=== PATIENT | female | born 1945 | race African-American/Black ===

== ENCOUNTER 2017-06-10 15:22 | Inpatient (IN) | payer OTHER ==
--- NOTE | 2017-06-10 15:46 | PDOC ---
History of Present Illness - General Chief Complaint: Injury Stated Complaint: FALL Time Seen by Provider: 06/10/17 15:45 - History of Present Illness Initial Comments: 71 year old female with history of Alzheimer's presenting with right hip pain after fall. 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 Her daughter states that she fell outside while walking when she became acutely unstable (appears to be mechanical as the patient was complaining of some right back pain and became hunched over). The patient then slowly fell to her right side and could not stand after that. The patient admitted to soiling herself during the fall. No tonic-clonic movements, syncope, or head trauma. Denies any fevers, chills, nausea, vomiting, or sick symptoms. 06/10/17 16:06 Past History - Past Medical History Allergies/Adverse Reactions: Allergies Allergy/AdvReac Type Severity Reaction Status Date / Time No Known Allergies Allergy Verified 04/08/13 20:24 Home Medications: Ambulatory Orders Unobtainable [Unobtainable] 06/10/17 Anemia: No - Suicide/Smoking/Psychosocial Hx Smoking Status: No Smoking History: Never smoked Number of Cigarettes Smoked Daily: 0 Review of Systems - Review of Systems Constitutional: No: Chills, Diaphoresis, Fever HEENTM: No: Blurred Vision, Tearing, Recent change in vision Respiratory: No: Cough, Shortness of Breath Cardiac (ROS): No: Chest Pain ABD/GI: No: Constipated, Diarrhea, Nausea, Vomiting : No: Burning, Dysuria, Discharge Musculoskeletal: Yes: Back Pain Integumentary: No: Bruising, Change in Color Neurological: No: Headache, Paresthesia *Physical Exam - Physical Exam General Appearance: Yes: Nourished, Appropriately Dressed, Apparent Distress HEENT: positive: EOMI, KOBE, Normal ENT Inspection, Normal Voice Neck: positive: Trachea midline, Normal Thyroid, Supple. negative: Tender, Rigid Respiratory/Chest: positive: Lungs Clear, Normal Breath Sounds. negative: Chest Tender, Respiratory Distress, Accessory Muscle Use Cardiovascular: positive: Regular Rhythm, Regular Rate, S1, S2. negative: Edema , JVD, Murmur Gastrointestinal/Abdominal: positive: Normal Bowel Sounds, Flat, Soft. negative : Tender Musculoskeletal: positive: Other (Right hip externall rotated and shortened. Also tender at right knee. UNable to range actively or passively 2/2 to pain. Left leg almost full ROM.). negative: Normal Inspection Extremity: positive: Normal Inspection. negative: Normal Range of Motion Integumentary: positive: Normal Color, Dry, Warm Neurologic: positive: washery engineer II-XII NML intact, Alert, Normal Mood/Affect, Confused (Per baseline. AO x 0). negative: Fully Oriented, Normal Response ED Treatment Course - LABORATORY CBC & Chemistry Diagram: 06/10/17 16:43 06/10/17 16:43 Medical Decision Making - Medical Decision Making 71 year odl female who is alert but very disoriented at her baseline per her daughter with a shortened and externally rotated right hip after a fall concerning for right hip fracture. Unclear as to why she was unstable and fell but will look for underlying infection and will get a head CT for intracranial hemorrhage. 06/10/17 16:37 X ray showing hip fracture. WBC 18 with let shift but no urinary or pulmonary source. Will admit patient to tele under Shelly with Christopher bnoth spoken with and onboard for potential surgery tomorrow AM. 06/10/17 20:02 06/10/17 20:34 *DC/Admit/Observation/Transfer Diagnosis at time of Disposition: Closed right hip fracture - Discharge Dispostion Admit: Yes
[2017-06-10] MEDS ORDERED: morphine CARPU-JECT 2 MG/1 ML DISP.SYRIN IVPUSH ONE ×2 (16:44→23:11)
[2017-06-10 17:01] LABS: BASOPHIL 0.3 % (0-2.0); EOSINOPHIL 0.1 % (0-4.5); MCH 26.4 pg (25.7-33.7); MEAN CELL VOLUME 82.6 fl (80-96); MEAN PLT VOLUME 9.4 fl (7.5-11.1); NEUTROPHILS 86.1 % (42.8-82.8); PLATELET COUNT 297 K/MM3 (134-434); RDW 14.9 % (11.6-15.6); WHITE BLOOD COUNT 18.4 K/mm3 (4.0-10.0)
[2017-06-10] MEDS ORDERED: morphine CARPU-JECT 2 MG/1 ML DISP.SYRIN ONE ×2 (17:10→23:27)
[2017-06-10] MEDS ORDERED: SODIUM CHLORIDE 1,000 ML IV SCH (17:45)
[2017-06-10 17:46] VITALS: BMI 29.2
[2017-06-10 17:49] LABS: ALBUMIN 3.6 g/dl (3.4-5.0); ALK PHOS 61 U/L (45-117); ANION GAP 7 (8-16); BILIRUBIN,TOTAL 0.2 mg/dL (0.2-1.0); CALCIUM 9.3 mg/dL (8.5-10.1); CO2 26 mmol/L (21-32); GLUCOSE,RANDOM 120 mg/dL (74-106); MAGNESIUM 2.3 mg/dL (1.8-2.4); PHOSPHOROUS 1.8 mg/dL (2.5-4.9); SGOT/AST 15 U/L (15-37); SGPT/ALT 19 U/L (12-78); TOT PROT 7.2 g/dl (6.4-8.2)
[2017-06-10 17:49] LABS: URINE APPEARANCE SLCLOUDY; URINE BILIRUBIN NEGATIVE (NEGATIVE); URINE BLOOD NEGATIVE (NEGATIVE); URINE COLOR DKYELLOW; URINE GLUCOSE (UA) NEGATIVE (NEGATIVE); URINE KETONE TRACE (NEGATIVE); URINE LEUK ESTERASE NEGATIVE (NEGATIVE); URINE NITRITE NEGATIVE (NEGATIVE); URINE UROBILINOGEN NEGATIVE mg/dL (0.2-1.0)
[2017-06-10 17:51] LABS: URINE PROTEIN 2+ (NEGATIVE)
[2017-06-10 17:54] LABS: URINE HYALINE CAST 4 /lpf; URINE MUCUS MANY; URINE RBC 7 /hpf (0-3); URINE WBC 4 /hpf (3-5)
[2017-06-10 18:04] LABS: INR 1.01 (0.82-1.09); PROTHROMBIN TIME (PATIENT) 11.1 SEC (9.98-11.88)
--- NOTE | 2017-06-10 22:59 | PDOC ---
Attending Attestation - Resident Resident Name: FredaLevicarlosvijaya - ED Attending Attestation I have performed the following: I have examined & evaluated the patient, The case was reviewed & discussed with the resident, I agree w/resident's findings & plan, Exceptions are as noted - HPI HPI: 06/10/17 22:56 71-year-old female with history of Alzheimer's disease presents to the ER with atraumatic deformity to the right hip status post fall. - Physicial Exam PE: 06/10/17 22:57 Patient is awake and alert, in mild to moderate distress; nc, atr perrla, eomi cta rrr pelvis: stable Right lower extremity is shortened and externally rotated with pain on log roll and attempted internal rotation; neurovascularly intact distally, gait-deferred. - Medical Decision Making 06/10/17 22:58 Patient is a 71-year-old female with history of Alzheimer's disease who presents to the ER with traumatic deformity of the right lower extremity. CT of head shows no evidence of acute intracranial pathology. Hip and pelvic x-rays reveal angulated surgical neck fracture of the right femur. Orthostatic has been consulted. Will Pl., Fofana catheter. Will hydrate. Will admit.
[2017-06-10] MEDS ORDERED: DEXTROSE 5%-0.45% SALINE 1,000 ML IV SCH (23:15)
[2017-06-11] MEDS ORDERED: ACETAMINOPHEN 325 MG TABLET (FP) PO PRN (06:37)
[2017-06-11] MEDS ORDERED: ONDANSETRON 4 MG/2 ML VIAL IVPUSH PRN ×3 (06:37→18:30)
[2017-06-11] MEDS ORDERED: DEXTROSE 5%-NORMAL SALINE 1,000 ML IV SCH ×2 (06:45→18:30)
[2017-06-11 07:35] LABS: MCH 26.2 pg (25.7-33.7); MEAN PLT VOLUME 9.2 fl (7.5-11.1); PLATELET COUNT 244 K/MM3 (134-434); RDW 14.5 % (11.6-15.6); WHITE BLOOD COUNT 13.8 K/mm3 (4.0-10.0)
[2017-06-11 08:02] LABS: ALBUMIN 3.1 g/dl (3.4-5.0); ANION GAP 7 (8-16); CALCIUM 8.4 mg/dL (8.5-10.1); CO2 24 mmol/L (21-32); CREATININE 0.8 mg/dL (0.55-1.02); GLUCOSE,RANDOM 121 mg/dL (74-106); SGOT/AST 18 U/L (15-37); SGPT/ALT 18 U/L (12-78)
[2017-06-11 08:05] LABS: ALK PHOS 59 U/L (45-117); BILIRUBIN,TOTAL 0.6 mg/dL (0.2-1.0); TOT PROT 6.5 g/dl (6.4-8.2)
[2017-06-11] MEDS ORDERED: morphine CARPU-JECT 2 MG/1 ML DISP.SYRIN ONE ×2 (08:21→13:02)
[2017-06-11] MEDS: morphine CARPU-JECT 2 MG/1 ML DISP.SYRIN IVPUSH PRN ×2 (08:24→13:17)
--- NOTE | 2017-06-11 09:44 | PN ---
Progress Note (short form) - Note Progress Note: Pt seen and examined in ER. She is 1 day s/p fall, cannot ambulate bc of right hip pain. She denies any significant PMH, not on any anticoagulants. AVSS PE RLE is NVI Decreased ROM entire RLE bc of pain + pain with log rolling RLE in hip Xrays Show a displaced right femoral neck fracture Imp As above. Rec Pt needs surgery, right hip hemiarthroplasty All questions, concerns, risks, potential complications, alternatives, benefits d/w pt Need medical clearance NPO
[2017-06-11] MEDS ORDERED: HEPARIN NA (PORCINE) 5,000 UNITS/ML 1ML VIAL SQ SCH (10:00)
--- NOTE | 2017-06-11 10:17 | HP ---
Admitting History and Physical - Primary Care Physician PCP: Austin Bravo - Admission Chief Complaint: HIP FRACTURE History of Present Illness: 71 year old female with history of Alzheimer's presenting with right hip pain after fall. 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 Her daughter states that she fell outside while walking when she became acutely unstable (appears to be mechanical as the patient was complaining of some right back pain and became hunched over). The patient then slowly fell to her right side and could not stand after that. The patient admitted to soiling herself during the fall. No tonic-clonic movements, syncope, or head trauma. Denies any fevers, chills, nausea, vomiting, or sick symptoms. History Source: Medical Record Limitations to Obtaining History: Dementia, Poor Historian - Past Medical History FISHER LAMPARA NET: Yes: Alzheimer's, Dementia - Smoking History Smoking history: Never smoked Have you smoked in the past 12 months: No Aproximately how many cigarettes per day: 0 If you are a former smoker, when did you quit?: UNK - HX DEMENTIA - Alcohol/Substance Use Hx Alcohol Use: No Home Medications - Allergies Allergies/Adverse Reactions: Allergies Allergy/AdvReac Type Severity Reaction Status Date / Time No Known Allergies Allergy Verified 06/10/17 23:24 - Home Medications Home Medications: Ambulatory Orders Donepezil HCl [Aricept -] 10 mg PO DAILY 06/10/17 Escitalopram Oxalate [Lexapro -] 10 mg PO DAILY 06/10/17 Review of Systems - Review of Systems Constitutional: reports: Weakness Eyes: reports: No Symptoms HENT: reports: No Symptoms Neck: reports: No Symptoms Cardiovascular: reports: No Symptoms Respiratory: reports: No Symptoms Genitourinary: reports: No Symptoms Musculoskeletal: reports: Joint Pain, Muscle Weakness Integumentary: reports: No Symptoms Neurological: reports: Confusion, Pre-Existing Deficit Endocrine: reports: No Symptoms Hematology/Lymphatic: reports: No Symptoms Psychiatric: reports: Other Physical Examination Vital Signs: Vital Signs Temperature 99.2 F 06/10/17 17:51 Pulse Rate 66 06/11/17 02:20 Respiratory Rate 18 06/11/17 02:20 Blood Pressure 116/67 06/11/17 02:20 O2 Sat by Pulse Oximetry (%) 97 06/11/17 02:20 Findings/Remarks: FAMILY BEDSIDE AWAKE , CONFUSED Constitutional: Yes: Mild Distress Eyes: Yes: WNL HENT: Yes: WNL Neck: Yes: WNL Cardiovascular: Yes: WNL Respiratory: Yes: WNL Gastrointestinal: Yes: WNL Renal/: Yes: WNL Musculoskeletal: Yes: Back Pain, Joint Stiffness, Joint Swelling, Muscle Pain, Muscle Weakness Extremities: Yes: Other Edema: No Peripheral Pulses WNL: Yes Integumentary: Yes: WNL Wound/Incision: Yes: Clean/Dry Neurological: Yes: Confusion, Pre-Existing Deficit ...Motor Strength: LLE, RLE Psychiatric: Yes: Other Labs: CBC, BMP 06/11/17 07:20 06/11/17 07:20 Imaging - Results X-ray: Report Reviewed Problem List - Problems (1) Closed right hip fracture Code(s): S72.001A - FRACTURE OF UNSP PART OF NECK OF RIGHT FEMUR, INIT Qualifiers: Encounter type: initial encounter Qualified Code(s): S72.001A - Fracture of unspecified part of neck of right femur, initial encounter for closed fracture (2) Dementia Code(s): F03.90 - UNSPECIFIED DEMENTIA WITHOUT BEHAVIORAL DISTURBANCE Qualifiers: Dementia type: Alzheimer's disease Alzheimer's disease onset: unspecified onset Dementia behavioral disturbance: without behavioral disturbance Qualified Code(s): G30.9 - Alzheimer's disease, unspecified; F02.80 - Dementia in other diseases classified elsewhere without behavioral disturbance Assessment/Plan ECHO AND EKG FOR CARDIAC CLEARANCE PENDING ECHO PATIENT MEDICALLY CLEARED SCHEDULED FOR SURGICAL REPAIR TODAY AT 3PM WITH DR MCDERMOTT DVT PROPHYLAXIS CARDIOLOGY EVAL
--- NOTE | 2017-06-11 12:35 | CON.CARD ---
Consult Consult Specialty:: cardiology Referred by:: Shelly Reason for Consultation:: Preoperative evaluation - History of Present Illness Chief Complaint: Status post fall resulting in right femur fracture History of Present Illness: The patient is a 71-year-old female with Alzheimer's dementia, now presenting after a fall, sustaining a right femur fracture. The patient will likely require surgery. As per the patient's aide she was walking with the patient, when she suddenly lost her balance, tripped and fell. The patient is currently comfortable. Denies chest pains, shortness of breath, palpitations. She is alert and follow commands. - History Source History Provided By: Medical Record, Caregiver Limitations to Obtaining History: Dementia - Past Medical History FOLLOW UP REP: Yes: Alzheimer's, Dementia - Alcohol/Substance Use Hx Alcohol Use: No - Smoking History Smoking history: Never smoked Have you smoked in the past 12 months: No Aproximately how many cigarettes per day: 0 If you are a former smoker, when did you quit?: UNK - HX DEMENTIA Home Medications - Allergies Allergies/Adverse Reactions: Allergies Allergy/AdvReac Type Severity Reaction Status Date / Time No Known Allergies Allergy Verified 06/10/17 23:24 - Home Medications Home Medications: Ambulatory Orders Donepezil HCl [Aricept -] 10 mg PO DAILY 06/10/17 Escitalopram Oxalate [Lexapro -] 10 mg PO DAILY 06/10/17 Review of Systems - Review of Systems Constitutional: reports: No Symptoms Eyes: reports: No Symptoms HENT: reports: No Symptoms Neck: reports: No Symptoms Cardiovascular: reports: No Symptoms Respiratory: reports: No Symptoms Gastrointestinal: reports: No Symptoms Genitourinary: reports: No Symptoms Breasts: reports: No Symptoms Reported Musculoskeletal: reports: Extremity Pain Integumentary: reports: No Symptoms Neurological: reports: No Symptoms Endocrine: reports: No Symptoms Hematology/Lymphatic: reports: No Symptoms Psychiatric: reports: No Symptoms Vital Signs: Vital Signs Temperature 99.2 F 06/10/17 17:51 Pulse Rate 66 06/11/17 02:20 Respiratory Rate 18 06/11/17 02:20 Blood Pressure 116/67 06/11/17 02:20 O2 Sat by Pulse Oximetry (%) 97 06/11/17 02:20 Constitutional: Yes: Well Nourished, No Distress, Calm Eyes: Yes: WNL HENT: Yes: WNL Neck: Yes: WNL, Supple Respiratory: Yes: WNL, Regular, CTA Bilaterally Gastrointestinal: Yes: WNL, Normal Bowel Sounds, Soft Renal/: Yes: WNL Cardiovascular: Yes: WNL, Regular Rate and Rhythm JVD: No Carotid Bruit: No PMI: Non-Displaced Heart Sounds: Yes: S1, S2 Murmur: Yes: Systolic Murmur, Grade 2 Musculoskeletal: Yes: Other (Righgt Hip pain) Extremities: Yes: WNL Edema: No Peripheral Pulses WNL: Yes Integumentary: Yes: WNL Neurological: Yes: WNL ...Motor Strength: WNL Psychiatric: Yes: WNL - Other Data Labs, Other Data: CBC, BMP 06/11/17 07:20 06/11/17 07:20 INR, PTT INR 1.01 (0.82-1.09) 06/10/17 16:43 Assessment/Plan 71-year-old female with Alzheimer's dementia, presenting with what appears to be a mechanical fall, sustaining right femur fracture. Will likely need surgery. The patient is comfortable and symptom free. Denies chest pains and shortness of breath. The echocardiogram showed normal biventricular systolic function. No other clinically important findings noted on the echo. The patient is in sinus rhythm. There is no need for further cardiac workup at this point. The patient is medically optimized for orthopedic surgery, if deemed necessary. Please achieve good pain control perioperatively. Keep hemoglobin around 10.0, as possible. Please proceed with surgery as planned. Do not hesitate to call us PRN.
--- NOTE | 2017-06-11 14:37 | EKG ---
Test Reason : Blood Pressure : / mmHG Vent. Rate : 066 BPM Atrial Rate : 066 BPM P-R Int : 166 ms QRS Dur : 072 ms QT Int : 402 ms P-R-T Axes : 071 065 042 degrees QTc Int : 421 ms POOR DATA QUALITY, INTERPRETATION MAY BE ADVERSELY AFFECTED NORMAL SINUS RHYTHM NORMAL ECG WHEN COMPARED WITH ECG OF 08-APR-2013 23:26, NO SIGNIFICANT CHANGE WAS FOUND Confirmed by RADHA MELGOZA, JON ([id number]) on 06/11/2017 2:36:50 PM Referred By: Confirmed By:JON GARCIA MD
[2017-06-11] MEDS ORDERED: ceFAZolin SODIUM 1 GM VIAL ONE ×3 (14:38→22:52)
[2017-06-11] MEDS ORDERED: LACTATED RINGERS SOLUTION 1,000 ML IV SCH ×2 (15:00→18:30)
[2017-06-11] MEDS ORDERED: ROPIVACAINE HCL 0.5% 30ML VIAL ONE (15:15)
[2017-06-11] MEDS ORDERED: MIDAZOLAM HCL 2 MG/2 ML SINGLE DOSE VIAL ONE ×2 (15:18)
[2017-06-11] MEDS ORDERED: ceFAZolin SODIUM 1 GM VIAL IVPB ONE (16:20)
[2017-06-11] MEDS ORDERED: ePHEDrine SULFATE 50 MG/1 ML AMPULE ONE (16:51)
--- NOTE | 2017-06-11 17:34 | OP ---
Operative Note - Note: Operative Date: 06/11/17 Pre-Operative Diagnosis: right hip femoral neck fracture Operation: right hip hemiarthroplasty Implants: Mae Hip Hemiarthroplasty, Stem #4, Standard neck, 42mm head Surgeon: Pk Antony Clinical Team Lead: Luis Armando Steve Anesthesiologist/RIG SUPERVISOR: Andreas Dumont Anesthesia: Spinal, MAC Specimens Removed: femoral head Estimated Blood Loss (mls): 75 Drains, Volume Out (mls): 0 Blood Volume Replaced (mls): 0 Fluid Volume Replaced (mls): 700 Operative Report Dictated: Yes
[2017-06-11] MEDS ORDERED: oxyCODONE HCL 5 MG TABLET PO PRN (17:47)
[2017-06-11] MEDS ORDERED: DEXTROSE 5%-WATER - 50 ML IVPB ONE (22:52)
[2017-06-11] MEDS: CEFAZOLIN 1 GM in DEXTROSE 5%-WATER - 50 ML IVPB SCH (22:58)
[2017-06-11] MEDS ORDERED: CEFAZOLIN 1 GM/D5W 50 ML IVPB SCH (23:00)
[2017-06-12] MEDS ORDERED: DEXTROSE 5%-WATER - 50 ML IVPB ONE (06:44)
[2017-06-12] MEDS ORDERED: ceFAZolin SODIUM 1 GM VIAL ONE (06:44)
[2017-06-12] MEDS: CEFAZOLIN 1 GM in DEXTROSE 5%-WATER - 50 ML IVPB SCH (06:47)
[2017-06-12 07:28] LABS: MCH 26.6 pg (25.7-33.7); MCHC 32.7 g/dl (32.0-36.0); MEAN CELL VOLUME 81.4 fl (80-96); MEAN PLT VOLUME 9.2 fl (7.5-11.1); PLATELET COUNT 201 K/MM3 (134-434); RDW 14.3 % (11.6-15.6); WHITE BLOOD COUNT 10.1 K/mm3 (4.0-10.0)
--- NOTE | 2017-06-12 08:02 | SPEC ---
DATE OF OPERATION: 06/11/2017 PREOPERATIVE DIAGNOSIS: Right hip femoral neck fracture. POSTOPERATIVE DIAGNOSIS: Right hip femoral neck fracture. PROCEDURE: Right hip hemiarthroplasty. SURGEON: Pk Antony MD ACCREDITATION COORDINATOR: CHEL Vargas ANESTHESIOLOGIST: Andreas Dumont MD ANESTHESIA: Spinal anesthesia, block, sedation. DRAINS: None. COMPLICATIONS: None. FLUID REPLACEMENT: 700 mL. BLOOD LOSS: 75 mL. BLOOD GIVEN: None. SPECIMEN: Femoral head. IMPLANTS: [place] hip hemiarthroplasty number 4 stem, 42-mm head, standard neck. This patient is a 71-year-old female with a preoperative diagnosis of right hip displaced femoral neck fracture. After understanding the potential risks, complications, alternatives, and benefits of surgical versus nonsurgical treatment, the patient elected to undergo this procedure. Patient was brought to the operating room. Peripheral IV placed. IV sedation given. Ancef 1 g IV was given. Spinal anesthesia and a regional block were performed. The patient was placed into the fracture hip hemiarthroplasty table in the left lateral decubitus position with the right hip up towards the ceiling. Right lower extremity is prepped and draped in sterile fashion and standard posterolateral approach marked out with marking pen. The incision was made with a number 10 scalpel blade. Subcutaneous hemostasis was achieved with a Bovie cautery. Dissection then down through the adipose layers to the lateral fascia. This was incised longitudinally with the Bovie, and the Charnley retractor was placed into the wound. We then put the right leg into position of internal rotation which put tension on the short external rotators. The short external rotators and the posterior capsule were incised with a Bovie cautery. We were then able to dislocate the hip, bringing the broken femoral neck out through the wound. We put on the [place] Accolade femoral neck cutting guide using the Bovie to frandy our line and used the oscillating saw to cut the appropriate level. This level was at the level of the lesser trochanter where the fracture line extended to. This piece of bone was removed, and this exposed the femoral head. We were unable to get access to the head, it was so tight, and therefore a T-capsulotomy was made with the Bovie for later repair. This allowed us to gain access to the femoral head. The corkscrew was placed into the femoral head with the mallet and it was taken out. It would be a 42-mm head. The area was copiously irrigated and washed out, some small bone fragments removed. The left in place on purpose resection. Next, the femoral neck was exposed with the [id number] retractor and the Edilia retractor and first using a box stacker the hand reamers and the hand broaches, we put a size 6 femoral broach, it seemed to fit quite well, and there was no rotational instability. The calcar reamer was then placed over the broach, and a standard neck with a 42-mm head was placed. The hip was reduced; it had excellent suction, stability, leg length, and overall was quite happy with it in all planes. There was no instability, it was difficult to dislocate. We then were able to dislocate it, take out the trial prosthesis, irrigate the canal, and put in the real Mae accolade number 6 cementless Press-Fit femoral stem. I was able to Press-Fit it with a mallet down to the appropriate depth, this on the standard neck, and a 42 bipolar head was hit on with the mallet over the Hendrickson taper, it was held in place. I tried to pull off, I could not. I reduced it; it had excellent reduction, stability in all planes. Leg length again was checked and seemed to be excellent. The area was irrigated and washed out. The capsule was then closed with number 1 Tycron suture. The fascia was then closed with number 1 Tycron suture. Deep adipose layer also closed with number 1 Tycron, 2-0 Vicryl suture used to close the deep dermal layer, and final skin reapproximation was done with a running subcuticular 3-0 V-Loc suture. The area was then washed and dried and covered with Dermabond skin glue and Aquacel dressing. Total operative time was 50 minutes. Fluid replacement was 1000 mL Plasma-Lyte. Blood loss was 75 mL. The patient was completely stable throughout the case. The patient was brought down out of the lateral decubitus position into the supine position and transferred to a stretcher. X-rays were taken. The patient was brought to the recovery room in stable condition. The patient was completely stable throughout the case. There was minimal blood loss. There were no complications during the case. The patient tolerated the procedure well. Michaela [id number] MTDD
[2017-06-12 08:17] LABS: ALBUMIN 2.6 g/dl (3.4-5.0); ANION GAP 11 (8-16); CALCIUM 7.9 mg/dL (8.5-10.1); CO2 24 mmol/L (21-32); GLUCOSE,RANDOM 185 mg/dL (74-106)
[2017-06-12 08:20] LABS: ALK PHOS 55 U/L (45-117); BILIRUBIN,TOTAL 0.6 mg/dL (0.2-1.0); CREATININE 0.8 mg/dL (0.55-1.02); SGOT/AST 21 U/L (15-37); SGPT/ALT 16 U/L (12-78); TOT PROT 5.4 g/dl (6.4-8.2)
[2017-06-12] MEDS: morphine CARPU-JECT 2 MG/1 ML DISP.SYRIN IVPUSH PRN ×2 (08:23→14:24)
[2017-06-12] MEDS: ENOXAPARIN NA (PORCINE) 40 MG/0.4 ML DISP.SYRIN SQ SCH (09:16)
[2017-06-12] MEDS ORDERED: ENOXAPARIN NA (PORCINE) 40 MG/0.4 ML DISP.SYRIN SQ SCH (10:00)
--- NOTE | 2017-06-12 10:05 | PN ---
Progress Note (short form) - Note Progress Note: Ortho Pt seen and examined s/p right hip spenser pod #1 Selected Entries 06/12/17 08:29 Temperature 98.4 F Pulse Rate 74 Respiratory 18 Rate Blood Pressure 102/71 Laboratory Tests 06/12/17 05:35 WBC 10.1 H Hgb 9.8 L Hct 29.8 L Plt Count 201 dressing c/d/i, calf soft, nt nvi a/p PT hip precautions dvt ppx pain control d/c planning
--- NOTE | 2017-06-12 14:21 | PN ---
Progress Note, Physician Chief Complaint: ASLEEP COMFORTABLE REPORTS REVIEWED - Current Medication List Current Medications: Active Medications Acetaminophen (Tylenol -) 650 mg PO Q6H PRN PRN Reason: FEVER OR PAIN Enoxaparin Sodium (Lovenox -) 40 mg SQ DAILY ROB Last Admin: 06/12/17 09:16 Dose: 40 mg Fentanyl (Sublimaze Injection -) 25 mcg IVPUSH [id number] PRN PRN Reason: PAIN Stop: 06/14/17 17:51 Dextrose/Sodium Chloride (D5-Ns -) 1,000 mls @ 75 mls/hr IV ASDIR ROB Last Admin: 06/11/17 20:15 Dose: 0 mls Lactated Ringer's (Lactated Ringers Solution) 1,000 mls @ 75 mls/hr IV ASDIR ROB Morphine Sulfate (Morphine Injection -) 2 mg IVPUSH Q4H PRN PRN Reason: PAIN Last Admin: 06/12/17 08:23 Dose: 2 mg Ondansetron HCl (Zofran Injection) 4 mg IVPUSH Q6H PRN PRN Reason: NAUSEA AND/OR VOMITING Oxycodone HCl (Roxicodone -) 5 mg PO Q4H PRN PRN Reason: MILD PAIN Stop: 06/12/17 17:46 - Objective Vital Signs: Vital Signs Temperature 98.5 F 06/12/17 10:00 Pulse Rate 72 06/12/17 10:00 Respiratory Rate 20 06/12/17 10:00 Blood Pressure 110/75 06/12/17 10:00 O2 Sat by Pulse Oximetry (%) 99 06/12/17 10:00 Constitutional: Yes: No Distress Eyes: Yes: WNL HENT: Yes: WNL Neck: Yes: WNL Cardiovascular: Yes: WNL Respiratory: Yes: WNL Gastrointestinal: Yes: WNL Musculoskeletal: Yes: Muscle Pain Extremities: Yes: Other Edema: No Integumentary: Yes: WNL Wound/Incision: Yes: Dressing Dry and Intact Neurological: Yes: Confusion, Pre-Existing Deficit ...Motor Strength: RLE Psychiatric: Yes: Other Labs: CBC, BMP 06/12/17 05:35 06/12/17 05:35 INR, PTT INR 1.01 (0.82-1.09) 06/10/17 16:43 Problem List - Problems (1) Closed right hip fracture Code(s): S72.001A - FRACTURE OF UNSP PART OF NECK OF RIGHT FEMUR, INIT Qualifiers: Encounter type: initial encounter Qualified Code(s): S72.001A - Fracture of unspecified part of neck of right femur, initial encounter for closed fracture (2) Dementia Code(s): F03.90 - UNSPECIFIED DEMENTIA WITHOUT BEHAVIORAL DISTURBANCE Qualifiers: Dementia type: Alzheimer's disease Alzheimer's disease onset: unspecified onset Dementia behavioral disturbance: without behavioral disturbance Qualified Code(s): G30.9 - Alzheimer's disease, unspecified; F02.80 - Dementia in other diseases classified elsewhere without behavioral disturbance Assessment/Plan POST OP DAY #1 OOB TO CHAIR WITH PT DVT PROPHYLAXIS [facility] FOR SNF THURSDAY
--- NOTE | 2017-06-12 15:27 | PN ---
Progress Note (short form) - Note Progress Note: Anesthesia POD#1 S/P Hemiarthroplasty of Right hip under Spinal anesthesia VSS,no pain or N/V. food is advanced. Alis Flor MD
[2017-06-12] MEDS: ACETAMINOPHEN 325 MG TABLET (FP) PO PRN (16:42)
[2017-06-13] MEDS: ACETAMINOPHEN 325 MG TABLET (FP) PO PRN ×2 (01:28→17:02)
[2017-06-13 08:02] LABS: MCH 26.4 pg (25.7-33.7); MCHC 32.2 g/dl (32.0-36.0); MEAN CELL VOLUME 82.1 fl (80-96); MEAN PLT VOLUME 9.3 fl (7.5-11.1); PLATELET COUNT 196 K/MM3 (134-434); RDW 14.4 % (11.6-15.6); WHITE BLOOD COUNT 12.4 K/mm3 (4.0-10.0)
[2017-06-13 08:55] LABS: ANION GAP 8 (8-16); CO2 27 mmol/L (21-32); CREATININE 0.7 mg/dL (0.55-1.02); GLUCOSE,RANDOM 92 mg/dL (74-106)
[2017-06-13] MEDS: ENOXAPARIN NA (PORCINE) 40 MG/0.4 ML DISP.SYRIN SQ SCH (09:10)
--- NOTE | 2017-06-13 09:35 | PN ---
Progress Note (short form) - Note Progress Note: ID Consult dictated POD # 2 R hip hemiarthroplasty Low grade fever/ leukocytosis Will obtain cultures CXR Incentive spirometry Observe off antibiotics
--- NOTE | 2017-06-13 10:10 | CONS ---
INFECTIOUS DISEASE CONSULTATION DATE OF CONSULTATION: DATE OF DICTATION: 06/13/2017 HISTORY OF PRESENT ILLNESS: The patient is a 71-year-old female with a history of dementia, evaluated for postoperative fever. She was admitted to the hospital on June 10, 2017, with right hip pain after falling. She was found to have a right hip fracture. Patient underwent a right hip hemiarthroplasty on June 11, 2017. Her hospital course has been complicated by low-grade fever. Patient had an elevated white blood cell count of 18,000 on admission, which has since come down to 12.4. She is awake. However, she is confused. She offers no complaints. She cannot give a reliable history. No reports of high-grade fever, shaking chills, labored breathing, cough, sputum production, vomiting, diarrhea, grossly purulent urine, or infected decubitus ulcers. PAST MEDICAL HISTORY: Positive for dementia. ALLERGIES: No known allergies. MEDICATIONS: Aricept, Lexapro. SOCIAL HISTORY: She resides at home. She is a nonsmoker, nondrinker. SYSTEMS REVIEW: Neurologic: Positive for dementia. No loss of consciousness, seizure activity, or focal weakness. Cardiac: Negative for chest pain or palpitations. Respiratory: Negative for cough or sputum production. Gastrointestinal: Negative vomiting or diarrhea. Genitourinary: Negative for urinary tract infection. LABORATORY DATA: White count 12.4, hematocrit 30.5, platelet count 196. BUN 11, creatinine 0.7. Urinalysis: White cells 4. Liver enzymes normal. Urine culture negative. Chest x-ray on admission negative for acute infiltrate. PHYSICAL EXAMINATION: General: She is awake. She is pleasantly confused, in no acute distress. She is not acutely toxic appearing. Vital Signs: Temperature 96.7, T-max 100.5; blood pressure 123/68; pulse 81, regular; respirations 20 per minute. HEENT: Sclerae are anicteric. Heart: Sounds S1, S2. No murmur. Lungs: Clear. Poor inspiratory effort. Abdomen: Soft. No tenderness elicited. No mass, rebound, or rigidity. Extremities: Edema 1+. The surgical wound appears to be intact with no evidence of infection. IMPRESSION: 1. Postoperative day number 2 right hip hemiarthroplasty. 2. Low-grade fever/leukocytosis. No clear source for low-grade fever and leukocytosis. We will obtain cultures and chest x-ray. Observe off antibiotic therapy. Incentive spirometry. Out of bed to chair. We will follow. Thank you for the kind referral. EPI IBRAHIM M.D. [id number]
--- NOTE | 2017-06-13 11:35 | PN ---
Progress Note, Physician - Current Medication List Current Medications: Active Medications Acetaminophen (Tylenol -) 650 mg PO Q6H PRN PRN Reason: FEVER OR PAIN Last Admin: 06/13/17 01:28 Dose: 650 mg Enoxaparin Sodium (Lovenox -) 40 mg SQ DAILY ROB Last Admin: 06/13/17 09:10 Dose: 40 mg Fentanyl (Sublimaze Injection -) 25 mcg IVPUSH [id number] PRN PRN Reason: PAIN Stop: 06/14/17 17:51 Morphine Sulfate (Morphine Injection -) 2 mg IVPUSH Q4H PRN PRN Reason: PAIN Last Admin: 06/12/17 14:24 Dose: 2 mg Ondansetron HCl (Zofran Injection) 4 mg IVPUSH Q6H PRN PRN Reason: NAUSEA AND/OR VOMITING - Objective Vital Signs: Vital Signs Temperature 98.7 F 06/13/17 06:00 Pulse Rate 81 06/13/17 06:00 Respiratory Rate 16 06/13/17 06:00 Blood Pressure 123/68 06/13/17 06:00 O2 Sat by Pulse Oximetry (%) 99 06/12/17 21:00 Labs: CBC, BMP 06/13/17 07:00 06/13/17 07:00 INR, PTT INR 1.01 (0.82-1.09) 06/10/17 16:43 Problem List - Problems (1) Closed right hip fracture Assessment/Plan: Operative Date: 06/11/17 Pre-Operative Diagnosis: right hip femoral neck fracture Operation: right hip hemiarthroplasty Implants: Mae Hip Hemiarthroplasty, Stem #4, Standard neck, 42mm head Surgeon: Pk Antony further plan per ortho DVT PROPHYLAXIS Code(s): S72.001A - FRACTURE OF UNSP PART OF NECK OF RIGHT FEMUR, INIT Qualifiers: Encounter type: initial encounter Qualified Code(s): S72.001A - Fracture of unspecified part of neck of right femur, initial encounter for closed fracture (2) Fever Assessment/Plan: ID CONSULT CULTURES Code(s): R50.9 - FEVER, UNSPECIFIED
[2017-06-13] MEDS: morphine CARPU-JECT 2 MG/1 ML DISP.SYRIN IVPUSH PRN (14:31)
[2017-06-14] MEDS: ENOXAPARIN NA (PORCINE) 40 MG/0.4 ML DISP.SYRIN SQ SCH (09:50)
--- NOTE | 2017-06-14 11:55 | PN ---
Progress Note, Physician - Current Medication List Current Medications: Active Medications Acetaminophen (Tylenol -) 650 mg PO Q6H PRN PRN Reason: FEVER OR PAIN Last Admin: 06/13/17 17:02 Dose: 650 mg Enoxaparin Sodium (Lovenox -) 40 mg SQ DAILY ROB Last Admin: 06/14/17 09:50 Dose: 40 mg Fentanyl (Sublimaze Injection -) 25 mcg IVPUSH [id number] PRN PRN Reason: PAIN Stop: 06/14/17 17:51 Morphine Sulfate (Morphine Injection -) 2 mg IVPUSH Q4H PRN PRN Reason: PAIN Last Admin: 06/13/17 14:31 Dose: 2 mg Ondansetron HCl (Zofran Injection) 4 mg IVPUSH Q6H PRN PRN Reason: NAUSEA AND/OR VOMITING - Objective Vital Signs: Vital Signs Temperature 98.7 F 06/14/17 09:00 Pulse Rate 84 06/14/17 09:00 Respiratory Rate 20 06/14/17 09:00 Blood Pressure 123/61 06/14/17 09:00 O2 Sat by Pulse Oximetry (%) 98 06/13/17 21:00 Cardiovascular: Yes: Regular Rate and Rhythm Respiratory: Yes: Regular, CTA Bilaterally Gastrointestinal: Yes: Normal Bowel Sounds, Soft Wound/Incision: Yes: Dressing Dry and Intact Labs: CBC, BMP 06/13/17 07:00 06/13/17 07:00 INR, PTT INR 1.01 (0.82-1.09) 06/10/17 16:43 Problem List - Problems (1) Closed right hip fracture Assessment/Plan: Operative Date: 06/11/17 Pre-Operative Diagnosis: right hip femoral neck fracture Operation: right hip hemiarthroplasty Implants: [place] Hip Hemiarthroplasty, Stem #4, Standard neck, 42mm head Surgeon: Pk Antony further plan per ortho DVT PROPHYLAXIS PHYSICAL THERAPY Code(s): S72.001A - FRACTURE OF UNSP PART OF NECK OF RIGHT FEMUR, INIT Qualifiers: Encounter type: initial encounter Qualified Code(s): S72.001A - Fracture of unspecified part of neck of right femur, initial encounter for closed fracture (2) Fever Assessment/Plan: ID CONSULT CULTURES Code(s): R50.9 - FEVER, UNSPECIFIED
--- NOTE | 2017-06-14 13:15 | PN ---
Progress Note, Physician History of Present Illness: Awake, alert Pleasantly confused Offers no complaints Temp 102 overnight WBC slightly elevated - Current Medication List Current Medications: Active Medications Acetaminophen (Tylenol -) 650 mg PO Q6H PRN PRN Reason: FEVER OR PAIN Last Admin: 06/13/17 17:02 Dose: 650 mg Enoxaparin Sodium (Lovenox -) 40 mg SQ DAILY ROB Last Admin: 06/14/17 09:50 Dose: 40 mg Fentanyl (Sublimaze Injection -) 25 mcg IVPUSH [id number] PRN PRN Reason: PAIN Stop: 06/14/17 17:51 Morphine Sulfate (Morphine Injection -) 2 mg IVPUSH Q4H PRN PRN Reason: PAIN Last Admin: 06/13/17 14:31 Dose: 2 mg Ondansetron HCl (Zofran Injection) 4 mg IVPUSH Q6H PRN PRN Reason: NAUSEA AND/OR VOMITING - Objective Vital Signs: Vital Signs Temperature 98.7 F 06/14/17 09:00 Pulse Rate 84 06/14/17 09:00 Respiratory Rate 20 06/14/17 09:00 Blood Pressure 123/61 06/14/17 09:00 O2 Sat by Pulse Oximetry (%) 98 06/13/17 21:00 Constitutional: Yes: No Distress Eyes: Yes: Conjunctiva Clear Cardiovascular: Yes: Regular Rate and Rhythm, S1, S2 Respiratory: Yes: CTA Bilaterally Gastrointestinal: Yes: Normal Bowel Sounds, Soft. No: Tenderness Extremities: Yes: Other (R hip wound no erythema) Labs: CBC, BMP 06/13/17 07:00 06/13/17 07:00 INR, PTT INR 1.01 (0.82-1.09) 06/10/17 16:43 Assessment/Plan POD #3 R hip hemiarthroplasty Fever Check blood c/s, CXR OOB, incentive spirometry Observe off antibiotics
--- NOTE | 2017-06-14 17:50 | PN ---
Progress Note (short form) - Note Progress Note: Pt seen and examined. She is s/p right Hip fx and Shimon. Overall doing well. A & O x3. Vanessa regular diet. Ambulating with P.T. AVSS WBC high, fluctuating, now 12.4 H/H a little low but stable 9.8/30.5 PE RLE looks good, mild drainage NVI Good ROM at the right hip, knee, ankle, foot, toes Min pain with weight bearing Imp Doing well Rec Con't P.T., WBAT, ambulation assistance Can DC/transfer from an ortho pov
--- NOTE | 2017-06-15 07:14 | DS ---
Physical Examination Vital Signs: Vital Signs Temperature 99.6 F 06/15/17 06:00 Pulse Rate 78 06/15/17 06:00 Respiratory Rate 16 06/15/17 06:00 Blood Pressure 130/71 06/15/17 06:00 O2 Sat by Pulse Oximetry (%) 97 06/14/17 21:00 Constitutional: Yes: Mild Distress Eyes: Yes: WNL HENT: Yes: WNL Neck: Yes: WNL Cardiovascular: Yes: WNL Respiratory: Yes: WNL Gastrointestinal: Yes: WNL Renal/: Yes: WNL Musculoskeletal: Yes: Muscle Pain, Muscle Weakness Extremities: Yes: WNL Edema: No Peripheral Pulses WNL: Yes Integumentary: Yes: WNL Wound/Incision: Yes: Dressing Dry and Intact Neurological: Yes: Confusion, Pre-Existing Deficit ...Motor Strength: RLE Psychiatric: Yes: Other (dementia) Labs: CBC, BMP 06/13/17 07:00 06/13/17 07:00 Discharge Summary Reason For Visit: CLOSED FRACTURE OF RIGHT HIP Current Active Problems Closed right hip fracture (Acute) Dementia (Acute) Fever (Acute) Procedures: Principal: right hip arthoplasty Other Procedures: labs Hospital Course: 71 y/o female with history of dementia, right hip fracture repair with hemiarthoplasty, post-op fevers, cultures engative, will need weekly labs, incentive spirometery, aggressive physical therapy Condition: Fair - Instructions Diet, Activity, Other Instructions: incentive spirometery aggressive physical therapy regular diet ensure tid prosource bid Disposition: LONG-TERM FACILITY - Home Medications Comprehensive Discharge Medication List: Ambulatory Orders Donepezil HCl [Aricept -] 10 mg PO DAILY 06/10/17 Escitalopram Oxalate [Lexapro -] 10 mg PO DAILY 06/10/17 Acetaminophen [Tylenol .Regular Strength -] 650 mg PO Q6H PRN #0 tablet Enoxaparin [Lovenox -] 40 mg SQ DAILY syr 06/15/17 prosource bid ensure tid
--- NOTE | 2017-06-15 09:13 | PN ---
Progress Note (short form) - Note Progress Note: Ortho Pt seen and examined s/p right hip spenser Selected Entries 06/15/17 06:00 Temperature 99.6 F Pulse Rate 78 Respiratory 16 Rate Blood Pressure 130/71 Laboratory Tests 06/13/17 07:00 WBC 12.4 H Hgb 9.8 L Hct 30.5 L Plt Count 196 incision c/d/i, calf soft, nt nvi a/p PT hip precautions dvt ppx pain control d/c planning
[2017-06-15] MEDS: ENOXAPARIN NA (PORCINE) 40 MG/0.4 ML DISP.SYRIN SQ SCH (11:35)
[2017-06-15] MEDS: ACETAMINOPHEN 325 MG TABLET (FP) PO PRN (11:58)
--- NOTE | 2017-06-15 14:15 | PATH ---
Surgical Pathology Report Patient Name: COLETTE RODRIGUEZ [facility]. Rec. #: [id number] /Age/Gender: 1945 (Age: 71) / F Account: [id number] Location: [address] [place] [address]/[facility] Taken: 06/11/2017 Received: 06/12/2017 Reported: 06/15/2017 Physicians: Pk Antony M.D. Specimen(s) Received RIGHT FEMORAL HEAD Clinical History Fracture of right hip Final Diagnosis BONE, RIGHT FEMORAL HEAD, REPLACEMENT: BONE WITH INTERSTITIAL HEMORRHAGE CONSISTENT WITH FRACTURE. Electronically Signed Cedric Rodriguez M.D. Gross Description Received in formalin, labeled "femoral head," is a 3.8 x 3.8 x 3.6 cm. femoral head with no femoral neck attached. The margin of resection is red-brown, jagged and hemorrhagic. No areas of eburnation are identified. The articular surface is kim-yellow and focally granular. The underlying trabecular bone is yellow, hard and focally hemorrhagic. Also received within the same container is a 3.5 x 3.0 x 1.7 cm aggregate of hemorrhagic bone fragments. Bathhouse Attendant sections are submitted in one cassette, following decalcification. 06/12/201706/12/2017
[2017-06-15 14:31] VITALS: BP 109/75; PULSE 78; TEMP 98.7
== END 2017-06-15 18:57 | DRG 470 ==
LOC: JER 15:22 → JERBED 20:10 → J4W 06-11 20:33 → J6S 06-12 17:02
PROVIDERS: ADMIT Family Medicine; ATTEND Family Medicine
PROC: 0SRR0JA Replacement of Right Hip Joint, Femoral Surface with Synthetic Substitute, Uncemented, Open Approach (ICD-10-PCS; principal; 2017-06-10)
DX: S72.091A Other fracture of head and neck of right femur, initial encounter for closed fracture (principal); R50.82 Postprocedural fever; G30.9 Alzheimer's disease, unspecified; F02.80 Dementia in other diseases classified elsewhere, unspecified severity, without behavioral disturbance, psychotic disturbance, mood disturbance, and anxiety; W19.XXXA Unspecified fall, initial encounter; Y93.89 Activity, other specified; Y92.9 Unspecified place or not applicable; Y99.8 Other external cause status
CPT/HCPCS: 36415; 70450-TC; 71010-TC; 72100-TC; 73502-TC-RT; 73523-TC; 80048; 80053; 81003; 81015; 83735; 84100; 85025; 85027; 85610; 86850; 86900; 86901; 87040; 87086; 88305-TC; 88311-TC; 93005; 93010; 93306-TC; 94760; 97116-GP; 97161-GP; 99285-25

== ENCOUNTER 2017-10-30 14:04 | Emergency (ER) | payer OTHER ==
[2017-10-30 14:17] VITALS: BMI 23.4
--- NOTE | 2017-10-30 14:26 | PDOC ---
History of Present Illness - History of Present Illness Initial Comments: 10/30/17 15:19 Patient is a 71F, with a PMHx of dementia, who was BIBA for increased lethargy. Patient lives at home with her son and has an aide M-F during the day. Her son takes care of her on nights and weekends. Her aide states that she has noticed for the past week that the patient has been increasingly lethargic and has a decreased appetite. Her son states that he has noticed the same. Aide states that the patient was like this after her surgery while she was off her medication. Patient is altered at baseline and is unable to ambulate/is bed bound. She is not independent with activities of daily living. And is normally incontinent according to her aide. She is however able to follow simple commands. Patients aide has noticed ulcerations on her left buttox and near her intergluteal cleft on which she has put ointment. Patient does not have any current complaints. PCP: Jason Trujillo Allergies: NKDA Medications: Donepezil HCL 10 mg PO daily Acetaminopehn 650mg PRN <Trudy Lowery - Last Filed: 10/30/17 17:08> - History of Present Illness Initial Comments: 10/30/17 17:17 Physical exam: Awake but confused, however responds appropriately to questioning , denies any pain or other complaint Afebrile, vital signs stable Head atraumatic. PERRLA, fundi benign, ENT clear except for dry mucous membranes Neck supple without bruit mass or nodes. No tenderness or deformity of the C- spine Chest clear to P&A, full breath sounds bilaterally, no wheezes rales or rhonchi No chest wall or rib cage tenderness or deformity CV S1 and S2 distant, regular, 2/6 systolic ejection murmur left sternal border without radiation, no rubs or gallops, pulses full and symmetric, no JVD or edema, no bruits Abdomen nondistended, normal bowel sounds. Soft without masses tenderness organomegaly Extremities no visible or palpable trauma. No CCE Skin without rash, slightly decreased turgor. Impression: Elderly female with chronic dementia, noted to be less alert by her son and her nurses aide for about 1 week. Appetite has been decreased, but she is taking by mouth fluids. No vomiting or diarrhea. No specific findings on physical exam. Rule out occult infection, pneumonia or UTI, occult coronary event, occult neurological event, metabolic abnormality, dehydration Plan: Urinalysis and urine culture, chest x-ray, EKG and enzymes, CBC and chemistries, further evaluation depending on results. <Jameel Cookald Leilani - Last Filed: 10/31/17 07:37> - General Chief Complaint: Altered Mental Status Stated Complaint: increased AMS.,lethargy Time Seen by Provider: 10/30/17 14:07 Past History <Trudy Lowery - Last Filed: 10/30/17 17:08> - Past Medical History Anemia: No COPD: No Dementia: Yes Psychiatric Problems: Yes - Immunization History Immunization Up to Date: Yes - Suicide/Smoking/Psychosocial Hx Smoking Status: No Smoking History: Never smoked Have you smoked in the past 12 months: No Number of Cigarettes Smoked Daily: 0 If you are a former smoker, when did you quit?: UNK - HX DEMENTIA Hx Alcohol Use: No Drug/Substance Use Hx: No Substance Use Type: None Hx Substance Use Treatment: No <Vlad Cook - Last Filed: 10/31/17 07:37> - Past Medical History Allergies/Adverse Reactions: Allergies Allergy/AdvReac Type Severity Reaction Status Date / Time No Known Allergies Allergy Verified 10/30/17 14:07 Home Medications: Ambulatory Orders Donepezil HCl [Aricept -] 10 mg PO DAILY 06/10/17 Acetaminophen [Tylenol .Regular Strength -] 650 mg PO Q6H PRN #0 tablet Amoxicillin - [Amoxicillin 250mg Capsule -] 250 mg PO TID #21 capsule 10/30/17 Review of Systems - Review of Systems Able to Perform ROS?: No (poor historian/ dementia) <Trudy Lowery - Last Filed: 10/30/17 17:08> *Physical Exam - Vital Signs Last Vital Signs Temp Pulse Resp BP Pulse Ox 99 F 110 H 16 115/87 98 10/30/17 14:06 10/30/17 14:06 10/30/17 14:06 10/30/17 14:06 10/30/17 14:06 <Trudy Lowery - Last Filed: 10/30/17 17:08> - Vital Signs Last Vital Signs Temp Pulse Resp BP Pulse Ox 99 F 110 H 16 115/87 98 10/30/17 14:06 10/30/17 14:06 10/30/17 14:06 10/30/17 14:06 10/30/17 14:06 <Vlad Cook - Last Filed: 10/31/17 07:37> Heart Score/ECG Review - ECG Impressions Comment:: 10/30/17 17:[address] and T wave abnormality Vent. rate 105 bpm <Trudy Lowery - Last Filed: 10/30/17 17:08> ED Treatment Course - LABORATORY CBC & Chemistry Diagram: 10/30/17 15:07 10/30/17 15:00 - RADIOLOGY Radiograph Interpretation: Chest X-ray (portable) Impression: no acute disease Reported by: Ajay Hunt MD 10/30/17 1507 <Trudy Lowery - Last Filed: 10/30/17 17:08> - LABORATORY CBC & Chemistry Diagram: 10/30/17 15:07 10/30/17 15:00 <Vlad Cook - Last Filed: 10/31/17 07:37> Medical Decision Making - Medical Decision Making 10/31/17 07:35 Chest x-ray was clear. EKG and cardiac enzymes revealed no sign of acute coronary event Physical exam showed no focal deficits or other signs of acute neurological event Laboratory evaluation was significant for mildly elevated white blood count and evidence of a UTI on urinalysis The patient's mild mental status changes are most likely due to UTI. Antibiotics were prescribed. She was hydrated and encouraged increased fluid intake and good nutrition. This was discussed with her aide. She is discharged in no distress, awake and cooperative, to be followed up by primary physician as directed. <Vlad Cook - Last Filed: 10/31/17 07:37> *DC/Admit/Observation/Transfer <Trudy Lowery - Last Filed: 10/30/17 17:08> - Discharge Dispostion Admit: No <Vlad Cook - Last Filed: 10/31/17 07:37> Diagnosis at time of Disposition: Urinary tract infection Qualifiers: Urinary tract infection type: acute cystitis Hematuria presence: without hematuria Qualified Code(s): N30.00 - Acute cystitis without hematuria - Discharge Dispostion Disposition: HOME Condition at time of disposition: Stable - Prescriptions Prescriptions: Amoxicillin - [Amoxicillin 250mg Capsule -] 250 mg PO TID #21 capsule - Referrals Referrals: Jason Trujillo MD [Staff Physician] - 3 days - Patient Instructions Printed Discharge Instructions: DI for Urinary Tract Infection (UTI)
[2017-10-30 15:28] LABS: EOS % 0.3 % (0-4.5); HEMATOCRIT 39.6 % (32.4-45.2); HEMOGLOBIN 13.1 GM/dl (10.7-15.3); MCH 25.7 pg (25.7-33.7); MEAN CELL VOLUME 77.5 fl (80-96); MEAN PLT VOLUME 9.3 fl (7.5-11.1); RBC 5.11 M/mm3 (3.60-5.2)
[2017-10-30 15:31] LABS: BASO % 2.4 % (0-2.0); MCHC 33.2 g/dl (32.0-36.0); MONO % 4.4 % (3.8-10.2); NEUT % 79.9 % (42.8-82.8); PLATELET COUNT 519 K/MM3 (134-434); RDW 15.9 % (11.6-15.6); WHITE BLOOD COUNT 14.8 K/mm3 (4.0-10.8)
[2017-10-30 15:34] LABS: ALBUMIN 3.3 g/dl (3.5-5.0); ALK PHOS 63 U/L (32-92); ANION GAP 9 (8-16); BILIRUBIN,TOTAL 0.5 mg/dl (0.2-1.0); BLOOD UREA NITROGEN 37 mg/dl (7-18); CALCIUM 9.6 mg/dl (8.4-10.2); CHLORIDE 113 mmol/L (98-107); CO2 24 mmol/L (22-28); GLUCOSE,RANDOM 134 mg/dl (74-106); POTASSIUM 3.7 mmol/L (3.5-5.1); SGOT/AST 65 U/L (10-42); SGPT/ALT 43 U/L (10-40); SODIUM 146 mmol/L (136-145); TOT PROT 7.1 g/dl (6.4-8.3)
[2017-10-30] MEDS ORDERED: SODIUM CHLORIDE 500 ML IV STA (15:51)
[2017-10-30 17:19] LABS: URINE APPEARANCE Clear; URINE BILIRUBIN Negative (NEGATIVE); URINE BLOOD Negative (NEGATIVE); URINE GLUCOSE (UA) Negative (NEGATIVE); URINE KETONE Negative (NEGATIVE); URINE NITRITE Positive (NEGATIVE); URINE UROBILINOGEN 0.2 (0.2-1.0)
[2017-10-30 17:23] LABS: URINE COLOR YELLOW; URINE LEUK ESTERASE TRACE (NEGATIVE); URINE PROTEIN 1+ (NEGATIVE)
[2017-10-30 18:09] VITALS: BP 134/66; PULSE 96; TEMP 98.5
[2017-10-30 20:00] LABS: EPI CELLS FEW /HPF; URINE BACTERIA FEW /hpf (NEGATIVE); URINE RBC 0-2 /hpf (0-3)
--- NOTE | 2017-11-04 13:12 | EKG ---
Test Reason : Blood Pressure : / mmHG Vent. Rate : 105 BPM Atrial Rate : 105 BPM P-R Int : 116 ms QRS Dur : 068 ms QT Int : 348 ms P-R-T Axes : -10 084 015 degrees QTc Int : 459 ms SINUS TACHYCARDIA Mild ST depression in inferior leads and V4-6, consider ischemia ABNORMAL ECG WHEN COMPARED WITH ECG OF 10-JUN-2017 17:30, VENT. RATE HAS INCREASED BY [address] NOW DEPRESSED IN INFERIOR LEADS ST NOW DEPRESSED IN ANTEROLATERAL LEADS Confirmed by BRE GARCIA MD ([id number]) on 11/04/2017 1:11:41 PM Referred By: MD BORREGO Confirmed By:BRE GARCIA MD
== END 2017-10-30 18:19 | disposition home or self-care (01) ==
LOC: FER 14:04
PROC: 3E0337Z Introduction of Electrolytic and Water Balance Substance into Peripheral Vein, Percutaneous Approach (ICD-10-PCS; principal; 2017-10-30)
DX: N30.00 Acute cystitis without hematuria (principal); F03.90 Unspecified dementia, unspecified severity, without behavioral disturbance, psychotic disturbance, mood disturbance, and anxiety
CPT/HCPCS: 36415; 71045-TC; 80053; 81003; 81015; 82550; 84484; 85025; 87086; 87186; 93005; 96360; 99283-25

== ENCOUNTER 2017-12-15 13:44 | Inpatient (IN) | payer OTHER ==
--- NOTE | 2017-12-15 14:52 | PDOC ---
History of Present Illness - General History Source: Patient, Care Provider, Primary Care Provider Exam Limitations: Dementia - History of Present Illness Initial Comments: 12/15/17 17:02 The patient is a 72 year old female with past medical history of dementia who was sent to the ED by Dr. Bravo for increased AMS, UE rigidity, dehydration, and FTT. The patients aid reports the patient has become mostly bed bound. She also reports noticing a few ulcers along the patients legs and her bottom. In the ED, the patient states "I am dehydrated." She remains alert and oriented to person only. Denies any fevers or chills or recent sick contacts. Denies CP/ SOB. <Heather Farr - Last Filed: 12/15/17 17:04> <Jailene Rivera - Last Filed: 12/15/17 21:57> - General Chief Complaint: Altered Mental Status Stated Complaint: PCP SENT FOR ADMIN Time Seen by Provider: 12/15/17 14:09 Past History <Heather Farr - Last Filed: 12/15/17 17:04> - Past Medical History Anemia: No COPD: No Dementia: Yes Hypercholesterolemia: Yes Psychiatric Problems: Yes - Immunization History Immunization Up to Date: Yes - Suicide/Smoking/Psychosocial Hx Smoking Status: No Smoking History: Unknown if ever smoked Have you smoked in the past 12 months: No Number of Cigarettes Smoked Daily: 0 If you are a former smoker, when did you quit?: UNK - HX DEMENTIA Hx Alcohol Use: No Drug/Substance Use Hx: No Substance Use Type: None Hx Substance Use Treatment: No <Jailene Rivera - Last Filed: 12/15/17 21:57> - Past Medical History Allergies/Adverse Reactions: Allergies Allergy/AdvReac Type Severity Reaction Status Date / Time No Known Allergies Allergy Verified 12/15/17 13:51 Home Medications: Ambulatory Orders Donepezil HCl [Aricept -] 10 mg PO DAILY 06/10/17 Escitalopram Oxalate [Lexapro -] 10 mg PO DAILY 12/15/17 Review of Systems - Review of Systems Able to Perform ROS?: Yes Comments:: 12/15/17 17:02 GENERAL/CONSTITUTIONAL: Present: dehydration No fever or chills. No weakness. HEAD, EYES, EARS, NOSE AND THROAT: No change in vision. No ear pain or discharge. No sore throat. GASTROINTESTINAL: No nausea, vomiting, diarrhea or constipation. GENITOURINARY: No dysuria, frequency, or change in urination. CARDIOVASCULAR: No chest pain or shortness of breath. RESPIRATORY: No cough, wheezing, or hemoptysis. MUSCULOSKELETAL: No joint or muscle swelling or pain. No neck or back pain. SKIN: No rash NEUROLOGIC: Present: increased forgetfulness No headache, vertigo, loss of consciousness, or change in strength/sensation. ENDOCRINE: No increased thirst. No abnormal weight change. HEMATOLOGIC/LYMPHATIC: No anemia, easy bleeding, or history of blood clots. ALLERGIC/IMMUNOLOGIC: No hives or skin allergy. All Other Systems: Reviewed and Negative <Heather Farr - Last Filed: 12/15/17 17:04> *Physical Exam - Vital Signs Last Vital Signs Temp Pulse Resp BP Pulse Ox 97.7 F 91 H 18 99/74 100 12/15/17 13:51 12/15/17 13:51 12/15/17 13:51 12/15/17 13:51 12/15/17 13:51 - Physical Exam Comments: 12/15/17 17:03 GENERAL: Awake, alert, and oriented x1, in no acute distress HEAD: No signs of trauma EYES: PERRLA, EOMI, sclera anicteric, conjunctiva clear ENT: Auricles normal inspection, hearing grossly normal, nares patent, oropharynx clear without exudates. Moist mucosa NECK: Normal ROM, supple, no lymphadenopathy, JVD, or masses LUNGS: Breath sounds equal, clear to auscultation bilaterally. No wheezes, and no crackles HEART: Regular rate and rhythm, normal S1 and S2, no murmurs, rubs or gallops ABDOMEN: Soft, nontender, normoactive bowel sounds. No guarding, no rebound. No masses EXTREMITIES: Normal range of motion, no edema. No clubbing or cyanosis. No cords, erythema, or tenderness BACK: No midline spinal tenderness in cervical/thoracic/lumbar region NEUROLOGICAL: Normal speech, cranial nerves intact, cogwheel rigidity in bilateral upper extremities, normal sensation to light touch in all 4 extremities, gait deferred SKIN: Two 1x1 cm unroofed superficial ulcers on medial aspect of left knee. Multiple stage 1-2 sacral decubitus ulcers. Warm, Dry, normal turgor, no rashes or lesions noted. <Heather Farr - Last Filed: 12/15/17 17:04> - Vital Signs Last Vital Signs Temp Pulse Resp BP Pulse Ox 97.7 F 91 H 18 99/74 100 12/15/17 13:51 12/15/17 13:51 12/15/17 13:51 12/15/17 13:51 12/15/17 13:51 <Leonid Riveraricard[place]av[place] - Last Filed: 12/15/17 21:57> ED Treatment Course - LABORATORY CBC & Chemistry Diagram: 12/15/17 15:30 12/15/17 15:30 - ADDITIONAL ORDERS Additional order review: 12/15/17 15:30 RBC 4.44 MCV 81.7 MCHC 31.9 L RDW 17.2 H D MPV 9.2 Neutrophils % 72.6 Lymphocytes % 22.4 D Monocytes % 4.2 Eosinophils % 0.1 Basophils % 0.7 - RADIOLOGY Radiograph Interpretation: 12/15/17 17:04 Chest Xray as reviewed by Dr. Hunt reports no acute pathology. Head CT as reviewed by Dr. Eason reports no acute pathology. <YordanHeather - Last Filed: 12/15/17 17:04> - LABORATORY CBC & Chemistry Diagram: 12/15/17 15:30 12/15/17 15:30 - RADIOLOGY Radiology Studies Ordered: Category Date Time Status CERVICAL SPINE CT W/O CONTR [CT] Stat CT Scan 12/15/17 14:[address] WITHOUT CONTRAST [CT] Stat CT Scan 12/15/17 14:44 Ordered CHEST X-RAY PORTABLE* [RAD] Stat Radiology 12/15/17 14:44 Ordered <Jailene Rivera - Last Filed: 12/15/17 21:57> Medical Decision Making - Medical Decision Making 12/15/17 16:33 phone call placed to Dr. Bravo and call was returned promptly. Case was discussed. 12/15/17 16:38 Phone call placed to neurology director of elementary education, awaiting call back 12/15/17 16:[address] Hansen and case was discussed. <Heather Farr - Last Filed: 12/15/17 17:04> - Medical Decision Making 12/15/17 14:50 72-year-old female presents the emergency department for admission due to altered mental status and failure to thrive. Patient found to have rigidity mostly in the upper extremities on exam. Differential includes but is not limited to Parkinson's versus electrolyte abnormality. Plan: -labs -ua -cth/c-spine -admit 12/15/17 17:[address] Bravo, pt accepted for admission <Jailene Rivera - Last Filed: 12/15/17 21:57> *DC/Admit/Observation/Transfer - Attestations Scribe Attestion: 12/15/17 17:03 Documentation prepared by Heather Farr, acting as medical director/head team physician for Jailene Rivera MD. <Heather Farr - Last Filed: 12/15/17 17:04> - Discharge Dispostion Admit: Yes - Attestations Physician Attestion: 12/15/17 17:53 I, Dr. Jailene Rivera MD, attest that this document has been prepared under my direction and personally reviewed by me in its entirety. I further attest, that it accurately reflects all work, treatment, procedures and medical decision -making performed by me. <Jailene Rivera - Last Filed: 12/15/17 21:57> Diagnosis at time of Disposition: Hypernatremia
[2017-12-15 15:41] LABS: BASO % 0.7 % (0-2.0); EOS % 0.1 % (0-4.5); HEMATOCRIT 36.3 % (32.4-45.2); HEMOGLOBIN 11.6 GM/dL (10.7-15.3); LYMPH % 22.4 % (8-40); MCHC 31.9 g/dl (32.0-36.0); MEAN CELL VOLUME 81.7 fl (80-96); MEAN PLT VOLUME 9.2 fl (7.5-11.1); MONO % 4.2 % (3.8-10.2); NEUT % 72.6 % (42.8-82.8); PLATELET COUNT 524 K/MM3 (134-434); RBC 4.44 M/mm3 (3.60-5.2); RDW 17.2 % (11.6-15.6); WHITE BLOOD COUNT 10.3 K/mm3 (4.0-10.0)
[2017-12-15 16:56] LABS: ALBUMIN 3.1 g/dl (3.4-5.0); ALK PHOS 72 U/L (45-117); ANION GAP 6 (8-16); BILIRUBIN,TOTAL 0.3 mg/dL (0.2-1.0); BLOOD UREA NITROGEN 19 mg/dL (7-18); CALCIUM 9.5 mg/dL (8.5-10.1); CHLORIDE 115 mmol/L (98-107); CO2 31 mmol/L (21-32); CREATININE 0.8 mg/dL (0.55-1.02); GLUCOSE,RANDOM 107 mg/dL (74-106); POTASSIUM 3.8 mmol/L (3.5-5.1); SGOT/AST 18 U/L (15-37); SGPT/ALT 11 U/L (12-78); SODIUM 152 mmol/L (136-145)
--- NOTE | 2017-12-15 20:15 | CON.NEURO ---
Consult - History of Present Illness History of Present Illness: 72 year old female with past medical history of dementia who was sent to the ED by Dr. Bravo for increased AMS, UE rigidity, dehydration, and FTT. The patients aid reports the patient has become mostly bed bound. She also reports noticing a few ulcers along the patients legs and her bottom. In the ED, the patient states "I am dehydrated." She remains alert and oriented to person only. Denies any fevers or chills or recent sick contacts. Denies CP/SOB--pt very poor HX-unab le to give HX and supsect severe underlying dementia. CT HD : IMPRESSION: No CT evidence of acute intracranial pathology. 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: Yes: Dementia, Alzheimer's - Alcohol/Substance Use Hx Alcohol Use: No - Smoking History Smoking history: Unknown if ever smoked Have you smoked in the past 12 months: No Aproximately how many cigarettes per day: 0 If you are a former smoker, when did you quit?: UNK - HX DEMENTIA Home Medications - Allergies Allergies/Adverse Reactions: Allergies Allergy/AdvReac Type Severity Reaction Status Date / Time No Known Allergies Allergy Verified 12/15/17 13:51 - Home Medications Home Medications: Ambulatory Orders Donepezil HCl [Aricept -] 10 mg PO DAILY 06/10/17 Escitalopram Oxalate [Lexapro -] 10 mg PO DAILY 12/15/17 Physical Exam-Neuro Vital Signs: Vital Signs Temperature 97.7 F 12/15/17 13:51 Pulse Rate 87 12/15/17 18:46 Respiratory Rate 18 12/15/17 18:46 Blood Pressure 100/50 12/15/17 18:46 O2 Sat by Pulse Oximetry (%) 99 12/15/17 18:46 Labs: CBC, BMP 12/15/17 15:30 12/15/17 15:30 - Neuro Exam Level Of Consciousness: Yes: Alert (awake, not oriented, ansewrs name, not place , not following requests, EOMI, no facial, no tremor, mild resistance to cogwheeling testing, reflxes trace, gait not tested ) Problem List - Problems (1) Acute metabolic encephalopathy Code(s): G93.41 - METABOLIC ENCEPHALOPATHY (2) Dementia Code(s): F03.90 - UNSPECIFIED DEMENTIA WITHOUT BEHAVIORAL DISTURBANCE Qualifiers: Assessment/Plan 72 year old female with past medical history of dementia who was sent to the ED by Dr. Bravo for increased AMS, UE rigidity, dehydration, and FTT. pt appaers to have a severe dementia, +/- deliruim elevated NA/dehydration -r/o UTI no clear signs of parkinsonism ( ALZ related gegehalten) no signs of stroke, seizure metabolic /ID DAVALOS , TSH etc Dr Pearson
[2017-12-15 20:49] LABS: URINE APPEARANCE CLOUDY; URINE BILIRUBIN NEGATIVE (<2.0 mg/dL); URINE BLOOD NEGATIVE (NEGATIVE); URINE COLOR AMBER; URINE GLUCOSE (UA) NEGATIVE (NEGATIVE); URINE KETONE TRACE (NEGATIVE); URINE LEUK ESTERASE TRACE (NEGATIVE); URINE NITRITE NEGATIVE (NEGATIVE)
[2017-12-15 20:52] LABS: URINE PROTEIN 1+ (NEGATIVE)
[2017-12-15 20:53] LABS: EPI CELLS MODERATE /HPF (FEW); URINE MUCUS MANY
[2017-12-15 23:08] VITALS: BMI 18.2
[2017-12-15] MEDS: HEPARIN NA (PORCINE) 5,000 UNITS/ML 1ML VIAL SQ SCH (23:40)
[2017-12-16 07:50] LABS: HEMATOCRIT 31.5 % (32.4-45.2); MCH 25.6 pg (25.7-33.7); MCHC 31.7 g/dl (32.0-36.0); MEAN CELL VOLUME 80.8 fl (80-96); MEAN PLT VOLUME 8.8 fl (7.5-11.1); PLATELET COUNT 458 K/MM3 (134-434); RDW 16.8 % (11.6-15.6); WHITE BLOOD COUNT 7.5 K/mm3 (4.0-10.0)
--- NOTE | 2017-12-16 08:21 | HP ---
Admitting History and Physical - Admission History of Present Illness: 72 year old female with past medical history of dementia who was sent to the ED by Dr. Bravo for increased AMS, UE rigidity, dehydration, and FTT. The patients aid reports the patient has become mostly bed bound. She also reports noticing a few ulcers along the patients legs and her bottom. In the ED, the patient states "I am dehydrated." She remains alert and oriented to person only. Denies any fevers or chills or recent sick contacts. Denies CP/SOB. 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 - Smoking History Smoking history: Unknown if ever smoked Have you smoked in the past 12 months: No Aproximately how many cigarettes per day: 0 If you are a former smoker, when did you quit?: UNK - HX DEMENTIA - Alcohol/Substance Use Hx Alcohol Use: No Home Medications - Allergies Allergies/Adverse Reactions: Allergies Allergy/AdvReac Type Severity Reaction Status Date / Time No Known Allergies Allergy Verified 12/15/17 13:51 - Home Medications Home Medications: Ambulatory Orders Donepezil HCl [Aricept -] 10 mg PO DAILY 06/10/17 Escitalopram Oxalate [Lexapro -] 10 mg PO DAILY 12/15/17 Physical Examination Vital Signs: Vital Signs Temperature 97.9 F 12/16/17 05:35 Pulse Rate 76 12/16/17 05:35 Respiratory Rate 20 12/16/17 05:35 Blood Pressure 134/83 12/16/17 05:35 O2 Sat by Pulse Oximetry (%) 99 12/15/17 18:46 Labs: CBC, BMP 12/16/17 06:40 Problem List - Problems (1) Hypernatremia Assessment/Plan: -DUE TO VOLUME DEPLETION -IVF -MAY NEED PEG Code(s): E87.0 - HYPEROSMOLALITY AND HYPERNATREMIA (2) Acute metabolic encephalopathy Assessment/Plan: DUE TO DEMENTIA AND HYPONATREMIA MONITOR Code(s): G93.41 - METABOLIC ENCEPHALOPATHY (3) Dementia Assessment/Plan: ABOVE Code(s): F03.90 - UNSPECIFIED DEMENTIA WITHOUT BEHAVIORAL DISTURBANCE Qualifiers: (4) Functional quadriplegia Assessment/Plan: - Complete immobility due to frailty, end-stage dementia - Requires total care - Turn Q2h - Jayjay Lift as needed - Heel protectors - Fall precautions Code(s): R53.2 - FUNCTIONAL QUADRIPLEGIA (5) Anemia Assessment/Plan: W/U ORDERED GI CONSULT Code(s): D64.9 - ANEMIA, UNSPECIFIED
[2017-12-16 08:26] LABS: ALBUMIN 2.8 g/dl (3.4-5.0); ANION GAP 14 (8-16); BLOOD UREA NITROGEN 17 mg/dL (7-18); CALCIUM 8.8 mg/dL (8.5-10.1); CHLORIDE 111 mmol/L (98-107); CO2 27 mmol/L (21-32); GLUCOSE,RANDOM 92 mg/dL (74-106); POTASSIUM 3.1 mmol/L (3.5-5.1); SODIUM 152 mmol/L (136-145)
[2017-12-16 08:29] LABS: ALK PHOS 63 U/L (45-117); BILIRUBIN,TOTAL 0.4 mg/dL (0.2-1.0); CREATININE 0.6 mg/dL (0.55-1.02); SGOT/AST 16 U/L (15-37); SGPT/ALT 13 U/L (12-78); TOT PROT 6.3 g/dl (6.4-8.2)
[2017-12-16] MEDS: HEPARIN NA (PORCINE) 5,000 UNITS/ML 1ML VIAL SQ SCH ×2 (10:33→21:35)
[2017-12-16] MEDS: SODIUM CHLORIDE 0.45% 1,000 ML IV SCH (10:36)
--- NOTE | 2017-12-16 11:05 | CON.GI ---
Consult Consult Specialty:: GI Reason for Consultation:: dehydration, failure to thrive - History of Present Illness History of Present Illness: Chart reviewed. Per ED intake: 72 year old female with past medical history of dementia who was sent to the ED by Dr. Bravo for increased AMS, UE rigidity, dehydration, and FTT. The patients aid reports the patient has become mostly bed bound. She also reports noticing a few ulcers along the patients legs and her bottom. In the ED , the patient states "I am dehydrated." She remains alert and oriented to person only. Denies any fevers or chills or recent sick contacts. Unable to provide coheret history. Neurology evaluation noted. CT head results noted. At the time of this encounter the patient is not in distress, or discomfort. Non-toxic looking. Home-aid at bedside and reports gradual mental deterioration over few months, worsening po intake and frequent hospitalizations for dehydration. No recent fever, vomiting, diarrhea, exposure to ill, or abx use. 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 - Alcohol/Substance Use Hx Alcohol Use: No - Smoking History Smoking history: Unknown if ever smoked Have you smoked in the past 12 months: No Aproximately how many cigarettes per day: 0 If you are a former smoker, when did you quit?: UNK - HX DEMENTIA Home Medications - Allergies Allergies/Adverse Reactions: Allergies Allergy/AdvReac Type Severity Reaction Status Date / Time No Known Allergies Allergy Verified 12/15/17 13:51 - Home Medications Home Medications: Ambulatory Orders Donepezil HCl [Aricept -] 10 mg PO DAILY 06/10/17 Escitalopram Oxalate [Lexapro -] 10 mg PO DAILY 12/15/17 Family Disease History - Family Disease History Family History: Unremarkable Review of Systems Findings/Remarks: As per HPI, H&P Physical Exam-GI Vital Signs: Vital Signs Temperature 97.9 F 12/16/17 05:35 Pulse Rate 76 12/16/17 05:35 Respiratory Rate 20 12/16/17 05:35 Blood Pressure 134/83 12/16/17 05:35 O2 Sat by Pulse Oximetry (%) 99 12/15/17 18:46 Labs: CBC, BMP 12/16/17 06:40 12/16/17 06:40 Imaging - Results Cat Scan: Report Reviewed (head) Problem List - Problems (1) Dehydration with hypernatremia Code(s): E87.0 - HYPEROSMOLALITY AND HYPERNATREMIA (2) Failure to thrive Code(s): [id number] - (3) Acute metabolic encephalopathy Code(s): G93.41 - METABOLIC ENCEPHALOPATHY (4) Dementia Code(s): F03.90 - UNSPECIFIED DEMENTIA WITHOUT BEHAVIORAL DISTURBANCE Qualifiers: (5) Lethargy Code(s): R53.83 - OTHER FATIGUE Assessment/Plan A 72F with dementia admitted with worsened mental status, dehydration and FTT. Exclude and address reversible etiologies of worsened mental status such as infection and metabolic derangements as per primary care. Re-evaluate ability to swallow and need for PEG after that. Will follow.
--- NOTE | 2017-12-16 11:59 | CONSULT ---
Admitting History and Physical - Primary Care Physician PCP: Austin Bravo - Admission History of Present Illness: 72 year old female with past medical history of dementia who was sent to the ED by Dr. Bravo for increased AMS, UE rigidity, dehydration, and FTT. Selected Entries 12/16/17 12/16/17 05:35 11:54 Breakfast 50% Temperature 97.9 F Laboratory Tests 12/15/17 12/16/17 15:30 06:40 WBC 10.3 H 7.5 MBS ordered by PMD. 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 - Smoking History Smoking history: Unknown if ever smoked Have you smoked in the past 12 months: No Aproximately how many cigarettes per day: 0 If you are a former smoker, when did you quit?: UNK - HX DEMENTIA - Alcohol/Substance Use Hx Alcohol Use: No History - Admission Reason For Visit: HYPERNATREMIA - Diagnostics X-ray: Report Reviewed CT Scan: Report Reviewed Modified Barium Swallow: Pending (ordered) - General Mental Status: Vague, Confused Attention: Distractible Ability to Follow Directions: Fair Head/Neck Control: Fair - Hearing Hearing: Normal Speech Evaluation - Communication Primary Language: ROMANSH Communication: Yes: Simple Responses Oral Expression Ability: Yes: Mild Impairment (confused, taNGENTIAL) - Speech Production Apraxia: No Intelligibility: Yes: WNL - Speech Characteristics Voice Loudness: Normal Voice Pitch: Yes: Normal Voice Phonatory-based Quality: Yes: Normal Speech Pattern: Normal Nasal Resonance: Normal Articulation: Yes: Precise - Language/Auditory Comprehension Follows: Yes: 1 Stage Simple Commands Observation: Comprehends Conversational Speech: Yes - Language/Verbal Expression Functional Communication Status: Yes: Mildly Impaired - Swallow Evaluation/Bedside Assessment Current Nutritional Intake: Dysphagia Pureed, Honey Textured Liquids Oral Secretions: Yes: WFL Dentition: Yes: Adequate Facial Symmetry at Rest: Symmetrical Facial Symmetry on Retraction: Symmetrical Facial Movement: Controlled Against Resistance Opening: Normal Against Resistance Closing: Normal Pucker Lips: Normal Smile: Normal Lingual Movement: Normal, Symmetric Lingual Speed of Movement: Normal Lingual Movement Strgth Against Opposition: Normal Lingual Movement Characteristics: Normal Laryngeal Movement: Able to Palpate Rate of Intake: WFL Bolus Size: WFL Oral Prep Time: WFL A-P Transit: WFL Pocketing: None Timing of Swallow: Delayed Coughing/Throat Clear: No Change in Voice: No Recommendations - Speech Evaluation, Impression/Plan Impression: Verbal, confused. Swallow delayed in onset. Modified diet and MBS ordered to r/o dysphagia. - Dysphagia Impressions/Plan Dysphagia Impressions: Ongoing Evaluation *Silent aspiration: cannot be R/O at bedside Recommendations: Modified Barium Swallow (as ordered)
[2017-12-16 12:46] LABS: PREALBUMIN 14.7 mg/dl (20.-40)
[2017-12-17 07:21] LABS: BASO % 0.3 % (0-2.0); EOS % 1.5 % (0-4.5); HEMATOCRIT 28.7 % (32.4-45.2); HEMOGLOBIN 9.3 GM/dL (10.7-15.3); LYMPH % 34.1 % (8-40); MCHC 32.2 g/dl (32.0-36.0); MEAN CELL VOLUME 80.5 fl (80-96); MONO % 5.6 % (3.8-10.2); NEUT % 58.5 % (42.8-82.8); PLATELET COUNT 420 K/MM3 (134-434); RBC 3.57 M/mm3 (3.60-5.2); RDW 16.9 % (11.6-15.6); WHITE BLOOD COUNT 6.8 K/mm3 (4.0-10.0)
[2017-12-17 07:41] LABS: ANION GAP 5 (8-16); BLOOD UREA NITROGEN 13 mg/dL (7-18); CALCIUM 8.1 mg/dL (8.5-10.1); CHLORIDE 112 mmol/L (98-107); CO2 31 mmol/L (21-32); CREATININE 0.6 mg/dL (0.55-1.02); GLUCOSE,RANDOM 94 mg/dL (74-106); SODIUM 148 mmol/L (136-145)
[2017-12-17 07:57] LABS: POTASSIUM 2.8 mmol/L (3.5-5.1)
--- NOTE | 2017-12-17 09:20 | PN ---
Progress Note, Physician - Current Medication List Current Medications: Active Medications Acetaminophen (Tylenol -) 650 mg PO Q6H PRN PRN Reason: FEVER Heparin Sodium (Porcine) (Heparin -) 5,000 unit SQ BID [facility] Last Admin: 12/16/17 21:35 Dose: 5,000 unit Sodium Chloride (1/2 Normal Saline) 1,000 mls @ 75 mls/hr IV ASDIR [facility] Last Admin: 12/16/17 10:36 Dose: 75 mls/hr - Objective Vital Signs: Vital Signs Temperature 98.1 F 12/17/17 06:38 Pulse Rate 79 12/17/17 06:38 Respiratory Rate 20 12/17/17 06:38 Blood Pressure 122/80 12/17/17 06:38 O2 Sat by Pulse Oximetry (%) 99 12/16/17 21:00 Cardiovascular: Yes: S1, S2 Respiratory: Yes: Regular, CTA Bilaterally Gastrointestinal: Yes: Normal Bowel Sounds, Soft Labs: CBC, BMP 12/17/17 06:30 12/17/17 06:30 Problem List - Problems (1) Hypernatremia Assessment/Plan: -DUE TO VOLUME DEPLETION -IVF -MAY NEED PEG Code(s): E87.0 - HYPEROSMOLALITY AND HYPERNATREMIA (2) Acute metabolic encephalopathy Assessment/Plan: DUE TO DEMENTIA AND HYPONATREMIA MONITOR Code(s): G93.41 - METABOLIC ENCEPHALOPATHY (3) Dementia Assessment/Plan: ABOVE Code(s): F03.90 - UNSPECIFIED DEMENTIA WITHOUT BEHAVIORAL DISTURBANCE Qualifiers: (4) Functional quadriplegia Assessment/Plan: - Complete immobility due to frailty, end-stage dementia - Requires total care - Turn Q2h - Jayjay Lift as needed - Heel protectors - Fall precautions Code(s): R53.2 - FUNCTIONAL QUADRIPLEGIA (5) Anemia Assessment/Plan: W/U ORDERED GI CONSULT Code(s): D64.9 - ANEMIA, UNSPECIFIED (6) Hypokalemia Assessment/Plan: replace and finney ivf Code(s): E87.6 - HYPOKALEMIA
[2017-12-17 10:16] LABS: SERUM IRON SATURATION 20 % (15-55); TOTAL IRON BINDING CAPACITY 183 ug/dL (250-450); UIBC 146 ug/dL (118-369)
[2017-12-17] MEDS: HEPARIN NA (PORCINE) 5,000 UNITS/ML 1ML VIAL SQ SCH ×2 (10:37→22:22)
[2017-12-17] MEDS: SODIUM CHLORIDE 0.45% 1,000 ML IV SCH (10:37)
--- NOTE | 2017-12-17 10:50 | PN ---
Progress Note, Physician History of Present Illness: Chart reviewed. No events. Comfortable. More awake and alert today. Not eating, per pt's aid. Speech and Swallow evaluation appreciated. - Current Medication List Current Medications: Active Medications Acetaminophen (Tylenol -) 650 mg PO Q6H PRN PRN Reason: FEVER Heparin Sodium (Porcine) (Heparin -) 5,000 unit SQ BID [facility] Last Admin: 12/17/17 10:37 Dose: 5,000 unit Dextrose/Sodium Chloride (D5-1/2ns+40 Meq Kcl -) 40 meq in 1,000 mls @ 75 mls/ hr IV ASDIR [facility] Potassium Chloride (Potassium Chloride 10 Meq Premix Ivpb -) 10 meq in 100 mls @ 100 mls/hr IVPB Q60M [facility] Stop: 12/17/17 12:44 - Objective Vital Signs: Vital Signs Temperature 98.1 F 12/17/17 06:38 Pulse Rate 79 12/17/17 06:38 Respiratory Rate 20 12/17/17 06:38 Blood Pressure 122/80 12/17/17 06:38 O2 Sat by Pulse Oximetry (%) 99 12/16/17 21:00 Constitutional: Yes: No Distress, Calm Eyes: Yes: Conjunctiva Clear HENT: Yes: Atraumatic Neck: Yes: Supple Cardiovascular: No: Bradycardia, Tachycardia Respiratory: Yes: Regular Gastrointestinal: Yes: Soft. No: Distention, Melena, Rectal Bleeding, Tenderness, Vomiting Neurological: Yes: Alert, Confusion Labs: CBC, BMP 12/17/17 06:30 12/17/17 06:30 CBCD WBC 6.8 K/mm3 (4.0-10.0) 12/17/17 06:30 RBC 3.57 M/mm3 (3.60-5.2) L 12/17/17 06:30 Hgb 9.3 GM/dL (10.7-15.3) L 12/17/17 06:30 Hct 28.7 % (32.4-45.2) L 12/17/17 06:30 MCV 80.5 fl (80-96) 12/17/17 06:30 MCHC 32.2 g/dl (32.0-36.0) 12/17/17 06:30 RDW 16.9 % (11.6-15.6) H 12/17/17 06:30 Plt Count 420 K/MM3 (134-434) 12/17/17 06:30 MPV 9.0 fl (7.5-11.1) 12/17/17 06:30 CMP Sodium 148 mmol/L (136-145) H 12/17/17 06:30 Potassium 2.8 mmol/L (3.5-5.1) L* 12/17/17 06:30 Chloride 112 mmol/L (98-107) H 12/17/17 06:30 Carbon Dioxide 31 mmol/L (21-32) 12/17/17 06:30 Anion Gap 5 (8-16) L 12/17/17 06:30 BUN 13 mg/dL (7-18) 12/17/17 06:30 Creatinine 0.6 mg/dL (0.55-1.02) 12/17/17 06:30 Creat Clearance w eGFR > 60 (>60) 12/16/17 06:40 Calcium 8.1 mg/dL (8.5-10.1) L 12/17/17 06:30 Total Bilirubin 0.4 mg/dL (0.2-1.0) D 12/16/17 06:40 AST 16 U/L (15-37) 12/16/17 06:40 ALT 13 U/L (12-78) 12/16/17 06:40 Alkaline Phosphatase 63 U/L (45-117) 12/16/17 06:40 Total Protein 6.3 g/dl (6.4-8.2) L 12/16/17 06:40 Albumin 2.8 g/dl (3.4-5.0) L 12/16/17 06:40 - ....Imaging X-ray: Report Reviewed Other: Report Reviewed Problem List - Problems (1) Dehydration with hypernatremia Code(s): E87.0 - HYPEROSMOLALITY AND HYPERNATREMIA (2) Failure to thrive Code(s): [id number] - (3) Acute metabolic encephalopathy Code(s): G93.41 - METABOLIC ENCEPHALOPATHY (4) Dementia Code(s): F03.90 - UNSPECIFIED DEMENTIA WITHOUT BEHAVIORAL DISTURBANCE Qualifiers: (5) Lethargy Code(s): R53.83 - OTHER FATIGUE Assessment/Plan A 72F with dementia admitted with worsened mental status, dehydration and FTT. Clinically better, adequate po intake is likely compromised by dementia. Correct hypokalemia Caloric count
[2017-12-17] MEDS: D5-1/2NS+40 MEQ KCL - 40 MEQ/1,000 ML INFUS.BAG IV SCH (11:27)
[2017-12-17] MEDS: POTASSIUM CHLORIDE 10 MEQ in SODIUM CHLORIDE 100 ML IVPB SCH ×2 (12:32→14:31)
[2017-12-18] MEDS: D5-1/2NS+40 MEQ KCL - 40 MEQ/1,000 ML INFUS.BAG IV SCH ×2 (06:39→15:55)
[2017-12-18 08:50] LABS: BASO % 0.9 % (0-2.0); EOS % 0.8 % (0-4.5); HEMATOCRIT 33.7 % (32.4-45.2); HEMOGLOBIN 10.6 GM/dL (10.7-15.3); LYMPH % 24.8 % (8-40); MCH 25.3 pg (25.7-33.7); MCHC 31.3 g/dl (32.0-36.0); MEAN CELL VOLUME 80.8 fl (80-96); MEAN PLT VOLUME 9.3 fl (7.5-11.1); MONO % 4.5 % (3.8-10.2); PLATELET COUNT 404 K/MM3 (134-434); RBC 4.18 M/mm3 (3.60-5.2); RDW 17.2 % (11.6-15.6); WHITE BLOOD COUNT 6.5 K/mm3 (4.0-10.0)
[2017-12-18 09:16] LABS: CHLORIDE 111 mmol/L (98-107); SODIUM 145 mmol/L (136-145)
[2017-12-18 09:20] LABS: ANION GAP 8 (8-16); BLOOD UREA NITROGEN 7 mg/dL (7-18); CALCIUM 8.2 mg/dL (8.5-10.1); CO2 26 mmol/L (21-32); CREATININE 0.5 mg/dL (0.55-1.02); GLUCOSE,RANDOM 99 mg/dL (74-106)
--- NOTE | 2017-12-18 09:42 | PN ---
Progress Note, Physician - Current Medication List Current Medications: Active Medications Acetaminophen (Tylenol -) 650 mg PO Q6H PRN PRN Reason: FEVER Cephalexin HCl (Keflex -) 500 mg PO BID [facility] Heparin Sodium (Porcine) (Heparin -) 5,000 unit SQ BID [facility] Last Admin: 12/17/17 22:22 Dose: 5,000 unit Dextrose/Sodium Chloride (D5-1/2ns+40 Meq Kcl -) 40 meq in 1,000 mls @ 75 mls/ hr IV ASDIR [facility] Last Admin: 12/18/17 06:39 Dose: 75 mls/hr - Objective Vital Signs: Vital Signs Temperature 97.8 F 12/18/17 08:00 Pulse Rate 79 12/18/17 08:00 Respiratory Rate 18 12/18/17 08:00 Blood Pressure 128/74 12/18/17 08:00 O2 Sat by Pulse Oximetry (%) 98 12/17/17 21:00 Cardiovascular: Yes: Regular Rate and Rhythm Respiratory: Yes: Regular, CTA Bilaterally Gastrointestinal: Yes: Normal Bowel Sounds, Soft Labs: CBC, BMP 12/18/17 08:00 12/18/17 08:00 Problem List - Problems (1) Hypernatremia Assessment/Plan: -DUE TO VOLUME DEPLETION -IVF -MAY NEED PEG Code(s): E87.0 - HYPEROSMOLALITY AND HYPERNATREMIA (2) Acute metabolic encephalopathy Assessment/Plan: DUE TO DEMENTIA AND HYPONATREMIA MONITOR Code(s): G93.41 - METABOLIC ENCEPHALOPATHY (3) Dementia Assessment/Plan: ABOVE Code(s): F03.90 - UNSPECIFIED DEMENTIA WITHOUT BEHAVIORAL DISTURBANCE Qualifiers: (4) Functional quadriplegia Assessment/Plan: - Complete immobility due to frailty, end-stage dementia - Requires total care - Turn Q2h - Jayjay Lift as needed - Heel protectors - Fall precautions Code(s): R53.2 - FUNCTIONAL QUADRIPLEGIA (5) Anemia Assessment/Plan: W/U ORDERED GI CONSULT Code(s): D64.9 - ANEMIA, UNSPECIFIED (6) Hypokalemia Assessment/Plan: improved monitor Code(s): E87.6 - HYPOKALEMIA
[2017-12-18] MEDS: CEPHALEXIN MONOHYDRATE 500 MG CAPSULE (UD) PO SCH ×2 (10:26→21:19)
[2017-12-18] MEDS: HEPARIN NA (PORCINE) 5,000 UNITS/ML 1ML VIAL SQ SCH ×2 (10:26→21:19)
[2017-12-19] MEDS: D5-1/2NS+40 MEQ KCL - 40 MEQ/1,000 ML INFUS.BAG IV SCH ×2 (06:11→19:00)
--- NOTE | 2017-12-19 09:58 | PN ---
Progress Note, Physician - Current Medication List Current Medications: Active Medications Acetaminophen (Tylenol -) 650 mg PO Q6H PRN PRN Reason: FEVER Cephalexin HCl (Keflex -) 500 mg PO BID [facility] Last Admin: 12/18/17 21:19 Dose: 500 mg Heparin Sodium (Porcine) (Heparin -) 5,000 unit SQ BID [facility] Last Admin: 12/18/17 21:19 Dose: 5,000 unit Dextrose/Sodium Chloride (D5-1/2ns+40 Meq Kcl -) 40 meq in 1,000 mls @ 75 mls/ hr IV ASDIR [facility] Last Admin: 12/19/17 06:11 Dose: 75 mls/hr - Objective Vital Signs: Vital Signs Temperature 98.2 F 12/19/17 05:20 Pulse Rate 87 12/19/17 05:20 Respiratory Rate 20 12/19/17 05:20 Blood Pressure 140/78 12/19/17 05:20 O2 Sat by Pulse Oximetry (%) 98 12/18/17 21:00 Cardiovascular: Yes: S1, S2 Respiratory: Yes: Regular, CTA Bilaterally Gastrointestinal: Yes: Normal Bowel Sounds, Soft Labs: CBC, BMP 12/18/17 08:00 12/18/17 08:00 Problem List - Problems (1) Hypernatremia Assessment/Plan: -DUE TO VOLUME DEPLETION -IVF -MAY NEED PEG Code(s): E87.0 - HYPEROSMOLALITY AND HYPERNATREMIA (2) Acute metabolic encephalopathy Assessment/Plan: DUE TO DEMENTIA AND HYPONATREMIA MONITOR Code(s): G93.41 - METABOLIC ENCEPHALOPATHY (3) Dementia Assessment/Plan: ABOVE Code(s): F03.90 - UNSPECIFIED DEMENTIA WITHOUT BEHAVIORAL DISTURBANCE Qualifiers: (4) Functional quadriplegia Assessment/Plan: - Complete immobility due to frailty, end-stage dementia - Requires total care - Turn Q2h - Jayjay Lift as needed - Heel protectors - Fall precautions Code(s): R53.2 - FUNCTIONAL QUADRIPLEGIA (5) Anemia Assessment/Plan: W/U ORDERED GI CONSULT Code(s): D64.9 - ANEMIA, UNSPECIFIED (6) Hypokalemia Assessment/Plan: improved monitor Code(s): E87.6 - HYPOKALEMIA
[2017-12-19] MEDS: HEPARIN NA (PORCINE) 5,000 UNITS/ML 1ML VIAL SQ SCH ×2 (10:45→21:56)
[2017-12-19] MEDS: CEPHALEXIN MONOHYDRATE 500 MG CAPSULE (UD) PO SCH ×2 (10:45→21:55)
[2017-12-19] MEDS: ACETAMINOPHEN 325 MG TABLET (FP) PO PRN ×2 (10:46→21:55)
--- NOTE | 2017-12-20 09:33 | PN ---
Progress Note, Physician - Current Medication List Current Medications: Active Medications Acetaminophen (Tylenol -) 650 mg PO Q6H PRN PRN Reason: FEVER Last Admin: 12/19/17 21:55 Dose: 650 mg Cephalexin HCl (Keflex -) 500 mg PO BID [facility] Last Admin: 12/19/17 21:55 Dose: 500 mg Heparin Sodium (Porcine) (Heparin -) 5,000 unit SQ BID [facility] Last Admin: 12/19/17 21:56 Dose: 5,000 unit Dextrose/Sodium Chloride (D5-1/2ns+40 Meq Kcl -) 40 meq in 1,000 mls @ 75 mls/ hr IV ASDIR [facility] Last Admin: 12/19/17 19:00 Dose: 75 mls/hr - Objective Vital Signs: Vital Signs Temperature 97.4 F L 12/20/17 06:00 Pulse Rate 92 H 12/20/17 06:00 Respiratory Rate 18 12/20/17 06:00 Blood Pressure 145/82 12/20/17 06:00 O2 Sat by Pulse Oximetry (%) 98 12/19/17 21:00 Cardiovascular: Yes: S1, S2 Respiratory: Yes: Regular, CTA Bilaterally Gastrointestinal: Yes: Normal Bowel Sounds, Soft Labs: CBC, BMP 12/18/17 08:00 12/18/17 08:00 Problem List - Problems (1) Hypernatremia Assessment/Plan: -DUE TO VOLUME DEPLETION -IVF -MAY NEED PEG Code(s): E87.0 - HYPEROSMOLALITY AND HYPERNATREMIA (2) Acute metabolic encephalopathy Assessment/Plan: DUE TO DEMENTIA AND HYPONATREMIA MONITOR Code(s): G93.41 - METABOLIC ENCEPHALOPATHY (3) Dementia Assessment/Plan: ABOVE Code(s): F03.90 - UNSPECIFIED DEMENTIA WITHOUT BEHAVIORAL DISTURBANCE Qualifiers: (4) Functional quadriplegia Assessment/Plan: - Complete immobility due to frailty, end-stage dementia - Requires total care - Turn Q2h - Jayjay Lift as needed - Heel protectors - Fall precautions Code(s): R53.2 - FUNCTIONAL QUADRIPLEGIA (5) Anemia Assessment/Plan: W/U ORDERED GI CONSULT Code(s): D64.9 - ANEMIA, UNSPECIFIED (6) Hypokalemia Assessment/Plan: improved monitor Code(s): E87.6 - HYPOKALEMIA
[2017-12-20] MEDS: D5-1/2NS+40 MEQ KCL - 40 MEQ/1,000 ML INFUS.BAG IV SCH (10:20)
[2017-12-20] MEDS: CEPHALEXIN MONOHYDRATE 500 MG CAPSULE (UD) PO SCH ×2 (10:21→21:45)
[2017-12-20] MEDS: HEPARIN NA (PORCINE) 5,000 UNITS/ML 1ML VIAL SQ SCH ×2 (10:21→21:45)
[2017-12-20 12:01] LABS: ALBUMIN 2.4 g/dl (3.4-5.0); ANION GAP 7 (8-16); BLOOD UREA NITROGEN 3 mg/dL (7-18); CALCIUM 8.8 mg/dL (8.5-10.1); CHLORIDE 111 mmol/L (98-107); CO2 24 mmol/L (21-32); CREATININE 0.5 mg/dL (0.55-1.02); GLUCOSE,RANDOM 102 mg/dL (74-106); POTASSIUM 4.8 mmol/L (3.5-5.1); SGOT/AST 47 U/L (15-37); SGPT/ALT 30 U/L (12-78); SODIUM 142 mmol/L (136-145)
[2017-12-20 12:03] LABS: ALK PHOS 72 U/L (45-117); BILIRUBIN,TOTAL 0.2 mg/dL (0.2-1.0); TOT PROT 5.7 g/dl (6.4-8.2)
--- NOTE | 2017-12-20 18:58 | PN ---
Progress Note, Physician History of Present Illness: Chart reviewed. No events. Consumes < 25% of her daily meals, per nutrition notes - Current Medication List Current Medications: Active Medications Acetaminophen (Tylenol -) 650 mg PO Q6H PRN PRN Reason: FEVER Last Admin: 12/19/17 21:55 Dose: 650 mg Cephalexin HCl (Keflex -) 500 mg PO BID [facility] Last Admin: 12/20/17 10:21 Dose: 500 mg Heparin Sodium (Porcine) (Heparin -) 5,000 unit SQ BID [facility] Last Admin: 12/20/17 10:21 Dose: 5,000 unit Dextrose/Sodium Chloride (D5-1/2ns+40 Meq Kcl -) 40 meq in 1,000 mls @ 75 mls/ hr IV ASDIR [facility] Last Admin: 12/20/17 10:20 Dose: 75 mls/hr - Objective Vital Signs: Vital Signs Temperature 97.4 F L 12/20/17 06:00 Pulse Rate 92 H 12/20/17 06:00 Respiratory Rate 18 12/20/17 06:00 Blood Pressure 145/82 12/20/17 06:00 O2 Sat by Pulse Oximetry (%) 98 12/20/17 09:00 Constitutional: Yes: No Distress, Calm Gastrointestinal: Yes: Normal Bowel Sounds, Soft. No: Tenderness Neurological: Yes: Confusion Labs: CBC, BMP 12/18/17 08:00 12/20/17 11:15 CBCD WBC 6.5 K/mm3 (4.0-10.0) 12/18/17 08:00 RBC 4.18 M/mm3 (3.60-5.2) 12/18/17 08:00 Hgb 10.6 GM/dL (10.7-15.3) L D 12/18/17 08:00 Hct 33.7 % (32.4-45.2) D 12/18/17 08:00 MCV 80.8 fl (80-96) 12/18/17 08:00 MCHC 31.3 g/dl (32.0-36.0) L 12/18/17 08:00 RDW 17.2 % (11.6-15.6) H 12/18/17 08:00 Plt Count 404 K/MM3 (134-434) 12/18/17 08:00 MPV 9.3 fl (7.5-11.1) 12/18/17 08:00 CMP Sodium 142 mmol/L (136-145) 12/20/17 11:15 Potassium 4.8 mmol/L (3.5-5.1) 12/20/17 11:15 Chloride 111 mmol/L (98-107) H 12/20/17 11:15 Carbon Dioxide 24 mmol/L (21-32) 12/20/17 11:15 Anion Gap 7 (8-16) L 12/20/17 11:15 BUN 3 mg/dL (7-18) L 12/20/17 11:15 Creatinine 0.5 mg/dL (0.55-1.02) L 12/20/17 11:15 Creat Clearance w eGFR > 60 (>60) 12/20/17 11:15 Calcium 8.8 mg/dL (8.5-10.1) 12/20/17 11:15 Total Bilirubin 0.2 mg/dL (0.2-1.0) D 12/20/17 11:15 AST 47 U/L (15-37) H 12/20/17 11:15 ALT 30 U/L (12-78) 12/20/17 11:15 Alkaline Phosphatase 72 U/L (45-117) 12/20/17 11:15 Total Protein 5.7 g/dl (6.4-8.2) L 12/20/17 11:15 Albumin 2.4 g/dl (3.4-5.0) L 12/20/17 11:15 Problem List - Problems (1) Dehydration with hypernatremia Code(s): E87.0 - HYPEROSMOLALITY AND HYPERNATREMIA (2) Failure to thrive Code(s): [id number] - (3) Acute metabolic encephalopathy Code(s): G93.41 - METABOLIC ENCEPHALOPATHY (4) Dementia Code(s): F03.90 - UNSPECIFIED DEMENTIA WITHOUT BEHAVIORAL DISTURBANCE Qualifiers: (5) Lethargy Code(s): R53.83 - OTHER FATIGUE Assessment/Plan Failure to thrive due to advanced dementia Will discuss PEG with HCP - pt's son.
[2017-12-20] MEDS: ACETAMINOPHEN 325 MG TABLET (FP) PO PRN (21:46)
--- NOTE | 2017-12-20 23:15 | HOSP ---
Subjective - Review of Symptoms Events since last encounter: Hospitalist Encounter Notified by RN, that the patient has swelling to L- hand- mid forearm secondary to IV site infiltration Subjective: Arrived to bedside, patient is alert to name only- baseline secondary to Dementia hx Assessment 72 year old female with past medical history of dementia who was sent to the ED for increased AMS, UE rigidity, dehydration, and FTT. Plan Continue warm compress to L-hand and L- forearm Elevate extremity Neurovascular checks Continue to monitor RN to inform PCP in am Recommend decreasing IVF to 42cc/hr secondary to edema to B/L feet Other Systems: Extremity: +swelling to L- hand rad to L- mid forearm Physical Examination Vital Signs: Vital Signs Temperature 98.4 F 12/20/17 20:28 Pulse Rate 108 H 12/20/17 20:28 Respiratory Rate 19 12/20/17 20:28 Blood Pressure 141/74 12/20/17 20:28 O2 Sat by Pulse Oximetry (%) 98 12/20/17 09:00 Constitutional: Yes: No Distress, Calm, Cachectic Eyes: Yes: Conjunctiva Clear, PERRL HENT: Yes: WNL, Atraumatic, Normocephalic Neck: Yes: WNL, Supple, Trachea Midline Cardiovascular: Yes: Regular Rate and Rhythm, S1, S2 Respiratory: Yes: WNL, Regular, CTA Bilaterally Gastrointestinal: Yes: Normal Bowel Sounds, Soft Extremities: Yes: Other (edema to L-hand, L- mid forearm contractures to lower extremities) Edema: LUE: 1+, LLE: 1+ (foot), RLE: Trace (foot) Peripheral Pulses WNL: Yes Neurological: Yes: Alert (at baseline) Psychiatric: Yes: Alert Labs: CBC, BMP 12/18/17 08:00 12/20/17 11:15 Intake & Output 12/18/17 12/19/17 12/20/17 12/21/17 23:59 23:59 23:59 23:59 Intake Total 2818 1170 2516 Balance 2818 1170 2516 Current Medications Generic Name Dose Route Start Last Admin Trade Name Freq PRN Reason Stop Dose Admin Acetaminophen 650 mg 12/15/17 17:46 12/20/17 21:46 Tylenol - PO 650 mg Q6H PRN Administration FEVER Donepezil HCl 10 mg 12/21/17 12:45 Aricept - PO DAILY ROB Escitalopram Oxalate 10 mg 12/21/17 12:45 Lexapro - PO DAILY ROB Heparin Sodium (Porcine) 5,000 unit 12/15/17 22:00 12/21/17 10:54 Heparin - SQ 5,000 unit BID [facility] Administration Dextrose/Sodium Chloride 40 meq in 1,000 mls @ 75 mls/hr 12/17/17 10:45 12/21 04:00 D5-1/2ns+40 Meq Kcl - IV 75 mls/hr ASDIR ROB Administration Vancomycin HCl 1,000 mg/ 250 mls @ 250 mls/hr 12/21/17 14:00 Dextrose IVPB 12/21/17 14:59 ONCE ONE Protocol
[2017-12-21] MEDS: D5-1/2NS+40 MEQ KCL - 40 MEQ/1,000 ML INFUS.BAG IV SCH (04:00)
[2017-12-21 08:56] LABS: BASO % 0.9 % (0-2.0); EOS % 0.4 % (0-4.5); HEMATOCRIT 32.2 % (32.4-45.2); HEMOGLOBIN 10.3 GM/dL (10.7-15.3); MCH 25.9 pg (25.7-33.7); MEAN CELL VOLUME 80.9 fl (80-96); MEAN PLT VOLUME 9.4 fl (7.5-11.1); MONO % 5.7 % (3.8-10.2); PLATELET COUNT 414 K/MM3 (134-434); RBC 3.99 M/mm3 (3.60-5.2); RDW 17.3 % (11.6-15.6); WHITE BLOOD COUNT 9.3 K/mm3 (4.0-10.0)
[2017-12-21 10:30] LABS: CHLORIDE 109 mmol/L (98-107); SGOT/AST 53 U/L (15-37); SGPT/ALT 34 U/L (12-78); SODIUM 139 mmol/L (136-145)
[2017-12-21 10:32] LABS: ALBUMIN 2.3 g/dl (3.4-5.0); ALK PHOS 82 U/L (45-117); ANION GAP 7 (8-16); BILIRUBIN,TOTAL 0.1 mg/dL (0.2-1.0); BLOOD UREA NITROGEN 5 mg/dL (7-18); CALCIUM 8.6 mg/dL (8.5-10.1); CO2 23 mmol/L (21-32); CREATININE 0.6 mg/dL (0.55-1.02); GLUCOSE,RANDOM 106 mg/dL (74-106); TOT PROT 5.5 g/dl (6.4-8.2)
[2017-12-21] MEDS: CEPHALEXIN MONOHYDRATE 500 MG CAPSULE (UD) PO SCH (10:54)
[2017-12-21] MEDS: HEPARIN NA (PORCINE) 5,000 UNITS/ML 1ML VIAL SQ SCH ×2 (10:54→21:49)
--- NOTE | 2017-12-21 12:32 | PN ---
Progress Note, BEAM HOUSE INSPECTOR - Note Progress Note: Selected Entries 12/20/17 12/20/17 12/20/17 06:00 15:42 20:28 Supper 25% 25% Temperature 97.4 F L 98.4 F 12/21/17 05:34 Supper Temperature 99.6 F Laboratory Tests 12/21/17 08:40 WBC 9.3 D Poor PO acceptance sec to cognitive deficits. Brisk swallow. Al;ternate means of nutritional intake? Palliative care consult? Encourage supplements
--- NOTE | 2017-12-21 12:49 | PN ---
Progress Note, Physician Chief Complaint: AMS FTT Electrolyte imbalance UTI - Current Medication List Current Medications: Active Medications Acetaminophen (Tylenol -) 650 mg PO Q6H PRN PRN Reason: FEVER Last Admin: 12/20/17 21:46 Dose: 650 mg Heparin Sodium (Porcine) (Heparin -) 5,000 unit SQ BID [facility] Last Admin: 12/21/17 10:54 Dose: 5,000 unit Dextrose/Sodium Chloride (D5-1/2ns+40 Meq Kcl -) 40 meq in 1,000 mls @ 75 mls/ hr IV ASDIR [facility] Last Admin: 12/21/17 04:00 Dose: 75 mls/hr Vancomycin HCl 1,000 mg/ (Dextrose) 250 mls @ 250 mls/hr IVPB ONCE ONE PRN Reason: Protocol Stop: 12/21/17 14:59 - Objective Vital Signs: Vital Signs Temperature 99.6 F 12/21/17 05:34 Pulse Rate 109 H 12/21/17 09:00 Respiratory Rate 18 12/21/17 09:00 Blood Pressure 119/59 12/21/17 09:00 O2 Sat by Pulse Oximetry (%) 98 12/20/17 21:00 Constitutional: Yes: No Distress, Calm, Cachectic Cardiovascular: Yes: Regular Rate and Rhythm Respiratory: Yes: Regular Gastrointestinal: Yes: Hypoactive Bowel Sounds Musculoskeletal: Yes: Muscle Weakness Edema: No Peripheral Pulses WNL: Yes Neurological: Yes: Alert, Pre-Existing Deficit Psychiatric: Yes: Alert Labs: CBC, BMP 12/21/17 08:40 12/21/17 08:40 Problem List - Problems (1) Failure to thrive Assessment/Plan: -RD consult -GI consult for PEG consideration, would treat underlying metabolic encephalopathy to see if symptoms improve -Ensure Code(s): [id number] - (2) Hypernatremia Assessment/Plan: -2/2 to dehydration -resolved -IVF Code(s): E87.0 - HYPEROSMOLALITY AND HYPERNATREMIA (3) Hypokalemia Assessment/Plan: -2/2 to FTT -improved -supplement as needed -Decrease potassium through IV to 20 meq Code(s): E87.6 - HYPOKALEMIA (4) Acute metabolic encephalopathy Assessment/Plan: -treat UTI to see if symptoms improve -ID consult Code(s): G93.41 - METABOLIC ENCEPHALOPATHY (5) Functional quadriplegia Code(s): R53.2 - FUNCTIONAL QUADRIPLEGIA (6) Urinary tract infection Assessment/Plan: -ID consult -UC: Microbiology 12/15/17 20:30 Urine - Urine Clean Catch Urine Culture - Final Staphylococcus Epidermidis -Vanco 1 dose Code(s): N39.0 - URINARY TRACT INFECTION, SITE NOT SPECIFIED Qualifiers: Urinary tract infection type: acute cystitis Hematuria presence: with hematuria Qualified Code(s): N30.01 - Acute cystitis with hematuria Assessment/Plan see problem list
[2017-12-21] MEDS: DONEPEZIL HCL 10 MG TABLET (FP) PO SCH (13:31)
[2017-12-21] MEDS: ESCITALOPRAM OXALATE 10 MG TABLET (FP) PO SCH (13:31)
--- NOTE | 2017-12-21 13:55 | PN ---
Progress Note (short form) - Note Progress Note: ID Consult dictated + urine c/s SCN likely contaminant Will repeat U/A urine c/s Observe off antibiotics
[2017-12-21] MEDS ORDERED: VANCOMYCIN 1,000 MG in DEXTROSE 5%-WATER - 250 ML IVPB ONE (14:00)
--- NOTE | 2017-12-21 14:41 | PN ---
Progress Note (short form) - Note Progress Note: Left message with pt's son to call me back to discuss PEG. Problem List - Problems (1) Dehydration with hypernatremia Code(s): E87.0 - HYPEROSMOLALITY AND HYPERNATREMIA (2) Failure to thrive Code(s): [id number] - (3) Acute metabolic encephalopathy Code(s): G93.41 - METABOLIC ENCEPHALOPATHY (4) Dementia Code(s): F03.90 - UNSPECIFIED DEMENTIA WITHOUT BEHAVIORAL DISTURBANCE Qualifiers: (5) Lethargy Code(s): R53.83 - OTHER FATIGUE
[2017-12-21] MEDS: D5-NS + 20 MEQ KCL - 20 MEQ/1,000 ML INFUS.BAG IV SCH (14:46)
--- NOTE | 2017-12-21 15:16 | PN ---
Progress Note (short form) - Note Progress Note: Spoke with patient's son on the phone re caloric intake and nutritional status. While she is no longer dehydrated, or has UTI, she remains with very poor po intake. Nonetheless, the son wants to wait few more days before considering PEG. Continue current care, ?PEG on Thursday, if clinically the same and son agrees Problem List - Problems (1) Dehydration with hypernatremia Code(s): E87.0 - HYPEROSMOLALITY AND HYPERNATREMIA (2) Failure to thrive Code(s): [id number] - (3) Acute metabolic encephalopathy Code(s): G93.41 - METABOLIC ENCEPHALOPATHY (4) Dementia Code(s): F03.90 - UNSPECIFIED DEMENTIA WITHOUT BEHAVIORAL DISTURBANCE Qualifiers: (5) Lethargy Code(s): R53.83 - OTHER FATIGUE
[2017-12-21 16:03] LABS: URINE APPEARANCE CLEAR; URINE BILIRUBIN NEGATIVE (<2.0 mg/dL); URINE BLOOD NEGATIVE (NEGATIVE); URINE COLOR LTYELLOW; URINE GLUCOSE (UA) NEGATIVE (NEGATIVE); URINE KETONE NEGATIVE (NEGATIVE); URINE LEUK ESTERASE NEGATIVE (NEGATIVE); URINE NITRITE NEGATIVE (NEGATIVE); URINE PROTEIN NEGATIVE (NEGATIVE); URINE UROBILINOGEN NEGATIVE mg/dL (0.2-1.0)
--- NOTE | 2017-12-21 19:24 | CONS ---
INFECTIOUS DISEASE CONSULTATION DATE OF CONSULTATION: DATE OF DICTATION: 12/21/2017 The patient is a 72-year-old female with a history of dementia and recent right hip fracture, who is evaluated for positive urine culture. She was admitted to the hospital from home with reports of altered mental status, increased upper extremity rigidity, dehydration, and deconditioning. She was evaluated in the hospital. Her workup was significant for positive urine culture, Staphylococcus epidermidis. Her baseline mental status is one of dementia. She is unable to offer any additional history. No reports of high-grade fever, shaking chills, labored breathing, cough, sputum production, vomiting, diarrhea, or grossly purulent urine. PAST MEDICAL HISTORY: Positive for hyperlipidemia and dementia. She was hospitalized at [facility] from November 08 through November 11 with fever and urinary tract infection. Cultures at that time were positive for E. coli and pseudomonas. PAST SURGICAL HISTORY: Status post right hip fracture. She is status post right hemiarthroplasty on June 11, 2017. ALLERGIES: No known allergies. MEDICATIONS: Aricept and Lexapro. SOCIAL HISTORY: Lives at home, dependent in activities of daily living. Nonsmoker, nondrinker. SYSTEMS REVIEW: Neurologic: Positive for dementia. Cardiac: Negative chest pain or palpitations. Respiratory: Negative cough or sputum production. Gastrointestinal: Negative vomiting or diarrhea. Genitourinary: As per HPI. LABORATORY DATA: White count 9.3, hematocrit 32.2, platelet count 414. BUN 5, creatinine 0.6. Urinalysis: White cells 4. Chest x-ray negative. Urine culture Staphylococcus epidermidis. PHYSICAL EXAMINATION: General: She is awake and responsive. However, she is confused. She is supine in bed, in no acute distress. Vital Signs: Temperature 99.6; blood pressure 119/59; pulse 109, regular; respirations 18 per minute. HEENT: Sclerae are anicteric. Heart: Sounds S1, S2. Lungs: Clear. Abdomen: Soft, nontender. No suprapubic or flank tenderness. Extremities: Edema 1+. IMPRESSION: 1. Positive urine cultures, staphylococcus coagulase negative, likely contaminant. 2. Toxic metabolic encephalopathy superimposed on baseline dementia. 3. Dehydration. Will repeat urinalysis and urine culture, observed off antibiotic therapy. Will follow. Thank you for the kind referral. EPI IBRAHIM M.D. [id number]
[2017-12-22] MEDS: D5-NS + 20 MEQ KCL - 20 MEQ/1,000 ML INFUS.BAG IV SCH ×2 (05:20→21:54)
[2017-12-22] MEDS: ESCITALOPRAM OXALATE 10 MG TABLET (FP) PO SCH (09:14)
[2017-12-22] MEDS: HEPARIN NA (PORCINE) 5,000 UNITS/ML 1ML VIAL SQ SCH ×2 (09:15→21:54)
[2017-12-22] MEDS: DONEPEZIL HCL 10 MG TABLET (FP) PO SCH (09:15)
--- NOTE | 2017-12-22 10:03 | PN ---
Progress Note, Physician Chief Complaint: AMS FTT Electrolyte imbalance UTI History of Present Illness: NAD, Poor oral intake No decision for peg yet, has underlying dementia seen by ID for UTI-Observe off abx - Current Medication List Current Medications: Active Medications Acetaminophen (Tylenol -) 650 mg PO Q6H PRN PRN Reason: FEVER Last Admin: 12/20/17 21:46 Dose: 650 mg Donepezil HCl (Aricept -) 10 mg PO DAILY [facility] Last Admin: 12/22/17 09:15 Dose: 10 mg Escitalopram Oxalate (Lexapro -) 10 mg PO DAILY [facility] Last Admin: 12/22/17 09:14 Dose: 10 mg Heparin Sodium (Porcine) (Heparin -) 5,000 unit SQ BID [facility] Last Admin: 12/22/17 09:15 Dose: 5,000 unit Dextrose/Sodium Chloride (Dextrose 5%-Normal Saline+20 Meq Kcl -) 20 meq in 1, 000 mls @ 75 mls/hr IV ASDIR [facility] Last Admin: 12/22/17 05:20 Dose: 75 mls/hr - Objective Vital Signs: Vital Signs Temperature 99.4 F 12/22/17 06:29 Pulse Rate 97 H 12/22/17 06:29 Respiratory Rate 20 12/22/17 06:29 Blood Pressure 135/67 12/22/17 06:29 O2 Sat by Pulse Oximetry (%) 96 12/21/17 21:00 Constitutional: Yes: No Distress, Calm, Cachectic Cardiovascular: Yes: Regular Rate and Rhythm Respiratory: Yes: Regular Gastrointestinal: Yes: Hypoactive Bowel Sounds Musculoskeletal: Yes: WNL Extremities: Yes: WNL Edema: Yes (BLLE) Edema: LLE: 1+, RLE: 1+ Peripheral Pulses WNL: Yes Neurological: Yes: Alert, Oriented (x1), Pre-Existing Deficit Psychiatric: Yes: Alert Labs: CBC, BMP 12/21/17 08:40 12/21/17 08:40 Problem List - Problems (1) Failure to thrive Assessment/Plan: -RD consult -GI consult for PEG consideration -Ensure Code(s): [id number] - (2) Hypernatremia Assessment/Plan: -2/2 to dehydration -resolved -IVF Code(s): E87.0 - HYPEROSMOLALITY AND HYPERNATREMIA (3) Hypokalemia Assessment/Plan: -2/2 to FTT -improved -supplement as needed -Decrease potassium through IV to 20 meq -monitor labs Code(s): E87.6 - HYPOKALEMIA (4) Acute metabolic encephalopathy Assessment/Plan: -ID consult -hold off abx as per ID -dehydration improved Code(s): G93.41 - METABOLIC ENCEPHALOPATHY (5) Functional quadriplegia Code(s): R53.2 - FUNCTIONAL QUADRIPLEGIA (6) Urinary tract infection Assessment/Plan: -ID consult -UC: Microbiology 12/15/17 20:30 Urine - Urine Clean Catch Urine Culture - Final Staphylococcus Epidermidis -Vanco 1 dose -monitor off abx as per ID Code(s): N39.0 - URINARY TRACT INFECTION, SITE NOT SPECIFIED Qualifiers: Urinary tract infection type: acute cystitis Hematuria presence: with hematuria Qualified Code(s): N30.01 - Acute cystitis with hematuria (7) Malnutrition Assessment/Plan: -Encourage PO intake -RD consult -PEG if she fails to improve Code(s): E46 - UNSPECIFIED PROTEIN-CALORIE MALNUTRITION Qualifiers: Protein-calorie malnutrition severity: severe Assessment/Plan see problem list
[2017-12-22] MEDS: MULTIVITAMINS THER W-MINERALS COMBO TABLET (FP) PO SCH (11:14)
--- NOTE | 2017-12-22 11:55 | PN ---
Progress Note, VOICE STUDIES DIRECTOR - Note Progress Note: Selected Entries 12/21/17 12/21/17 12/22/17 05:34 21:26 06:29 Breakfast Supper 25% Temperature 99.6 F 98.3 F 99.4 F 12/22/17 11:16 Breakfast 25% Supper Temperature Laboratory Tests 12/21/17 08:40 WBC 9.3 D Poor PO acceptance sec to cognitive deficits. Brisk swallow. Alternate means of nutritional intake/ Considering PEG Encourage supplements
--- NOTE | 2017-12-22 13:40 | PN ---
Progress Note, Physician History of Present Illness: Seated in bed More awake and responsive Offers no complaints Denies dysuria - Current Medication List Current Medications: Active Medications Acetaminophen (Tylenol -) 650 mg PO Q6H PRN PRN Reason: FEVER Last Admin: 12/20/17 21:46 Dose: 650 mg Amino Acids (Prosource No Carb Liquid Pkt) 30 ml PO BID@0800,1730 [facility] Donepezil HCl (Aricept -) 10 mg PO DAILY [facility] Last Admin: 12/22/17 09:15 Dose: 10 mg Escitalopram Oxalate (Lexapro -) 10 mg PO DAILY [facility] Last Admin: 12/22/17 09:14 Dose: 10 mg Heparin Sodium (Porcine) (Heparin -) 5,000 unit SQ BID [facility] Last Admin: 12/22/17 09:15 Dose: 5,000 unit Dextrose/Sodium Chloride (Dextrose 5%-Normal Saline+20 Meq Kcl -) 20 meq in 1, 000 mls @ 75 mls/hr IV ASDIR [facility] Last Admin: 12/22/17 05:20 Dose: 75 mls/hr Multivitamins/Minerals (Theragran-M) 1 each PO DAILY [facility] Last Admin: 12/22/17 11:14 Dose: 1 each - Objective Vital Signs: Vital Signs Temperature 99.4 F 12/22/17 06:29 Pulse Rate 97 H 12/22/17 06:29 Respiratory Rate 20 12/22/17 09:00 Blood Pressure 135/67 12/22/17 06:29 O2 Sat by Pulse Oximetry (%) 98 12/22/17 09:00 Constitutional: Yes: No Distress Eyes: Yes: Conjunctiva Clear Cardiovascular: Yes: Regular Rate and Rhythm, S1, S2 Respiratory: Yes: CTA Bilaterally Gastrointestinal: Yes: Normal Bowel Sounds, Soft. No: Tenderness Edema: No Labs: CBC, BMP 12/21/17 08:40 12/21/17 08:40 Assessment/Plan Asymptomatic bacteruria Toxic metabolic encephalopathy OBS Observe off antibiotics
[2017-12-22] MEDS: AMINO ACIDS/PROTEIN HYDROLYS 30 ML LIQUID.PKT PO SCH (16:49)
[2017-12-22] MEDS ORDERED: PT OWN MED DRAWER 7, Y5N ONE (17:39)
--- NOTE | 2017-12-22 19:01 | PN ---
Progress Note (short form) - Note Progress Note: Pt's son is not in favor of feeding tube at his time. Problem List - Problems (1) Dehydration with hypernatremia Code(s): E87.0 - HYPEROSMOLALITY AND HYPERNATREMIA (2) Failure to thrive Code(s): [id number] - (3) Acute metabolic encephalopathy Code(s): G93.41 - METABOLIC ENCEPHALOPATHY (4) Dementia Code(s): F03.90 - UNSPECIFIED DEMENTIA WITHOUT BEHAVIORAL DISTURBANCE Qualifiers: (5) Lethargy Code(s): R53.83 - OTHER FATIGUE
[2017-12-23] MEDS: MULTIVITAMINS THER W-MINERALS COMBO TABLET (FP) PO SCH (10:24)
[2017-12-23] MEDS: AMINO ACIDS/PROTEIN HYDROLYS 30 ML LIQUID.PKT PO SCH ×2 (10:24→17:12)
[2017-12-23] MEDS: HEPARIN NA (PORCINE) 5,000 UNITS/ML 1ML VIAL SQ SCH ×2 (10:24→21:20)
[2017-12-23] MEDS: ESCITALOPRAM OXALATE 10 MG TABLET (FP) PO SCH (10:24)
[2017-12-23] MEDS: DONEPEZIL HCL 10 MG TABLET (FP) PO SCH (10:24)
--- NOTE | 2017-12-23 11:24 | PN ---
Progress Note, Physician Chief Complaint: AMS FTT Electrolyte imbalance UTI History of Present Illness: NAD, Poor oral intake No decision for peg yet, has underlying dementia Spoke to son extensively last evening, he wants to think about it seen by ID for UTI-Observe off abx - Current Medication List Current Medications: Active Medications Acetaminophen (Tylenol -) 650 mg PO Q6H PRN PRN Reason: FEVER Last Admin: 12/20/17 21:46 Dose: 650 mg Amino Acids (Prosource No Carb Liquid Pkt) 30 ml PO BID@0800,1730 [facility] Last Admin: 12/23/17 10:24 Dose: 30 ml Donepezil HCl (Aricept -) 10 mg PO DAILY [facility] Last Admin: 12/23/17 10:24 Dose: 10 mg Escitalopram Oxalate (Lexapro -) 10 mg PO DAILY [facility] Last Admin: 12/23/17 10:24 Dose: 10 mg Heparin Sodium (Porcine) (Heparin -) 5,000 unit SQ BID [facility] Last Admin: 12/23/17 10:24 Dose: 5,000 unit Dextrose/Sodium Chloride (Dextrose 5%-Normal Saline+20 Meq Kcl -) 20 meq in 1, 000 mls @ 75 mls/hr IV ASDIR [facility] Last Admin: 12/22/17 21:54 Dose: 75 mls/hr Multivitamins/Minerals (Theragran-M) 1 each PO DAILY [facility] Last Admin: 12/23/17 10:24 Dose: 1 each - Objective Vital Signs: Vital Signs Temperature 98.7 F 12/23/17 06:33 Pulse Rate 105 H 12/23/17 06:33 Respiratory Rate 20 12/23/17 06:33 Blood Pressure 128/61 12/23/17 06:33 O2 Sat by Pulse Oximetry (%) 96 12/22/17 21:00 Constitutional: Yes: No Distress, Calm, Cachectic Cardiovascular: Yes: Regular Rate and Rhythm Respiratory: Yes: Regular Gastrointestinal: Yes: Soft, Hypoactive Bowel Sounds Genitourinary: Yes: Incontinence Musculoskeletal: Yes: Muscle Weakness Edema: Yes Edema: LLE: 1+, RLE: 1+ Peripheral Pulses WNL: Yes Neurological: Yes: Alert, Pre-Existing Deficit Psychiatric: Yes: Alert Labs: CBC, BMP 12/21/17 08:40 12/21/17 08:40 Problem List - Problems (1) Failure to thrive Assessment/Plan: -RD consult -GI consult for PEG consideration -Ensure Code(s): [id number] - (2) Hypernatremia Assessment/Plan: -2/2 to dehydration -resolved -IVF Code(s): E87.0 - HYPEROSMOLALITY AND HYPERNATREMIA (3) Hypokalemia Assessment/Plan: -2/2 to FTT -improved -supplement as needed -Decrease potassium through IV to 20 meq -monitor labs Code(s): E87.6 - HYPOKALEMIA (4) Acute metabolic encephalopathy Assessment/Plan: -ID consult -hold off abx as per ID -dehydration improved Code(s): G93.41 - METABOLIC ENCEPHALOPATHY (5) Functional quadriplegia Code(s): R53.2 - FUNCTIONAL QUADRIPLEGIA (6) Urinary tract infection Assessment/Plan: -ID consult -monitor off abx as per ID -repeat UC negative Code(s): N39.0 - URINARY TRACT INFECTION, SITE NOT SPECIFIED Qualifiers: Urinary tract infection type: acute cystitis Hematuria presence: with hematuria Qualified Code(s): N30.01 - Acute cystitis with hematuria (7) Malnutrition Code(s): E46 - UNSPECIFIED PROTEIN-CALORIE MALNUTRITION Qualifiers: Protein-calorie malnutrition severity: severe Assessment/Plan see problem list physical therapy
[2017-12-23 11:59] LABS: EOS % 2.6 % (0-4.5); HEMATOCRIT 26.7 % (32.4-45.2); HEMOGLOBIN 8.5 GM/dL (10.7-15.3); LYMPH % 23.3 % (8-40); MCHC 31.9 g/dl (32.0-36.0); MEAN CELL VOLUME 81.3 fl (80-96); MEAN PLT VOLUME 8.6 fl (7.5-11.1); MONO % 7.4 % (3.8-10.2); NEUT % 65.7 % (42.8-82.8); PLATELET COUNT 344 K/MM3 (134-434); RBC 3.28 M/mm3 (3.60-5.2); WHITE BLOOD COUNT 7.7 K/mm3 (4.0-10.0)
--- NOTE | 2017-12-23 12:14 | PN ---
Progress Note, LEGISLATIVE ADVOCATE - Note Progress Note: Selected Entries 12/22/17 12/22/17 12/22/17 06:29 10:00 11:16 Breakfast 25% Lunch Temperature 99.4 F 99.1 F 12/22/17 12/22/17 12/23/17 15:14 20:20 06:33 Breakfast Lunch 50% Temperature 98.7 F 98.7 F 12/23/17 10:56 Breakfast 50% Lunch Temperature Pt on soft diet, thin liquids. Intermittent PO acceptance sec to significant cognitive impairment. Pt downgraded to chopped due to extended mastication, even with puree. SHAREPOINT MANAGER present, reporting recurrent admission with intermittent poor po acceptance. Reassessed mixing puree with ensure enlive with improved po acceptance and rate of intake. REC: Dys puree diet, mix into Ensure to drink food. Educated SHAREPOINT MANAGER on pureeing food at home with added liquid.
[2017-12-23] MEDS: D5-NS + 20 MEQ KCL - 20 MEQ/1,000 ML INFUS.BAG IV SCH ×3 (12:16→15:44)
[2017-12-23 12:33] LABS: ANION GAP 6 (8-16); BILIRUBIN,TOTAL 0.1 mg/dL (0.2-1.0); BLOOD UREA NITROGEN 7 mg/dL (7-18); CHLORIDE 108 mmol/L (98-107); CO2 25 mmol/L (21-32); CREATININE 0.5 mg/dL (0.55-1.02); GLUCOSE,RANDOM 89 mg/dL (74-106); POTASSIUM 4.2 mmol/L (3.5-5.1); SGOT/AST 109 U/L (15-37); SGPT/ALT 74 U/L (12-78); SODIUM 139 mmol/L (136-145)
[2017-12-23 12:41] LABS: ALK PHOS 126 U/L (45-117)
[2017-12-24] MEDS: D5-NS + 20 MEQ KCL - 20 MEQ/1,000 ML INFUS.BAG IV SCH ×3 (06:31→21:36)
[2017-12-24] MEDS: MULTIVITAMINS THER W-MINERALS COMBO TABLET (FP) PO SCH (09:00)
[2017-12-24] MEDS: ESCITALOPRAM OXALATE 10 MG TABLET (FP) PO SCH (09:00)
[2017-12-24] MEDS: AMINO ACIDS/PROTEIN HYDROLYS 30 ML LIQUID.PKT PO SCH ×2 (09:00→16:46)
[2017-12-24] MEDS: HEPARIN NA (PORCINE) 5,000 UNITS/ML 1ML VIAL SQ SCH ×2 (09:00→21:37)
[2017-12-24] MEDS: DONEPEZIL HCL 10 MG TABLET (FP) PO SCH (09:01)
--- NOTE | 2017-12-24 11:59 | PN ---
Progress Note, Physician Chief Complaint: AMS FTT Electrolyte imbalance UTI History of Present Illness: NAD, Poor oral intake Spoke to son extensively last evening, he wants to think about it seen by ID for UTI-Observe off abx - Current Medication List Current Medications: Active Medications Acetaminophen (Tylenol -) 650 mg PO Q6H PRN PRN Reason: FEVER Last Admin: 12/20/17 21:46 Dose: 650 mg Amino Acids (Prosource No Carb Liquid Pkt) 30 ml PO BID@0800,1730 [facility] Last Admin: 12/24/17 09:00 Dose: 30 ml Donepezil HCl (Aricept -) 10 mg PO DAILY [facility] Last Admin: 12/24/17 09:01 Dose: 10 mg Escitalopram Oxalate (Lexapro -) 10 mg PO DAILY [facility] Last Admin: 12/24/17 09:00 Dose: 10 mg Heparin Sodium (Porcine) (Heparin -) 5,000 unit SQ BID [facility] Last Admin: 12/24/17 09:00 Dose: 5,000 unit Dextrose/Sodium Chloride (Dextrose 5%-Normal Saline+20 Meq Kcl -) 20 meq in 1, 000 mls @ 75 mls/hr IV ASDIR [facility] Last Admin: 12/24/17 06:31 Dose: 75 mls/hr Multivitamins/Minerals (Theragran-M) 1 each PO DAILY [facility] Last Admin: 12/24/17 09:00 Dose: 1 each - Objective Vital Signs: Vital Signs Temperature 98.8 F 12/24/17 06:11 Pulse Rate 106 H 12/24/17 06:11 Respiratory Rate 20 12/24/17 06:11 Blood Pressure 138/80 12/24/17 06:11 O2 Sat by Pulse Oximetry (%) 96 12/23/17 21:00 Constitutional: Yes: No Distress, Calm, Cachectic Cardiovascular: Yes: Regular Rate and Rhythm Respiratory: Yes: Regular Gastrointestinal: Yes: Soft, Hypoactive Bowel Sounds Musculoskeletal: Yes: Muscle Weakness Edema: Yes Edema: LLE: Trace, RLE: Trace Peripheral Pulses WNL: Yes Neurological: Yes: Alert, Oriented Psychiatric: Yes: Alert, Oriented Labs: CBC, BMP 12/23/17 11:45 12/23/17 11:45 Problem List - Problems (1) Failure to thrive Assessment/Plan: -RD consult -GI consult for PEG consideration -Ensure Code(s): [id number] - (2) Hypernatremia Assessment/Plan: -2/2 to dehydration -resolved Code(s): E87.0 - HYPEROSMOLALITY AND HYPERNATREMIA (3) Hypokalemia Assessment/Plan: -2/2 to FTT -improved -supplement as needed -monitor labs outpatient Code(s): E87.6 - HYPOKALEMIA (4) Acute metabolic encephalopathy Assessment/Plan: -ID consult -hold off abx as per ID -dehydration improved Code(s): G93.41 - METABOLIC ENCEPHALOPATHY (5) Functional quadriplegia Code(s): R53.2 - FUNCTIONAL QUADRIPLEGIA (6) Urinary tract infection Assessment/Plan: -ID consult -monitor off abx as per ID -repeat UC negative Code(s): N39.0 - URINARY TRACT INFECTION, SITE NOT SPECIFIED Qualifiers: Urinary tract infection type: acute cystitis Hematuria presence: with hematuria Qualified Code(s): N30.01 - Acute cystitis with hematuria (7) Malnutrition Assessment/Plan: -Encourage PO intake -RD consult -Son refuses PEG Code(s): E46 - UNSPECIFIED PROTEIN-CALORIE MALNUTRITION Qualifiers: Protein-calorie malnutrition severity: severe Assessment/Plan see problem list VNS for home physical therapy and monitoring of nutritional intake Hospital bed- due to safety to avoid aspiration, pressure ulcers or skin breakdown
--- NOTE | 2017-12-24 12:19 | PN ---
Progress Note, SKIRT TRIMMER - Note Progress Note: Selected Entries 12/22/17 12/22/17 12/22/17 06:29 10:00 11:16 Breakfast 25% Lunch Temperature 99.4 F 99.1 F 12/22/17 12/22/17 12/23/17 15:14 20:20 06:33 Breakfast Lunch 50% Temperature 98.7 F 98.7 F 12/23/17 10:56 Breakfast 50% Lunch Temperature Selected Entries 12/23/17 12/23/17 12/23/17 06:33 08:00 10:56 Breakfast 50% 50% Lunch Supper Temperature 98.7 F 97.9 F 12/23/17 12/23/17 12/24/17 14:08 19:02 06:11 Breakfast Lunch 75% Supper 75% Temperature 98.6 F 98.9 F 98.8 F 12/24/17 12/24/17 08:00 11:25 Breakfast 50% 50% Lunch Supper Temperature 98.4 F Laboratory Tests 12/23/17 11:45 WBC 7.7 Pt on soft diet, thin liquids. Intermittent PO acceptance sec to significant cognitive impairment. Pt downgraded to chopped due to extended mastication, even with puree. DOCKWORKER present, reporting recurrent admission with intermittent poor po acceptance. Reassessed mixing puree with ensure enlive with improved po acceptance and rate of intake. I educated DOCKWORKER yesterday on pureeing food at home with added liquid. Pt did well this am for breakfast. Breakfast foods were pureed in nature. REC: Dys puree diet. Thin liquid. If poor Po intake on spoon, mix into Ensure to "drink" meals.
--- NOTE | 2017-12-24 12:55 | DS ---
Physical Examination Vital Signs: Vital Signs Temperature 98.4 F 12/24/17 08:00 Pulse Rate 90 12/24/17 08:00 Respiratory Rate 20 12/24/17 08:00 Blood Pressure 152/74 12/24/17 08:00 O2 Sat by Pulse Oximetry (%) 96 12/24/17 08:00 Constitutional: Yes: No Distress, Calm, Cachectic Cardiovascular: Yes: Regular Rate and Rhythm Respiratory: Yes: Regular Gastrointestinal: Yes: Soft, Hypoactive Bowel Sounds Musculoskeletal: Yes: Muscle Weakness Edema: Yes Edema: LLE: Trace, RLE: Trace Peripheral Pulses WNL: Yes Neurological: Yes: Alert, Oriented Psychiatric: Yes: Alert, Oriented Labs: CBC, BMP 12/23/17 11:45 12/23/17 11:45 Discharge Summary Reason For Visit: HYPERNATREMIA Current Active Problems Anemia (Acute) Dehydration with hypernatremia (Acute) Failure to thrive (Acute) Hypernatremia (Acute) Hypokalemia (Acute) Malnutrition (Acute) Hospital Course: 72 year old female with past medical history of dementia who was sent to the ED by Dr. Bravo for increased AMS, UE rigidity, dehydration, and FTT. The patients aid reports the patient has become mostly bed bound. She also reports noticing a few ulcers along the patients legs and her bottom. In the ED, the patient states "I am dehydrated." She remains alert and oriented to person only. Denies any fevers or chills or recent sick contacts. Denies CP/SOB. Condition: Stable - Instructions Diet, Activity, Other Instructions: Dys puree diet. Thin liquid. If poor Po intake on spoon, mix into Ensure to "drink" meals. VNS for physical therapy and monitor nutritional intake Hospital bed for safety to avoid aspiration and decrease the risk of skin breakdown and pressure ulcers. Referrals: Austin Bravo MD [Primary Care Provider] - Disposition: VNS/HOME HEALTH CARE - Home Medications Comprehensive Discharge Medication List: Ambulatory Orders Donepezil HCl [Aricept -] 10 mg PO DAILY 06/10/17 Escitalopram Oxalate [Lexapro -] 10 mg PO DAILY 12/15/17
[2017-12-25] MEDS: AMINO ACIDS/PROTEIN HYDROLYS 30 ML LIQUID.PKT PO SCH (08:00)
[2017-12-25] MEDS: MULTIVITAMINS THER W-MINERALS COMBO TABLET (FP) PO SCH (09:29)
[2017-12-25] MEDS: HEPARIN NA (PORCINE) 5,000 UNITS/ML 1ML VIAL SQ SCH ×2 (09:30→22:15)
[2017-12-25] MEDS: DONEPEZIL HCL 10 MG TABLET (FP) PO SCH (09:30)
[2017-12-25] MEDS: ESCITALOPRAM OXALATE 10 MG TABLET (FP) PO SCH (09:30)
--- NOTE | 2017-12-25 11:28 | PN ---
Progress Note, Physician Chief Complaint: patient is awake and alert - Current Medication List Current Medications: Active Medications Acetaminophen (Tylenol -) 650 mg PO Q6H PRN PRN Reason: FEVER Last Admin: 12/20/17 21:46 Dose: 650 mg Amino Acids (Prosource No Carb Liquid Pkt) 30 ml PO BID@0800,1730 [facility] Last Admin: 12/25/17 08:00 Dose: 30 ml Donepezil HCl (Aricept -) 10 mg PO DAILY [facility] Last Admin: 12/25/17 09:30 Dose: 10 mg Escitalopram Oxalate (Lexapro -) 10 mg PO DAILY [facility] Last Admin: 12/25/17 09:30 Dose: 10 mg Heparin Sodium (Porcine) (Heparin -) 5,000 unit SQ BID [facility] Last Admin: 12/25/17 09:30 Dose: 5,000 unit Dextrose/Sodium Chloride (Dextrose 5%-Normal Saline+20 Meq Kcl -) 20 meq in 1, 000 mls @ 75 mls/hr IV ASDIR [facility] Last Admin: 12/24/17 21:36 Dose: 75 mls/hr Multivitamins/Minerals (Theragran-M) 1 each PO DAILY [facility] Last Admin: 12/25/17 09:29 Dose: 1 each - Objective Vital Signs: Vital Signs Temperature 97.9 F 12/25/17 06:21 Pulse Rate 91 H 12/25/17 06:21 Respiratory Rate 19 12/25/17 06:21 Blood Pressure 134/67 12/25/17 06:21 O2 Sat by Pulse Oximetry (%) 96 12/24/17 21:00 Constitutional: Yes: Calm Cardiovascular: Yes: Regular Rate and Rhythm, S1, S2 Respiratory: Yes: CTA Bilaterally Gastrointestinal: Yes: Normal Bowel Sounds, Soft Neurological: Yes: Alert Labs: CBC, BMP 12/23/17 11:45 12/23/17 11:45 Problem List - Problems (1) Failure to thrive Assessment/Plan: family refusing PEG per previous notes i am seeing patient for first time today ensure Code(s): [id number] - (2) Hypernatremia Assessment/Plan: now improved s/p ivf Code(s): E87.0 - HYPEROSMOLALITY AND HYPERNATREMIA (3) Malnutrition Assessment/Plan: ensure and prostat Code(s): E46 - UNSPECIFIED PROTEIN-CALORIE MALNUTRITION Qualifiers: Protein-calorie malnutrition severity: severe (4) Dementia Assessment/Plan: donezipil Code(s): F03.90 - UNSPECIFIED DEMENTIA WITHOUT BEHAVIORAL DISTURBANCE Qualifiers: (5) Hypokalemia Assessment/Plan: now is normal Code(s): E87.6 - HYPOKALEMIA Assessment/Plan dc home with hospital bed
--- NOTE | 2017-12-25 12:30 | PN ---
Progress Note, FOLDER OPERATOR - Note Progress Note: For d/c home today. Educated staff who will f/u educate family regarding compensatory swallowing techniques. REC: Dys puree diet. Thin liquid. If poor Po intake on spoon, mix into Ensure to "drink" meals.
[2017-12-26] MEDS: DONEPEZIL HCL 10 MG TABLET (FP) PO SCH (10:11)
[2017-12-26] MEDS: HEPARIN NA (PORCINE) 5,000 UNITS/ML 1ML VIAL SQ SCH ×2 (10:12→21:19)
[2017-12-26] MEDS: AMINO ACIDS/PROTEIN HYDROLYS 30 ML LIQUID.PKT PO SCH ×2 (10:12→17:47)
[2017-12-26] MEDS: MULTIVITAMINS THER W-MINERALS COMBO TABLET (FP) PO SCH (10:12)
[2017-12-26] MEDS: ESCITALOPRAM OXALATE 10 MG TABLET (FP) PO SCH (10:12)
--- NOTE | 2017-12-26 11:11 | PN ---
Progress Note, Physician Chief Complaint: AWAKE CONFUSED MILD DISTRESS NOTES REVIEWED STILL WITH POOR APPETITIE - Current Medication List Current Medications: Active Medications Acetaminophen (Tylenol -) 650 mg PO Q6H PRN PRN Reason: FEVER Last Admin: 12/20/17 21:46 Dose: 650 mg Amino Acids (Prosource No Carb Liquid Pkt) 30 ml PO BID@0800,1730 [facility] Last Admin: 12/26/17 10:12 Dose: 30 ml Donepezil HCl (Aricept -) 10 mg PO DAILY [facility] Last Admin: 12/26/17 10:11 Dose: 10 mg Escitalopram Oxalate (Lexapro -) 10 mg PO DAILY [facility] Last Admin: 12/26/17 10:12 Dose: 10 mg Heparin Sodium (Porcine) (Heparin -) 5,000 unit SQ BID [facility] Last Admin: 12/26/17 10:12 Dose: 5,000 unit Multivitamins/Minerals (Theragran-M) 1 each PO DAILY [facility] Last Admin: 12/26/17 10:12 Dose: 1 each - Objective Vital Signs: Vital Signs Temperature 99.5 F 12/26/17 06:48 Pulse Rate 90 12/26/17 06:48 Respiratory Rate 18 12/26/17 06:48 Blood Pressure 126/81 12/26/17 06:48 O2 Sat by Pulse Oximetry (%) 95 12/25/17 20:26 Constitutional: Yes: Mild Distress Eyes: Yes: WNL HENT: Yes: WNL Neck: Yes: WNL Cardiovascular: Yes: WNL Respiratory: Yes: WNL Gastrointestinal: Yes: WNL Genitourinary: Yes: Incontinence Musculoskeletal: Yes: Joint Stiffness, Muscle Weakness Extremities: Yes: Other Edema: No Peripheral Pulses WNL: Yes Integumentary: Yes: WNL Wound/Incision: Yes: Clean/Dry Neurological: Yes: Confusion, Pre-Existing Deficit, Unsteady Gait, Weakness ...Motor Strength: LUE, LLE, RUE, RLE Psychiatric: Yes: Other Labs: CBC, BMP 12/23/17 11:45 12/23/17 11:45 Problem List - Problems (1) Anemia Code(s): D64.9 - ANEMIA, UNSPECIFIED (2) Dehydration with hypernatremia Code(s): E87.0 - HYPEROSMOLALITY AND HYPERNATREMIA (3) Failure to thrive Code(s): [id number] - (4) Hypokalemia Code(s): E87.6 - HYPOKALEMIA (5) Malnutrition Code(s): E46 - UNSPECIFIED PROTEIN-CALORIE MALNUTRITION Qualifiers: Protein-calorie malnutrition severity: severe (6) Acute metabolic encephalopathy Code(s): G93.41 - METABOLIC ENCEPHALOPATHY (7) Dementia Code(s): F03.90 - UNSPECIFIED DEMENTIA WITHOUT BEHAVIORAL DISTURBANCE Qualifiers: (8) Urinary tract infection Code(s): N39.0 - URINARY TRACT INFECTION, SITE NOT SPECIFIED Qualifiers: Urinary tract infection type: acute cystitis Hematuria presence: with hematuria Qualified Code(s): N30.01 - Acute cystitis with hematuria Assessment/Plan SON REFUSING PEG ANEMIA NEED CLOSE MONITORING PT EVAL SNF VS HOME WITH VNS
[2017-12-26 11:39] LABS: HEMATOCRIT 27.2 % (32.4-45.2); HEMOGLOBIN 8.9 GM/dL (10.7-15.3); MCH 26.2 pg (25.7-33.7); MCHC 32.7 g/dl (32.0-36.0); MEAN CELL VOLUME 79.9 fl (80-96); MEAN PLT VOLUME 7.7 fl (7.5-11.1); PLATELET COUNT 381 K/MM3 (134-434); RBC 3.41 M/mm3 (3.60-5.2); RDW 17.9 % (11.6-15.6); WHITE BLOOD COUNT 6.7 K/mm3 (4.0-10.0)
[2017-12-26 12:02] LABS: ANION GAP 6 (8-16); BLOOD UREA NITROGEN 12 mg/dL (7-18); CALCIUM 8.4 mg/dL (8.5-10.1); CHLORIDE 105 mmol/L (98-107); CO2 28 mmol/L (21-32); CREATININE 0.5 mg/dL (0.55-1.02); GLUCOSE,RANDOM 92 mg/dL (74-106); POTASSIUM 4.4 mmol/L (3.5-5.1); SODIUM 139 mmol/L (136-145)
[2017-12-27 09:11] LABS: HEMATOCRIT 27.5 % (32.4-45.2); HEMOGLOBIN 9.1 GM/dL (10.7-15.3); MCH 26.7 pg (25.7-33.7); MCHC 33.1 g/dl (32.0-36.0); MEAN CELL VOLUME 80.7 fl (80-96); MEAN PLT VOLUME 7.9 fl (7.5-11.1); PLATELET COUNT 413 K/MM3 (134-434); RBC 3.41 M/mm3 (3.60-5.2); RDW 18.2 % (11.6-15.6)
[2017-12-27 09:20] LABS: ANION GAP 7 (8-16); BLOOD UREA NITROGEN 16 mg/dL (7-18); CALCIUM 8.4 mg/dL (8.5-10.1); CHLORIDE 102 mmol/L (98-107); CO2 28 mmol/L (21-32); CREATININE 0.5 mg/dL (0.55-1.02); GLUCOSE,RANDOM 88 mg/dL (74-106); MAGNESIUM 2.1 mg/dL (1.8-2.4); POTASSIUM 4.1 mmol/L (3.5-5.1); SODIUM 137 mmol/L (136-145)
[2017-12-27] MEDS: DONEPEZIL HCL 10 MG TABLET (FP) PO SCH (11:07)
[2017-12-27] MEDS: ESCITALOPRAM OXALATE 10 MG TABLET (FP) PO SCH (11:07)
[2017-12-27] MEDS: MULTIVITAMINS THER W-MINERALS COMBO TABLET (FP) PO SCH (11:07)
[2017-12-27] MEDS: HEPARIN NA (PORCINE) 5,000 UNITS/ML 1ML VIAL SQ SCH ×2 (11:08→21:44)
[2017-12-27] MEDS: AMINO ACIDS/PROTEIN HYDROLYS 30 ML LIQUID.PKT PO SCH ×2 (11:08→17:20)
--- NOTE | 2017-12-27 14:06 | PN ---
Progress Note (short form) - Note Progress Note: patient stated she is doing well, she had no issues. her mental status is altered, she does not know where she is, she does not know what year it is, nor who is the president [place] PE: Awake and alert and oriented to herself only s1 and s2 rrr abdomen soft non-tender lungs CTA no ext edema Problem List - Problems (1) Anemia Code(s): D64.9 - ANEMIA, UNSPECIFIED (2) Dehydration with hypernatremia Code(s): E87.0 - HYPEROSMOLALITY AND HYPERNATREMIA (3) Failure to thrive Code(s): [id number] - (4) Hypokalemia Code(s): E87.6 - HYPOKALEMIA (5) Malnutrition Code(s): E46 - UNSPECIFIED PROTEIN-CALORIE MALNUTRITION Qualifiers: Protein-calorie malnutrition severity: severe (6) Acute metabolic encephalopathy Code(s): G93.41 - METABOLIC ENCEPHALOPATHY (7) Dementia Code(s): F03.90 - UNSPECIFIED DEMENTIA WITHOUT BEHAVIORAL DISTURBANCE Qualifiers: (8) Urinary tract infection Code(s): N39.0 - URINARY TRACT INFECTION, SITE NOT SPECIFIED Qualifiers: Urinary tract infection type: acute cystitis Hematuria presence: with hematuria Qualified Code(s): N30.01 - Acute cystitis with hematuria Assessment/Plan Patient son does not want her to get a PEG placement ANEMIA daily CBC PT EVAL SNF VS HOME WITH V Visit type - Emergency Visit Emergency Visit: No - New Patient This patient is new to me today: Yes Date on this admission: 12/27/17 - Critical Care Critical Care patient: No - Discharge Referral Referred to [facility] Med P.C.: No
[2017-12-28 05:56] VITALS: BP 146/76; PULSE 92; TEMP 97.9
[2017-12-28] MEDS: AMINO ACIDS/PROTEIN HYDROLYS 30 ML LIQUID.PKT PO SCH ×3 (07:46→18:18)
[2017-12-28 07:48] LABS: ALBUMIN 2.5 g/dl (3.4-5.0); ANION GAP 7 (8-16); BLOOD UREA NITROGEN 16 mg/dL (7-18); CALCIUM 8.5 mg/dL (8.5-10.1); CHLORIDE 104 mmol/L (98-107); CO2 28 mmol/L (21-32); GLUCOSE,RANDOM 100 mg/dL (74-106); SODIUM 139 mmol/L (136-145)
[2017-12-28 07:51] LABS: ALK PHOS 95 U/L (45-117); BILIRUBIN,TOTAL 0.1 mg/dL (0.2-1.0); CREATININE 0.4 mg/dL (0.55-1.02); SGOT/AST 33 U/L (15-37); SGPT/ALT 36 U/L (12-78); TOT PROT 5.9 g/dl (6.4-8.2)
[2017-12-28 07:57] LABS: EOS % 1.2 % (0-4.5); HEMATOCRIT 26.3 % (32.4-45.2); HEMOGLOBIN 8.8 GM/dL (10.7-15.3); LYMPH % 23.8 % (8-40); MCH 26.7 pg (25.7-33.7); MCHC 33.4 g/dl (32.0-36.0); MEAN CELL VOLUME 80.1 fl (80-96); MEAN PLT VOLUME 8.1 fl (7.5-11.1); MONO % 5.4 % (3.8-10.2); NEUT % 68.6 % (42.8-82.8); PLATELET COUNT 459 K/MM3 (134-434); RBC 3.29 M/mm3 (3.60-5.2); RDW 18.1 % (11.6-15.6); WHITE BLOOD COUNT 9.5 K/mm3 (4.0-10.0)
--- NOTE | 2017-12-28 07:57 | DS ---
Physical Examination Vital Signs: Vital Signs Temperature 97.9 F 12/28/17 05:30 Pulse Rate 92 H 12/28/17 05:30 Respiratory Rate 20 12/27/17 09:00 Blood Pressure 146/76 12/28/17 05:30 O2 Sat by Pulse Oximetry (%) 98 12/27/17 21:00 Cardiovascular: Yes: S1, S2 Respiratory: Yes: Regular, CTA Bilaterally Gastrointestinal: Yes: Normal Bowel Sounds, Soft Discharge Summary Reason For Visit: HYPERNATREMIA Current Active Problems Anemia (Acute) Dehydration with hypernatremia (Acute) Failure to thrive (Acute) Hypernatremia (Acute) Hypokalemia (Acute) Malnutrition (Acute) Hospital Course: 72 year old female with past medical history of dementia who was sent to the ED by Dr. Bravo for increased AMS, UE rigidity, dehydration, and FTT. The patients aid reports the patient has become mostly bed bound. She also reports noticing a few ulcers along the patients legs and her bottom. In the ED, the patient states "I am dehydrated." She remains alert and oriented to person only. - Instructions Diet, Activity, Other Instructions: Dys puree diet. Thin liquid. If poor Po intake on spoon, mix into Ensure to "drink" meals. VNS for physical therapy and monitor nutritional intake Hospital bed for safety to avoid aspiration and decrease the risk of skin breakdown and pressure ulcers. - Problems (1) Failure to thrive Assessment/Plan: family refusing PEG per previous notes ensure Code(s): [id number] - (2) Hypernatremia Assessment/Plan: now improved s/p ivf Code(s): E87.0 - HYPEROSMOLALITY AND HYPERNATREMIA (3) Malnutrition Assessment/Plan: ensure and prostat Code(s): E46 - UNSPECIFIED PROTEIN-CALORIE MALNUTRITION Qualifiers: Protein-calorie malnutrition severity: severe (4) Dementia Assessment/Plan: donezipil Code(s): F03.90 - UNSPECIFIED DEMENTIA WITHOUT BEHAVIORAL DISTURBANCE Qualifiers: (5) Hypokalemia Assessment/Plan: now is normal Code(s): E87.6 - HYPOKALEMIA Assessment/Plan dc home with hospital bed Condition: Stable - Instructions Diet, Activity, Other Instructions: Dys puree diet. Thin liquid. If poor Po intake on spoon, mix into Ensure to "drink" meals. VNS for physical therapy and monitor nutritional intake Hospital bed for safety to avoid aspiration and decrease the risk of skin breakdown and pressure ulcers. Referrals: Austin Bravo MD [Primary Care Provider] - - Home Medications Comprehensive Discharge Medication List: Ambulatory Orders Donepezil HCl [Aricept -] 10 mg PO DAILY 06/10/17 Escitalopram Oxalate [Lexapro -] 10 mg PO DAILY 12/15/17
[2017-12-28] MEDS: ESCITALOPRAM OXALATE 10 MG TABLET (FP) PO SCH (10:44)
[2017-12-28] MEDS: DONEPEZIL HCL 10 MG TABLET (FP) PO SCH (10:44)
[2017-12-28] MEDS: MULTIVITAMINS THER W-MINERALS COMBO TABLET (FP) PO SCH (10:44)
[2017-12-28] MEDS: HEPARIN NA (PORCINE) 5,000 UNITS/ML 1ML VIAL SQ SCH (10:45)
--- NOTE | 2017-12-28 17:50 | PN ---
Progress Note (short form) - Note Progress Note: PATIENT DISCHARGED TODAY, SON REFUSED FEEDING TUBE AT THIS TIME. WILL MONITOR OUTPATIENT. S HOME NURSING CARE Problem List - Problems (1) Anemia Code(s): D64.9 - ANEMIA, UNSPECIFIED (2) Dehydration with hypernatremia Code(s): E87.0 - HYPEROSMOLALITY AND HYPERNATREMIA (3) Failure to thrive Code(s): [id number] - (4) Hypokalemia Code(s): E87.6 - HYPOKALEMIA (5) Malnutrition Code(s): E46 - UNSPECIFIED PROTEIN-CALORIE MALNUTRITION Qualifiers: Protein-calorie malnutrition severity: severe (6) Acute metabolic encephalopathy Code(s): G93.41 - METABOLIC ENCEPHALOPATHY (7) Dementia Code(s): F03.90 - UNSPECIFIED DEMENTIA WITHOUT BEHAVIORAL DISTURBANCE Qualifiers: (8) Urinary tract infection Code(s): N39.0 - URINARY TRACT INFECTION, SITE NOT SPECIFIED Qualifiers: Urinary tract infection type: acute cystitis Hematuria presence: with hematuria Qualified Code(s): N30.01 - Acute cystitis with hematuria
== END 2017-12-28 18:42 | disposition home or self-care (01) | DRG 640 ==
LOC: JER 13:44 → JERBED 17:53 → J6S 21:10 → UNDODISIN 12-25 17:16
PROVIDERS: ADMIT Family Medicine; ATTEND Family Medicine
DX: E87.0 Hyperosmolality and hypernatremia (principal); R53.2 Functional quadriplegia; E43 Unspecified severe protein-calorie malnutrition; G92 Toxic encephalopathy; N39.0 Urinary tract infection, site not specified; Z68.1 Body mass index [BMI] 19.9 or less, adult; D64.9 Anemia, unspecified; E87.6 Hypokalemia; F03.90 Unspecified dementia, unspecified severity, without behavioral disturbance, psychotic disturbance, mood disturbance, and anxiety; E86.0 Dehydration; R62.7 Adult failure to thrive; R41.82 Altered mental status, unspecified; F09 Unspecified mental disorder due to known physiological condition; R53.83 Other fatigue
CPT/HCPCS: 36415; 70450-TC; 71045-TC-FY; 72125-TC; 74230-TC-FY; 80048; 80053; 81003; 81015; 82550; 82607; 82728; 82746; 83540; 83550; 83735; 83874; 84134; 84439; 84443; 85025; 85027; 87086; 87186; 92611-GN; 97161-GP; 99284-25; J1644

== ENCOUNTER 2018-06-16 15:58 | Inpatient (IN) | payer OTHER ==
--- NOTE | 2018-06-16 17:10 | PDOC ---
Attending Attestation - Resident Resident Name: Ronny Webster - ED Attending Attestation I have performed the following: I have examined & evaluated the patient, The case was reviewed & discussed with the resident, I agree w/resident's findings & plan, Exceptions are as noted - Medical Decision Making 06/16/18 17:10 I, Dr. Samantha Jackson, DO, attest that this document has been prepared under my direction and personally reviewed by me in its entirety. I further attest, that it accurately reflects all work, treatment, procedures and medical decision -making performed by me. 06/16/18 17:50 a/p: 72yo female from home with hear aid for eval of FTT/decreased po intake and worsening wounds -pt with wounds to L clavicle/chin, L lower leg, L buttock -purulent drainage from L clavicle wound -pt also with decreased po intake and wt loss -generally more weak than normal -hx per aide of UTI in past -will send labs, cultures, straight cath for urine/culture -will obtain wound culture of clavicle -will need admission for wound care and further eval of decreased po intake and generalized malaise 06/16/18 17:54 elevated WBC will start abx will place consult to Yon Christensen for wound eval 06/16/18 19:27 case discussed with Hanh from [facility] who accepts pt to service <Samantha Jackson - Last Filed: 06/16/18 19:27> - HPI HPI: 06/16/18 19:38 The patient is a 72-year-old female with past medical history significant for HLD, Parkinsons disease, and Alzheimers dementia presents to the emergency department via EMS for wound evaluation. The patient presents with her aide, who called EMS secondary to worsening wounds. The aide reports she noticed that purulent discharge from the wound site. The aide states she had noticed a drastic change in the patients weight since October-November and noted the patient's been having eating and drinking less. Allergies: NKA Social history: Unknown history of smoking. No alcohol or recreational drug use reported. Surgical history: None reported PCP: Dr. Bravo. - Physicial Exam PE: 06/16/18 19:47 GENERAL: Awake, alert, and fully oriented, in no acute distress HEAD: No signs of trauma EYES: PERRLA, EOMI, sclera anicteric, conjunctiva clear ENT: Auricles normal inspection, hearing grossly normal, nares patent, oropharynx clear without exudates. Moist mucosa NECK: Normal ROM, supple, no lymphadenopathy, JVD, or masses LUNGS: Breath sounds equal, clear to auscultation bilaterally. No wheezes, and no crackles HEART: Regular rate and rhythm, normal S1 and S2, no murmurs, rubs or gallops ABDOMEN: Soft, nontender, normoactive bowel sounds. No guarding, no rebound. No masses EXTREMITIES: Normal range of motion, no edema. No clubbing or cyanosis. No cords, erythema, or tenderness NEUROLOGICAL: Cranial nerves II through XII grossly intact. Normal speech. SKIN: (+) 2x5 cm Wound to the L. chin/clavicle with purulent drainage, red and hot. (+) 5x8 cm wound to the sacrum with granulation, no erythema. (+) 3x3 stage 1 wound to the L. lateral fibula mid way down the leg. Warm, Dry, normal turgor, no rashes or lesions noted. - Medical Decision Making 06/16/18 19:38 Documentation prepared by Rayne Todd, acting as center medical specialist for Samantha Jackson DO. <Rayne Todd - Last Filed: 06/16/18 19:48> Heart Score/ECG Review - ECG Intrepretation Comment:: 06/16/18 17:57 sinus at 81, nl axis, nl interval, no acute st/t wave findings <Samantha Jackson - Last Filed: 06/16/18 19:27>
[2018-06-16] MEDS ORDERED: SODIUM CHLORIDE 0.9% 1000 ML INFUS.BAG IV ONE (17:53)
--- NOTE | 2018-06-16 17:53 | PDOC ---
History of Present Illness - General History Source: Patient - History of Present Illness Initial Comments: 06/16/18 17:55 72f with pmh of HLD, Parkinson's, Alzheimer's dementia brought in by EMS after cyndee called 911 when she realized the pressure ulcers over the patient's body were getting worse. Dr. Christensen has been made aware. Cyndee also states that the patient has been losing weight rapidly but doesn't know how much exactly. 06/16/18 18:08 <Ronny Webster - Last Filed: 06/16/18 17:55> <Samantha Jackson - Last Filed: 06/17/18 00:26> - General Chief Complaint: Wound Stated Complaint: Ingestion Time Seen by Provider: 06/16/18 17:01 Past History - Past Medical History Anemia: No COPD: No DVT: No Dementia: Yes Hypercholesterolemia: Yes Psychiatric Problems: Yes - Immunization History Immunization Up to Date: Yes - Suicide/Smoking/Psychosocial Hx Smoking Status: No Smoking History: Unknown if ever smoked Have you smoked in the past 12 months: No Number of Cigarettes Smoked Daily: 0 If you are a former smoker, when did you quit?: UNK - HX DEMENTIA Information on smoking cessation initiated: No Hx Alcohol Use: No Drug/Substance Use Hx: No Substance Use Type: None Hx Substance Use Treatment: No <Ronny Webster - Last Filed: 06/16/18 17:55> <Samantha Jackson - Last Filed: 06/17/18 00:26> - Past Medical History Allergies/Adverse Reactions: Allergies Allergy/AdvReac Type Severity Reaction Status Date / Time No Known Allergies Allergy Verified 06/16/18 17:03 Home Medications: Ambulatory Orders Donepezil HCl [Aricept -] 10 mg PO DAILY 06/10/17 Escitalopram Oxalate [Lexapro -] 10 mg PO DAILY 12/15/17 Review of Systems - Review of Systems Able to Perform ROS?: No (patient not communicative) <Ronny Webster - Last Filed: 06/16/18 17:55> *Physical Exam - Vital Signs Last Vital Signs Temp Pulse Resp BP Pulse Ox 99 F 80 14 107/52 L 100 06/16/18 15:59 06/16/18 15:59 06/16/18 15:59 06/16/18 15:59 06/16/18 15:59 - Physical Exam General Appearance: Yes: Cachetic HEENT: positive: EOMI, KOBE Neck: positive: Other (see skin exam) Respiratory/Chest: positive: Lungs Clear, Normal Breath Sounds. negative: Chest Tender Cardiovascular: positive: Regular Rhythm, Regular Rate, S1, S2 Gastrointestinal/Abdominal: positive: Normal Bowel Sounds, Flat, Soft. negative : Tender Musculoskeletal: positive: Normal Inspection Integumentary: positive: Other (adhesion of pressure ulcers between left mandible-clavicle, 3x3 pressure ulcer of the left leg and 5x8cm sacral ulcer level 3) Neurologic: positive: Confused, Disoriented <Ronny Webster - Last Filed: 06/16/18 17:55> - Vital Signs Last Vital Signs Temp Pulse Resp BP Pulse Ox 97.3 F L 70 16 122/72 100 06/17/18 00:21 06/17/18 00:21 06/17/18 00:21 06/17/18 00:21 06/17/18 00:21 <Samantha Jackson - Last Filed: 06/17/18 00:26> ED Treatment Course - LABORATORY CBC & Chemistry Diagram: 06/16/18 17:39 06/16/18 17:39 - ADDITIONAL ORDERS Additional order review: Laboratory Results 06/16/18 06/16/18 06/16/18 17:39 17:39 17:39 PT with INR INR PTT (Actin FS) Sodium 142 Potassium 4.1 Chloride 103 Carbon Dioxide 22 Anion Gap 16 BUN 13 Creatinine 0.5 L Creat Clearance w eGFR > 60 Random Glucose 68 L Calcium 9.5 Total Bilirubin 0.3 AST 23 ALT 14 Alkaline Phosphatase 67 Total Protein 7.2 Albumin 2.9 L Urine Color Yellow Urine Appearance Clear Urine pH 5.0 Ur Specific [place] 1.029 Urine Protein 1+ H Urine Glucose (UA) Negative Urine Ketones 2+ H Urine Blood Negative Urine Nitrite Negative Urine Bilirubin Negative Urine Urobilinogen Negative Ur Leukocyte Esterase Negative Urine WBC (Auto) 1 Urine RBC (Auto) 2 Ur Epithelial Cells Rare Urine Bacteria Rare Urine Mucus Moderate Blood Type O POSITIVE Antibody Screen Negative 06/16/18 17:39 PT with INR 10.90 INR 0.96 PTT (Actin FS) 28.4 Sodium Potassium Chloride Carbon Dioxide Anion Gap BUN Creatinine Creat Clearance w eGFR Random Glucose Calcium Total Bilirubin AST ALT Alkaline Phosphatase Total Protein Albumin Urine Color Urine Appearance Urine pH Ur Specific [place] Urine Protein Urine Glucose (UA) Urine Ketones Urine Blood Urine Nitrite Urine Bilirubin Urine Urobilinogen Ur Leukocyte Esterase Urine WBC (Auto) Urine RBC (Auto) Ur Epithelial Cells Urine Bacteria Urine Mucus Blood Type Antibody Screen 06/16/18 17:39 RBC 4.41 MCV 79.4 L MCHC 30.7 L RDW 18.2 H MPV 8.4 Neutrophils % 79.4 Lymphocytes % 15.1 D Monocytes % 3.3 L Eosinophils % 1.6 Basophils % 0.6 - RADIOLOGY Radiology Studies Ordered: Category Date Time Status CHEST X-RAY PORTABLE* [RAD] Stat Radiology 06/16/18 18:06 Completed - Medications Given in the ED: ED Medications Discontinued Medications Generic Name Dose Route Start Last Admin Trade Name Ale PRN Reason Stop Dose Admin Vancomycin HCl 1,000 mg/ 250 mls @ 166.667 mls/hr 06/16/18 18:23 06/16/18 19: 09 Dextrose IVPB 06/16/18 19:52 166.667 mls/hr ONCE ONE Administration Protocol Sodium Chloride 1,000 ml 06/16/18 17:53 06/16/18 18:12 Normal Saline - IV 06/16/18 17:54 1,000 ml ONCE ONE Administration <Samantha Jackson - Last Filed: 06/17/18 00:26> Medical Decision Making - Medical Decision Making 06/16/18 18:36 Multiple pressure ulcers. Will draw basic labs, blood cx, blood cx, then vanco Probable admit <Ronny Webster - Last Filed: 06/16/18 17:55> *DC/Admit/Observation/Transfer <Ronny Webster - Last Filed: 06/16/18 17:55> - Discharge Dispostion Decision to Admit order: Yes Decision to Admit order Date/Time: Decision to Admit Order Category Date Time Status Decision to Admit to Hospital Routine Admission 06/16/18 18:21 Active <Samantha Jackson - Last Filed: 06/17/18 00:26> Diagnosis at time of Disposition: Infected wound, Pressure ulcer - Discharge Dispostion Condition at time of disposition: Fair - Referrals Referrals: Austin Bravo MD [Primary Care Provider] - - Patient Instructions - Post Discharge Activity
[2018-06-16 18:08] LABS: BASO % 0.6 % (0-2.0); EOS % 1.6 % (0-4.5); HEMOGLOBIN 10.7 GM/dL (10.7-15.3); LYMPH % 15.1 % (8-40); MCH 24.4 pg (25.7-33.7); MCHC 30.7 g/dl (32.0-36.0); MEAN CELL VOLUME 79.4 fl (80-96); MEAN PLT VOLUME 8.4 fl (7.5-11.1); MONO % 3.3 % (3.8-10.2); NEUT % 79.4 % (42.8-82.8); PLATELET COUNT 533 K/MM3 (134-434); RBC 4.41 M/mm3 (3.60-5.2); RDW 18.2 % (11.6-15.6)
[2018-06-16 18:19] LABS: URINE APPEARANCE CLEAR; URINE BILIRUBIN NEGATIVE (<2.0 mg/dL); URINE COLOR YELLOW; URINE GLUCOSE (UA) NEGATIVE (NEGATIVE); URINE KETONE 2+ (NEGATIVE); URINE LEUK ESTERASE NEGATIVE (NEGATIVE); URINE NITRITE NEGATIVE (NEGATIVE); URINE UROBILINOGEN NEGATIVE mg/dL (0.2-1.0)
[2018-06-16 18:20] LABS: URINE PROTEIN 1+ (NEGATIVE)
[2018-06-16] MEDS ORDERED: VANCOMYCIN 1,000 MG in DEXTROSE 5%-WATER - 250 ML IVPB ONE (18:23)
[2018-06-16 18:32] LABS: EPI CELLS RARE /HPF (FEW); URINE BACTERIA RARE /hpf (NONE SEEN); URINE MUCUS MODERATE
[2018-06-16 18:37] LABS: INR 0.96 (0.83-1.09); PROTHROMBIN TIME (PATIENT) 10.9 SEC (9.7-13.0)
[2018-06-16 18:40] LABS: ACTIVATED PTT 28.4 SECONDS (25.2-36.5)
[2018-06-16 18:59] LABS: ALBUMIN 2.9 g/dl (3.4-5.0); ALK PHOS 67 U/L (45-117); ANION GAP 16 MMOL/L (8-16); BILIRUBIN,TOTAL 0.3 mg/dL (0.2-1); BLOOD UREA NITROGEN 13 mg/dL (7-18); CALCIUM 9.5 mg/dL (8.5-10.1); CHLORIDE 103 mmol/L (98-107); CO2 22 mmol/L (21-32); CREATININE 0.5 mg/dL (0.55-1.3); GLUCOSE,RANDOM 68 mg/dL (74-106); POTASSIUM 4.1 mmol/L (3.5-5.1); SGOT/AST 23 U/L (15-37); SGPT/ALT 14 U/L (13-61); SODIUM 142 mmol/L (136-145); TOT PROT 7.2 g/dl (6.4-8.2)
[2018-06-16] MEDS ORDERED: VANCOMYCIN 1 GRAM (PRE-DOCKED) 1,000 MG/250 ML BAG IVPB ONE (19:03)
--- NOTE | 2018-06-16 22:25 | HP ---
CHIEF COMPLAINT: PCP: HISTORY OF PRESENT ILLNESS: ER course was notable for: (1) (2) (3) Recent Travel: PAST MEDICAL HISTORY: PAST SURGICAL HISTORY: Social History: Smoking: Alcohol: Drugs: Family History: Allergies No Known Allergies Allergy (Verified 06/16/18 17:03) HOME MEDICATIONS: Home Medications Medication Instructions Recorded Donepezil HCl [Aricept -] 10 mg PO DAILY 06/10/17 Escitalopram Oxalate [Lexapro -] 10 mg PO DAILY 12/15/17 REVIEW OF SYSTEMS CONSTITUTIONAL: Absent: fever, chills, diaphoresis, generalized weakness, malaise, loss of appetite, weight change HEENT: Absent: rhinorrhea, nasal congestion, throat pain, throat swelling, difficulty swallowing, mouth swelling, ear pain, eye pain, visual changes CARDIOVASCULAR: Absent: chest pain, syncope, palpitations, irregular heart rate, lightheadedness , peripheral edema RESPIRATORY: Absent: cough, shortness of breath, dyspnea with exertion, orthopnea, wheezing, stridor, hemoptysis GASTROINTESTINAL: Absent: abdominal pain, abdominal distension, nausea, vomiting, diarrhea, constipation, melena, hematochezia GENITOURINARY: Absent: dysuria, frequency, urgency, hesitancy, hematuria, flank pain, genital pain MUSCULOSKELETAL: Absent: myalgia, arthralgia, joint swelling, back pain, neck pain SKIN: Absent: rash, itching, pallor HEMATOLOGIC/IMMUNOLOGIC: Absent: easy bleeding, easy bruising, lymphadenopathy, frequent infections ENDOCRINE: Absent: unexplained weight gain, unexplained weight loss, heat intolerance, cold intolerance NEUROLOGIC: Absent: headache, focal weakness or paresthesias, dizziness, unsteady gait, seizure, mental status changes, bladder or bowel incontinence PSYCHIATRIC: Absent: anxiety, depression, suicidal or homicidal ideation, hallucinations. PHYSICAL EXAMINATION Vital Signs - 24 hr 06/16/18 06/16/18 06/16/18 15:59 19:10 19:32 Temperature 99 F 97.1 F L Pulse Rate 80 Pulse Rate [ 75 Left Radial] Respiratory 14 16 14 Rate Blood Pressure 107/52 L Blood Pressure 120/56 L [Left Arm] O2 Sat by Pulse 100 100 100 Oximetry (%) GENERAL: Awake, alert, and fully oriented, in no acute distress. HEAD: Normal with no signs of trauma. EYES: Pupils equal, round and reactive to light, extraocular movements intact, sclera anicteric, conjunctiva clear. No lid lag. EARS, NOSE, THROAT: Ears normal, nares patent, oropharynx clear without exudates. Moist mucous membranes. NECK: Normal range of motion, supple without lymphadenopathy, JVD, or masses. LUNGS: Breath sounds equal, clear to auscultation bilaterally. No wheezes, and no crackles. No accessory muscle use. HEART: Regular rate and rhythm, normal S1 and S2 without murmur, rub or gallop. ABDOMEN: Soft, nontender, not distended, normoactive bowel sounds, no guarding, no rebound, no masses. No hepatomegaly or splenomegaly. MUSCULOSKELETAL: Normal range of motion at all joints. No bony deformities or tenderness. No CVA tenderness. UPPER EXTREMITIES: 2+ pulses, warm, well-perfused. No cyanosis. No clubbing. No peripheral edema. LOWER EXTREMITIES: 2+ pulses, warm, well-perfused. No calf tenderness. No peripheral edema. NEUROLOGICAL: Cranial nerves II-XII intact. Normal speech. Normal gait. PSYCHIATRIC: Cooperative. Good eye contact. Appropriate mood and affect. SKIN: Warm, dry, normal turgor, no rashes or lesions noted, normal capillary refill. Laboratory Results - last 24 hr 06/16/18 06/16/18 06/16/18 17:39 17:39 17:39 WBC 15.0 H RBC 4.41 Hgb 10.7 Hct 35.0 D MCV 79.4 L MCH 24.4 L MCHC 30.7 L RDW 18.2 H Plt Count 533 H D MPV 8.4 Absolute Neuts (auto) 11.9 H Neutrophils % 79.4 Lymphocytes % 15.1 D Monocytes % 3.3 L Eosinophils % 1.6 Basophils % 0.6 Nucleated RBC % 0 PT with INR 10.90 INR 0.96 PTT (Actin FS) 28.4 Sodium 142 Potassium 4.1 Chloride 103 Carbon Dioxide 22 Anion Gap 16 BUN 13 Creatinine 0.5 L Creat Clearance w eGFR > 60 Random Glucose 68 L Calcium 9.5 Total Bilirubin 0.3 AST 23 ALT 14 Alkaline Phosphatase 67 Total Protein 7.2 Albumin 2.9 L Urine Color Urine Appearance Urine pH Ur Specific [place] Urine Protein Urine Glucose (UA) Urine Ketones Urine Blood Urine Nitrite Urine Bilirubin Urine Urobilinogen Ur Leukocyte Esterase Urine WBC (Auto) Urine RBC (Auto) Ur Epithelial Cells Urine Bacteria Urine Mucus Blood Type Antibody Screen 06/16/18 06/16/18 17:39 17:39 WBC RBC Hgb Hct MCV MCH MCHC RDW Plt Count MPV Absolute Neuts (auto) Neutrophils % Lymphocytes % Monocytes % Eosinophils % Basophils % Nucleated RBC % PT with INR INR PTT (Actin FS) Sodium Potassium Chloride Carbon Dioxide Anion Gap BUN Creatinine Creat Clearance w eGFR Random Glucose Calcium Total Bilirubin AST ALT Alkaline Phosphatase Total Protein Albumin Urine Color Yellow Urine Appearance Clear Urine pH 5.0 Ur Specific [place] 1.029 Urine Protein 1+ H Urine Glucose (UA) Negative Urine Ketones 2+ H Urine Blood Negative Urine Nitrite Negative Urine Bilirubin Negative Urine Urobilinogen Negative Ur Leukocyte Esterase Negative Urine WBC (Auto) 1 Urine RBC (Auto) 2 Ur Epithelial Cells Rare Urine Bacteria Rare Urine Mucus Moderate Blood Type O POSITIVE Antibody Screen Negative ASSESSMENT/PLAN: Hospitalist Screening - Colonoscopy Questionnaire Colonoscopy Questionnaire: Colonoscopy Questionnaire
--- NOTE | 2018-06-16 23:11 | HP ---
CHIEF COMPLAINT: pressure wounds PCP: Shelly HISTORY OF PRESENT ILLNESS: This is a 72 year old female with a past medical history of Parkinson's disease and dementia who presented to the ED for worsening pressure ulcers. Her aid noted that the ulcers were getting worse. Pt denies any complaints. ER course was notable for: (1) WBC 15.0 Recent Travel: unknown PAST MEDICAL HISTORY: HLD, Parkinson's, Alzheimer's PAST SURGICAL HISTORY: unk Social History: Smoking: unk Alcohol: unk Drugs: unk Family History: unk Allergies No Known Allergies Allergy (Verified 06/16/18 17:03) HOME MEDICATIONS: 3 Medication Instructions Recorded Donepezil HCl [Aricept -] 10 mg PO DAILY 06/10/17 Escitalopram Oxalate [Lexapro -] 10 mg PO DAILY 12/15/17 REVIEW OF SYSTEMS CONSTITUTIONAL: Absent: fever, chills, diaphoresis, generalized weakness, malaise, loss of appetite, weight change HEENT: Absent: rhinorrhea, nasal congestion, throat pain, throat swelling, difficulty swallowing, mouth swelling, ear pain, eye pain, visual changes CARDIOVASCULAR: Absent: chest pain, syncope, palpitations, irregular heart rate, lightheadedness , peripheral edema RESPIRATORY: Absent: cough, shortness of breath, dyspnea with exertion, orthopnea, wheezing, stridor, hemoptysis GASTROINTESTINAL: Absent: abdominal pain, abdominal distension, nausea, vomiting, diarrhea, constipation, melena, hematochezia GENITOURINARY: Absent: dysuria, frequency, urgency, hesitancy, hematuria, flank pain, genital pain MUSCULOSKELETAL: Absent: myalgia, arthralgia, joint swelling, back pain, neck pain SKIN: Present: pressure ulcers Absent: rash, itching, pallor HEMATOLOGIC/IMMUNOLOGIC: Absent: easy bleeding, easy bruising, lymphadenopathy, frequent infections ENDOCRINE: Absent: unexplained weight gain, unexplained weight loss, heat intolerance, cold intolerance NEUROLOGIC: Absent: headache, focal weakness or paresthesias, dizziness, unsteady gait, seizure, mental status changes, bladder or bowel incontinence PSYCHIATRIC: Absent: anxiety, depression, suicidal or homicidal ideation, hallucinations. PHYSICAL EXAMINATION Vital Signs - 24 hr 3 06/16/18 06/16/18 06/16/18 15:59 19:10 19:32 Temperature 99 F 97.1 F L Pulse Rate 80 Pulse Rate [ 75 Left Radial] Respiratory 14 16 14 Rate Blood Pressure 107/52 L Blood Pressure 120/56 L [Left Arm] O2 Sat by Pulse 100 100 100 Oximetry (%) GENERAL: Awake, alert, and oriented to person, in no acute distress. follows direct commands at times HEAD: Normal with no signs of trauma. EYES: Pupils equal, round and reactive to light, extraocular movements intact, sclera anicteric, conjunctiva clear. No lid lag. EARS, NOSE, THROAT: Ears normal, nares patent, oropharynx clear without exudates. Moist mucous membranes. NECK: Normal range of motion, supple without lymphadenopathy, JVD, or masses. LUNGS: Breath sounds equal, clear to auscultation bilaterally. No wheezes, and no crackles. No accessory muscle use. HEART: Regular rate and rhythm, normal S1 and S2 without murmur, rub or gallop. ABDOMEN: Soft, nontender, not distended, normoactive bowel sounds, no guarding, no rebound, no masses. No hepatomegaly or splenomegaly. MUSCULOSKELETAL: Normal range of motion at all joints. No bony deformities or tenderness. No CVA tenderness. UPPER EXTREMITIES: 2+ pulses, warm, well-perfused. No cyanosis. No clubbing. No peripheral edema. LOWER EXTREMITIES: 2+ pulses, warm, well-perfused. No calf tenderness. No peripheral edema. NEUROLOGICAL: Cranial nerves II-XII intact. hypophonic speech. + masked facies PSYCHIATRIC: Cooperative. Good eye contact. Appropriate mood and affect. SKIN: Warm, dry, normal turgor, no rashes noted, normal capillary refill. mult PUs: left clavicle: 2.3 x 1.3cm, no depth, + slough to entire wound. surrounding skin WNL, unstageable left jaw/chin area: 2.2cm x 1cm, no depth, + slough to entire wound. surrounding skin WNL, unstageable right sacrum: 2.1cm x 1.3 cm x 0.6cm, + slough, surrounding skin macerated and raw, some areas of denudation, unstageable left sacrum 3cm x 2.1cm x 0.2cm , + slough, surrounding skin macerated and raw, some areas of denudation, unstageable left lateral calf with deflated blister, 4.4cm x 3.3cm, surrounding skin WNL Laboratory Results - last 24 hr 3 06/16/18 06/16/18 06/16/18 17:39 17:39 17:39 WBC 15.0 H RBC 4.41 Hgb 10.7 Hct 35.0 D MCV 79.4 L MCH 24.4 L MCHC 30.7 L RDW 18.2 H Plt Count 533 H D MPV 8.4 Absolute Neuts (auto) 11.9 H Neutrophils % 79.4 Lymphocytes % 15.1 D Monocytes % 3.3 L Eosinophils % 1.6 Basophils % 0.6 Nucleated RBC % 0 PT with INR 10.90 INR 0.96 PTT (Actin FS) 28.4 Sodium 142 Potassium 4.1 Chloride 103 Carbon Dioxide 22 Anion Gap 16 BUN 13 Creatinine 0.5 L Creat Clearance w eGFR > 60 Random Glucose 68 L Calcium 9.5 Total Bilirubin 0.3 AST 23 ALT 14 Alkaline Phosphatase 67 Total Protein 7.2 Albumin 2.9 L Urine Color Urine Appearance Urine pH Ur Specific [place] Urine Protein Urine Glucose (UA) Urine Ketones Urine Blood Urine Nitrite Urine Bilirubin Urine Urobilinogen Ur Leukocyte Esterase Urine WBC (Auto) Urine RBC (Auto) Ur Epithelial Cells Urine Bacteria Urine Mucus Blood Type O POSITIVE Antibody Screen Negative 3 Urine Color Yellow 06/16/18 17:39 Urine Appearance Clear 06/16/18 17:39 Urine pH 5.0 (5.0-8.0) 06/16/18 17:39 Ur Specific [place] 1.029 (1.001-1.035) 06/16/18 17:39 Urine Protein 1+ (NEGATIVE) H 06/16/18 17:39 Urine Glucose (UA) Negative (NEGATIVE) 06/16/18 17:39 Urine Ketones 2+ (NEGATIVE) H 06/16/18 17:39 Urine Blood Negative (NEGATIVE) 06/16/18 17:39 Urine Nitrite Negative (NEGATIVE) 06/16/18 17:39 Urine Bilirubin Negative (<2.0 mg/dL) 06/16/18 17:39 Ur Leukocyte Esterase Negative (NEGATIVE) 06/16/18 17:39 Urine WBC (Auto) 1 06/16/18 17:39 Urine RBC (Auto) 2 06/16/18 17:39 Ur Epithelial Cells Rare /HPF (FEW) 06/16/18 17:39 Urine Bacteria Rare /hpf (NONE SEEN) 06/16/18 17:39 Urine Mucus Moderate 06/16/18 17:39 ECG Normal sinus rhtyhm vent rate 81, QTC [address]/T changes Radiology Reports Chest xray Impression No evidence of CHF, pulmonary infiltrates. Left lung base obscured by the cardiac silhouette soft tissues of the chest. Reported By: Griffin Post MD 06/16/18 0636 ASSESSMENT/PLAN: 72yF with PMH HLD, Parkinson's disease, Alzheimer's dementia presented to the ED with worsening pressure ulcers. Pressure ulcers with wound infection - collagenase to neck, clavicle, sacrum - vascular consult for possible debridement - given vanc in ED - ID consult, defer provider choice to PCP Alzheimer's - cont home aricept and lexapro Parkinson's - on no medications, defer to PCP in am DVT PPX - heparin SC FEN - tolerating po - BMP in am - Regular diet as tolerated Dispo: Pt currently requires further inpatient management of her emergent condition. Visit type - Emergency Visit Emergency Visit: Yes ED Registration Date: 06/16/18 Care time: The patient presented to the Emergency Department on the above date and was hospitalized for further evaluation of their emergent condition. - New Patient This patient is new to me today: Yes Date on this admission: 06/16/18 - Critical Care Critical Care patient: No Hospitalist Screening - Colonoscopy Questionnaire Colonoscopy Questionnaire: Colonoscopy Questionnaire - Patient: 50 - 75 years old and never had a screening colonoscopy: No History of colon or rectal polyps, or CA: Unknown History of IBD, Crohn's disease or UC: Unknown History of abdominal radiation therapy as a child: Unknown - Relative: 1 with colon or rectal CA, or polyps at age 60 or younger: Unknown Colon or rectal CA diagnosed at age 45 or younger: Unknown Multiple relatives with colon or rectal CA: Unknown - Outcome: Screening Result: Negative Screen
--- NOTE | 2018-06-17 09:01 | CONSULT ---
- Consultation REQUESTING PROVIDER: CONSULT REQUEST: We have been asked to surgically evaluate this patient for Decubitus ulcer PCP:Austin Bravo HISTORY OF PRESENT ILLNESS: 72yo F with history of dementia, was admitted for concerns of worsening bedsores. Pt is unable to give history so history is limited. According to chart, pt was brought in by wound care technician for concerns of worsening decubitus ulcer. PMHx: Parkinson's, Alzheimer Home Medications Medication Instructions Recorded Donepezil HCl [Aricept -] 10 mg PO DAILY 06/10/17 Escitalopram Oxalate [Lexapro -] 10 mg PO DAILY 12/15/17 Allergies Allergy/AdvReac Type Severity Reaction Status Date / Time No Known Allergies Allergy Verified 06/16/18 17:03 PHYSICAL EXAM: GENERAL: Awake, alert, pleasantly confused HEAD: 2cm clean fibrinous ulcer on Left lateral mandible Chest: Left clavicle 2 cm fibrinous ulcer clean EYES: PERRL, sclera anicteric, conjunctiva clear. LUNGS: Clear to auscultation bilat anteriorly. No wheezes, and no crackles. No accessory muscle use. HEART: Regular rate and rhythm. No murmurs ABDOMEN: Soft, nontender, not distended, no guarding, no rebound, no masses. MUSCULOSKELETAL: Upper and lower extremities contracted. LOWER EXTREMITIES: 2+ pulses, warm, well-perfused. 4cm blister Left lateral calf , no erythema or discharge BACK: 2cm and 4 cm fibrinous stage 2 decubitus ulcer, no erythema or discharge. Vital Signs Temperature 98.2 F 06/17/18 06:00 Pulse Rate 74 06/17/18 06:00 Respiratory Rate 20 06/17/18 06:00 Blood Pressure 119/63 06/17/18 06:00 O2 Sat by Pulse Oximetry (%) 100 06/17/18 00:21 Lab Results WBC 15.0 K/mm3 (4.0-10.0) H 06/16/18 17:39 RBC 4.41 M/mm3 (3.60-5.2) 06/16/18 17:39 Hgb 10.7 GM/dL (10.7-15.3) 06/16/18 17:39 Hct 35.0 % (32.4-45.2) D 06/16/18 17:39 MCV 79.4 fl (80-96) L 06/16/18 17:39 MCHC 30.7 g/dl (32.0-36.0) L 06/16/18 17:39 RDW 18.2 % (11.6-15.6) H 06/16/18 17:39 Plt Count 533 K/MM3 (134-434) H D 06/16/18 17:39 Sodium 142 mmol/L (136-145) 06/16/18 17:39 Potassium 4.1 mmol/L (3.5-5.1) 06/16/18 17:39 Chloride 103 mmol/L (98-107) 06/16/18 17:39 Carbon Dioxide 22 mmol/L (21-32) 06/16/18 17:39 Anion Gap 16 MMOL/L (8-16) 06/16/18 17:39 BUN 13 mg/dL (7-18) 06/16/18 17:39 Creatinine 0.5 mg/dL (0.55-1.3) L 06/16/18 17:39 Random Glucose 68 mg/dL (74-106) L 06/16/18 17:39 Calcium 9.5 mg/dL (8.5-10.1) 06/16/18 17:39 Blood Type O POSITIVE 06/16/18 17:39 Antibody Screen Negative 06/16/18 17:39 INR 0.96 (0.83-1.09) 06/16/18 17:39 Problem List - Problems (1) Pressure ulcer Assessment/Plan: Plan -no need for surgical debridement at this time, place collagenase and foam dressing. -frequent bed turning, consider air mattress -please contact if any changes Code(s): L89.90 - PRESSURE ULCER OF UNSPECIFIED SITE, UNSPECIFIED STAGE Qualifiers: Pressure injury location: sacral region Pressure injury stage: stage 2 Qualified Code(s): L89.152 - Pressure ulcer of sacral region, stage 2
[2018-06-17 09:05] LABS: ANION GAP 14 MMOL/L (8-16); BLOOD UREA NITROGEN 10 mg/dL (7-18); CALCIUM 8.9 mg/dL (8.5-10.1); CHLORIDE 106 mmol/L (98-107); CO2 22 mmol/L (21-32); CREATININE 0.4 mg/dL (0.55-1.3); GLUCOSE,RANDOM 79 mg/dL (74-106); MAGNESIUM 1.9 mg/dL (1.8-2.4); PHOSPHOROUS 2.8 mg/dL (2.5-4.9); POTASSIUM 3.7 mmol/L (3.5-5.1); SODIUM 142 mmol/L (136-145)
--- NOTE | 2018-06-17 09:13 | PN ---
Progress Note, Physician History of Present Illness: 72yF with PMH HLD, Parkinson's disease, Alzheimer's dementia presented to the ED with worsening pressure ulcers. - Current Medication List Current Medications: Active Medications Collagenase (Santyl -) 1 applic TP DAILY ROB; Protocol Collagenase (Santyl -) 1 applic TP DAILY ROB; Protocol Donepezil HCl (Aricept -) 10 mg PO DAILY ROB Escitalopram Oxalate (Lexapro -) 10 mg PO DAILY ROB Heparin Sodium (Porcine) (Heparin -) 5,000 unit SQ BID ROB Pneumococcal 13-Valent Conj Vacc (Prevnar 13 Syringe -) 0.5 ml IM .ONCE ONE Stop: 06/17/18 10:01 - Objective Vital Signs: Vital Signs Temperature 98.2 F 06/17/18 06:00 Pulse Rate 74 06/17/18 06:00 Respiratory Rate 20 06/17/18 06:00 Blood Pressure 119/63 06/17/18 06:00 O2 Sat by Pulse Oximetry (%) 100 06/17/18 00:21 Cardiovascular: Yes: S1, S2 Respiratory: Yes: Regular, CTA Bilaterally Gastrointestinal: Yes: Normal Bowel Sounds, Soft Wound/Incision: Yes: Dressing Removed, Other (neck wound sacral wound) Labs: CBC, BMP 06/17/18 07:17 INR, PTT INR 0.96 (0.83-1.09) 06/16/18 17:39 Problem List - Problems (1) Pressure ulcer Assessment/Plan: - Pressure ulcers with wound infection - collagenase to neck, clavicle, sacrum - vascular consult for possible debridement - given vanc in ED - ID consult, defer provider choice to PCP Code(s): L89.90 - PRESSURE ULCER OF UNSPECIFIED SITE, UNSPECIFIED STAGE Qualifiers: Pressure injury location: sacral region Pressure injury stage: stage 2 Qualified Code(s): L89.152 - Pressure ulcer of sacral region, stage 2 (2) Dementia Assessment/Plan: - cont home aricept and lexapro Code(s): F03.90 - UNSPECIFIED DEMENTIA WITHOUT BEHAVIORAL DISTURBANCE Qualifiers: (3) Functional quadriplegia Code(s): R53.2 - FUNCTIONAL QUADRIPLEGIA
[2018-06-17] MEDS: ESCITALOPRAM OXALATE 10 MG TABLET (FP) PO SCH (09:36)
[2018-06-17] MEDS: DONEPEZIL HCL 10 MG TABLET (FP) PO SCH (09:36)
[2018-06-17] MEDS: HEPARIN NA (PORCINE) 5,000 UNITS/ML 1ML VIAL SQ SCH ×2 (09:37→22:00)
--- NOTE | 2018-06-17 09:37 | EKG ---
Test Reason : Blood Pressure : / mmHG Vent. Rate : 081 BPM Atrial Rate : 081 BPM P-R Int : 132 ms QRS Dur : 070 ms QT Int : 380 ms P-R-T Axes : 066 003 032 degrees QTc Int : 441 ms POOR DATA QUALITY, INTERPRETATION MAY BE ADVERSELY AFFECTED NORMAL SINUS RHYTHM NORMAL ECG WHEN COMPARED WITH ECG OF 04-MAY-2018 09:32, NONSPECIFIC T WAVE ABNORMALITY NO LONGER EVIDENT IN LATERAL LEADS Confirmed by RADHA MELGOZA, JON ([id number]) on 06/17/2018 9:36:34 AM Referred By: Confirmed By:JON GARCIA MD
[2018-06-17 09:40] LABS: BASO % 0.5 % (0-2.0); EOS % 1.8 % (0-4.5); HEMATOCRIT 31.5 % (32.4-45.2); LYMPH % 13.7 % (8-40); MCH 25.3 pg (25.7-33.7); MCHC 31.8 g/dl (32.0-36.0); MEAN CELL VOLUME 79.8 fl (80-96); MEAN PLT VOLUME 7.9 fl (7.5-11.1); MONO % 4.2 % (3.8-10.2); NEUT % 79.8 % (42.8-82.8); PLATELET COUNT 443 K/MM3 (134-434); RBC 3.95 M/mm3 (3.60-5.2); RDW 17.4 % (11.6-15.6); WHITE BLOOD COUNT 9.5 K/mm3 (4.0-10.0)
[2018-06-17] MEDS ORDERED: PNEUMOC 13-VAL CONJ-DIP CRM/PF 0.5 ML DISP.SYRIN IM ONE (10:00)
[2018-06-17] MEDS: COLLAGENASE CLOSTRIDIUM HIST. 30 GRAMS TUBE TP SCH ×2 (10:33→10:34)
--- NOTE | 2018-06-17 13:23 | PN ---
Progress Note (short form) - Note Progress Note: ID consult dictated Infected skin wounds Leukocytosis possible sepsis Await c/s Empiric ceftriaxone/ vancomycin Local wound care
[2018-06-17] MEDS ORDERED: DEXTROSE 5%-WATER - 50 ML IVPB ONE (14:07)
[2018-06-17] MEDS ORDERED: cefTRIAXone SODIUM 1 GM VIAL ONE (14:07)
[2018-06-17] MEDS: CEFTRIAXONE 1 GM in DEXTROSE 5%-WATER - 50 ML IVPB SCH (14:10)
--- NOTE | 2018-06-17 14:36 | CONS ---
INFECTIOUS DISEASE CONSULTATION DATE OF CONSULTATION: DATE OF DICTATION: 06/17/2018 A 72-year-old female with history of parkinsonism, dementia, evaluated for infected skin wounds. The patient was brought to the emergency room from home after she was noted to have worsening anorexia and worsening skin wounds. She had developed wounds on her chin, her left clavicular area, left lower extremity, and sacral area. According to the home health aide, she had increased drainage noted. She was brought to the emergency room where white blood cell count was 15,000. Cultures were obtained of her wounds. She suffers from dementia and cannot offer any additional details. PAST MEDICAL HISTORY: Positive for parkinsonism, dementia, and hyperlipidemia. ALLERGIES: No known allergies. HOME MEDICATIONS: Include Aricept and Lexapro. SOCIAL HISTORY: Lives at home, has a home health aide. Dependent in activities of daily living. No active tobacco or alcohol use. SYSTEMS REVIEW: Neurologic: Positive for dementia and parkinsonism. Cardiac: Negative chest pain or palpitations. Respiratory: Negative cough or sputum production. Gastrointestinal: Negative vomiting or diarrhea. Genitourinary: Negative for urinary tract infection. LABORATORY DATA: White count on admission 15,000, presently 9.5; hematocrit 31.5; platelet count 443. Creatinine 0.4. Urinalysis: One white cell. Cultures pending. Chest x-ray negative. PHYSICAL EXAMINATION: General: She is cachectic. She is confused. Vital Signs: Temperature 98.2; blood pressure 102/70; pulse 71, regular; respirations 20 per minute. Skin: There is an ulcer present over the left jaw and chin area, approximately 2 x 1 cm, appears superficial. Some slough noted. There is no surrounding erythema. A second ulcer is present over the left clavicle, approximately 2 x 1 cm with slough but no surrounding erythema. The sacrum: There is a larger ulceration present with some skin maceration around it. No purulent drainage is noted. A superficial ulcer is present on the left lateral lower extremity, superficial, without purulent drainage or surrounding erythema. Heart: Sounds S1, S2. Lungs: Clear. Abdomen: Soft and nontender. Extremities: Negative for edema. IMPRESSION: 1. Infected skin wounds. 2. Leukocytosis, possible sepsis secondary to skin wounds. Await cultures. Patient has been given a dose of vancomycin, will re-dose. Empiric ceftriaxone. Local wound care. Thank you for the kind referral. EPI IBRAHIM M.D. NATHANIEL/[id number]
[2018-06-17] MEDS ORDERED: VANCOMYCIN 1,000 MG in DEXTROSE 5%-WATER - 250 ML IVPB ONE (15:00)
[2018-06-17 16:53] VITALS: BMI 15.7
[2018-06-18] MEDS ORDERED: cefTRIAXone SODIUM 1 GM VIAL ONE (09:40)
[2018-06-18] MEDS ORDERED: DEXTROSE 5%-WATER - 50 ML IVPB ONE (09:40)
[2018-06-18] MEDS: CEFTRIAXONE 1 GM in DEXTROSE 5%-WATER - 50 ML IVPB SCH (09:46)
[2018-06-18] MEDS: HEPARIN NA (PORCINE) 5,000 UNITS/ML 1ML VIAL SQ SCH ×2 (09:46→21:18)
[2018-06-18] MEDS: DONEPEZIL HCL 10 MG TABLET (FP) PO SCH (09:46)
[2018-06-18] MEDS: ESCITALOPRAM OXALATE 10 MG TABLET (FP) PO SCH (09:47)
[2018-06-18] MEDS: COLLAGENASE CLOSTRIDIUM HIST. 30 GRAMS TUBE TP SCH ×2 (09:47)
--- NOTE | 2018-06-18 11:32 | PN ---
Progress Note, Physician History of Present Illness: Awake but confused Denies pain Low grade temps noted BC(-) Wound c/s mixed organisms - Current Medication List Current Medications: Active Medications Collagenase (Santyl -) 1 applic TP DAILY ROB; Protocol Last Admin: 06/18/18 09:47 Dose: 1 appful Collagenase (Santyl -) 1 applic TP DAILY ROB; Protocol Last Admin: 06/18/18 09:47 Dose: 1 appful Donepezil HCl (Aricept -) 10 mg PO DAILY ROB Last Admin: 06/18/18 09:46 Dose: 10 mg Escitalopram Oxalate (Lexapro -) 10 mg PO DAILY ROB Last Admin: 06/18/18 09:47 Dose: 10 mg Heparin Sodium (Porcine) (Heparin -) 5,000 unit SQ BID ROB Last Admin: 06/18/18 09:46 Dose: 5,000 unit Ceftriaxone Sodium 1 gm/ (Dextrose) 50 mls @ 100 mls/hr IVPB DAILY ROB; Protocol Last Admin: 06/18/18 09:46 Dose: 100 mls/hr - Objective Vital Signs: Vital Signs Temperature 99.2 F 06/18/18 09:37 Pulse Rate 83 06/18/18 09:37 Respiratory Rate 20 06/18/18 09:37 Blood Pressure 117/65 06/18/18 09:37 O2 Sat by Pulse Oximetry (%) 100 06/17/18 21:00 Constitutional: Yes: No Distress Eyes: Yes: Conjunctiva Clear Cardiovascular: Yes: Regular Rate and Rhythm, S1, S2 Respiratory: Yes: CTA Bilaterally Gastrointestinal: Yes: Normal Bowel Sounds, Soft. No: Tenderness Edema: No Integumentary: Yes: Other (superficial ulcers chin, L clavicle, L LE. + larger sacral ulcer) Labs: CBC, BMP 06/17/18 07:17 06/17/18 07:17 INR, PTT INR 0.96 (0.83-1.09) 06/16/18 17:39 Assessment/Plan Infected skin ulcers Leukocytosis- resolved Continue ceftriaxone Local skin care
--- NOTE | 2018-06-18 15:09 | PN ---
Progress Note, Physician Chief Complaint: ASLEEP WEAK LETHARGIC AND CACHECTIC - Current Medication List Current Medications: Active Medications Collagenase (Santyl -) 1 applic TP DAILY ROB; Protocol Last Admin: 06/18/18 09:47 Dose: 1 appful Collagenase (Santyl -) 1 applic TP DAILY ROB; Protocol Last Admin: 06/18/18 09:47 Dose: 1 appful Donepezil HCl (Aricept -) 10 mg PO DAILY ROB Last Admin: 06/18/18 09:46 Dose: 10 mg Escitalopram Oxalate (Lexapro -) 10 mg PO DAILY ROB Last Admin: 06/18/18 09:47 Dose: 10 mg Heparin Sodium (Porcine) (Heparin -) 5,000 unit SQ BID ROB Last Admin: 06/18/18 09:46 Dose: 5,000 unit Ceftriaxone Sodium 1 gm/ (Dextrose) 50 mls @ 100 mls/hr IVPB DAILY ROB; Protocol Last Admin: 06/18/18 09:46 Dose: 100 mls/hr - Objective Vital Signs: Vital Signs Temperature 96.6 F L 06/18/18 13:51 Pulse Rate 93 H 06/18/18 13:51 Respiratory Rate 18 06/18/18 13:51 Blood Pressure 111/76 06/18/18 13:51 O2 Sat by Pulse Oximetry (%) 100 06/18/18 09:00 Constitutional: Yes: Cachectic Cardiovascular: Yes: Regular Rate and Rhythm Respiratory: Yes: Diminished, On Nasal O2 Gastrointestinal: Yes: Other Genitourinary: Yes: Incontinence Musculoskeletal: Yes: Muscle Weakness Extremities: Yes: Other Integumentary: Yes: Pressure Ulcer Wound/Incision: Yes: Open to air Neurological: Yes: Confusion, Pre-Existing Deficit, Weakness ...Motor Strength: LLE, RLE Psychiatric: Yes: Other Labs: CBC, BMP 06/17/18 07:17 06/17/18 07:17 INR, PTT INR 0.96 (0.83-1.09) 06/16/18 17:39 Problem List - Problems (1) Infected wound Code(s): T14.8XXA - OTHER INJURY OF UNSPECIFIED BODY REGION, INITIAL ENCOUNTER; L08.9 - LOCAL INFECTION OF THE SKIN AND SUBCUTANEOUS TISSUE, UNSP (2) Pressure ulcer Code(s): L89.90 - PRESSURE ULCER OF UNSPECIFIED SITE, UNSPECIFIED STAGE Qualifiers: Pressure injury location: sacral region Pressure injury stage: stage 2 Qualified Code(s): L89.152 - Pressure ulcer of sacral region, stage 2 (3) Acute metabolic encephalopathy Code(s): G93.41 - METABOLIC ENCEPHALOPATHY (4) Anemia Code(s): D64.9 - ANEMIA, UNSPECIFIED (5) Dementia Code(s): F03.90 - UNSPECIFIED DEMENTIA WITHOUT BEHAVIORAL DISTURBANCE Qualifiers: (6) Failure to thrive Code(s): [id number] - (7) Functional quadriplegia Code(s): R53.2 - FUNCTIONAL QUADRIPLEGIA (8) Lethargy Code(s): R53.83 - OTHER FATIGUE (9) Malnutrition Code(s): E46 - UNSPECIFIED PROTEIN-CALORIE MALNUTRITION Qualifiers: Protein-calorie malnutrition severity: severe Assessment/Plan DISCUSSED WITH DAUGHTER BEDSIDE GTUBE IS NOT A GOOD OPTION AT THIS POINT KEEP HER WITH ORAL AND IV HYDRATION SWALLOW EVAL [facility]
--- NOTE | 2018-06-18 15:48 | CONSULT ---
Admitting History and Physical - Past Medical History CLERICAL ASSIGNER: Yes: Dementia, Alzheimer's - Smoking History Smoking history: Never smoked Have you smoked in the past 12 months: No Aproximately how many cigarettes per day: 0 If you are a former smoker, when did you quit?: UNK - HX DEMENTIA - Alcohol/Substance Use Hx Alcohol Use: No History - Admission Reason For Visit: PRESSURE INJURY OF SKIN - Hearing Hearing: Normal Speech Evaluation - Communication Primary Language: TURKISH Communication: Yes: Simple Responses (secondary to dementia.) - Speech Production Apraxia: No Able to Make Needs Known: Yes: Moderately Impaired (denies any pain or discomfort.) Intelligibility: Yes: WNL - Speech Characteristics Voice Loudness: Normal Voice Pitch: Yes: Normal Voice Phonatory-based Quality: Yes: Normal Speech Pattern: Normal (for single words) Nasal Resonance: Normal Articulation: Yes: Precise Dysfluency: Yes: Tonic Rate of Speech: Intact Voice Comment: Vocal quality is WNL with adequate airway protection - Language/Auditory Comprehension Follows: Yes: 1 Stage Simple Commands (WFL), 2 Stage Simple Commands (has difficulty), Complex Commands (not demonstrated) Observation: Able to respond to yes/no queries: Yes, Yes/No Confusion: Yes, Comprehends Conversational Speech: Yes, Benefits from Slow Speech: Yes, Benefits from Repetiton: Yes, Benefits from Increased Volume of Speech: No - Language/Verbal Expression Able to Respond to Simple Queries: Yes: WNL (in most cases) Able to Communicate Wants and Needs: Yes: Moderately Impaired (has difficulty at times) Aware of Errors: No Attempts to Correct Errors: No Use of Gestures: Yes Written Expression: Not examined Oral Expression: WFL for single words, yes/no responses and short sentences Reading Comprehension: Not examined Calculations: Not examined - Memory/Perception tank terminal gauger Memory: Yes: Moderately Impaired Short Term Memory: Yes: Moderately Impaired - Swallow Evaluation/Bedside Assessment Current Nutritional Intake: Dysphagia Pureed, Thin Liquids Oral Secretions: Yes: WFL Tracheostomy Present: No Patient on Ventilator: No Dentition: Yes: Adequate Facial Symmetry at Rest: Symmetrical Facial Symmetry on Retraction: Symmetrical Facial Movement: Controlled Sensation: Normal Facial Comment: appears WFL for speech and swallowing purposes Jaw Position: Open at Rest Against Resistance Opening: Normal Against Resistance Closing: Normal Pucker Lips: Normal Smile: Normal Lips, Comment: appears WFL for speech and swallowing purposes Lingual Movement: Normal Lingual Speed of Movement: Reduced Lingual Movement Strgth Against Opposition: Normal Lingual Movement Characteristics: Normal Lingual Comment: appears WFL for speech and swallowing purposes Soft Palate Description: Normal Color Gag Reflex: Strong Bite Reflex: Present Velopharyngeal Movement: Normal Laryngeal Elevation: WFL Laryngeal Movement: Able to Palpate Needs Assistance: Yes Rate of Intake: Slow/Holding Bolus Size: WFL Sensation: Bite Reflex Labial Seal: WFL Chewing: WFL Oral Prep Time: WFL A-P Transit: WFL (sometimes holds bolus in oral cavity and must prompt to swallow.) Coughing/Throat Clear: No Change in Voice: No Other Findings/Remarks: 72 yo female seen at bedside for swallow eval to r/o dysphagia. Pt is verbal, but confused, A&Ox1 cooperative; aide present and served as historian. Pt admitted to [facility] with worsening pressure ulcers, reduced appetite. PMHX includes Parkinson's disease, dementia. Vocal quality is NNL with adequate airway protection. Current diet: puree with thin liquids. Pt given po trials of puree with total assistance revealed reduced acceptance, small bolus sample size. adequate labial containment, occasional bolus pocketing observed. Once prompted, A-P transport, pharyngeal swallows appear WFL. No cough or changes in respiration observed after the swallow. Thin liquid trials via cup were unremarkable for aspiration during this session. Recommendations - Speech Evaluation, Impression/Plan Impression: Pt presents with mild to moderate oral phase dysphagia for purees and thin liquids with no evidence or aspiration at this time. Reduced speech sample secondary to advance dementia is WFL for single words and short phrases. Fci Goals: tolerate the least restrictive diet without s/s aspiration. Short Term Goals: tolerate puree and thin liquids with total assistance diet without s/s aspiration. - Dysphagia Impressions/Plan Swallowing Skills: Impaired Dysphagia Impressions: Mild Impairment, Moderate Impairment, Risk of Aspiration *Silent aspiration: cannot be R/O at bedside Dysphagia Treatment Plan: Small Bites, Safe Rate, 1/2 tsp. at a time, Elevate HOB during feed, Other (pt may require verbal prompts to swallow solids.) Dysphagia Evaluation Summary: continue purees with thin liquids as tolerated. Observe standard aspiration precautions. Crush meds for safety. Results given to highway research engineer Brooke and pcp via chart. OPERATIONS AGENT to follow for nutritional intake. Recommendations: Other (consider nutritional supplement if intake continue to be poor.) - Recommendations Diet Consistency: Dysphagia Pureed Medication Administration: Crushed with applesauce Liquids: Thin Liquids Supplement: Ensure, Magic Cup, Ensure Pudding
--- NOTE | 2018-06-18 16:12 | CON.GI ---
Consult Consult Specialty:: GI Referred by:: Dr. Bravo Reason for Consultation:: Failure to throve and weight loss - History of Present Illness Chief Complaint: Patient non verbal History of Present Illness: 72F admitted for evaluation of worsening decubiti and weight loss. She has been evaluated by Dr. Bower on a few occasions while she was admitted to [facility] previously for evaluation of anemia. No interventions were performed. Asked to evaluate for possible feeding tube. Her son is Ms. Sylvester's decision maker. He was not present at bedside. Her home health aid was present. She states that Dr. Bravo suggested that she try feeding orally and that "her son does not want the feeding tube anymore". I called her son using the number proivided in the chart however the voice mailbox was full. There has been no vomiting, diarrhea or rectal bleeding reported. 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: Yes: Dementia, Alzheimer's - Alcohol/Substance Use Hx Alcohol Use: No - Smoking History Smoking history: Never smoked Have you smoked in the past 12 months: No Aproximately how many cigarettes per day: 0 If you are a former smoker, when did you quit?: UNK - HX DEMENTIA - Social History Usual Living Arrangement: With Child ADL: Support Services History of Recent Travel: No Home Medications - Allergies Allergies/Adverse Reactions: Allergies Allergy/AdvReac Type Severity Reaction Status Date / Time No Known Allergies Allergy Verified 06/16/18 17:03 - Home Medications Home Medications: Ambulatory Orders Donepezil HCl [Aricept -] 10 mg PO DAILY 06/10/17 Escitalopram Oxalate [Lexapro -] 10 mg PO DAILY 12/15/17 Family Disease History - Family Disease History Family History: Unable to Obtain (patient non-verbal) Review of Systems Unable to obtain ROS, reason: Patient non-verbal Physical Exam-GI Vital Signs: Vital Signs Temperature 100.6 F H 06/18/18 15:45 Pulse Rate 93 H 06/18/18 13:51 Respiratory Rate 18 06/18/18 13:51 Blood Pressure 111/76 06/18/18 13:51 O2 Sat by Pulse Oximetry (%) 100 06/18/18 09:00 Constitutional: Yes: Calm Eyes: No: Sclera Icterus Cardiovascular: Yes: Regular Rate and Rhythm. No: Murmur Respiratory: Yes: Diminished (at bases however with poor inspiratory effort) Gastrointestinal Inspection: No: Distention, Scars ...Auscultate: Yes: Normoactive Bowel Sounds ...Palpate: No: Tenderness (No grimacing upon palpation) ...Percussion: No: Tympanitic Edema: No (No LE edema) Neurological: Yes: Alert Labs: CBC, BMP 06/17/18 07:17 06/17/18 07:17 INR, PTT INR 0.96 (0.83-1.09) 06/16/18 17:39 Problem List - Problems (1) Failure to thrive Assessment/Plan: Secondary to underlying dementia and worsening of decubiti. Remaining work-up per PMD Attempted to contact Ms. Sylvester's son re: his wishes in terms of G-tube placement Added pantoprazole suspension 20mg once daily to regimen Speech and swallow eval Consider palliative care evaluation Code(s): [id number] -
[2018-06-18] MEDS: PANTOPRAZOLE SOD 40 MG SUSPENSION PACKET PO SCH (17:43)
[2018-06-19] MEDS ORDERED: cefTRIAXone SODIUM 1 GM VIAL ONE (09:50)
[2018-06-19] MEDS ORDERED: DEXTROSE 5%-WATER - 50 ML IVPB ONE (09:51)
[2018-06-19] MEDS: PANTOPRAZOLE SOD 40 MG SUSPENSION PACKET PO SCH (09:58)
[2018-06-19] MEDS: ESCITALOPRAM OXALATE 10 MG TABLET (FP) PO SCH (09:58)
[2018-06-19] MEDS: HEPARIN NA (PORCINE) 5,000 UNITS/ML 1ML VIAL SQ SCH ×2 (09:58→21:30)
[2018-06-19] MEDS: DONEPEZIL HCL 10 MG TABLET (FP) PO SCH (09:58)
[2018-06-19] MEDS: CEFTRIAXONE 1 GM in DEXTROSE 5%-WATER - 50 ML IVPB SCH (09:59)
--- NOTE | 2018-06-19 12:19 | PN ---
Progress Note, Physician History of Present Illness: 72yF with PMH HLD, Parkinson's disease, Alzheimer's dementia presented to the ED with worsening pressure ulcers. - Current Medication List Current Medications: Active Medications Collagenase (Santyl -) 1 applic TP DAILY ROB; Protocol Last Admin: 06/18/18 09:47 Dose: 1 appful Collagenase (Santyl -) 1 applic TP DAILY ROB; Protocol Last Admin: 06/18/18 09:47 Dose: 1 appful Donepezil HCl (Aricept -) 10 mg PO DAILY ROB Last Admin: 06/19/18 09:58 Dose: 10 mg Escitalopram Oxalate (Lexapro -) 10 mg PO DAILY ROB Last Admin: 06/19/18 09:58 Dose: 10 mg Heparin Sodium (Porcine) (Heparin -) 5,000 unit SQ BID ROB Last Admin: 06/19/18 09:58 Dose: 5,000 unit Ceftriaxone Sodium 1 gm/ (Dextrose) 50 mls @ 100 mls/hr IVPB DAILY ROB; Protocol Last Admin: 06/19/18 09:59 Dose: 100 mls/hr Pantoprazole Sodium (Protonix Packets For Oral Suspension -) 40 mg PO DAILY ROB Last Admin: 06/19/18 09:58 Dose: 40 mg - Objective Vital Signs: Vital Signs Temperature 98.4 F 06/19/18 07:23 Pulse Rate 86 06/19/18 07:23 Respiratory Rate 20 06/19/18 07:23 Blood Pressure 116/68 06/19/18 07:23 O2 Sat by Pulse Oximetry (%) 99 06/18/18 21:00 Cardiovascular: Yes: S1, S2 Respiratory: Yes: Regular, CTA Bilaterally Gastrointestinal: Yes: Normal Bowel Sounds, Soft Labs: CBC, BMP 06/17/18 07:17 06/17/18 07:17 INR, PTT INR 0.96 (0.83-1.09) 06/16/18 17:39 Problem List - Problems (1) Pressure ulcer Assessment/Plan: - Pressure ulcers with wound infection - collagenase to neck, clavicle, sacrum - vascular consult for possible debridement - given vanc in ED - ID consult, defer provider choice to PCP Code(s): L89.90 - PRESSURE ULCER OF UNSPECIFIED SITE, UNSPECIFIED STAGE Qualifiers: Pressure injury location: sacral region Pressure injury stage: stage 2 Qualified Code(s): L89.152 - Pressure ulcer of sacral region, stage 2 (2) Dementia Assessment/Plan: - cont home aricept and lexapro Code(s): F03.90 - UNSPECIFIED DEMENTIA WITHOUT BEHAVIORAL DISTURBANCE Qualifiers: (3) Functional quadriplegia Code(s): R53.2 - FUNCTIONAL QUADRIPLEGIA (4) Failure to thrive Assessment/Plan: -Monitor Intake -GI on Case--possible peg depending on family Code(s): [id number] -
[2018-06-19] MEDS: COLLAGENASE CLOSTRIDIUM HIST. 30 GRAMS TUBE TP SCH ×2 (12:40→12:43)
[2018-06-20] MEDS ORDERED: DEXTROSE 5%-WATER - 50 ML IVPB ONE (09:19)
[2018-06-20] MEDS ORDERED: cefTRIAXone SODIUM 1 GM VIAL ONE (09:19)
[2018-06-20] MEDS: CEFTRIAXONE 1 GM in DEXTROSE 5%-WATER - 50 ML IVPB SCH (10:07)
[2018-06-20] MEDS: PANTOPRAZOLE SOD 40 MG SUSPENSION PACKET PO SCH (10:08)
[2018-06-20] MEDS: ESCITALOPRAM OXALATE 10 MG TABLET (FP) PO SCH (10:08)
[2018-06-20] MEDS: HEPARIN NA (PORCINE) 5,000 UNITS/ML 1ML VIAL SQ SCH ×2 (10:08→22:06)
[2018-06-20] MEDS: DONEPEZIL HCL 10 MG TABLET (FP) PO SCH (10:13)
[2018-06-20] MEDS: COLLAGENASE CLOSTRIDIUM HIST. 30 GRAMS TUBE TP SCH ×2 (10:14→10:15)
--- NOTE | 2018-06-20 11:43 | PN ---
Progress Note, Physician History of Present Illness: Awake but confused No complaints offerred Temps down afebrile BC(-) Wound c/s mixed organisms - Current Medication List Current Medications: Active Medications Collagenase (Santyl -) 1 applic TP DAILY ROB; Protocol Last Admin: 06/20/18 10:14 Dose: 1 appful Collagenase (Santyl -) 1 applic TP DAILY ROB; Protocol Last Admin: 06/20/18 10:15 Dose: 1 amp Donepezil HCl (Aricept -) 10 mg PO DAILY ROB Last Admin: 06/20/18 10:13 Dose: 10 mg Escitalopram Oxalate (Lexapro -) 10 mg PO DAILY ROB Last Admin: 06/20/18 10:08 Dose: 10 mg Heparin Sodium (Porcine) (Heparin -) 5,000 unit SQ BID ROB Last Admin: 06/20/18 10:08 Dose: 5,000 unit Ceftriaxone Sodium 1 gm/ (Dextrose) 50 mls @ 100 mls/hr IVPB DAILY ROB; Protocol Last Admin: 06/20/18 10:07 Dose: 100 mls/hr Pantoprazole Sodium (Protonix Packets For Oral Suspension -) 40 mg PO DAILY ROB Last Admin: 06/20/18 10:08 Dose: 40 mg - Objective Vital Signs: Vital Signs Temperature 98.5 F 06/20/18 07:22 Pulse Rate 77 06/20/18 07:22 Respiratory Rate 20 06/20/18 07:22 Blood Pressure 135/58 L 06/20/18 07:22 O2 Sat by Pulse Oximetry (%) 99 06/18/18 21:00 Constitutional: Yes: No Distress, Thin Eyes: Yes: Conjunctiva Clear Cardiovascular: Yes: Regular Rate and Rhythm, S1, S2 Respiratory: Yes: CTA Bilaterally Gastrointestinal: Yes: Normal Bowel Sounds, Soft. No: Tenderness Edema: No Integumentary: Yes: Other (+ chin, L clavicle, L LE, sacral ulcers) Labs: CBC, BMP 06/17/18 07:17 06/17/18 07:17 INR, PTT INR 0.96 (0.83-1.09) 06/16/18 17:39 Assessment/Plan Infected skin ulcers polymicrobial Leukocytosis- resolved OBS Substitute levaquin based on susceptibilities Local skin care
--- NOTE | 2018-06-20 14:34 | PN ---
Progress Note, Physician - Current Medication List Current Medications: Active Medications Collagenase (Santyl -) 1 applic TP DAILY [facility]; Protocol Last Admin: 06/20/18 10:14 Dose: 1 appful Collagenase (Santyl -) 1 applic TP DAILY ROB; Protocol Last Admin: 06/20/18 10:15 Dose: 1 amp Donepezil HCl (Aricept -) 10 mg PO DAILY [facility] Last Admin: 06/20/18 10:13 Dose: 10 mg Escitalopram Oxalate (Lexapro -) 10 mg PO DAILY ROB Last Admin: 06/20/18 10:08 Dose: 10 mg Heparin Sodium (Porcine) (Heparin -) 5,000 unit SQ BID ROB Last Admin: 06/20/18 10:08 Dose: 5,000 unit Levofloxacin (Levaquin 250 Mg Premixed Ivpb -) 250 mg in 50 mls @ 50 mls/hr IVPB DAILY [facility]; Protocol Pantoprazole Sodium (Protonix Packets For Oral Suspension -) 40 mg PO DAILY [facility] Last Admin: 06/20/18 10:08 Dose: 40 mg - Objective Vital Signs: Vital Signs Temperature 98.9 F 06/20/18 10:00 Pulse Rate 77 06/20/18 10:00 Respiratory Rate 18 06/20/18 10:00 Blood Pressure 118/69 06/20/18 10:00 O2 Sat by Pulse Oximetry (%) 99 06/18/18 21:00 Cardiovascular: Yes: S1, S2 Respiratory: Yes: Regular, CTA Bilaterally Gastrointestinal: Yes: Normal Bowel Sounds, Soft Labs: CBC, BMP 06/17/18 07:17 06/17/18 07:17 INR, PTT INR 0.96 (0.83-1.09) 06/16/18 17:39 Problem List - Problems (1) Pressure ulcer Assessment/Plan: - Pressure ulcers with wound infection - collagenase to neck, clavicle, sacrum - vascular consult for possible debridement - given vanc in ED - ID consult, defer provider choice to PCP Code(s): L89.90 - PRESSURE ULCER OF UNSPECIFIED SITE, UNSPECIFIED STAGE Qualifiers: Pressure injury location: sacral region Pressure injury stage: stage 2 Qualified Code(s): L89.152 - Pressure ulcer of sacral region, stage 2 (2) Dementia Assessment/Plan: - cont home aricept and lexapro Code(s): F03.90 - UNSPECIFIED DEMENTIA WITHOUT BEHAVIORAL DISTURBANCE Qualifiers: (3) Functional quadriplegia Code(s): R53.2 - FUNCTIONAL QUADRIPLEGIA (4) Failure to thrive Assessment/Plan: -Monitor Intake -GI on Case--possible peg depending on family Code(s): [id number] -
--- NOTE | 2018-06-20 15:53 | PN ---
Progress Note (short form) - Note Progress Note: addendum dx protein calorie malnutrition in the setting of worsening anorexia, low bmi 15.8 , functional quadriplegia, in the setting of parkinsons disease and alzheimers disease with multiple pressure ulcers Problem List - Problems (1) Infected wound Code(s): T14.8XXA - OTHER INJURY OF UNSPECIFIED BODY REGION, INITIAL ENCOUNTER; L08.9 - LOCAL INFECTION OF THE SKIN AND SUBCUTANEOUS TISSUE, UNSP (2) Pressure ulcer Code(s): L89.90 - PRESSURE ULCER OF UNSPECIFIED SITE, UNSPECIFIED STAGE Qualifiers: Pressure injury location: sacral region Pressure injury stage: stage 2 Qualified Code(s): L89.152 - Pressure ulcer of sacral region, stage 2 (3) Acute metabolic encephalopathy Code(s): G93.41 - METABOLIC ENCEPHALOPATHY (4) Anemia Code(s): D64.9 - ANEMIA, UNSPECIFIED (5) Dementia Code(s): F03.90 - UNSPECIFIED DEMENTIA WITHOUT BEHAVIORAL DISTURBANCE Qualifiers: (6) Failure to thrive Code(s): [id number] - (7) Functional quadriplegia Code(s): R53.2 - FUNCTIONAL QUADRIPLEGIA (8) Lethargy Code(s): R53.83 - OTHER FATIGUE (9) Malnutrition Code(s): E46 - UNSPECIFIED PROTEIN-CALORIE MALNUTRITION Qualifiers: Protein-calorie malnutrition severity: severe
[2018-06-21] MEDS: ESCITALOPRAM OXALATE 10 MG TABLET (FP) PO SCH (10:34)
[2018-06-21] MEDS: HEPARIN NA (PORCINE) 5,000 UNITS/ML 1ML VIAL SQ SCH ×2 (10:34→22:31)
[2018-06-21] MEDS: PANTOPRAZOLE SOD 40 MG SUSPENSION PACKET PO SCH (10:35)
[2018-06-21] MEDS: COLLAGENASE CLOSTRIDIUM HIST. 30 GRAMS TUBE TP SCH ×2 (10:35)
[2018-06-21] MEDS: DONEPEZIL HCL 10 MG TABLET (FP) PO SCH (10:36)
--- NOTE | 2018-06-21 15:20 | PN ---
Progress Note, Physician History of Present Illness: Awake but confused No complaints offerred Temps down afebrile BC(-) Wound c/s mixed organisms - Current Medication List Current Medications: Active Medications Collagenase (Santyl -) 1 applic TP DAILY ROB; Protocol Last Admin: 06/21/18 10:35 Dose: 1 appful Collagenase (Santyl -) 1 applic TP DAILY ROB; Protocol Last Admin: 06/21/18 10:35 Dose: Not Given Donepezil HCl (Aricept -) 10 mg PO DAILY [facility] Last Admin: 06/21/18 10:36 Dose: 10 mg Escitalopram Oxalate (Lexapro -) 10 mg PO DAILY [facility] Last Admin: 06/21/18 10:34 Dose: 10 mg Heparin Sodium (Porcine) (Heparin -) 5,000 unit SQ BID [facility] Last Admin: 06/21/18 10:34 Dose: 5,000 unit Levofloxacin (Levaquin 250 Mg Premixed Ivpb -) 250 mg in 50 mls @ 50 mls/hr IVPB DAILY [facility]; Protocol Last Admin: 06/21/18 10:35 Dose: 50 mls/hr Pantoprazole Sodium (Protonix Packets For Oral Suspension -) 40 mg PO DAILY [facility] Last Admin: 06/21/18 10:35 Dose: 40 mg - Objective Vital Signs: Vital Signs Temperature 97.8 F 06/21/18 10:00 Pulse Rate 84 06/21/18 10:00 Respiratory Rate 16 06/21/18 10:00 Blood Pressure 112/68 06/21/18 10:00 O2 Sat by Pulse Oximetry (%) 99 06/18/18 21:00 Constitutional: Yes: No Distress, Cachectic Eyes: Yes: Conjunctiva Clear Cardiovascular: Yes: Regular Rate and Rhythm, S1, S2 Respiratory: Yes: CTA Bilaterally Gastrointestinal: Yes: Normal Bowel Sounds, Soft. 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
--- NOTE | 2018-06-21 15:22 | PN ---
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 Pt reported that she was "not hungry" during this session. Chart review indicates intake varies between 25 to 50%. duct installer reports no s/ s of aspiration when pt does consume meals. Recommendations continue dysphagia puree and thin liquids as tolerate. Crush meds and observe standard aspiration precautions. T[employer] MAINTER[employer]ER to follow up.
--- NOTE | 2018-06-22 10:11 | DS ---
Physical Examination Vital Signs: Vital Signs Temperature 98.7 F 06/22/18 07:27 Pulse Rate 82 06/22/18 07:27 Respiratory Rate 18 06/22/18 07:27 Blood Pressure 112/55 L 06/22/18 07:27 O2 Sat by Pulse Oximetry (%) 99 06/21/18 21:00 Constitutional: Yes: Calm, Thin Neck: Yes: Other (neck clavicle dressing) Cardiovascular: Yes: Regular Rate and Rhythm, S1, S2 Respiratory: Yes: CTA Bilaterally, Diminished (at bases) Gastrointestinal: Yes: Normal Bowel Sounds, Soft Edema: No Labs: CBC, BMP 06/17/18 07:17 06/17/18 07:17 Discharge Summary Reason For Visit: PRESSURE INJURY OF SKIN Current Active Problems Infected wound (Acute) Pressure ulcer (Acute) Hospital Course: his is a 72 year old female with a past medical history of Parkinson's disease and dementia who presented to the ED for worsening pressure ulcers. Her aid noted that the ulcers were getting worse. Pt denies any complaints. seen by GI and ID started on rocephin leukocytosis resolved now po levaquin for 7 days send back to [facility] Microbiology 06/16/18 17:39 Urine - Urine - Catheterized Urine Culture - Final NO GROWTH OBTAINED 06/16/18 17:39 Neck Gram Stain - Final 06/16/18 17:39 Blood - Peripheral Venous Blood Culture - Final NO GROWTH AFTER 5 DAYS INCUBATION 06/16/18 17:39 Blood - Peripheral Venous Blood Culture - Final NO GROWTH AFTER 5 DAYS INCUBATION 06/16/18 17:39 Neck Wound Culture - Preliminary Enterobacter Cloacae Klebsiella Pneumoniae Acinetobacter Baumannii/Haemol Beta Hemolytic Strep Alpha Hemolytic Streptococcus Staphylococcus Coagulase Neg Condition: Fair - Instructions Diet, Activity, Other Instructions: continue antibiotic for 7 days Referrals: Austin Bravo MD [Primary Care Provider] - Disposition: SNF FACILITY - Home Medications Comprehensive Discharge Medication List: Ambulatory Orders Donepezil HCl [Aricept -] 10 mg PO DAILY 06/10/17 Escitalopram Oxalate [Lexapro -] 10 mg PO DAILY 12/15/17 Ascorbic Acid [Vitamin C] 250 mg PO BID #60 tablet 06/21/18 Collagenase Clostridium Hist. [Santyl -] 1 applic TP DAILY tube 06/21/18 Heparin - 5,000 unit SQ BID vial 06/21/18 Multivitamin [Daily Multiple Vitamin] 1 each PO DAILY #30 tablet 06/21/18 Pantoprazole Suspension [Protonix Packets For Oral Suspension -] 40 mg PO DAILY packet 06/21/18 Zinc Sulfate [Orazinc] 220 mg PO DAILY #30 capsule 06/21/18 levoFLOXacin [Levaquin -] 250 mg PO DAILY@0600 tablet 06/21/18
[2018-06-22] MEDS: HEPARIN NA (PORCINE) 5,000 UNITS/ML 1ML VIAL SQ SCH ×2 (10:37→21:04)
[2018-06-22] MEDS: ESCITALOPRAM OXALATE 10 MG TABLET (FP) PO SCH (10:37)
[2018-06-22] MEDS: PANTOPRAZOLE SOD 40 MG SUSPENSION PACKET PO SCH (10:37)
[2018-06-22] MEDS: DONEPEZIL HCL 10 MG TABLET (FP) PO SCH (10:38)
[2018-06-22] MEDS: COLLAGENASE CLOSTRIDIUM HIST. 30 GRAMS TUBE TP SCH ×2 (10:39)
--- NOTE | 2018-06-23 09:32 | PN ---
Problem List - Problems (1) Infected wound Code(s): T14.8XXA - OTHER INJURY OF UNSPECIFIED BODY REGION, INITIAL ENCOUNTER; L08.9 - LOCAL INFECTION OF THE SKIN AND SUBCUTANEOUS TISSUE, UNSP (2) Pressure ulcer Code(s): L89.90 - PRESSURE ULCER OF UNSPECIFIED SITE, UNSPECIFIED STAGE Qualifiers: Pressure injury location: sacral region Pressure injury stage: stage 2 Qualified Code(s): L89.152 - Pressure ulcer of sacral region, stage 2 (3) Acute metabolic encephalopathy Code(s): G93.41 - METABOLIC ENCEPHALOPATHY (4) Anemia Code(s): D64.9 - ANEMIA, UNSPECIFIED (5) Dementia Code(s): F03.90 - UNSPECIFIED DEMENTIA WITHOUT BEHAVIORAL DISTURBANCE Qualifiers: (6) Failure to thrive Code(s): [id number] - (7) Functional quadriplegia Code(s): R53.2 - FUNCTIONAL QUADRIPLEGIA (8) Lethargy Code(s): R53.83 - OTHER FATIGUE (9) Malnutrition Code(s): E46 - UNSPECIFIED PROTEIN-CALORIE MALNUTRITION Qualifiers: Protein-calorie malnutrition severity: severe
[2018-06-23] MEDS: HEPARIN NA (PORCINE) 5,000 UNITS/ML 1ML VIAL SQ SCH (10:16)
[2018-06-23] MEDS: PANTOPRAZOLE SOD 40 MG SUSPENSION PACKET PO SCH (10:16)
[2018-06-23] MEDS: ESCITALOPRAM OXALATE 10 MG TABLET (FP) PO SCH (10:16)
[2018-06-23] MEDS: DONEPEZIL HCL 10 MG TABLET (FP) PO SCH (10:16)
[2018-06-23] MEDS: COLLAGENASE CLOSTRIDIUM HIST. 30 GRAMS TUBE TP SCH (10:16)
[2018-06-23 16:13] VITALS: BP 146/68; PULSE 76; TEMP 97.6
== END 2018-06-23 18:30 | DRG 592 ==
LOC: JER 15:58 → JERBED 20:09 → J8W 06-17 01:46 → JERBED 06-17 02:14 → J8W 06-17 02:24
PROVIDERS: ADMIT Internal Medicine; ATTEND Family Medicine
DX: L89.152 Pressure ulcer of sacral region, stage 2 (principal); R53.2 Functional quadriplegia; G93.41 Metabolic encephalopathy; E43 Unspecified severe protein-calorie malnutrition; Z68.1 Body mass index [BMI] 19.9 or less, adult; R62.7 Adult failure to thrive; R63.0 Anorexia; G30.9 Alzheimer's disease, unspecified; F02.80 Dementia in other diseases classified elsewhere, unspecified severity, without behavioral disturbance, psychotic disturbance, mood disturbance, and anxiety; G20 Parkinson's disease; D72.829 Elevated white blood cell count, unspecified; R53.83 Other fatigue; D64.9 Anemia, unspecified; L08.89 Other specified local infections of the skin and subcutaneous tissue; B96.1 Klebsiella pneumoniae [K. pneumoniae] as the cause of diseases classified elsewhere; B95.7 Other staphylococcus as the cause of diseases classified elsewhere; B96.89 Other specified bacterial agents as the cause of diseases classified elsewhere
CPT/HCPCS: 36415; 71045-TC-FY; 80048; 80053; 81003; 81015; 83735; 84100; 85025; 85610; 85730; 86850; 86900; 86901; 87040; 87070; 87086; 87186; 87205; 90670; 93005; 93010; 97162-GP; 99285-25; J1644; J7030

== ENCOUNTER 2018-09-28 11:49 | Inpatient (IN) | payer OTHER ==
--- NOTE | 2018-09-28 12:17 | PDOC ---
History of Present Illness - General Stated Complaint: Altered Mental Status Time Seen by Provider: 09/28/18 12:16 History Source: Care Provider Exam Limitations: Dementia - History of Present Illness Initial Comments: Pt is a 72 yo F, with PMH of HLD, Parkinson's, functional quadriplegia, and Alzheimer's dementia,presenting for malaise (increased sleeping during the day) and decreased PO intake. Pt is accompanied by her home health specialist. History is limited as pt A/O is only to self at baseline. The pt is on a puree diet, but her intake is normally limited. The aide denies any fevers/chills, congestion, cough , syncope, dyspnea/SOB, nausea/vomiting, diarrhea/constipation, or leg swelling. The aide states the pt would normally not complain of pain or urinary symptoms. Pt had recent admission in June for evaluation of pressure ulcers and decreased PO intake. Pt went to a rehab x3 weeks after the inpatient stay for frequent wound checks. Pt has an aide during the day, and her son stays with her during the nights. She also has a home health nurse that comes 1x/wk. Social: No cigarette, alcohol, or drug use. No recent travel or sick contacts. Surgical: no relevant history. Family: no relevant history. 09/28/18 13:31 Past History - Travel Traveled outside of the country in the last 30 days: No Close contact w/someone who was outside of country & ill: No - Past Medical History Allergies/Adverse Reactions: Allergies Allergy/AdvReac Type Severity Reaction Status Date / Time No Known Allergies Allergy Verified 09/28/18 12:25 Home Medications: Ambulatory Orders Donepezil HCl [Aricept -] 10 mg PO DAILY 06/10/17 Escitalopram Oxalate [Lexapro -] 10 mg PO DAILY 12/15/17 Ascorbic Acid [Vitamin C] 250 mg PO BID #60 tablet 06/21/18 Collagenase Clostridium Hist. [Santyl -] 1 applic TP DAILY tube 06/21/18 Multivitamin [Daily Multiple Vitamin] 1 each PO DAILY #30 tablet 06/21/18 Pantoprazole Suspension [Protonix Packets For Oral Suspension -] 40 mg PO DAILY packet 06/21/18 Zinc Sulfate [Orazinc] 220 mg PO DAILY #30 capsule 06/21/18 Anemia: No COPD: No DVT: No Dementia: Yes HTN: No Hypercholesterolemia: Yes Psychiatric Problems: Yes (Alzheimer's, PD, dementia) - Immunization History Immunization Up to Date: Yes - Suicide/Smoking/Psychosocial Hx Smoking Status: No Smoking History: Never smoked Have you smoked in the past 12 months: No Number of Cigarettes Smoked Daily: 0 If you are a former smoker, when did you quit?: UNK - HX DEMENTIA Hx Alcohol Use: No Drug/Substance Use Hx: No Substance Use Type: None Hx Substance Use Treatment: No Review of Systems - Review of Systems Able to Perform ROS?: No (limited, per aide) Constitutional: Yes: Loss of Appetite, Malaise, Weakness, Weight Stable. No: Fever HEENTM: No: Nose Congestion, Difficulty Swallowing Respiratory: No: Cough, Orthopnea, Shortness of Breath Cardiac (ROS): No: Edema, Syncope ABD/GI: Yes: Poor Appetite, Poor Fluid Intake. No: Constipated, Diarrhea, Nausea, Rectal Bleeding, Vomiting : Yes: Incontinence (wears diaper) Musculoskeletal: Yes: See HPI, Other (multiple pressure ulcers that begin to heal and open again (L clavicle, L elbow, sacral)) Integumentary: Yes: See HPI, Other (pressure ulcers, see above). No: Rash Neurological: Yes: Weakness, Unsteady Gait (functional quadriplegia). No: Seizure Psychiatric: Yes: Sleep Pattern Change (sleeping more), Change in Appetite Endocrine: No: Increased Urine, Change in Weight *Physical Exam - Physical Exam General Appearance: Yes: Appropriately Dressed, Cachetic. No: Nourished, Apparent Distress HEENT: positive: EOMI, KOBE, Normal ENT Inspection, Normal Voice, Pharynx Normal , Hearing Grossly Normal. negative: Scleral Icterus (R), Scleral Icterus (L), Pharyngeal Erythema, Tonsillar Exudate, Tonsillar Erythema, Nasal Congestion, Rhinorrhea Neck: positive: Trachea midline, Normal Thyroid, Supple. negative: Tender, Rigid, Lymphadenopathy (R), Lymphadenopathy (L), Rigidity Respiratory/Chest: positive: Lungs Clear, Normal Breath Sounds. negative: Chest Tender, Respiratory Distress, Accessory Muscle Use, Crackles, Wheezing Cardiovascular: positive: Regular Rhythm, Regular Rate, S1, S2. negative: Edema , JVD, Murmur Vascular Pulses: Carotid (R): 4+, Carotid (L): 4+ Gastrointestinal/Abdominal: positive: Normal Bowel Sounds, Flat, Soft. negative : Tender, Organomegaly, Pulsatile Mass, Distended, Guarding, Rebound Rectal Exam: positive: other (Stage 4 sacral ulcer, no blood in stool.) Lymphatic: negative: Adenopathy, Tenderness Musculoskeletal: positive: Normal Inspection, Decreased Range of Motion (No strength in b/l LE, limited strength in b/l UE (baseline)). negative: CVA Tenderness, Vertebral Tenderness Extremity: positive: Normal Capillary Refill, Pelvis Stable, Other (limited strength, see above). negative: Normal Inspection, Normal Range of Motion, Tender, Pedal Edema, Swelling Integumentary: positive: Dry, Warm, Other (multiple pressure ulcers -- left clavicle (stage 3), L elbow (stage 2), sacral (stage 4). Sacral ulcer is large and appears to have active tears. No active drainage, no erythema. ). 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 negative: Fully Oriented (oriented to self (pt baseline)), Motor Strength 5/5, Abnormal Cranial NS, EOM Palsy, Facial Droop, Numbness, Sensory Deficit ED Treatment Course - LABORATORY CBC & Chemistry Diagram: 09/28/18 12:42 09/28/18 12:42 Medical Decision Making - Medical Decision Making Pt was seen at bedside, also will be seen by attending Dr. Domínguez. Pt presenting for malaise (increased sleeping during the day) and decreased PO intake. Pt is accompanied by her home health specialist. History is limited as pt A/O is only to self at baseline. The pt is on a puree diet, but her intake is normally limited. The aide denies any fevers/chills, congestion, cough, syncope, dyspnea/SOB, nausea/ vomiting, diarrhea/constipation, or leg swelling. The aide states the pt would normally not complain of pain or urinary symptoms. Pt had recent admission in June for evaluation of pressure ulcers and decreased PO intake. Pt went to a rehab x3 weeks after the inpatient stay for frequent wound checks. Pt has an aide during the day, and her son stays with her during the nights. She also has a home health nurse that comes 1x/wk. Vitals stable, afebrile (rectal temp 98.6). Pt A/O to self only (baseline). No focal neuro deficits, b/l UE weakness and no movement of b/l LE (pt baseline). PE showed multiple ulcers -- sacral stage 4, L elbow stage 2, L clavicle stage 3. No ulcers appear to be actively draining or erythematous. No abdominal tenderness, abdomen soft. Heart and lung sounds clear, no b/l pedal edema. No blood in the stool, pt wears a diaper. Considering infectious (skin, pneumonia, UTI) vs nutritional (limited PO intake , electrolyte imbalances) vs progression of neuro ds (Alzheimer's/PD dementia). Ordered work-up including CBC, CMP, Mg, troponin, ECG, blood cultures, UA, urine culture, chest x-ray. Provided 1 g ofirmev and 1 L IV NS for improvement of hydration status and pain. Will continue to reassess pt and monitor for symptomatic improvement. 09/28/18 13:03 ECG: HR 89, intervals WNL. No significant ST segment changes. 09/28/18 13:31 Chest x-ray clear, no active pulmonary disease. 09/28/18 13:38 CBC: mild elevation WBC (13.4) with neutrophilic shift, anemia (9.2/30.8 -- pt baseline). 09/28/18 13:45 Coags and CMP generally WNL. Trop <.02 09/28/18 14:[address] Bravo to discuss potential admission for failure to thrive, need for further interventions (PEG tube), lack of pressure mattress at home. 09/28/18 14:45 Dr. Bravo's team accepted admission. Admission order placed. Spoke with dietary team, they are aware of pt for possible PEG tube/feedings. Pt lying comfortably, vitals stable. 09/28/18 15:07 *DC/Admit/Observation/Transfer Diagnosis at time of Disposition: Failure to thrive Qualifiers: Failure to thrive age range: in adult Qualified Code(s): R62.7 - Adult failure to thrive Pressure ulcer Qualifiers: Pressure injury location: sacral region Pressure injury stage: stage 4 Qualified Code(s): L89.154 - Pressure ulcer of sacral region, stage 4 - Discharge Dispostion Condition at time of disposition: Stable Decision to Admit order: Yes - Referrals Referrals: Austin Bravo MD [Primary Care Provider] - - Patient Instructions - Post Discharge Activity
[2018-09-28] MEDS ORDERED: ACETAMINOPHEN 1000 MG/100 ML VIAL (NON FORMULARY) IVPB ONE (12:41)
[2018-09-28] MEDS ORDERED: SODIUM CHLORIDE 1,000 ML IV STA (12:41)
[2018-09-28] MEDS ORDERED: ACETAMINOPHEN INJECTION 100 ML IVPB ONE (13:01)
--- NOTE | 2018-09-28 13:09 | PDOC ---
Attending Attestation - Resident Resident Name: Constance Grace - ED Attending Attestation I have performed the following: I have examined & evaluated the patient, The case was reviewed & discussed with the resident, I agree w/resident's findings & plan, Exceptions are as noted - Physicial Exam PE: 09/28/18 13:46 GENERAL: The patient is awake, Nontoxic - in no acute distress, cachectic appearing HEAD: Normocephalic, atraumatic. EYES: extraocular movements intact, sclera anicteric, conjunctiva clear. ENT: Normal voice, Moist mucous membranes. NECK: Normal range of motion, supple LUNGS: Breath sounds equal, clear to auscultation bilaterally. No wheezes, no rhonchi, no rales. HEART: Regular rate and rhythm, normal S1 and S2 without murmur, rub or gallop. ABDOMEN: Soft, nontender, No guarding, no rebound. . No CVA tenderness EXTREMITIES: Contracted extremities, - Medical Decision Making 09/28/18 13:04 72y F hx of HL, functional quadraplegic, advanced dementia, presents from home for evaluation of increased weakness, poor appteitite, and was sleeping more than usual. Requires assistance with most ADLs, no recent cough, obvious discomfort, vomiting, diarrhea, foul-smelling urine, change in her behavior beside decrease in oral intake. History is provided by the aid who is bedside as the patient is nonverbal Exam is nonfocal the patient does have multiple ulcers that do not appear acutely infected Will obtain blood work, urine, chest x-ray to rule out anemia, metabolic derangements, ACS will give fluids for hydration consider possibility that this may be end-stage dementia. Discuss with PMD A portion of this note was documented by scribe services under my direction. I have reviewed the details of the note, within reason, and agree with the documentation with the following case summary and management plan written by me <Kristofer Domínguez - Last Filed: 09/28/18 13:46> - HPI HPI: 09/28/18 14:42 The patient is a 72 year old female with a significant past medical history of Alzheimer's dementia, Parkinsons disease, hyperlipidemia and functional quadriplegia who presents to the emergency department via EMS with weakness for about 1 week. As per the patients aide at bedside, the patient has been noted to have increased weakness for about 1 week. The patient's aide state that the patient has not been eating or drinking as much as usual and , has been sleeping more. As per the patients aide, the patient has a history decubitus ulcers that have been managed by a visiting nurse. She states that, the patients ulcers have also worsened in the past week. It is noted that the patient is non-verbal. there is no reported fever, chills, nausea, vomiting, diarrhea, constipation or urinary symptoms. denies any chest pain. History provided by Aide who is bedside with patient. PCP: Dr. Bravo Documentation prepared by Sushma Mann, acting as medical observer for Kristofer Domínguez MD. <Sushma Mann - Last Filed: 09/28/18 14:43> Heart Score/ECG Review - ECG Impressions Comment:: 09/28/18 13:49 Twelve-lead EKG was performed and reviewed by me. There is normal sinus rhythm with a normal rate. Rate of 89 Normal axis abnormal R wave progression No ST changes suggestive of acute ischemia <Kristofer Domínguez - Last Filed: 09/28/18 13:46>
[2018-09-28 13:30] LABS: BASO % 0.6 % (0-2.0); EOS % 0.2 % (0-4.5); HEMATOCRIT 30.8 % (32.4-45.2); HEMOGLOBIN 9.2 GM/dL (10.7-15.3); LYMPH % 11.2 % (8-40); MCH 23.8 pg (25.7-33.7); MEAN CELL VOLUME 79.1 fl (80-96); MEAN PLT VOLUME 7.7 fl (7.5-11.1); PLATELET COUNT 668 K/MM3 (134-434); RBC 3.89 M/mm3 (3.60-5.2); RDW 15.2 % (11.6-15.6); WHITE BLOOD COUNT 13.4 K/mm3 (4.0-10.0)
[2018-09-28 13:48] LABS: ALBUMIN 2.3 g/dl (3.4-5.0); ALK PHOS 94 U/L (45-117); ANION GAP 9 MMOL/L (8-16); BILIRUBIN,TOTAL 0.4 mg/dL (0.2-1); BLOOD UREA NITROGEN 18 mg/dL (7-18); CALCIUM 9.3 mg/dL (8.5-10.1); CHLORIDE 106 mmol/L (98-107); CO2 26 mmol/L (21-32); CREATININE 0.8 mg/dL (0.55-1.3); GLUCOSE,RANDOM 106 mg/dL (74-106); MAGNESIUM 2.3 mg/dL (1.8-2.4); POTASSIUM 4.6 mmol/L (3.5-5.1); SGOT/AST 13 U/L (15-37); SGPT/ALT 11 U/L (13-61); SODIUM 142 mmol/L (136-145); TOT PROT 6.8 g/dl (6.4-8.2)
[2018-09-28 13:51] LABS: INR 1.12 (0.83-1.09); PROTHROMBIN TIME (PATIENT) 13.2 SEC (9.7-13.0)
--- NOTE | 2018-09-28 14:31 | EKG ---
Test Reason : Blood Pressure : / mmHG Vent. Rate : 089 BPM Atrial Rate : 089 BPM P-R Int : 136 ms QRS Dur : 064 ms QT Int : 340 ms P-R-T Axes : 069 025 040 degrees QTc Int : 413 ms POOR DATA QUALITY, INTERPRETATION MAY BE ADVERSELY AFFECTED SINUS RHYTHM WITH PREMATURE ATRIAL COMPLEXES ANTERIOR INFARCT , AGE UNDETERMINED ABNORMAL ECG Confirmed by Norm Villalta MD ([id number]) on 09/28/2018 2:31:01 PM Referred By: Confirmed By:Norm Villalta MD
[2018-09-28 14:35] LABS: URINE APPEARANCE SLCLOUDY; URINE BILIRUBIN NEGATIVE (<2.0 mg/dL); URINE COLOR AMBER; URINE GLUCOSE (UA) NEGATIVE (NEGATIVE); URINE KETONE 1+ (NEGATIVE); URINE LEUK ESTERASE NEGATIVE (NEGATIVE); URINE NITRITE NEGATIVE (NEGATIVE); URINE PROTEIN 1+ (NEGATIVE); URINE UROBILINOGEN NEGATIVE mg/dL (0.2-1.0)
[2018-09-28 14:50] LABS: EPI CELLS FEW /HPF (FEW); URINE BACTERIA RARE /hpf (NONE SEEN); URINE MUCUS RARE
--- NOTE | 2018-09-28 16:17 | HP ---
Admitting History and Physical - Primary Care Physician PCP: Austin Bravo - Admission Chief Complaint: Poor appetite. Malaise History of Present Illness: Patient is a 72 year old female with past medical history of HLD, Parkinson's, functional quadriplegia, Alzheimer's Dementia. Patient presented to ED with increased malaise and poor appetite for 1 week. 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 She also noticed that her sacral and neck wound are looking worse. In ED CXR performed and show no acute pathology. EKG shows sinus rhythm with premature atrial complexes. CBC shows leukocytosis. History Source: Caregiver Limitations to Obtaining History: Dementia - Past Medical History SKIVER HAND: Yes: Dementia, Alzheimer's - Smoking History Smoking history: Never smoked Have you smoked in the past 12 months: No Aproximately how many cigarettes per day: 0 If you are a former smoker, when did you quit?: UNK - HX DEMENTIA - Alcohol/Substance Use Hx Alcohol Use: No - Social History Usual Living Arrangement: Yes: Other (at home with C[employer] WR[employer]) ADL: Support Services History of Recent Travel: No <Sharmin Quiroga - Last Filed: 09/28/18 16:11> Home Medications <Sharmin Quiroga - Last Filed: 09/28/18 16:11> <Austin Bravo - Last Filed: 09/29/18 07:06> - Allergies Allergies/Adverse Reactions: Allergies Allergy/AdvReac Type Severity Reaction Status Date / Time No Known Allergies Allergy Verified 09/28/18 12:25 - Home Medications Home Medications: Ambulatory Orders Donepezil HCl [Aricept -] 10 mg PO DAILY 06/10/17 Escitalopram Oxalate [Lexapro -] 10 mg PO DAILY 12/15/17 Ascorbic Acid [Vitamin C] 250 mg PO BID #60 tablet 06/21/18 Collagenase Clostridium Hist. [Santyl -] 1 applic TP DAILY tube 06/21/18 Multivitamin [Daily Multiple Vitamin] 1 each PO DAILY #30 tablet 06/21/18 Pantoprazole Suspension [Protonix Packets For Oral Suspension -] 40 mg PO DAILY packet 06/21/18 Zinc Sulfate [Orazinc] 220 mg PO DAILY #30 capsule 06/21/18 Review of Systems - Review of Systems Constitutional: reports: Loss of Appetite, Malaise Eyes: reports: No Symptoms HENT: reports: No Symptoms Neck: reports: No Symptoms Cardiovascular: reports: No Symptoms Respiratory: reports: No Symptoms Gastrointestinal: reports: No Symptoms Genitourinary: reports: No Symptoms Breasts: reports: No Symptoms Reported Musculoskeletal: reports: No Symptoms Integumentary: reports: No Symptoms Neurological: reports: No Symptoms Endocrine: reports: No Symptoms Hematology/Lymphatic: reports: No Symptoms Psychiatric: reports: No Symptoms <Sharmin Quiroga - Last Filed: 09/28/18 16:11> Physical Examination Vital Signs: Vital Signs Temperature 98.6 F 09/28/18 12:25 Pulse Rate 89 09/28/18 12:25 Respiratory Rate 20 09/28/18 12:25 Blood Pressure 120/71 09/28/18 12:25 O2 Sat by Pulse Oximetry (%) 99 09/28/18 12:25 Constitutional: Yes: Cachectic Eyes: Yes: Conjunctiva Clear HENT: Yes: Atraumatic Neck: Yes: Supple Cardiovascular: Yes: Regular Rate and Rhythm Respiratory: Yes: Regular, CTA Bilaterally Gastrointestinal: Yes: Normal Bowel Sounds, Soft Musculoskeletal: Yes: Muscle Weakness Extremities: Yes: Other (contracted B/L lower extremity) Edema: No Integumentary: Yes: Pressure Ulcer (sacral, neck) Wound/Incision: Yes: Dressing Dry and Intact Neurological: Yes: Alert, Pre-Existing Deficit Psychiatric: Yes: Alert Labs: CBC, [facility] 09/28/18 12:42 09/28/18 12:42 <Sharmin Quiroga - Last Filed: 09/28/18 16:11> Vital Signs: Vital Signs Temperature 97.3 F L 09/29/18 06:54 Pulse Rate 80 09/29/18 06:54 Respiratory Rate 20 09/29/18 06:54 Blood Pressure 118/62 09/29/18 06:54 O2 Sat by Pulse Oximetry (%) 98 09/28/18 20:41 Labs: CBC, [facility] 09/28/18 12:42 09/28/18 12:42 <Austin Bravo - Last Filed: 09/29/18 07:06> Imaging - Results Chest X-ray: Report Reviewed EKG: Report Reviewed <Sharmin Quiroga - Last Filed: 09/28/18 16:11> Problem List - Problems (1) Failure to thrive Code(s): [id number] - Qualifiers: Failure to thrive age range: in adult Qualified Code(s): R62.7 - Adult failure to thrive (2) Pressure ulcer Code(s): L89.90 - PRESSURE ULCER OF UNSPECIFIED SITE, UNSPECIFIED STAGE Qualifiers: Pressure injury location: sacral region Pressure injury stage: stage 4 Qualified Code(s): L89.154 - Pressure ulcer of sacral region, stage 4 (3) Anemia Code(s): D64.9 - ANEMIA, UNSPECIFIED (4) Dementia Code(s): F03.90 - UNSPECIFIED DEMENTIA WITHOUT BEHAVIORAL DISTURBANCE (5) Lethargy Code(s): R53.83 - OTHER FATIGUE <Sharmin Quiroga - Last Filed: 09/28/18 16:11> Assessment/Plan -admit to med-surg floor -dietary consult -magic cup -calorie count -daily weights -NS at 75cc/hr for hydration -dvt ppx -fall precaution -cont with aricept -daily dressing changes and PRN -vascular surgery consult -ID consult for elev WBC, will trend -urine and blood cultures penidng <Sharmin Quiroga - Last Filed: 09/28/18 16:11> PATIENT SEEN AND EXAMINED AND I AGREE WITH THE ABOVE NOTE <Austin Bravo - Last Filed: 09/29/18 07:06>
[2018-09-28] MEDS: SODIUM CHLORIDE 1,000 ML IV SCH (18:10)
[2018-09-28] MEDS: HEPARIN NA (PORCINE) 5,000 UNITS/ML 1ML VIAL SQ SCH (22:32)
[2018-09-28] MEDS: ASCORBIC ACID 250 MG TABLET (FP) PO SCH (22:32)
--- NOTE | 2018-09-29 09:06 | PN ---
Progress Note, Physician Chief Complaint: EVENTS AND NOTES REVIEWED NAD - Current Medication List Current Medications: Active Medications Ascorbic Acid (Vitamin C -) 250 mg PO BID [facility] Last Admin: 09/28/18 22:32 Dose: 250 mg Donepezil HCl (Aricept -) 10 mg PO HS [facility] Escitalopram Oxalate (Lexapro -) 10 mg PO DAILY [facility] Heparin Sodium (Porcine) (Heparin -) 5,000 unit SQ BID [facility] Last Admin: 09/28/18 22:32 Dose: 5,000 unit Sodium Chloride (Normal Saline -) 1,000 mls @ 75 mls/hr IV ASDIR [facility] Last Admin: 09/28/18 18:10 Dose: 75 mls/hr Multivitamins/Minerals/Vitamin C (Tab-A-Vit -) 1 tab PO DAILY [facility] Pantoprazole Sodium (Protonix -) 40 mg PO DAILY [facility] Zinc Sulfate (Orazinc -) 220 mg PO DAILY [facility] - Objective Vital Signs: Vital Signs Temperature 97.3 F L 09/29/18 06:54 Pulse Rate 80 09/29/18 06:54 Respiratory Rate 20 09/29/18 06:54 Blood Pressure 118/62 09/29/18 06:54 O2 Sat by Pulse Oximetry (%) 98 09/28/18 20:41 Constitutional: Yes: Mild Distress Eyes: Yes: WNL HENT: Yes: WNL Neck: Yes: WNL Cardiovascular: Yes: Regular Rate and Rhythm Respiratory: Yes: Diminished Gastrointestinal: Yes: Soft Genitourinary: Yes: Incontinence Musculoskeletal: Yes: Muscle Weakness Edema: No Integumentary: Yes: Pressure Ulcer, Rash Wound/Incision: Yes: Dressing Dry and Intact (MULTIPLE STAGE 1-2 ULCERS NO PUS OR DISCHARGE), Excoriated, Unapproximated Neurological: Yes: Confusion, Pre-Existing Deficit, Weakness ...Motor Strength: LLE, RLE Psychiatric: Yes: Other Labs: CBC, BMP 09/28/18 12:42 09/28/18 12:42 INR, PTT INR 1.12 (0.83-1.09) H 09/28/18 12:42 Problem List - Problems (1) Failure to thrive Code(s): [id number] - Qualifiers: Failure to thrive age range: in adult Qualified Code(s): R62.7 - Adult failure to thrive (2) Pressure ulcer Code(s): L89.90 - PRESSURE ULCER OF UNSPECIFIED SITE, UNSPECIFIED STAGE Qualifiers: Pressure injury location: sacral region Pressure injury stage: stage 4 Qualified Code(s): L89.154 - Pressure ulcer of sacral region, stage 4 (3) Acute metabolic encephalopathy Code(s): G93.41 - METABOLIC ENCEPHALOPATHY (4) Anemia Code(s): D64.9 - ANEMIA, UNSPECIFIED (5) Dementia Code(s): F03.90 - UNSPECIFIED DEMENTIA WITHOUT BEHAVIORAL DISTURBANCE Qualifiers: (6) Functional quadriplegia Code(s): R53.2 - FUNCTIONAL QUADRIPLEGIA (7) Malnutrition Code(s): E46 - UNSPECIFIED PROTEIN-CALORIE MALNUTRITION Qualifiers: Protein-calorie malnutrition severity: severe Assessment/Plan EMPIRIC IV ABX UNTIL CULTURES RETURN WOUND CARE SURGERY EVAL CALORIE COUNT SWALLOW EVAL OOB TO CHAIR/PT
--- NOTE | 2018-09-29 09:36 | PN ---
Progress Note (short form) - Note Progress Note: Vascular surgery: Pt seen and examined this am with the nursing staff. Asked to evaluate the pt for decubitus ulcers. She has a hisotry of Parkinson/dememtia and quadraplegia. She was brought to the Er for loss of appeitite and concern for her sacral/neck wounds. Vital Signs Period Temp Pulse Resp BP Sys/Babcock Pulse Ox Last 24 Hr 97.3 F-98.6 F 72-93 14-20 95-137/50-73 98-100 GEN: Alert and appears comfortable Neck: over left clavicle there is a 2x2 cm wound with a clean base and minimal fibrinous material in the center. Bone is palpated easily in the wound/not visualized with thin layer of granulation tissue overlying the bone. Head contracted to the left. Left Elbow: 3x2, stage 3 wound with clean/granulation base and circumference. Minimal fibrinous material in the center. Sacrum: opening of wound edges 5x4 cm, with bony exposure. Undermining is 2 cm to the left and 1 cm to the right. Necrotic tissue superiorly. Right hip: 1 x 1 healing area Left tibial area(anteriorly): 1/2 x 1/2 cm skin tear Left foot: lateral aspect at the base of the foot with a 1x1 hard eschar peeling away from wound edges. Eschar which was loose was trimmed. Minimal necrotic tissue at the base where the eschar still in intact. +2 DP pulses palpable and mild swelling to the left foot. No erythema or drainage noted. CBC, BMP 09/28/18 12:42 09/28/18 12:42 A/P: 72 yo female with multiple decubitus ulcers, pt is non-mobile All the ulcers are clean at the base with minimal necrotic/fibrinous tissue. Reviewed the size and location/care plan with the nursing staff. Recommend frequent turning and a combination of santyl/optifoam/duoderm dressings with skin precautions D/w Dr. Christensen, no acute surgical debridement needed
[2018-09-29] MEDS ORDERED: PT OWN MED DRAWER 7, Y5N ONE ×2 (09:59→21:55)
[2018-09-29] MEDS ORDERED: COLLAGENASE CLOSTRIDIUM HIST. 30 GRAMS TUBE TP SCH (10:00)
[2018-09-29] MEDS: PANTOPRAZOLE 40 MG TABLET (FP) PO SCH (10:01)
[2018-09-29] MEDS: MULTIVITAMINS (DAILY MVI) TABLET (FP) PO SCH (10:01)
[2018-09-29] MEDS: ZINC SULFATE 220 MG CAPSULE (FP) PO SCH (10:01)
[2018-09-29] MEDS: ESCITALOPRAM OXALATE 10 MG TABLET (FP) PO SCH (10:01)
[2018-09-29] MEDS: ASCORBIC ACID 250 MG TABLET (FP) PO SCH ×2 (10:01→23:01)
[2018-09-29] MEDS: HEPARIN NA (PORCINE) 5,000 UNITS/ML 1ML VIAL SQ SCH ×2 (10:02→23:01)
--- NOTE | 2018-09-29 10:52 | PN ---
Progress Note (short form) - Note Progress Note: ID CONSULT DICTATED R/O SEPSIS SECONDARY TO SKIN SOURCE PENDING C/S EMPIRIC LEVAQUIN/ VANCOMYCIN
[2018-09-29] MEDS: SODIUM CHLORIDE 1,000 ML IV SCH ×2 (12:04→18:07)
[2018-09-29] MEDS: VANCOMYCIN 1 GRAM (PRE-DOCKED) 1,000 MG/250 ML BAG IVPB SCH (13:41)
[2018-09-29] MEDS: COLLAGENASE CLOSTRIDIUM HIST. 30 GRAMS TUBE TP SCH (17:09)
[2018-09-29] MEDS: DONEPEZIL HCL 10 MG TABLET (FP) PO SCH (23:01)
[2018-09-30] MEDS ORDERED: INSULIN (NOVOLOG) ASPART 100 UNITS/ML 10ML VIAL ONE (07:03)
[2018-09-30] MEDS: PANTOPRAZOLE 40 MG TABLET (FP) PO SCH (10:21)
[2018-09-30] MEDS: ESCITALOPRAM OXALATE 10 MG TABLET (FP) PO SCH (10:21)
[2018-09-30] MEDS: MULTIVITAMINS (DAILY MVI) TABLET (FP) PO SCH (10:21)
[2018-09-30] MEDS: ZINC SULFATE 220 MG CAPSULE (FP) PO SCH (10:21)
[2018-09-30] MEDS: ASCORBIC ACID 250 MG TABLET (FP) PO SCH ×2 (10:21→21:47)
[2018-09-30] MEDS: HEPARIN NA (PORCINE) 5,000 UNITS/ML 1ML VIAL SQ SCH ×2 (10:22→21:46)
[2018-09-30] MEDS: COLLAGENASE CLOSTRIDIUM HIST. 30 GRAMS TUBE TP SCH (10:22)
--- NOTE | 2018-09-30 11:01 | CONSULT ---
Admitting History and Physical - Primary Care Physician PCP: Austin Bravo - Admission History of Present Illness: Patient is a 72 year old female with past medical history of HLD, Parkinson's, functional quadriplegia, Alzheimer's Dementia. Patient presented to ED with increased malaise and poor appetite for 1 week. [employer]IVITIES DIRECTOR at bedside and state that patient has been eating about 50% of her meals. She also noticed that her sacral and neck wound are looking worse. In ED CXR performed and show no acute pathology. EKG shows sinus rhythm with premature atrial complexes. CBC shows leukocytosis. ID CONSULT R/O SEPSIS SECONDARY TO SKIN SOURCE Selected Entries 06/22/18 09/29/18 09/29/18 10:00 06:54 08:40 Breakfast Lunch 25% Supper Temperature 97.3 F L 97.8 F 09/29/18 09/29/18 09/29/18 12:04 15:25 17:13 Breakfast 100% Lunch 75% Supper Temperature 97.9 F 96.9 F L 09/29/18 09/29/18 09/30/18 18:48 20:47 06:22 Breakfast Lunch Supper 50% Temperature 97.8 F 98 F 09/30/18 10:38 Breakfast 75% Lunch Supper Temperature Laboratory Tests 09/28/18 12:42 WBC 13.4 H On puree/thin liquids, Ensure, Magic cup. Seen last by me 04/2018, following admission after choking on solids- Speech Evaluation, Impression/Plan Impression: Chews all intake continuously, difficulty transferring bolus to pharynx sec to Dementia and sequencing/organizational difficulty not articulatory weakness. I suspect there was stasis of food in pharynx that blocked her airway. Moderate luwdig-pharyngeal dysphagia. Pt is a full code. What are pt's end of life wishes? - Dysphagia Impressions/Plan Swallowing Skills: Impaired Dysphagia Impressions: Risk of Aspiration *Silent aspiration: cannot be R/O at bedside Dysphagia Treatment Plan: Small Bites, Chin Tuck/Down, Safe Rate, 1/2 tsp. at a time, Elevate HOB during feed, OOB for meals, OOB for 1 h. after meals, Other ( Have pt drink all foods, mixing puree in with liquids. No solid nuts/ cranberries. Family can purchase Nut drinks eg [place]/Cashew milk) - Recommendations Diet Consistency: Dysphagia Pureed (Have pt drink all foods, mixing puree in with liquids.) Medication Administration: Crushed with applesauce (mix in liquid) Liquids: Thin Liquids Supplement: Ensure (Ensure oplus 4 x's daily) Pt tolerated puree/thin liquid well during this hospitalization. Per manager scheduling, pt does not cough mealtimes but intermittently holds/pockets food in buccal cavity and spits it out. Pt's son searches the internet and finds best supplements and foods for her. This includes spinach and Kale which is quite bitter. Demented pt's prefer sweet foods, which is last preserved taste bud. Pt generally accepts 2-3 ensure daily, purre mixed with ensure not as much. 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, Alzheimer's - Smoking History Smoking history: Never smoked Have you smoked in the past 12 months: No Aproximately how many cigarettes per day: 0 If you are a former smoker, when did you quit?: UNK - HX DEMENTIA - Alcohol/Substance Use Hx Alcohol Use: No - Social History ADL: Support Services History of Recent Travel: No History - Admission Reason For Visit: FAILURE TO THRIVE - Diagnostics X-ray: Report Reviewed CT Scan: Report Reviewed - General Mental Status: Awake and Alert, Confused, Flat Affect Attention: Moderate Impairment Ability to Follow Directions: Poor Head/Neck Control: Needs Assist - Hearing Hearing: Normal Speech Evaluation - Communication Primary Language: CZECH Communication: Yes: Non-Communicable (rare words) - Speech Production Apraxia: No - Speech Characteristics Voice Pitch: Yes: Normal Voice Phonatory-based Quality: Yes: Normal Nasal Resonance: Normal Articulation: Yes: Precise - Language/Auditory Comprehension Observation: Comprehends Conversational Speech: Yes - Language/Verbal Expression Functional Communication Status: Yes: Severely Impaired - Memory/Perception care home Memory: Yes: Severely Impaired Short Term Memory: Yes: Severely Impaired - Swallow Evaluation/Bedside Assessment Current Nutritional Intake: Dysphagia Pureed, Thin Liquids, Other (Ensure, Magic cup) Oral Secretions: Yes: WFL Dentition: Yes: Adequate, Missing Teeth Lingual Speed of Movement: Normal Lingual Movement Characteristics: Normal Velopharyngeal Movement: Normal Laryngeal Movement: Labored,delay initiation Rate of Intake: Slow/Holding Bolus Size: WFL Labial Seal: WFL A-P Transit: WFL (sometimes holds bolus in oral cavity and must prompt to swallow.) Pocketing: None (intermittent, especially with puree that she seems to dislike) Coughing/Throat Clear: No Change in Voice: No Recommendations - Speech Evaluation, Impression/Plan Impression: Intermittent oral holding especially if bitter tasting eg kale. Accepting ensure at home. Decubitis. Intermittently becomes dehydrated and spits out meds at home and at [facility].No clear signs of aspiration. - Disposition Discharge to: To be Determined - Dysphagia Impressions/Plan Dysphagia Impressions: Mild Impairment, Moderate Impairment *Silent aspiration: cannot be R/O at bedside Dysphagia Treatment Plan: Other (Mix puree with ensure, plus drink ensure for increased PO intake) Recommendations: Other (Consider PEG with pleasure feeding to provide sufficient nutrition for decubiti healing, consistent hydration and medication acceptance) - Recommendations Diet Consistency: Dysphagia Pureed (add sweeteners) Medication Administration: Crushed with applesauce Liquids: Thin Liquids Supplement: Ensure (Ensure plus- 4 x/'s daily? RD to assess.)
--- NOTE | 2018-09-30 11:15 | PN ---
Progress Note, Physician Chief Complaint: failure to thrive History of Present Illness: NAD ELECTRICAL CONTROLS ASSEMBLER at bedside PO intake improving multiple pressure decubiti Seen by Vascular surgery - Current Medication List Current Medications: Active Medications Ascorbic Acid (Vitamin C -) 250 mg PO BID [facility] Last Admin: 09/30/18 10:21 Dose: 250 mg Collagenase (Santyl -) 1 applic TP DAILY [facility]; Protocol Last Admin: 09/30/18 10:22 Dose: 1 applic Donepezil HCl (Aricept -) 10 mg PO HS [facility] Last Admin: 09/29/18 23:01 Dose: 10 mg Escitalopram Oxalate (Lexapro -) 10 mg PO DAILY [facility] Last Admin: 09/30/18 10:21 Dose: 10 mg Heparin Sodium (Porcine) (Heparin -) 5,000 unit SQ BID [facility] Last Admin: 09/30/18 10:22 Dose: 5,000 unit Sodium Chloride (Normal Saline -) 1,000 mls @ 75 mls/hr IV ASDIR [facility] Last Admin: 09/29/18 18:07 Dose: Not Given Levofloxacin (Levaquin 500 Mg Premixed Ivpb -) 500 mg in 100 mls @ 100 mls/hr IVPB DAILY [facility]; Protocol Vancomycin HCl (Vancomycin (Pre-Docked)) 1,000 mg in 250 mls @ 200 mls/hr IVPB Q24H [facility]; Protocol Last Admin: 09/29/18 13:41 Dose: 200 mls/hr Multivitamins/Minerals/Vitamin C (Tab-A-Vit -) 1 tab PO DAILY [facility] Last Admin: 09/30/18 10:21 Dose: 1 tab Pantoprazole Sodium (Protonix -) 40 mg PO DAILY [facility] Last Admin: 09/30/18 10:21 Dose: 40 mg Zinc Sulfate (Orazinc -) 220 mg PO DAILY [facility] Last Admin: 09/30/18 10:21 Dose: 220 mg - Objective Vital Signs: Vital Signs Temperature 98 F 09/30/18 06:22 Pulse Rate 79 09/30/18 06:22 Respiratory Rate 20 09/30/18 06:22 Blood Pressure 98/53 L 09/30/18 06:22 O2 Sat by Pulse Oximetry (%) 98 09/29/18 21:00 Constitutional: Yes: No Distress, Calm, Cachectic Cardiovascular: Yes: Regular Rate and Rhythm Respiratory: Yes: Regular Gastrointestinal: Yes: Normal Bowel Sounds, Soft Musculoskeletal: Yes: Joint Stiffness, Muscle Weakness, Other (muscle atrophy) Edema: No Peripheral Pulses WNL: Yes Neurological: Yes: Alert, Pre-Existing Deficit Psychiatric: Yes: Alert Labs: CBC, BMP 09/28/18 12:42 09/28/18 12:42 INR, PTT INR 1.12 (0.83-1.09) H 09/28/18 12:42 Problem List - Problems (1) Failure to thrive Assessment/Plan: 2/2 to dementia -PO intake improving -Spoke to pt's son, who is in agreement for peg with pleasure feeds -Speech therapy on board Code(s): [id number] - Qualifiers: Failure to thrive age range: in adult Qualified Code(s): R62.7 - Adult failure to thrive (2) Pressure ulcer Assessment/Plan: -2/2 to poor nutritional status -T&P Q2H -Seen by vascular surgery, no surgical debridement recommended -Wound care consult with Dr Jaden Gaspar on all the wounds -Neck WC done in 05/2018-multiple organisms -WC-coccyx ordered -On Multivitamin+Vit C+ Zinc Code(s): L89.90 - PRESSURE ULCER OF UNSPECIFIED SITE, UNSPECIFIED STAGE Qualifiers: Pressure injury location: sacral region Pressure injury stage: stage 4 Qualified Code(s): L89.154 - Pressure ulcer of sacral region, stage 4 (3) Acute metabolic encephalopathy Code(s): G93.41 - METABOLIC ENCEPHALOPATHY (4) Dementia Assessment/Plan: -On Aricept Code(s): F03.90 - UNSPECIFIED DEMENTIA WITHOUT BEHAVIORAL DISTURBANCE Qualifiers: (5) Functional quadriplegia Code(s): R53.2 - FUNCTIONAL QUADRIPLEGIA (6) Malnutrition Assessment/Plan: -2/2 to po intake -GI consult for PEG + Pleasure feeds Code(s): E46 - UNSPECIFIED PROTEIN-CALORIE MALNUTRITION Qualifiers: Malnutrition type: protein-calorie malnutrition Protein-calorie malnutrition severity: severe Qualified Code(s): E43 - Unspecified severe protein-calorie malnutrition (7) Anemia Assessment/Plan: -check B12, Thyroid profile, folate, iron profile and stool OB Code(s): D64.9 - ANEMIA, UNSPECIFIED Assessment/Plan see problem list Extensive discussion with son Federico. He wants his mother to be full code and wants PEG evaluation
[2018-09-30] MEDS: VANCOMYCIN 1 GRAM (PRE-DOCKED) 1,000 MG/250 ML BAG IVPB SCH (13:10)
--- NOTE | 2018-09-30 16:46 | PN ---
Progress Note, Physician History of Present Illness: Lethargic today Denies pain Afebrile BC no growth - Current Medication List Current Medications: Active Medications Ascorbic Acid (Vitamin C -) 250 mg PO BID [facility] Last Admin: 09/30/18 10:21 Dose: 250 mg Collagenase (Santyl -) 1 applic TP DAILY [facility]; Protocol Last Admin: 09/30/18 10:22 Dose: 1 applic Donepezil HCl (Aricept -) 10 mg PO HS [facility] Last Admin: 09/29/18 23:01 Dose: 10 mg Escitalopram Oxalate (Lexapro -) 10 mg PO DAILY [facility] Last Admin: 09/30/18 10:21 Dose: 10 mg Heparin Sodium (Porcine) (Heparin -) 5,000 unit SQ BID [facility] Last Admin: 09/30/18 10:22 Dose: 5,000 unit Sodium Chloride (Normal Saline -) 1,000 mls @ 75 mls/hr IV ASDIR [facility] Last Admin: 09/29/18 18:07 Dose: Not Given Levofloxacin (Levaquin 250 Mg Premixed Ivpb -) 250 mg in 50 mls @ 50 mls/hr IVPB DAILY [facility]; Protocol Vancomycin HCl (Vancomycin (Pre-Docked)) 1,000 mg in 250 mls @ 200 mls/hr IVPB Q24H [facility]; Protocol Last Admin: 09/30/18 13:10 Dose: 200 mls/hr Multivitamins/Minerals/Vitamin C (Tab-A-Vit -) 1 tab PO DAILY [facility] Last Admin: 09/30/18 10:21 Dose: 1 tab Pantoprazole Sodium (Protonix -) 40 mg PO DAILY [facility] Last Admin: 09/30/18 10:21 Dose: 40 mg Zinc Sulfate (Orazinc -) 220 mg PO DAILY [facility] Last Admin: 09/30/18 10:21 Dose: 220 mg - Objective Vital Signs: Vital Signs Temperature 98 F 09/30/18 06:22 Pulse Rate 79 09/30/18 06:22 Respiratory Rate 20 09/30/18 09:00 Blood Pressure 98/53 L 09/30/18 06:22 O2 Sat by Pulse Oximetry (%) 98 09/30/18 09:00 Constitutional: Yes: No Distress, Cachectic Cardiovascular: Yes: Regular Rate and Rhythm, S1, S2 Respiratory: Yes: Diminished Gastrointestinal: Yes: Normal Bowel Sounds, Soft. No: Tenderness Edema: No Labs: CBC, BMP 09/28/18 12:42 09/28/18 12:42 INR, PTT INR 1.12 (0.83-1.09) H 09/28/18 12:42 Assessment/Plan R/O sepsis secondary to skin source Decubitus ulcers OBS Continue empiric vancomycin/ levaquin Local wound care
--- NOTE | 2018-09-30 17:25 | CON.GI ---
Consult Consult Specialty:: GI Referred by:: Debra Boyle NP Reason for Consultation:: Refusal to eat, failure to thrive - History of Present Illness Chief Complaint: Patient non-verbal History of Present Illness: 72F admitted for evaluation of worsening decubiti and weight loss. She has been evaluated by Dr. Bower on a few occasions while she was admitted to [facility] previously for evaluation of anemia. No interventions were performed. I evaluated her 06/08 for similar reason however PEG was declined at that time. Asked now to evaluate for possible feeding tube. Her son Federico Sylvester is Ms. Sylvester's decision maker. He was not present at bedside. She has been evaluated by S/S therapy. SHe refuses meals at times. 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: Dementia, Alzheimer's - Alcohol/Substance Use Hx Alcohol Use: No - Smoking History Smoking history: Never smoked Have you smoked in the past 12 months: No Aproximately how many cigarettes per day: 0 If you are a former smoker, when did you quit?: UNK - HX DEMENTIA - Social History Usual Living Arrangement: With Child ADL: Support Services History of Recent Travel: No Home Medications - Allergies Allergies/Adverse Reactions: Allergies Allergy/AdvReac Type Severity Reaction Status Date / Time No Known Allergies Allergy Verified 09/28/18 12:25 - Home Medications Home Medications: Ambulatory Orders Donepezil HCl [Aricept -] 10 mg PO DAILY 06/10/17 Escitalopram Oxalate [Lexapro -] 10 mg PO DAILY 12/15/17 Ascorbic Acid [Vitamin C] 250 mg PO BID #60 tablet 06/21/18 Collagenase Clostridium Hist. [Santyl -] 1 applic TP DAILY tube 06/21/18 Multivitamin [Daily Multiple Vitamin] 1 each PO DAILY #30 tablet 06/21/18 Pantoprazole Suspension [Protonix Packets For Oral Suspension -] 40 mg PO DAILY packet 06/21/18 Zinc Sulfate [Orazinc] 220 mg PO DAILY #30 capsule 06/21/18 Family Disease History - Family Disease History Family History: Unable to Obtain Review of Systems Unable to obtain ROS, reason: Patient non-verbal Physical Exam-GI Vital Signs: Vital Signs Temperature 98 F 09/30/18 06:22 Pulse Rate 79 09/30/18 06:22 Respiratory Rate 20 09/30/18 09:00 Blood Pressure 98/53 L 09/30/18 06:22 O2 Sat by Pulse Oximetry (%) 98 09/30/18 09:00 Constitutional: Yes: Calm Cardiovascular: Yes: Regular Rate and Rhythm. No: Murmur Respiratory: Yes: Diminished (at bases b/l, poor insp effort) Gastrointestinal Inspection: No: Distention ...Auscultate: Yes: Normoactive Bowel Sounds ...Palpate: No: Tenderness (No grimacing uipon palpation) ...Percussion: No: Tympanitic Extremities: Yes: Other (upper and lower extrmity contractures) Edema: No (No LE edema) Neurological: Yes: Alert Labs: CBC, BMP 09/28/18 12:42 09/28/18 12:42 INR, PTT INR 1.12 (0.83-1.09) H 09/28/18 12:42 Problem List - Problems (1) Failure to thrive Assessment/Plan: With inconsistent PO intake Discussed with son Federico Sylvester via Telephone. Discussed means of supplementing nutritional intake. Discussed PEG. Discussed potential risks of the procedure like but not limited to bleeding, perforation requiring surgery to repair, infection, sedation medciation effects, perotinitis if the tube was prematurely dislodged, all of which could be potentially life threatening. We dicussed alternatives such as not putting feeding tube, surgical G-tube (most invasive), and IR placed G-Tube (less sedation, direct visualization via radiographic means, requires NG tube). He has agreed to PEG NPO after midnight AM labs Continue IV Abx Code(s): [id number] - Qualifiers: Failure to thrive age range: in adult Qualified Code(s): R62.7 - Adult failure to thrive
[2018-09-30] MEDS: SODIUM CHLORIDE 1,000 ML IV SCH (18:08)
[2018-09-30] MEDS: DONEPEZIL HCL 10 MG TABLET (FP) PO SCH (21:47)
[2018-10-01] MEDS: SODIUM CHLORIDE 1,000 ML IV SCH (05:47)
[2018-10-01 07:52] LABS: EOS % 0.1 % (0-4.5); HEMATOCRIT 23.3 % (32.4-45.2); HEMOGLOBIN 7.1 GM/dL (10.7-15.3); LYMPH % 8.5 % (8-40); MCH 23.6 pg (25.7-33.7); MCHC 30.4 g/dl (32.0-36.0); MEAN CELL VOLUME 77.6 fl (80-96); MONO % 5.2 % (3.8-10.2); NEUT % 85.2 % (42.8-82.8); PLATELET COUNT 555 K/MM3 (134-434); RDW 15.1 % (11.6-15.6); WHITE BLOOD COUNT 11.1 K/mm3 (4.0-10.0)
[2018-10-01 08:25] LABS: INR 1.14 (0.83-1.09); PROTHROMBIN TIME (PATIENT) 13.5 SEC (9.7-13.0)
[2018-10-01 08:27] LABS: ACTIVATED PTT 29.5 SECONDS (25.2-36.5)
[2018-10-01] MEDS: ASCORBIC ACID 250 MG TABLET (FP) PO SCH ×2 (10:00→21:44)
[2018-10-01] MEDS: ZINC SULFATE 220 MG CAPSULE (FP) PO SCH (10:00)
[2018-10-01] MEDS: PANTOPRAZOLE 40 MG TABLET (FP) PO SCH (10:00)
[2018-10-01] MEDS: MULTIVITAMINS (DAILY MVI) TABLET (FP) PO SCH (10:00)
[2018-10-01] MEDS: ESCITALOPRAM OXALATE 10 MG TABLET (FP) PO SCH (10:00)
[2018-10-01] MEDS: COLLAGENASE CLOSTRIDIUM HIST. 30 GRAMS TUBE TP SCH (10:13)
--- NOTE | 2018-10-01 10:35 | PN ---
Progress Note, Physician History of Present Illness: Awake but lethargic Denies pain Low grade temp WBC improved BC no growth - Current Medication List Current Medications: Active Medications Ascorbic Acid (Vitamin C -) 250 mg PO BID [facility] Last Admin: 10/01/18 10:00 Dose: Not Given Collagenase (Santyl -) 1 applic TP DAILY [facility]; Protocol Last Admin: 10/01/18 10:13 Dose: 1 applic Donepezil HCl (Aricept -) 10 mg PO HS [facility] Last Admin: 09/30/18 21:47 Dose: 10 mg Escitalopram Oxalate (Lexapro -) 10 mg PO DAILY [facility] Last Admin: 10/01/18 10:00 Dose: Not Given Heparin Sodium (Porcine) (Heparin -) 5,000 unit SQ BID [facility] Last Admin: 09/30/18 21:46 Dose: 5,000 unit Sodium Chloride (Normal Saline -) 1,000 mls @ 75 mls/hr IV ASDIR [facility] Last Admin: 10/01/18 05:47 Dose: 75 mls/hr Levofloxacin (Levaquin 250 Mg Premixed Ivpb -) 250 mg in 50 mls @ 50 mls/hr IVPB DAILY [facility]; Protocol Last Admin: 10/01/18 10:13 Dose: 50 mls/hr Vancomycin HCl (Vancomycin (Pre-Docked)) 1,000 mg in 250 mls @ 200 mls/hr IVPB Q24H [facility]; Protocol Last Admin: 09/30/18 13:10 Dose: 200 mls/hr Multivitamins/Minerals/Vitamin C (Tab-A-Vit -) 1 tab PO DAILY [facility] Last Admin: 10/01/18 10:00 Dose: Not Given Pantoprazole Sodium (Protonix -) 40 mg PO DAILY [facility] Last Admin: 10/01/18 10:00 Dose: Not Given Zinc Sulfate (Orazinc -) 220 mg PO DAILY [facility] Last Admin: 10/01/18 10:00 Dose: Not Given - Objective Vital Signs: Vital Signs Temperature 99.2 F 10/01/18 05:42 Pulse Rate 94 H 10/01/18 05:42 Respiratory Rate 18 10/01/18 05:42 Blood Pressure 115/61 10/01/18 05:42 O2 Sat by Pulse Oximetry (%) 99 09/30/18 21:35 Constitutional: Yes: No Distress, Cachectic Eyes: Yes: Conjunctiva Clear Cardiovascular: Yes: Regular Rate and Rhythm, S1, S2 Respiratory: Yes: CTA Bilaterally Gastrointestinal: Yes: Normal Bowel Sounds, Soft. No: Tenderness Edema: No Integumentary: Yes: Other (multiple decubitus ulcers) Labs: CBC, BMP 10/01/18 07:00 09/28/18 12:42 INR, PTT INR 1.14 (0.83-1.09) H 10/01/18 07:00 Assessment/Plan R/O sepsis secondary to skin source Decubitus ulcers OBS BC (-) Substitute po levaquin Continue local wound care
--- NOTE | 2018-10-01 11:18 | PN ---
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 NPO for PEG insertion today multiple pressure decubiti Seen by Vascular surgery - Current Medication List Current Medications: Active Medications Ascorbic Acid (Vitamin C -) 250 mg PO BID [facility] Last Admin: 10/01/18 10:00 Dose: Not Given Collagenase (Santyl -) 1 applic TP DAILY [facility]; Protocol Last Admin: 10/01/18 10:13 Dose: 1 applic Donepezil HCl (Aricept -) 10 mg PO HS [facility] Last Admin: 09/30/18 21:47 Dose: 10 mg Escitalopram Oxalate (Lexapro -) 10 mg PO DAILY [facility] Last Admin: 10/01/18 10:00 Dose: Not Given Heparin Sodium (Porcine) (Heparin -) 5,000 unit SQ BID [facility] Last Admin: 09/30/18 21:46 Dose: 5,000 unit Sodium Chloride (Normal Saline -) 1,000 mls @ 75 mls/hr IV ASDIR [facility] Last Admin: 10/01/18 05:47 Dose: 75 mls/hr Vancomycin HCl (Vancomycin (Pre-Docked)) 1,000 mg in 250 mls @ 200 mls/hr IVPB Q24H [facility]; Protocol Last Admin: 09/30/18 13:10 Dose: 200 mls/hr Levofloxacin (Levaquin -) 250 mg PO DAILY [facility] Stop: 10/06/18 08:00 Multivitamins/Minerals/Vitamin C (Tab-A-Vit -) 1 tab PO DAILY [facility] Last Admin: 10/01/18 10:00 Dose: Not Given Pantoprazole Sodium (Protonix -) 40 mg PO DAILY [facility] Last Admin: 10/01/18 10:00 Dose: Not Given Zinc Sulfate (Orazinc -) 220 mg PO DAILY [facility] Last Admin: 10/01/18 10:00 Dose: Not Given - Objective Vital Signs: Vital Signs Temperature 99.2 F 10/01/18 05:42 Pulse Rate 94 H 10/01/18 05:42 Respiratory Rate 18 10/01/18 05:42 Blood Pressure 115/61 10/01/18 05:42 O2 Sat by Pulse Oximetry (%) 99 09/30/18 21:35 Constitutional: Yes: No Distress, Calm, Cachectic, Moderate Distress Cardiovascular: Yes: Regular Rate and Rhythm Respiratory: Yes: Regular Gastrointestinal: Yes: Normal Bowel Sounds, Soft Musculoskeletal: Yes: Muscle Weakness Extremities: Yes: Other (muscle atrophy) Edema: No Peripheral Pulses WNL: Yes Wound/Incision: Yes: Dressing Dry and Intact Neurological: Yes: Alert, Pre-Existing Deficit Psychiatric: Yes: Alert Labs: CBC, BMP 10/01/18 07:00 09/28/18 12:42 INR, PTT INR 1.14 (0.83-1.09) H 10/01/18 07:00 Problem List - Problems (1) Failure to thrive Assessment/Plan: 2/2 to dementia -Seen by GI -NPO for PEG insertion today -Spoke to pt's son, who is in agreement for peg with pleasure feeds -Speech therapy on board Code(s): [id number] - Qualifiers: Failure to thrive age range: in adult Qualified Code(s): R62.7 - Adult failure to thrive (2) Pressure ulcer Assessment/Plan: -2/2 to poor nutritional status -T&P Q2H -Seen by vascular surgery, no surgical debridement recommended -Wound care consult with Dr Jaden Gaspar on all the wounds -Neck WC done in 05/2018-multiple organisms -WC-coccyx ordered -On Multivitamin+Vit C+ Zinc -D/C IV Vanco -Change IV Levaquin to po for another 4 days Code(s): L89.90 - PRESSURE ULCER OF UNSPECIFIED SITE, UNSPECIFIED STAGE Qualifiers: Pressure injury location: sacral region Pressure injury stage: stage 4 Qualified Code(s): L89.154 - Pressure ulcer of sacral region, stage 4 (3) Acute metabolic encephalopathy Code(s): G93.41 - METABOLIC ENCEPHALOPATHY (4) Dementia Assessment/Plan: -On Aricept Qualifiers: (5) Functional quadriplegia Code(s): R53.2 - FUNCTIONAL QUADRIPLEGIA (6) Malnutrition Assessment/Plan: -2/2 to po intake -GI consult for PEG + Pleasure feeds Code(s): E46 - UNSPECIFIED PROTEIN-CALORIE MALNUTRITION Qualifiers: Malnutrition type: protein-calorie malnutrition Protein-calorie malnutrition severity: severe Qualified Code(s): E43 - Unspecified severe protein-calorie malnutrition (7) Anemia Assessment/Plan: -B12, Thyroid profile, folate-unremerkable -iron profile and stool OB pending -H/H dropped today -transfuse 2 units PRBC Code(s): D64.9 - ANEMIA, UNSPECIFIED Assessment/Plan see problem list Extensive discussion with son Federico. He wants his mother to be full code and wants PEG evaluation
[2018-10-01] MEDS: VANCOMYCIN 1 GRAM (PRE-DOCKED) 1,000 MG/250 ML BAG IVPB SCH (12:44)
--- NOTE | 2018-10-01 13:07 | PN ---
GI Progress Note Subjective: No acute events Hgb 7.1 today No overt bleeding - Objective Vital Signs: Vital Signs Temperature 99.2 F 10/01/18 05:42 Pulse Rate 94 H 10/01/18 05:42 Respiratory Rate 18 10/01/18 05:42 Blood Pressure 115/61 10/01/18 05:42 O2 Sat by Pulse Oximetry (%) 99 09/30/18 21:35 Constitutional: Calm Eyes: No: Sclera Icterus Cardiovascular: Yes: Regular Rate and Rhythm Respiratory: Yes: Diminished (at bases b/l, poor insp effort) Gastrointestinal Inspection: No: Distention ...Auscultate: Yes: Normoactive Bowel Sounds ...Palpate: No: Hepatomegaly, Splenomegaly, Tenderness (no grimacing upon palpation) ...Percussion: No: Tympanitic ...Rectal Exam: Yes: Other (Formed copious light kim stool in rectal vault. No blood/melena) Edema: No (No LE edema) Neurological: Yes: Other (Awake) Labs: CBC, BMP 10/01/18 07:00 09/28/18 12:42 INR, PTT INR 1.14 (0.83-1.09) H 10/01/18 07:00 Problem List - Problems (1) Failure to thrive Assessment/Plan: To received 2 U PRBC No overt bleeding For PEG, possibly today. Patient has not received blood as of yet. Possibly Thursday Heme evaluation Code(s): [id number] - Qualifiers: Failure to thrive age range: in adult Qualified Code(s): R62.7 - Adult failure to thrive
--- NOTE | 2018-10-01 14:49 | CONSULT ---
Consult Consult Specialty:: Hematology-Oncology Referred by:: PCP Reason for Consultation:: anemia - History of Present Illness Chief Complaint: anemia History of Present Illness: 72 yr old woman with advanced dementia and parkinson's brought in by family for increased maliase and poor appetite for 1 week. ptis contracted and nonverbal in bed. history as per aide at bedside, pt has been progressively declining in interaction and po intake for the past year. at times pt will take 1-2 spoonfuls of food and either keep it in her cheek or spit it out, recently she has not been taking anything oral. previously she would respond to her name, but that has also decreased. aide denies hematochezia, melena, vomiting, fevers, bruising or bleeding, chills , cough. 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: Dementia, Alzheimer's - Alcohol/Substance Use Hx Alcohol Use: No - Smoking History Smoking history: Never smoked Have you smoked in the past 12 months: No Aproximately how many cigarettes per day: 0 If you are a former smoker, when did you quit?: UNK - HX DEMENTIA - Social History Usual Living Arrangement: With Child ADL: Support Services History of Recent Travel: No Home Medications - Allergies Allergies/Adverse Reactions: Allergies Allergy/AdvReac Type Severity Reaction Status Date / Time No Known Allergies Allergy Verified 09/28/18 12:25 - Home Medications Home Medications: Ambulatory Orders Donepezil HCl [Aricept -] 10 mg PO DAILY 06/10/17 Escitalopram Oxalate [Lexapro -] 10 mg PO DAILY 12/15/17 Ascorbic Acid [Vitamin C] 250 mg PO BID #60 tablet 06/21/18 Collagenase Clostridium Hist. [Santyl -] 1 applic TP DAILY tube 06/21/18 Multivitamin [Daily Multiple Vitamin] 1 each PO DAILY #30 tablet 06/21/18 Pantoprazole Suspension [Protonix Packets For Oral Suspension -] 40 mg PO DAILY packet 06/21/18 Zinc Sulfate [Orazinc] 220 mg PO DAILY #30 capsule 06/21/18 Review of Systems Unable to obtain ROS, reason: advanced dementia Physical Exam Vital Signs: Vital Signs Temperature 98.6 F 10/01/18 14:18 Pulse Rate 86 10/01/18 14:18 Respiratory Rate 18 10/01/18 14:18 Blood Pressure 119/61 10/01/18 14:18 O2 Sat by Pulse Oximetry (%) 99 09/30/18 21:35 Constitutional: Yes: Cachectic, Thin Eyes: Yes: PERRL HENT: Yes: Other (contracted, favoring left side, +pressure ulcers on left shoulder) Neck: Yes: Decreased ROM Cardiovascular: Yes: Regular Rate and Rhythm. No: Murmur Respiratory: Yes: Poor Air Entry Gastrointestinal: Yes: Normal Bowel Sounds, Soft. No: Distention Extremities: Yes: Other (contracted upper and lower extremities) Edema: No Peripheral Pulses WNL: Yes Integumentary: Yes: Other (multiple pressure ulcers) Neurological: No: Oriented Labs: CBC, BMP 10/01/18 07:00 09/28/18 12:42 Assessment/Plan 72 yr old woman with advanced dementia and parkinson's contracted in bed brought in by family for malaise and poor po intake admitted for failure to thrive currently being assessed for PEG tube placement. Problem List: anemia advanced dementia parkinsons A/P - Fe serrum, TIBC, ferritin, haptoglobin, vit b12, folate, retic count, TSH, iron sat, LDH, fobt to check for differential causes of anemia including [place], acute blood loss/hemolytic anemia/anemia of chronic disease - transfuse as needed to maintain hgb >7 - GOC to be discussed with family in nonverbal contracted pt with multiple ulcers and advanced dementia failing to thrive
--- NOTE | 2018-10-01 20:26 | CONS ---
DATE OF CONSULTATION: DATE OF DICTATION: 10/01/2018 INFECTIOUS DISEASE CONSULTATION HISTORY OF PRESENT ILLNESS: The patient is a 72-year-old female who is evaluated for possible sepsis. History is obtained from the chart as she suffers from dementia. She was admitted to the hospital with worsening lethargy, somnolence, decreased oral intake for approximately 1 week. She was evaluated, where she was noted to have multiple decubitus ulcers present in the left clavicular area, left elbow and the sacrum. She offers no complaints. She has been afebrile; however, white blood cell count slightly elevated. PAST MEDICAL HISTORY: Positive for dementia, hyperlipidemia. MEDICATION: Aricept, Lexapro, multivitamins, Protonix. LABORATORY DATA: White blood cell count 13.4, hematocrit 30.8, platelet count 668, creatinine 0.8, urinalysis 5 white cells. Blood cultures pending. Urine culture contaminated. PHYSICAL EXAMINATION: General: On exam, she is an elderly female. She is cachectic. Vital signs: Temperature 97.3, blood pressure 118/62, pulse 80 regular, respirations 20 per minute. HEENT: Sclerae anicteric. Cardiovascular: Heart sounds S1, S2. Lungs: Clear. Abdomen: Soft, nontender. Extremities: Negative for edema. There is a superficial ulceration present on the left clavicular area, the elbow area and sacrum. IMPRESSION: 1. Rule out sepsis secondary to skin focus. 2. Toxic metabolic encephalopathy. 3. History of dementia. Await sepsis workup. Empiric antibiotic coverage with vancomycin and Levaquin. Local wound care. Will follow. Thank you for the kind referral. EPI IBRAHIM M.D. [id number]
[2018-10-01] MEDS: DONEPEZIL HCL 10 MG TABLET (FP) PO SCH (21:44)
--- NOTE | 2018-10-01 23:02 | PN ---
Teaching Attending Note Name of Resident: Pema Drummond ATTENDING PHYSICIAN STATEMENT I saw and evaluated the patient. I reviewed the resident's note and discussed the case with the resident. I agree with the resident's findings and plan as documented. ASSESSMENT AND PLAN: 72 y/o p atient with severe dementia, bed bound, nonverbal, failure to thrive, for PEG insertion anemia--multifactorial check iron studies/B12/folate/TSH Transfuse as necessary pre procedure poor prognosis with advanced demetnia. goals of care discussion with family
[2018-10-02 08:06] LABS: SERUM IRON SATURATION 16 % (15-55); TOTAL IRON BINDING CAPACITY 120 ug/dL (250-450); UIBC 101 ug/dL (118-369)
--- NOTE | 2018-10-02 09:43 | PN ---
Progress Note, Physician - Current Medication List Current Medications: Active Medications Ascorbic Acid (Vitamin C -) 250 mg PO BID [facility] Last Admin: 10/01/18 21:44 Dose: 250 mg Collagenase (Santyl -) 1 applic TP DAILY [facility]; Protocol Last Admin: 10/01/18 10:13 Dose: 1 applic Donepezil HCl (Aricept -) 10 mg PO HS [facility] Last Admin: 10/01/18 21:44 Dose: 10 mg Escitalopram Oxalate (Lexapro -) 10 mg PO DAILY [facility] Last Admin: 10/01/18 10:00 Dose: Not Given Heparin Sodium (Porcine) (Heparin -) 5,000 unit SQ BID [facility] Last Admin: 09/30/18 21:46 Dose: 5,000 unit Sodium Chloride (Normal Saline -) 1,000 mls @ 75 mls/hr IV ASDIR [facility] Last Admin: 10/01/18 05:47 Dose: 75 mls/hr Vancomycin HCl (Vancomycin (Pre-Docked)) 1,000 mg in 250 mls @ 200 mls/hr IVPB Q24H [facility]; Protocol Last Admin: 10/01/18 12:44 Dose: 200 mls/hr Levofloxacin (Levaquin -) 250 mg PO DAILY@0600 [facility] Stop: 10/06/18 05:00 Last Admin: 10/02/18 05:50 Dose: 250 mg Multivitamins/Minerals/Vitamin C (Tab-A-Vit -) 1 tab PO DAILY [facility] Last Admin: 10/01/18 10:00 Dose: Not Given Pantoprazole Sodium (Protonix -) 40 mg PO DAILY [facility] Last Admin: 10/01/18 10:00 Dose: Not Given Zinc Sulfate (Orazinc -) 220 mg PO DAILY [facility] Last Admin: 10/01/18 10:00 Dose: Not Given - Objective Vital Signs: Vital Signs Temperature 98 F 10/02/18 05:49 Pulse Rate 73 10/02/18 05:49 Respiratory Rate 18 10/02/18 05:49 Blood Pressure 122/65 10/02/18 05:49 O2 Sat by Pulse Oximetry (%) 100 10/01/18 21:40 Cardiovascular: Yes: Regular Rate and Rhythm Respiratory: Yes: Regular, CTA Bilaterally Gastrointestinal: Yes: Normal Bowel Sounds, Soft Labs: CBC, BMP 10/01/18 07:00 09/28/18 12:42 INR, PTT INR 1.14 (0.83-1.09) H 10/01/18 07:00 Assessment/Plan - Problems (1) Failure to thrive Assessment/Plan: 2/2 to dementia -Seen by GI -NPO for PEG insertion today -Spoke to pt's son, who is in agreement for peg with pleasure feeds -Speech therapy on board Code(s): [id number] - Qualifiers: Failure to thrive age range: in adult Qualified Code(s): R62.7 - Adult failure to thrive (2) Pressure ulcer Assessment/Plan: -2/2 to poor nutritional status -T&P Q2H -Seen by vascular surgery, no surgical debridement recommended -Wound care consult with Dr Jaden Gaspar on all the wounds -Neck WC done in 05/2018-multiple organisms -WC-coccyx ordered -On Multivitamin+Vit C+ Zinc -D/C IV Vanco -Change IV Levaquin to po for another 4 days Code(s): L89.90 - PRESSURE ULCER OF UNSPECIFIED SITE, UNSPECIFIED STAGE Qualifiers: Pressure injury location: sacral region Pressure injury stage: stage 4 Qualified Code(s): L89.154 - Pressure ulcer of sacral region, stage 4 (3) Acute metabolic encephalopathy Code(s): G93.41 - METABOLIC ENCEPHALOPATHY (4) Dementia Assessment/Plan: -On Aricept Qualifiers: (5) Functional quadriplegia Code(s): R53.2 - FUNCTIONAL QUADRIPLEGIA (6) Malnutrition Assessment/Plan: -2/2 to po intake -GI consult for PEG + Pleasure feeds Code(s): E46 - UNSPECIFIED PROTEIN-CALORIE MALNUTRITION Qualifiers: Malnutrition type: protein-calorie malnutrition Protein-calorie malnutrition severity: severe Qualified Code(s): E43 - Unspecified severe protein-calorie malnutrition (7) Anemia Assessment/Plan: -B12, Thyroid profile, folate-unremerkable -iron profile and stool OB pending -H/H dropped today -transfuse 2 units PRBC Code(s): D64.9 - ANEMIA, UNSPECIFIED Assessment/Plan see problem list Debra had Extensive discussion with son Federico. He wants his mother to be full code and wants PEG evaluation
[2018-10-02] MEDS: PANTOPRAZOLE 40 MG TABLET (FP) PO SCH (10:30)
[2018-10-02] MEDS: ESCITALOPRAM OXALATE 10 MG TABLET (FP) PO SCH (10:30)
[2018-10-02] MEDS: MULTIVITAMINS (DAILY MVI) TABLET (FP) PO SCH (10:30)
[2018-10-02] MEDS: HEPARIN NA (PORCINE) 5,000 UNITS/ML 1ML VIAL SQ SCH ×2 (10:30→22:57)
[2018-10-02] MEDS: ZINC SULFATE 220 MG CAPSULE (FP) PO SCH (10:30)
[2018-10-02] MEDS: COLLAGENASE CLOSTRIDIUM HIST. 30 GRAMS TUBE TP SCH (10:40)
[2018-10-02] MEDS: ASCORBIC ACID 250 MG TABLET (FP) PO SCH ×2 (10:41→22:57)
[2018-10-02] MEDS: VANCOMYCIN 1 GRAM (PRE-DOCKED) 1,000 MG/250 ML BAG IVPB SCH (12:03)
[2018-10-02 13:06] LABS: RETICULOCYTES 0.81 % (0.5-1.5)
[2018-10-02] MEDS: DONEPEZIL HCL 10 MG TABLET (FP) PO SCH (22:57)
[2018-10-02] MEDS: SODIUM CHLORIDE 1,000 ML IV SCH (22:58)
--- NOTE | 2018-10-03 09:22 | PN ---
Progress Note, Physician - Current Medication List Current Medications: Active Medications Ascorbic Acid (Vitamin C -) 250 mg PO BID [facility] Last Admin: 10/02/18 22:57 Dose: 250 mg Collagenase (Santyl -) 1 applic TP DAILY [facility]; Protocol Last Admin: 10/02/18 10:40 Dose: 1 applic Donepezil HCl (Aricept -) 10 mg PO HS [facility] Last Admin: 10/02/18 22:57 Dose: 10 mg Escitalopram Oxalate (Lexapro -) 10 mg PO DAILY [facility] Last Admin: 10/02/18 10:30 Dose: 10 mg Heparin Sodium (Porcine) (Heparin -) 5,000 unit SQ BID [facility] Last Admin: 10/02/18 22:57 Dose: 5,000 unit Sodium Chloride (Normal Saline -) 1,000 mls @ 75 mls/hr IV ASDIR [facility] Last Admin: 10/02/18 22:58 Dose: 75 mls/hr Vancomycin HCl (Vancomycin (Pre-Docked)) 1,000 mg in 250 mls @ 200 mls/hr IVPB Q24H [facility]; Protocol Last Admin: 10/02/18 12:03 Dose: 200 mls/hr Levofloxacin (Levaquin -) 250 mg PO DAILY@0600 [facility] Stop: 10/06/18 05:00 Last Admin: 10/03/18 06:39 Dose: 250 mg Multivitamins/Minerals/Vitamin C (Tab-A-Vit -) 1 tab PO DAILY [facility] Last Admin: 10/02/18 10:30 Dose: 1 tab Pantoprazole Sodium (Protonix -) 40 mg PO DAILY [facility] Last Admin: 10/02/18 10:30 Dose: 40 mg Zinc Sulfate (Orazinc -) 220 mg PO DAILY [facility] Last Admin: 10/02/18 10:30 Dose: 220 mg - Objective Vital Signs: Vital Signs Temperature 97.3 F L 10/03/18 06:45 Pulse Rate 76 10/03/18 06:45 Respiratory Rate 20 10/03/18 06:45 Blood Pressure 109/61 10/03/18 06:45 O2 Sat by Pulse Oximetry (%) 100 10/02/18 21:00 Cardiovascular: Yes: Regular Rate and Rhythm Respiratory: Yes: Regular, CTA Bilaterally Gastrointestinal: Yes: Normal Bowel Sounds, Soft Labs: CBC, BMP 10/01/18 07:00 09/28/18 12:42 INR, PTT INR 1.14 (0.83-1.09) H 10/01/18 07:00 Assessment/Plan - Problems (1) Failure to thrive Assessment/Plan: 2/2 to dementia -Seen by GI -NPO for PEG insertion today -Spoke to pt's son, who is in agreement for peg with pleasure feeds -Speech therapy on board Code(s): [id number] - Qualifiers: Failure to thrive age range: in adult Qualified Code(s): R62.7 - Adult failure to thrive (2) Pressure ulcer Assessment/Plan: -2/2 to poor nutritional status -T&P Q2H -Seen by vascular surgery, no surgical debridement recommended -Wound care consult with Dr Jaden Gaspar on all the wounds -Neck WC done in 05/2018-multiple organisms -WC-coccyx ordered -On Multivitamin+Vit C+ Zinc -D/C IV Vanco -Change IV Levaquin to po for another 4 days Code(s): L89.90 - PRESSURE ULCER OF UNSPECIFIED SITE, UNSPECIFIED STAGE Qualifiers: Pressure injury location: sacral region Pressure injury stage: stage 4 Qualified Code(s): L89.154 - Pressure ulcer of sacral region, stage 4 (3) Acute metabolic encephalopathy Code(s): G93.41 - METABOLIC ENCEPHALOPATHY (4) Dementia Assessment/Plan: -On Aricept Qualifiers: (5) Functional quadriplegia Code(s): R53.2 - FUNCTIONAL QUADRIPLEGIA (6) Malnutrition Assessment/Plan: -2/2 to po intake -GI consult for PEG + Pleasure feeds Code(s): E46 - UNSPECIFIED PROTEIN-CALORIE MALNUTRITION Qualifiers: Malnutrition type: protein-calorie malnutrition Protein-calorie malnutrition severity: severe Qualified Code(s): E43 - Unspecified severe protein-calorie malnutrition (7) Anemia Assessment/Plan: -B12, Thyroid profile, folate-unremerkable -iron profile and stool OB pending -H/H dropped today -transfused 2 units PRBC Code(s): D64.9 - ANEMIA, UNSPECIFIED Assessment/Plan see problem list Debra had Extensive discussion with son Federico. He wants his mother to be full code and wants PEG evaluation
[2018-10-03] MEDS: ZINC SULFATE 220 MG CAPSULE (FP) PO SCH (09:31)
[2018-10-03] MEDS: PANTOPRAZOLE 40 MG TABLET (FP) PO SCH (09:31)
[2018-10-03] MEDS: ASCORBIC ACID 250 MG TABLET (FP) PO SCH ×2 (09:32→22:13)
[2018-10-03] MEDS: HEPARIN NA (PORCINE) 5,000 UNITS/ML 1ML VIAL SQ SCH ×2 (09:32→22:12)
[2018-10-03] MEDS: ESCITALOPRAM OXALATE 10 MG TABLET (FP) PO SCH (09:32)
[2018-10-03] MEDS: MULTIVITAMINS (DAILY MVI) TABLET (FP) PO SCH (09:32)
[2018-10-03] MEDS: COLLAGENASE CLOSTRIDIUM HIST. 30 GRAMS TUBE TP SCH (09:33)
--- NOTE | 2018-10-03 10:48 | PN ---
Progress Note (short form) - Note Progress Note: No repeat labs from 10/01. Ordered CBC/BMP today Plan for PEG 10/04 Problem List - Problems (1) Failure to thrive Code(s): [id number] - Qualifiers: Failure to thrive age range: in adult Qualified Code(s): R62.7 - Adult failure to thrive
[2018-10-03 12:05] LABS: HEMATOCRIT 36.5 % (32.4-45.2); HEMOGLOBIN 12.4 GM/dL (10.7-15.3); MCH 26.5 pg (25.7-33.7); MEAN CELL VOLUME 77.9 fl (80-96); MEAN PLT VOLUME 7.4 fl (7.5-11.1); PLATELET COUNT 541 K/MM3 (134-434); RBC 4.68 M/mm3 (3.60-5.2); WHITE BLOOD COUNT 14.5 K/mm3 (4.0-10.0)
[2018-10-03] MEDS: VANCOMYCIN 1 GRAM (PRE-DOCKED) 1,000 MG/250 ML BAG IVPB SCH (12:06)
[2018-10-03 12:30] LABS: ANION GAP 7 MMOL/L (8-16); BLOOD UREA NITROGEN 18 mg/dL (7-18); CALCIUM 7.7 mg/dL (8.5-10.1); CHLORIDE 114 mmol/L (98-107); CO2 22 mmol/L (21-32); GLUCOSE,RANDOM 98 mg/dL (74-106); POTASSIUM 3.3 mmol/L (3.5-5.1); SODIUM 143 mmol/L (136-145)
[2018-10-03] MEDS: KCL 10 MEQ IVPB 10 MEQ/100 ML INFUS.BAG IVPB SCH ×2 (14:39→15:59)
[2018-10-03 15:29] LABS: BASO % 0.3 % (0-2.0); EOS % 0.2 % (0-4.5); HEMATOCRIT 35.2 % (32.4-45.2); HEMOGLOBIN 11.9 GM/dL (10.7-15.3); LYMPH % 8.4 % (8-40); MCH 26.3 pg (25.7-33.7); MCHC 33.9 g/dl (32.0-36.0); MEAN CELL VOLUME 77.7 fl (80-96); MEAN PLT VOLUME 7.9 fl (7.5-11.1); NEUT % 87.1 % (42.8-82.8); PLATELET COUNT 569 K/MM3 (134-434); RBC 4.53 M/mm3 (3.60-5.2); WHITE BLOOD COUNT 14.4 K/mm3 (4.0-10.0)
[2018-10-03] MEDS: DONEPEZIL HCL 10 MG TABLET (FP) PO SCH (22:12)
[2018-10-04] MEDS: SODIUM CHLORIDE 1,000 ML IV SCH ×2 (06:08→16:23)
[2018-10-04 07:33] LABS: BASO % 0.3 % (0-2.0); EOS % 0.2 % (0-4.5); HEMATOCRIT 34.9 % (32.4-45.2); HEMOGLOBIN 11.1 GM/dL (10.7-15.3); LYMPH % 8.3 % (8-40); MCH 24.9 pg (25.7-33.7); MCHC 31.7 g/dl (32.0-36.0); MEAN CELL VOLUME 78.4 fl (80-96); MEAN PLT VOLUME 7.3 fl (7.5-11.1); MONO % 4.1 % (3.8-10.2); NEUT % 87.1 % (42.8-82.8); PLATELET COUNT 543 K/MM3 (134-434); RBC 4.45 M/mm3 (3.60-5.2); RDW 15.4 % (11.6-15.6); WHITE BLOOD COUNT 14.1 K/mm3 (4.0-10.0)
[2018-10-04 08:36] LABS: ALBUMIN 1.4 g/dl (3.4-5.0); ALK PHOS 69 U/L (45-117); ANION GAP 10 MMOL/L (8-16); BILIRUBIN,TOTAL 0.3 mg/dL (0.2-1); BLOOD UREA NITROGEN 15 mg/dL (7-18); CALCIUM 7.4 mg/dL (8.5-10.1); CHLORIDE 115 mmol/L (98-107); CO2 19 mmol/L (21-32); GLUCOSE,RANDOM 94 mg/dL (74-106); POTASSIUM 3.2 mmol/L (3.5-5.1); SGOT/AST 9 U/L (15-37); SGPT/ALT 9 U/L (13-61); SODIUM 144 mmol/L (136-145); TOT PROT 4.4 g/dl (6.4-8.2)
--- NOTE | 2018-10-04 10:52 | PN ---
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 insertion today multiple pressure decubiti Seen by Vascular surgery H/H stable after 2 units of PRBC 2 days ago low K+ due to npo/decreased PO intake - Current Medication List Current Medications: Active Medications Ascorbic Acid (Vitamin C -) 250 mg PO BID [facility] Last Admin: 10/03/18 22:13 Dose: 250 mg Collagenase (Santyl -) 1 applic TP DAILY [facility]; Protocol Last Admin: 10/03/18 09:33 Dose: 1 applic Donepezil HCl (Aricept -) 10 mg PO HS [facility] Last Admin: 10/03/18 22:12 Dose: 10 mg Escitalopram Oxalate (Lexapro -) 10 mg PO DAILY [facility] Last Admin: 10/03/18 09:32 Dose: 10 mg Heparin Sodium (Porcine) (Heparin -) 5,000 unit SQ BID [facility] Last Admin: 10/03/18 22:12 Dose: 5,000 unit Vancomycin HCl (Vancomycin (Pre-Docked)) 1,000 mg in 250 mls @ 200 mls/hr IVPB Q24H [facility]; Protocol Last Admin: 10/03/18 12:06 Dose: 200 mls/hr Dextrose/Sodium Chloride (Dextrose 5%-Normal Saline+40 Meq Kcl -) 40 meq in 1, 000 mls @ 75 mls/hr IV ASDIR [facility] Potassium Chloride (Potassium Chloride 10 Meq Premix Ivpb -) 10 meq in 100 mls @ 100 mls/hr IVPB Q60M [facility] Stop: 10/04/18 13:59 Levofloxacin (Levaquin -) 250 mg PO DAILY@0600 [facility] Stop: 10/06/18 05:00 Last Admin: 10/04/18 06:08 Dose: 250 mg Multivitamins/Minerals/Vitamin C (Tab-A-Vit -) 1 tab PO DAILY [facility] Last Admin: 10/03/18 09:32 Dose: 1 tab Pantoprazole Sodium (Protonix -) 40 mg PO DAILY [facility] Last Admin: 10/03/18 09:31 Dose: 40 mg Zinc Sulfate (Orazinc -) 220 mg PO DAILY [facility] Last Admin: 10/03/18 09:31 Dose: 220 mg - Objective Vital Signs: Vital Signs Temperature 98.2 F 10/04/18 10:01 Pulse Rate 78 10/04/18 10:01 Respiratory Rate 18 10/04/18 10:01 Blood Pressure 132/71 10/04/18 10:01 O2 Sat by Pulse Oximetry (%) 100 10/03/18 21:00 Constitutional: Yes: No Distress, Calm, Cachectic Cardiovascular: Yes: Regular Rate and Rhythm Respiratory: Yes: Regular Gastrointestinal: Yes: Normal Bowel Sounds, Soft Musculoskeletal: Yes: Muscle Weakness Extremities: Yes: Other (generalized atrophy) Edema: No Peripheral Pulses WNL: Yes Integumentary: Yes: Pressure Ulcer (multiple) Wound/Incision: Yes: Dressing Dry and Intact Neurological: Yes: Alert, Pre-Existing Deficit Psychiatric: Yes: Alert Labs: CBC, BMP 10/04/18 06:30 10/04/18 06:30 INR, PTT INR 1.14 (0.83-1.09) H 10/01/18 07:00 Problem List - Problems (1) Failure to thrive Assessment/Plan: 2/2 to dementia -Seen by GI -NPO for PEG insertion today -Spoke to pt's son, who is in agreement for peg with pleasure feeds -Speech therapy on board Code(s): [id number] - Qualifiers: Failure to thrive age range: in adult Qualified Code(s): R62.7 - Adult failure to thrive (2) Pressure ulcer Assessment/Plan: -2/2 to poor nutritional status -T&P Q2H -Seen by vascular surgery, no surgical debridement recommended -Wound care consult with Dr Jaden Gaspar on all the wounds -Neck WC done in 05/2018-multiple organisms -WC-coccyx ordered -On Multivitamin+Vit C+ Zinc -Change IV Levaquin to po for another 4 days Code(s): L89.90 - PRESSURE ULCER OF UNSPECIFIED SITE, UNSPECIFIED STAGE Qualifiers: Pressure injury location: sacral region Pressure injury stage: stage 4 Qualified Code(s): L89.154 - Pressure ulcer of sacral region, stage 4 (3) Acute metabolic encephalopathy Code(s): G93.41 - METABOLIC ENCEPHALOPATHY (4) Dementia Assessment/Plan: -On Aricept Qualifiers: (5) Functional quadriplegia Code(s): R53.2 - FUNCTIONAL QUADRIPLEGIA (6) Malnutrition Assessment/Plan: -2/2 to po intake -GI consult for PEG + Pleasure feeds Code(s): E46 - UNSPECIFIED PROTEIN-CALORIE MALNUTRITION Qualifiers: Malnutrition type: protein-calorie malnutrition Protein-calorie malnutrition severity: severe Qualified Code(s): E43 - Unspecified severe protein-calorie malnutrition (7) Anemia Assessment/Plan: -B12, Thyroid profile, folate-unremerkable -iron profile and stool OB normal -H/H stable -hematology on board -monitor trend Code(s): D64.9 - ANEMIA, UNSPECIFIED (8) Hypokalemia Assessment/Plan: -d/c NS -Start D5W+NS+KCl 40 meq @ 75 cc/hr -Also give KCl 10 meq x 3 -monitor trend in AM Code(s): E87.6 - HYPOKALEMIA Assessment/Plan see problem list
[2018-10-04] MEDS ORDERED: CEFAZOLIN 1 GM/D5W 2 GM/100 ML BAG ONE (11:07)
[2018-10-04] MEDS ORDERED: ceFAZolin SODIUM 1 GM VIAL IVPB ONE (11:13)
--- NOTE | 2018-10-04 11:46 | PN ---
Progress Note (short form) - Note Progress Note: Brief procedure note 20 Fr externally removable PEG placed without incident with external bumper at 2cm from the skin ok for meds and flushes today; for feeds tomorrow
[2018-10-04] MEDS: PANTOPRAZOLE 40 MG TABLET (FP) PO SCH (13:09)
[2018-10-04] MEDS: ESCITALOPRAM OXALATE 10 MG TABLET (FP) PO SCH (13:09)
[2018-10-04] MEDS: ZINC SULFATE 220 MG CAPSULE (FP) PO SCH (13:09)
[2018-10-04] MEDS: MULTIVITAMINS (DAILY MVI) TABLET (FP) PO SCH (13:09)
[2018-10-04] MEDS: KCL 10 MEQ IVPB 10 MEQ/100 ML INFUS.BAG IVPB SCH ×3 (13:10→16:22)
[2018-10-04] MEDS: D5-NS + 40 MEQ KCL - 40 MEQ/1,000 ML INFUS.BAG IV SCH (13:12)
[2018-10-04] MEDS: ASCORBIC ACID 250 MG TABLET (FP) PO SCH ×2 (14:29→21:35)
--- NOTE | 2018-10-04 15:52 | PN ---
Progress Note, SEMICONDUCTOR MANUFACTURING TECHNICIAN - Note Progress Note: Selected Entries 09/30/18 09/30/18 09/30/18 10:38 14:20 18:33 Breakfast 25% Lunch 25% Supper 25% Temperature 10/01/18 10/01/18 10/01/18 10:00 11:28 14:18 Breakfast NPO NPO Lunch NPO Supper Temperature 10/01/18 10/02/18 10/02/18 18:38 05:49 10:26 Breakfast 0 Lunch Supper NPO Temperature 98 F 10/02/18 10/03/18 10/03/18 19:47 06:45 11:00 Breakfast Lunch Supper 25% Temperature 98.8 F 97.3 F L 98.5 F 10/03/18 10/03/18 10/03/18 12:18 16:20 19:15 Breakfast 0 Lunch Supper 25% Temperature 98.3 F 10/04/18 10/04/18 10/04/18 06:47 10:01 11:04 Breakfast NPO Lunch Supper Temperature 97.9 F 98.2 F 10/04/18 11:14 Breakfast Lunch Supper Temperature 98 F PEG placed, to provide sufficient nutrition for decubiti healing, consistent hydration and medication acceptance Continue pleasure feeding - Mix puree with ensure, plus drink ensure for increased PO intake.Pt has been accepting Ensure PO TID, and 25% of puree. Suggest RD f/u - Consider nocturnal TF and PO feedings with continued Ensure by mouth during the day for pleasure and to maintain swallowing function.
[2018-10-04] MEDS: COLLAGENASE CLOSTRIDIUM HIST. 30 GRAMS TUBE TP SCH (16:22)
[2018-10-04] MEDS ORDERED: PT OWN MED DRAWER 7, Y5N ONE (21:31)
[2018-10-04] MEDS: DONEPEZIL HCL 10 MG TABLET (FP) PO SCH (21:35)
[2018-10-04] MEDS: BACITRACIN 15 GM TUBE TOPICAL OINTMENT TP SCH (21:39)
[2018-10-05 07:22] LABS: BASO % 0.8 % (0-2.0); EOS % 0.3 % (0-4.5); HEMOGLOBIN 11.3 GM/dL (10.7-15.3); MCH 25.2 pg (25.7-33.7); MCHC 31.5 g/dl (32.0-36.0); MEAN CELL VOLUME 79.9 fl (80-96); MEAN PLT VOLUME 7.4 fl (7.5-11.1); MONO % 3.4 % (3.8-10.2); NEUT % 88.5 % (42.8-82.8); PLATELET COUNT 512 K/MM3 (134-434); RDW 15.2 % (11.6-15.6); WHITE BLOOD COUNT 15.6 K/mm3 (4.0-10.0)
[2018-10-05 07:59] LABS: ALBUMIN 1.4 g/dl (3.4-5.0); ALK PHOS 67 U/L (45-117); ANION GAP 7 MMOL/L (8-16); BILIRUBIN,TOTAL 0.3 mg/dL (0.2-1); BLOOD UREA NITROGEN 14 mg/dL (7-18); CALCIUM 7.6 mg/dL (8.5-10.1); CHLORIDE 118 mmol/L (98-107); CO2 21 mmol/L (21-32); GLUCOSE,RANDOM 111 mg/dL (74-106); POTASSIUM 4.1 mmol/L (3.5-5.1); SGOT/AST 11 U/L (15-37); SGPT/ALT 8 U/L (13-61); SODIUM 146 mmol/L (136-145); TOT PROT 4.3 g/dl (6.4-8.2)
[2018-10-05] MEDS ORDERED: PT OWN MED DRAWER 7, Y5N ONE (10:52)
[2018-10-05] MEDS: ASCORBIC ACID 250 MG TABLET (FP) PO SCH ×2 (10:59→23:48)
[2018-10-05] MEDS: ESCITALOPRAM OXALATE 10 MG TABLET (FP) PO SCH (10:59)
[2018-10-05] MEDS: MULTIVITAMINS (DAILY MVI) TABLET (FP) PO SCH (10:59)
[2018-10-05] MEDS: PANTOPRAZOLE 40 MG TABLET (FP) PO SCH (11:00)
[2018-10-05] MEDS: BACITRACIN 15 GM TUBE TOPICAL OINTMENT TP SCH ×2 (11:00→23:49)
[2018-10-05] MEDS: ZINC SULFATE 220 MG CAPSULE (FP) PO SCH (11:00)
[2018-10-05] MEDS: HEPARIN NA (PORCINE) 5,000 UNITS/ML 1ML VIAL SQ SCH ×2 (11:00→23:49)
[2018-10-05] MEDS: D5-NS + 40 MEQ KCL - 40 MEQ/1,000 ML INFUS.BAG IV SCH (11:01)
--- NOTE | 2018-10-05 11:28 | PN ---
Progress Note, Physician Chief Complaint: failure to thrive History of Present Illness: NAD TRIM MOUNTER at bedside s/p PEG placment yesterday started on oral pleasure feeds multiple pressure decubiti Seen by Vascular surgery H/H stable Tube feeding throughout night with po pleasure feeds during the day - Current Medication List Current Medications: Active Medications Ascorbic Acid (Vitamin C -) 250 mg PO BID [facility] Last Admin: 10/05/18 10:59 Dose: 250 mg Bacitracin (Bacitracin -) 1 applic TP BID [facility] Last Admin: 10/05/18 11:00 Dose: 1 applic Collagenase (Santyl -) 1 applic TP DAILY [facility]; Protocol Last Admin: 10/04/18 16:22 Dose: 1 applic Donepezil HCl (Aricept -) 10 mg PO HS [facility] Last Admin: 10/04/18 21:35 Dose: 10 mg Escitalopram Oxalate (Lexapro -) 10 mg PO DAILY [facility] Last Admin: 10/05/18 10:59 Dose: 10 mg Heparin Sodium (Porcine) (Heparin -) 5,000 unit SQ BID [facility] Last Admin: 10/05/18 11:00 Dose: 5,000 unit Dextrose/Sodium Chloride (Dextrose 5%-Normal Saline+40 Meq Kcl -) 40 meq in 1, 000 mls @ 75 mls/hr IV ASDIR [facility] Last Admin: 10/05/18 11:01 Dose: Not Given Levofloxacin (Levaquin -) 250 mg PO DAILY@0600 [facility] Stop: 10/06/18 05:00 Last Admin: 10/05/18 05:38 Dose: 250 mg Multivitamins/Minerals/Vitamin C (Tab-A-Vit -) 1 tab PO DAILY [facility] Last Admin: 10/05/18 10:59 Dose: 1 tab Pantoprazole Sodium (Protonix -) 40 mg PO DAILY [facility] Last Admin: 10/05/18 11:00 Dose: 40 mg Zinc Sulfate (Orazinc -) 220 mg PO DAILY [facility] Last Admin: 10/05/18 11:00 Dose: 220 mg - Objective Vital Signs: Vital Signs Temperature 97.5 F L 10/05/18 06:25 Pulse Rate 85 10/05/18 06:25 Respiratory Rate 20 10/05/18 06:25 Blood Pressure 132/76 10/05/18 06:25 O2 Sat by Pulse Oximetry (%) 100 10/04/18 21:00 Constitutional: Yes: No Distress, Calm, Cachectic Cardiovascular: Yes: Regular Rate and Rhythm Respiratory: Yes: Regular Gastrointestinal: Yes: Normal Bowel Sounds, Soft Musculoskeletal: Yes: Muscle Weakness Extremities: Yes: Other (generalized atrophy) Edema: No Peripheral Pulses WNL: Yes Wound/Incision: Yes: Dressing Dry and Intact Neurological: Yes: Alert, Pre-Existing Deficit Labs: CBC, BMP 10/05/18 06:15 10/05/18 06:15 INR, PTT INR 1.14 (0.83-1.09) H 10/01/18 07:00 Problem List - Problems (1) Failure to thrive Assessment/Plan: 2/2 to dementia -Seen by GI -Start tube feeding via PEG overnight with PO pleasure feeds -Speech therapy on board Code(s): TSK0626 - Qualifiers: Failure to thrive age range: in adult Qualified Code(s): R62.7 - Adult failure to thrive (2) Pressure ulcer Assessment/Plan: -2/2 to poor nutritional status -T&P Q2H -Seen by vascular surgery, no surgical debridement recommended -Wound care consult with Dr Jaden Gaspar on all the wounds -Neck WC done in 05/2018-multiple organisms -WC-coccyx ordered -On Multivitamin+Vit C+ Zinc -Completed Levaquin po for 4 days Code(s): L89.90 - PRESSURE ULCER OF UNSPECIFIED SITE, UNSPECIFIED STAGE Qualifiers: Pressure injury location: sacral region Pressure injury stage: stage 4 Qualified Code(s): L89.154 - Pressure ulcer of sacral region, stage 4 (3) Acute metabolic encephalopathy Code(s): G93.41 - METABOLIC ENCEPHALOPATHY (4) Dementia Assessment/Plan: -On Aricept Qualifiers: (5) Functional quadriplegia Code(s): R53.2 - FUNCTIONAL QUADRIPLEGIA (6) Malnutrition Assessment/Plan: -2/2 to po intake -GI consult -PEG tube feeding + Pleasure feeds Code(s): E46 - UNSPECIFIED PROTEIN-CALORIE MALNUTRITION Qualifiers: Malnutrition type: protein-calorie malnutrition Protein-calorie malnutrition severity: severe Qualified Code(s): E43 - Unspecified severe protein-calorie malnutrition (7) Anemia Assessment/Plan: -B12, Thyroid profile, folate-unremerkable -iron profile and stool OB normal -H/H stable -hematology on board -monitor trend Code(s): D64.9 - ANEMIA, UNSPECIFIED (8) Hypokalemia Assessment/Plan: -resolved -D5W+NS+KCl 40 meq @ 75 cc/hr Code(s): E87.6 - HYPOKALEMIA Assessment/Plan see problem list
--- NOTE | 2018-10-05 12:51 | PN ---
Progress Note, BLOCK MACHINE OPERATOR - Note Progress Note: Case reviewed with PNP. PEG placed, to provide sufficient nutrition for decubiti healing, consistent hydration and medication acceptance To continue pleasure feeding daytime- Mix puree with ensure, plus drink ensure for increased PO intake. Pt has been accepting Ensure PO TID, and 25% of puree. Nocturnal PEG feedings to supplement PO intake. Medication, additional hydration via PEG. RD f/u regarding balance of PO/PEG nutrition/hydration.
[2018-10-05] MEDS: COLLAGENASE CLOSTRIDIUM HIST. 30 GRAMS TUBE TP SCH (17:52)
[2018-10-05] MEDS: DONEPEZIL HCL 10 MG TABLET (FP) PO SCH (23:49)
[2018-10-06 08:32] LABS: BASO % 0.4 % (0-2.0); EOS % 0.7 % (0-4.5); HEMATOCRIT 30.3 % (32.4-45.2); HEMOGLOBIN 10.1 GM/dL (10.7-15.3); LYMPH % 8.4 % (8-40); MCH 26.5 pg (25.7-33.7); MCHC 33.5 g/dl (32.0-36.0); MEAN CELL VOLUME 79.2 fl (80-96); MEAN PLT VOLUME 7.1 fl (7.5-11.1); MONO % 4.7 % (3.8-10.2); NEUT % 85.8 % (42.8-82.8); PLATELET COUNT 473 K/MM3 (134-434); RBC 3.83 M/mm3 (3.60-5.2); RDW 15.8 % (11.6-15.6); WHITE BLOOD COUNT 13.5 K/mm3 (4.0-10.0)
[2018-10-06 09:24] LABS: ALBUMIN 1.4 g/dl (3.4-5.0); ALK PHOS 68 U/L (45-117); ANION GAP 4 MMOL/L (8-16); BILIRUBIN,TOTAL 0.2 mg/dL (0.2-1); BLOOD UREA NITROGEN 15 mg/dL (7-18); CHLORIDE 115 mmol/L (98-107); CO2 25 mmol/L (21-32); CREATININE 0.9 mg/dL (0.55-1.3); GLUCOSE,RANDOM 97 mg/dL (74-106); POTASSIUM 4.1 mmol/L (3.5-5.1); SGOT/AST 13 U/L (15-37); SGPT/ALT 8 U/L (13-61); SODIUM 144 mmol/L (136-145); TOT PROT 4.4 g/dl (6.4-8.2)
[2018-10-06] MEDS: COLLAGENASE CLOSTRIDIUM HIST. 30 GRAMS TUBE TP SCH (10:00)
[2018-10-06] MEDS: BACITRACIN 15 GM TUBE TOPICAL OINTMENT TP SCH ×2 (10:00→21:53)
--- NOTE | 2018-10-06 10:52 | PN ---
Progress Note (short form) - Note Progress Note: Brief GI follow up note Pt seen/examined at bedside, no overnight events noted s/p PEG on 10/04/18. Pt tolerating PEG feeds per nursing staff. No complaints reported. On examination: Pt awake, non verbal, shakes/nods head appropriately Abd soft, no tenderness elicited, nondistended, +PEG in place, no obvious surrounding erythema Labs reviewed. A/P: 72 yo female with failure to thrive s/p successful EGD/PEG (externally removable 20Fr) on 10/04/18, tolerating feeds. -Continue PEG feeds as tolerated -Feeds/formula per raymond mill operator -Maintain external bumper 1-2cm from abdominal wall to avoid pressure necrosis -Please recall GI if any further questions/concerns
[2018-10-06] MEDS ORDERED: PT OWN MED DRAWER 7, Y5N ONE ×2 (11:03→12:44)
[2018-10-06] MEDS: HEPARIN NA (PORCINE) 5,000 UNITS/ML 1ML VIAL SQ SCH ×2 (11:12→21:52)
[2018-10-06] MEDS: ASCORBIC ACID 250 MG TABLET (FP) PO SCH (11:12)
[2018-10-06] MEDS: ESCITALOPRAM OXALATE 10 MG TABLET (FP) PO SCH (11:12)
[2018-10-06] MEDS: ZINC SULFATE 220 MG CAPSULE (FP) PO SCH ×2 (11:12→21:52)
[2018-10-06] MEDS: PANTOPRAZOLE 40 MG TABLET (FP) PO SCH (11:12)
[2018-10-06] MEDS: MULTIVITAMINS (DAILY MVI) TABLET (FP) PO SCH (11:12)
--- NOTE | 2018-10-06 17:48 | PN ---
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 No complaints reported. - Current Medication List Current Medications: Active Medications Ascorbic Acid (Vitamin C -) 250 mg PO BID [facility] Last Admin: 10/06/18 11:12 Dose: 250 mg Bacitracin (Bacitracin -) 1 applic TP BID [facility] Last Admin: 10/06/18 10:00 Dose: 1 applic Collagenase (Santyl -) 1 applic TP DAILY [facility]; Protocol Last Admin: 10/06/18 10:00 Dose: 1 applic Donepezil HCl (Aricept -) 10 mg PO HS [facility] Last Admin: 10/05/18 23:49 Dose: 10 mg Escitalopram Oxalate (Lexapro -) 10 mg PO DAILY [facility] Last Admin: 10/06/18 11:12 Dose: 10 mg Heparin Sodium (Porcine) (Heparin -) 5,000 unit SQ BID [facility] Last Admin: 10/06/18 11:12 Dose: 5,000 unit Multivitamins/Minerals/Vitamin C (Tab-A-Vit -) 1 tab PO DAILY [facility] Last Admin: 10/06/18 11:12 Dose: 1 tab Pantoprazole Sodium (Protonix -) 40 mg PO DAILY [facility] Last Admin: 10/06/18 11:12 Dose: 40 mg Zinc Sulfate (Orazinc -) 220 mg PO DAILY [facility] Last Admin: 10/06/18 11:12 Dose: 220 mg - Objective Vital Signs: Vital Signs Temperature 98.2 F 10/06/18 16:25 Pulse Rate 71 10/06/18 16:25 Respiratory Rate 18 10/06/18 16:25 Blood Pressure 121/53 L 10/06/18 16:25 O2 Sat by Pulse Oximetry (%) 100 10/06/18 09:00 Constitutional: Yes: No Distress, Calm, Cachectic Cardiovascular: Yes: Regular Rate and Rhythm Respiratory: Yes: Regular Gastrointestinal: Yes: Normal Bowel Sounds, Soft Musculoskeletal: Yes: Muscle Weakness Extremities: Yes: Other (generalized atrophy) Edema: No Peripheral Pulses WNL: Yes Neurological: Yes: Alert, Pre-Existing Deficit Psychiatric: Yes: Alert Labs: CBC, BMP 10/06/18 08:00 10/06/18 08:00 INR, PTT INR 1.14 (0.83-1.09) H 10/01/18 07:00 Problem List - Problems (1) Failure to thrive Assessment/Plan: 2/2 to dementia -Seen by GI -tube feeding via PEG overnight with PO pleasure feeds -Speech therapy on board Code(s): [id number] - Qualifiers: Failure to thrive age range: in adult Qualified Code(s): R62.7 - Adult failure to thrive (2) Pressure ulcer Assessment/Plan: -2/2 to poor nutritional status -T&P Q2H -Seen by vascular surgery, no surgical debridement recommended -Wound care consult with Dr Jaden Gaspar on all the wounds -Neck WC done in 05/2018-multiple organisms -WC-coccyx ordered -On Multivitamin+Vit C+ Zinc -Added prosource BID Code(s): L89.90 - PRESSURE ULCER OF UNSPECIFIED SITE, UNSPECIFIED STAGE Qualifiers: Pressure injury location: sacral region Pressure injury stage: stage 4 Qualified Code(s): L89.154 - Pressure ulcer of sacral region, stage 4 (3) Acute metabolic encephalopathy Code(s): G93.41 - METABOLIC ENCEPHALOPATHY (4) Dementia Assessment/Plan: -On Aricept Qualifiers: (5) Functional quadriplegia Code(s): R53.2 - FUNCTIONAL QUADRIPLEGIA (6) Malnutrition Assessment/Plan: -2/2 to po intake -GI consult -PEG tube feeding + Pleasure feeds Code(s): E46 - UNSPECIFIED PROTEIN-CALORIE MALNUTRITION Qualifiers: Malnutrition type: protein-calorie malnutrition Protein-calorie malnutrition severity: severe Qualified Code(s): E43 - Unspecified severe protein-calorie malnutrition (7) Anemia Assessment/Plan: -B12, Thyroid profile, folate-unremerkable -iron profile and stool OB normal -H/H stable -hematology on board -monitor trend Code(s): D64.9 - ANEMIA, UNSPECIFIED (8) Hypokalemia Assessment/Plan: -resolved Code(s): E87.6 - HYPOKALEMIA Assessment/Plan see problem list
[2018-10-06] MEDS ORDERED: INSULIN (NOVOLOG) ASPART 100 UNITS/ML 10ML VIAL ONE (21:18)
[2018-10-06] MEDS: DONEPEZIL HCL 10 MG TABLET (FP) PO SCH (21:52)
[2018-10-06] MEDS: ASCORBIC ACID 500 MG TABLET (FP) PO SCH (21:52)
[2018-10-07 07:36] LABS: BASO % 0.5 % (0-2.0); EOS % 1.9 % (0-4.5); HEMATOCRIT 30.6 % (32.4-45.2); HEMOGLOBIN 10.4 GM/dL (10.7-15.3); LYMPH % 10.4 % (8-40); MCH 26.7 pg (25.7-33.7); MEAN CELL VOLUME 78.6 fl (80-96); MEAN PLT VOLUME 7.5 fl (7.5-11.1); MONO % 4.6 % (3.8-10.2); NEUT % 82.6 % (42.8-82.8); PLATELET COUNT 535 K/MM3 (134-434); RDW 16.7 % (11.6-15.6); WHITE BLOOD COUNT 12.7 K/mm3 (4.0-10.0)
[2018-10-07] MEDS: ASCORBIC ACID 500 MG TABLET (FP) PO SCH ×2 (09:52→21:11)
[2018-10-07] MEDS: ZINC SULFATE 220 MG CAPSULE (FP) PO SCH ×2 (09:52→21:12)
[2018-10-07] MEDS: ESCITALOPRAM OXALATE 10 MG TABLET (FP) PO SCH (09:52)
[2018-10-07] MEDS: HEPARIN NA (PORCINE) 5,000 UNITS/ML 1ML VIAL SQ SCH ×2 (09:52→21:11)
[2018-10-07] MEDS: MULTIVITAMINS (DAILY MVI) TABLET (FP) PO SCH (09:52)
[2018-10-07] MEDS: PANTOPRAZOLE 40 MG TABLET (FP) PO SCH (09:52)
[2018-10-07 09:53] LABS: ALBUMIN 1.4 g/dl (3.4-5.0); ALK PHOS 80 U/L (45-117); ANION GAP 10 MMOL/L (8-16); BILIRUBIN,TOTAL 0.3 mg/dL (0.2-1); BLOOD UREA NITROGEN 15 mg/dL (7-18); CALCIUM 7.8 mg/dL (8.5-10.1); CHLORIDE 112 mmol/L (98-107); CO2 20 mmol/L (21-32); GLUCOSE,RANDOM 104 mg/dL (74-106); POTASSIUM 4.1 mmol/L (3.5-5.1); SGOT/AST 15 U/L (15-37); SGPT/ALT 10 U/L (13-61); SODIUM 143 mmol/L (136-145); TOT PROT 4.5 g/dl (6.4-8.2)
[2018-10-07] MEDS: COLLAGENASE CLOSTRIDIUM HIST. 30 GRAMS TUBE TP SCH (09:53)
[2018-10-07] MEDS: BACITRACIN 15 GM TUBE TOPICAL OINTMENT TP SCH ×2 (09:53→21:11)
[2018-10-07] MEDS: AMINO ACIDS/PROTEIN HYDROLYS 30 ML LIQUID.PKT PO SCH ×2 (10:56→17:17)
--- NOTE | 2018-10-07 10:56 | DS ---
Physical Examination Vital Signs: Vital Signs Temperature 97.7 F 10/07/18 06:28 Pulse Rate 79 10/07/18 06:28 Respiratory Rate 20 10/07/18 06:28 Blood Pressure 138/73 10/07/18 06:28 O2 Sat by Pulse Oximetry (%) 100 10/06/18 21:00 Findings/Remarks: Patient is a 72 year old female with past medical history of HLD, Parkinson's, functional quadriplegia, Alzheimer's Dementia. Patient presented to ED with increased malaise and poor appetite for 1 week. FACILITY ENVIRONMENTAL TECHNICIAN at bedside and state that patient has been eating about 50% of her meals. She also noticed that her sacral and neck wound are looking worse. In ED CXR performed and show no acute pathology. EKG shows sinus rhythm with premature atrial complexes. CBC shows leukocytosis. Constitutional: Yes: No Distress, Calm, Cachectic Cardiovascular: Yes: Regular Rate and Rhythm Respiratory: Yes: Regular Gastrointestinal: Yes: Normal Bowel Sounds, Soft Musculoskeletal: Yes: Muscle Weakness Extremities: Yes: Other (generalized atrophy) Edema: No Peripheral Pulses WNL: Yes Neurological: Yes: Alert, Pre-Existing Deficit Psychiatric: Yes: Alert Labs: CBC, BMP 10/07/18 06:30 10/07/18 06:30 Discharge Summary Reason For Visit: FAILURE TO THRIVE Current Active Problems Failure to thrive (Acute) Pressure ulcer (Acute) Hospital Course: Laboratory Last Values WBC 12.7 K/mm3 (4.0-10.0) H 10/07/18 06:30 RBC 3.90 M/mm3 (3.60-5.2) 10/07/18 06:30 Hgb 10.4 GM/dL (10.7-15.3) L 10/07/18 06:30 Hct 30.6 % (32.4-45.2) L 10/07/18 06:30 MCV 78.6 fl (80-96) L 10/07/18 06:30 MCH 26.7 pg (25.7-33.7) 10/07/18 06:30 MCHC 34.0 g/dl (32.0-36.0) 10/07/18 06:30 RDW 16.7 % (11.6-15.6) H 10/07/18 06:30 Plt Count 535 K/MM3 (134-434) H 10/07/18 06:30 MPV 7.5 fl (7.5-11.1) 10/07/18 06:30 Absolute Neuts (auto) 10.5 K/mm3 (1.5-8.0) H 10/07/18 06:30 Neutrophils % 82.6 % (42.8-82.8) 10/07/18 06:30 Lymphocytes % 10.4 % (8-40) D 10/07/18 06:30 Monocytes % 4.6 % (3.8-10.2) 10/07/18 06:30 Eosinophils % 1.9 % (0-4.5) D 10/07/18 06:30 Basophils % 0.5 % (0-2.0) 10/07/18 06:30 Nucleated RBC % 0 % (0-0) 10/07/18 06:30 Retic Count 0.81 % (0.5-1.5) 10/01/18 07:00 Haptoglobin 342 mg/dL (34-200) H 10/01/18 10:40 PT with INR 13.50 SEC (9.7-13.0) H 10/01/18 07:00 INR 1.14 (0.83-1.09) H 10/01/18 07:00 PTT (Actin FS) 29.5 SECONDS (25.2-36.5) 10/01/18 07:00 Sodium 143 mmol/L (136-145) 10/07/18 06:30 Potassium 4.1 mmol/L (3.5-5.1) 10/07/18 06:30 Chloride 112 mmol/L (98-107) H 10/07/18 06:30 Carbon Dioxide 20 mmol/L (21-32) L 10/07/18 06:30 Anion Gap 10 MMOL/L (8-16) 10/07/18 06:30 BUN 15 mg/dL (7-18) 10/07/18 06:30 Creatinine 1.0 mg/dL (0.55-1.3) 10/07/18 06:30 Creat Clearance w eGFR 54.50 (>60) 10/07/18 06:30 Random Glucose 104 mg/dL (74-106) 10/07/18 06:30 Calcium 7.8 mg/dL (8.5-10.1) L 10/07/18 06:30 Magnesium 2.3 mg/dL (1.8-2.4) 09/28/18 12:42 Iron 19 ug/dL (27-139) L 10/01/18 07:00 TIBC 120 ug/dL (250-450) L 10/01/18 07:00 Iron Saturation 16 % (15-55) 10/01/18 07:00 Ferritin 236.1 ng/ml (8-388) 10/01/18 07:00 Total Bilirubin 0.3 mg/dL (0.2-1) 10/07/18 06:30 AST 15 U/L (15-37) 10/07/18 06:30 ALT 10 U/L (13-61) L 10/07/18 06:30 Alkaline Phosphatase 80 U/L (45-117) 10/07/18 06:30 LD Total 168 U/L (84-246) 10/01/18 07:00 Troponin I < 0.02 ng/ml (0.00-0.05) 09/28/18 12:36 Total Protein 4.5 g/dl (6.4-8.2) L 10/07/18 06:30 Albumin 1.4 g/dl (3.4-5.0) L 10/07/18 06:30 Vitamin B12 4252 pg/ml (193-986) H 10/01/18 07:00 Serum Folate 13 ng/mL (3.1-17.5) 10/01/18 07:00 TSH 2.82 uIU/ml (0.358-3.74) 10/01/18 07:00 Free T4 1.40 ng/dl (0.76-1.46) 10/01/18 07:00 Urine Color Johanna 09/28/18 12:42 Urine Appearance Slcloudy 09/28/18 12:42 Urine pH 5.0 (5.0-8.0) 09/28/18 12:42 Ur Specific [place] 1.026 (1.010-1.035) 09/28/18 12:42 Urine Protein 1+ (NEGATIVE) H 09/28/18 12:42 Urine Glucose (UA) Negative (NEGATIVE) 09/28/18 12:42 Urine Ketones 1+ (NEGATIVE) H 09/28/18 12:42 Urine Blood 1+ (NEGATIVE) H 09/28/18 12:42 Urine Nitrite Negative (NEGATIVE) 09/28/18 12:42 Urine Bilirubin Negative (<2.0 mg/dL) 09/28/18 12:42 Urine Urobilinogen Negative mg/dL (0.2-1.0) 09/28/18 12:42 Ur Leukocyte Esterase Negative (NEGATIVE) 09/28/18 12:42 Urine WBC (Auto) 5 /hpf (3-5) 09/28/18 12:42 Urine RBC (Auto) 76 /hpf (0-3) 09/28/18 12:42 Ur Epithelial Cells Few /HPF (FEW) 09/28/18 12:42 Urine Bacteria Rare /hpf (NONE SEEN) 09/28/18 12:42 Urine Mucus Rare 09/28/18 12:42 Stool Occult Blood Negative (NEGATIVE) 10/02/18 07:07 Blood Type O POSITIVE 10/01/18 12:04 Antibody Screen Negative 10/01/18 12:04 Crossmatch See Detail 10/01/18 12:04 Microbiology 10/02/18 07:09 Coccyx Gram Stain - Final 10/02/18 07:09 Coccyx Wound Culture - Final Staphylococcus Coagulase Neg Staphylococcus Coagulase Neg#2 09/28/18 12:42 Blood - Peripheral Venous Blood Culture - Final NO GROWTH AFTER 5 DAYS INCUBATION 09/28/18 12:30 Blood - Peripheral Venous Blood Culture - Final NO GROWTH AFTER 5 DAYS INCUBATION 09/28/18 12:42 Urine - Urine Clean Catch Urine Culture - Final Contaminated: Please Repeat Condition: Stable - Instructions Diet, Activity, Other Instructions: -Tube feeding Promote at 25 cc/hour from 6 PM-6AM along with pleasure feeds- dysphagia puree+ ensure tid during the day Referrals: Austin Bravo MD [Primary Care Provider] - Disposition: LONG TERM FACILITY - Home Medications Comprehensive Discharge Medication List: Ambulatory Orders Donepezil HCl [Aricept -] 10 mg PO DAILY 06/10/17 Escitalopram Oxalate [Lexapro -] 10 mg PO DAILY 12/15/17 Ascorbic Acid [Vitamin C] 250 mg PO BID #60 tablet 06/21/18 Collagenase Clostridium Hist. [Santyl -] 1 applic TP DAILY tube 06/21/18 Multivitamin [Daily Multiple Vitamin] 1 each PO DAILY #30 tablet 06/21/18 Pantoprazole Suspension [Protonix Packets For Oral Suspension -] 40 mg PO DAILY packet 06/21/18 Zinc Sulfate [Orazinc] 220 mg PO DAILY #30 capsule 06/21/18
--- NOTE | 2018-10-07 13:15 | PN ---
Progress Note, LACROSSE COACH - Note Progress Note: Selected Entries 10/05/18 10/05/18 10/06/18 12:40 19:00 06:00 Breakfast 75% Lunch 50% Supper 0 Temperature 98.3 F 10/06/18 10/06/18 10/06/18 10:00 12:29 14:35 Breakfast NPO Lunch NPO Supper Temperature 98.9 F 97.6 F 10/06/18 10/07/18 10/07/18 16:25 06:28 10:56 Breakfast NPO Lunch Supper Temperature 98.2 F 97.7 F PO ensure daytime being held by nursing, with PEG feedings nocturnally. Suggest: To continue pleasure feeding daytime- Mix puree with ensure, plus drink ensure for increased PO intake. Pt has been accepting Ensure PO TID, and 25% of puree before PEG placed. Nocturnal PEG feedings to supplement PO intake. Medication, additional hydration via PEG. RD f/u regarding balance of PO/PEG nutrition/hydration.
[2018-10-07] MEDS: DONEPEZIL HCL 10 MG TABLET (FP) PO SCH (21:11)
[2018-10-08 07:29] LABS: BASO % 0.4 % (0-2.0); EOS % 1.2 % (0-4.5); HEMATOCRIT 31.7 % (32.4-45.2); HEMOGLOBIN 10.6 GM/dL (10.7-15.3); MCH 26.5 pg (25.7-33.7); MCHC 33.3 g/dl (32.0-36.0); MEAN CELL VOLUME 79.7 fl (80-96); MEAN PLT VOLUME 7.4 fl (7.5-11.1); MONO % 4.7 % (3.8-10.2); NEUT % 82.7 % (42.8-82.8); PLATELET COUNT 543 K/MM3 (134-434); RBC 3.98 M/mm3 (3.60-5.2); RDW 17.2 % (11.6-15.6); WHITE BLOOD COUNT 12.2 K/mm3 (4.0-10.0)
[2018-10-08 08:03] LABS: ALBUMIN 1.5 g/dl (3.4-5.0); ALK PHOS 79 U/L (45-117); ANION GAP 9 MMOL/L (8-16); BILIRUBIN,TOTAL 0.3 mg/dL (0.2-1); BLOOD UREA NITROGEN 20 mg/dL (7-18); CALCIUM 7.9 mg/dL (8.5-10.1); CHLORIDE 109 mmol/L (98-107); CO2 24 mmol/L (21-32); GLUCOSE,RANDOM 97 mg/dL (74-106); POTASSIUM 3.9 mmol/L (3.5-5.1); SGOT/AST 10 U/L (15-37); SGPT/ALT 9 U/L (13-61); SODIUM 142 mmol/L (136-145); TOT PROT 4.7 g/dl (6.4-8.2)
[2018-10-08] MEDS: ESCITALOPRAM OXALATE 10 MG TABLET (FP) PO SCH (09:58)
[2018-10-08] MEDS: HEPARIN NA (PORCINE) 5,000 UNITS/ML 1ML VIAL SQ SCH ×2 (09:59→22:25)
[2018-10-08] MEDS: MULTIVITAMINS (DAILY MVI) TABLET (FP) PO SCH (09:59)
[2018-10-08] MEDS: ASCORBIC ACID 500 MG TABLET (FP) PO SCH ×2 (09:59→22:25)
[2018-10-08] MEDS: ZINC SULFATE 220 MG CAPSULE (FP) PO SCH ×2 (09:59→22:24)
[2018-10-08] MEDS: AMINO ACIDS/PROTEIN HYDROLYS 30 ML LIQUID.PKT PO SCH ×2 (09:59→17:13)
[2018-10-08] MEDS: PANTOPRAZOLE 40 MG TABLET (FP) PO SCH (09:59)
[2018-10-08] MEDS: COLLAGENASE CLOSTRIDIUM HIST. 30 GRAMS TUBE TP SCH (10:00)
[2018-10-08] MEDS: BACITRACIN 15 GM TUBE TOPICAL OINTMENT TP SCH ×2 (10:00→22:25)
--- NOTE | 2018-10-08 10:33 | PN ---
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 No complaints reported. Awaiting dc home once insurance approves services - Current Medication List Current Medications: Active Medications Amino Acids (Prosource No Carb Liquid Pkt) 30 ml PO BID@0800,1730 [facility] Last Admin: 10/08/18 09:59 Dose: 30 ml Ascorbic Acid (Vitamin C -) 500 mg PO BID [facility] Last Admin: 10/08/18 09:59 Dose: 500 mg Bacitracin (Bacitracin -) 1 applic TP BID [facility] Last Admin: 10/08/18 10:00 Dose: 1 applic Collagenase (Santyl -) 1 applic TP DAILY [facility]; Protocol Last Admin: 10/08/18 10:00 Dose: 1 applic Donepezil HCl (Aricept -) 10 mg PO HS [facility] Last Admin: 10/07/18 21:11 Dose: 10 mg Escitalopram Oxalate (Lexapro -) 10 mg PO DAILY [facility] Last Admin: 10/08/18 09:58 Dose: 10 mg Heparin Sodium (Porcine) (Heparin -) 5,000 unit SQ BID [facility] Last Admin: 10/08/18 09:59 Dose: 5,000 unit Multivitamins/Minerals/Vitamin C (Tab-A-Vit -) 1 tab PO DAILY [facility] Last Admin: 10/08/18 09:59 Dose: 1 tab Pantoprazole Sodium (Protonix -) 40 mg PO DAILY [facility] Last Admin: 10/08/18 09:59 Dose: 40 mg Zinc Sulfate (Orazinc -) 220 mg PO BID [facility] Last Admin: 10/08/18 09:59 Dose: 220 mg - Objective Vital Signs: Vital Signs Temperature 98 F 10/08/18 06:00 Pulse Rate 88 10/08/18 06:00 Respiratory Rate 18 10/08/18 06:00 Blood Pressure 131/68 10/08/18 06:00 O2 Sat by Pulse Oximetry (%) 95 10/07/18 21:00 Constitutional: Yes: No Distress, Calm, Cachectic Cardiovascular: Yes: Regular Rate and Rhythm Respiratory: Yes: Regular Gastrointestinal: Yes: Normal Bowel Sounds, Soft Musculoskeletal: Yes: Muscle Weakness Extremities: Yes: Other (generalized atrophy) Edema: No Peripheral Pulses WNL: Yes Wound/Incision: Yes: Dressing Dry and Intact Neurological: Yes: Alert, Pre-Existing Deficit Psychiatric: Yes: Alert Labs: CBC, BMP 10/08/18 06:30 10/08/18 06:30 INR, PTT INR 1.14 (0.83-1.09) H 10/01/18 07:00 Problem List - Problems (1) Failure to thrive Assessment/Plan: 2/2 to dementia -Seen by GI -tube feeding via PEG overnight with PO pleasure feeds -Speech therapy on board Code(s): [id number] - Qualifiers: Failure to thrive age range: in adult Qualified Code(s): R62.7 - Adult failure to thrive (2) Pressure ulcer Assessment/Plan: -2/2 to poor nutritional status -T&P Q2H -Seen by vascular surgery, no surgical debridement recommended -Wound care consult with Dr Jaden Gaspar on all the wounds -Neck WC done in 05/2018-multiple organisms -WC-coccyx ordered -On Multivitamin+Vit C+ Zinc -Added prosource BID Code(s): L89.90 - PRESSURE ULCER OF UNSPECIFIED SITE, UNSPECIFIED STAGE Qualifiers: Pressure injury location: sacral region Pressure injury stage: stage 4 Qualified Code(s): L89.154 - Pressure ulcer of sacral region, stage 4 (3) Acute metabolic encephalopathy Code(s): G93.41 - METABOLIC ENCEPHALOPATHY (4) Dementia Assessment/Plan: -On Aricept Qualifiers: (5) Functional quadriplegia Code(s): R53.2 - FUNCTIONAL QUADRIPLEGIA (6) Malnutrition Assessment/Plan: -2/2 to po intake -GI consult -PEG tube feeding + Pleasure feeds Code(s): E46 - UNSPECIFIED PROTEIN-CALORIE MALNUTRITION Qualifiers: Malnutrition type: protein-calorie malnutrition Protein-calorie malnutrition severity: severe Qualified Code(s): E43 - Unspecified severe protein-calorie malnutrition (7) Anemia Assessment/Plan: -B12, Thyroid profile, folate-unremerkable -iron profile and stool OB normal -H/H stable -hematology on board -monitor trend Code(s): D64.9 - ANEMIA, UNSPECIFIED (8) Hypokalemia Assessment/Plan: -resolved Code(s): E87.6 - HYPOKALEMIA Assessment/Plan see problem list Son Federico to learn tube feeds and wound care
--- NOTE | 2018-10-08 14:42 | PN ---
Progress Note, NATIONAL BUSINESS DIRECTOR - Note Progress Note: Selected Entries 10/07/18 10/07/18 10/07/18 06:28 16:20 18:30 Breakfast Supper 25% Temperature 97.7 F 98.3 F 10/07/18 10/08/18 10/08/18 22:00 06:00 12:28 Breakfast 25% Supper Temperature 98.8 F 98 F 10/08/18 14:33 Breakfast Supper Temperature 98.6 F Laboratory Tests 10/07/18 10/08/18 06:30 06:30 WBC 12.7 H 12.2 H Tolerated PO diet, with nocturanal PEG feedings.
[2018-10-08] MEDS: DONEPEZIL HCL 10 MG TABLET (FP) PO SCH (22:25)
[2018-10-09 07:20] LABS: HEMATOCRIT 31.3 % (32.4-45.2); HEMOGLOBIN 10.4 GM/dL (10.7-15.3); MCH 26.3 pg (25.7-33.7); MCHC 33.2 g/dl (32.0-36.0); MEAN PLT VOLUME 7.6 fl (7.5-11.1); NEUT % 82.1 % (42.8-82.8); PLATELET COUNT 575 K/MM3 (134-434); RBC 3.96 M/mm3 (3.60-5.2); RDW 17.1 % (11.6-15.6); WHITE BLOOD COUNT 11.7 K/mm3 (4.0-10.0)
[2018-10-09 07:21] LABS: BASO % 0.5 % (0-2.0); EOS % 2.3 % (0-4.5); LYMPH % 10.5 % (8-40); MONO % 4.6 % (3.8-10.2)
[2018-10-09 07:35] LABS: ALBUMIN 1.5 g/dl (3.4-5.0); ALK PHOS 82 U/L (45-117); ANION GAP 9 MMOL/L (8-16); BILIRUBIN,TOTAL 0.2 mg/dL (0.2-1); BLOOD UREA NITROGEN 27 mg/dL (7-18); CALCIUM 7.9 mg/dL (8.5-10.1); CHLORIDE 106 mmol/L (98-107); CO2 25 mmol/L (21-32); CREATININE 0.8 mg/dL (0.55-1.3); GLUCOSE,RANDOM 119 mg/dL (74-106); POTASSIUM 3.6 mmol/L (3.5-5.1); SGOT/AST 18 U/L (15-37); SGPT/ALT 11 U/L (13-61); SODIUM 140 mmol/L (136-145); TOT PROT 4.9 g/dl (6.4-8.2)
[2018-10-09] MEDS: AMINO ACIDS/PROTEIN HYDROLYS 30 ML LIQUID.PKT PO SCH ×2 (08:28→17:31)
--- NOTE | 2018-10-09 08:57 | PN ---
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 No complaints reported. Awaiting dc to SNF now, Son Federico changed his mind - Current Medication List Current Medications: Active Medications Amino Acids (Prosource No Carb Liquid Pkt) 30 ml PO BID@0800,1730 [facility] Last Admin: 10/09/18 08:28 Dose: 30 ml Ascorbic Acid (Vitamin C -) 500 mg PO BID [facility] Last Admin: 10/08/18 22:25 Dose: 500 mg Bacitracin (Bacitracin -) 1 applic TP BID [facility] Last Admin: 10/08/18 22:25 Dose: 1 applic Collagenase (Santyl -) 1 applic TP DAILY [facility]; Protocol Last Admin: 10/08/18 10:00 Dose: 1 applic Donepezil HCl (Aricept -) 10 mg PO HS [facility] Last Admin: 10/08/18 22:25 Dose: 10 mg Escitalopram Oxalate (Lexapro -) 10 mg PO DAILY [facility] Last Admin: 10/08/18 09:58 Dose: 10 mg Heparin Sodium (Porcine) (Heparin -) 5,000 unit SQ BID [facility] Last Admin: 10/08/18 22:25 Dose: 5,000 unit Multivitamins/Minerals/Vitamin C (Tab-A-Vit -) 1 tab PO DAILY [facility] Last Admin: 10/08/18 09:59 Dose: 1 tab Pantoprazole Sodium (Protonix -) 40 mg PO DAILY [facility] Last Admin: 10/08/18 09:59 Dose: 40 mg Zinc Sulfate (Orazinc -) 220 mg PO BID [facility] Last Admin: 10/08/18 22:24 Dose: 220 mg - Objective Vital Signs: Vital Signs Temperature 98.2 F 10/09/18 07:08 Pulse Rate 92 H 10/09/18 07:08 Respiratory Rate 20 10/09/18 07:08 Blood Pressure 122/64 10/09/18 07:08 O2 Sat by Pulse Oximetry (%) 96 10/08/18 21:00 Constitutional: Yes: No Distress, Calm, Cachectic Cardiovascular: Yes: Regular Rate and Rhythm Respiratory: Yes: Regular Gastrointestinal: Yes: Normal Bowel Sounds, Soft Musculoskeletal: Yes: Muscle Weakness Extremities: Yes: Other (generalized atrophy) Edema: No Peripheral Pulses WNL: Yes Wound/Incision: Yes: Dressing Dry and Intact Neurological: Yes: Alert, Pre-Existing Deficit Psychiatric: Yes: Alert Labs: CBC, BMP 10/09/18 06:30 10/09/18 06:30 INR, PTT INR 1.14 (0.83-1.09) H 10/01/18 07:00 Problem List - Problems (1) Failure to thrive Assessment/Plan: 2/2 to dementia -Seen by GI -tube feeding via PEG overnight with PO pleasure feeds -Speech therapy on board Code(s): [id number] - Qualifiers: Failure to thrive age range: in adult Qualified Code(s): R62.7 - Adult failure to thrive (2) Pressure ulcer Assessment/Plan: -2/2 to poor nutritional status -T&P Q2H -Seen by vascular surgery, no surgical debridement recommended -Wound care consult with Dr Jaden Gaspar on all the wounds -Neck WC done in 05/2018-multiple organisms -WC-coccyx ordered -On Multivitamin+Vit C+ Zinc -Added prosource BID Code(s): L89.90 - PRESSURE ULCER OF UNSPECIFIED SITE, UNSPECIFIED STAGE Qualifiers: Pressure injury location: sacral region Pressure injury stage: stage 4 Qualified Code(s): L89.154 - Pressure ulcer of sacral region, stage 4 (3) Acute metabolic encephalopathy Code(s): G93.41 - METABOLIC ENCEPHALOPATHY (4) Dementia Assessment/Plan: -On Aricept Qualifiers: (5) Functional quadriplegia Code(s): R53.2 - FUNCTIONAL QUADRIPLEGIA (6) Malnutrition Assessment/Plan: -2/2 to po intake -GI consult -PEG tube feeding + Pleasure feeds Code(s): E46 - UNSPECIFIED PROTEIN-CALORIE MALNUTRITION Qualifiers: Malnutrition type: protein-calorie malnutrition Protein-calorie malnutrition severity: severe Qualified Code(s): E43 - Unspecified severe protein-calorie malnutrition (7) Anemia Assessment/Plan: -B12, Thyroid profile, folate-unremerkable -iron profile and stool OB normal -H/H stable -hematology on board -monitor trend Code(s): D64.9 - ANEMIA, UNSPECIFIED (8) Hypokalemia Assessment/Plan: -resolved Code(s): E87.6 - HYPOKALEMIA Assessment/Plan see problem list Son Federico to learn tube feeds and wound care
[2018-10-09] MEDS: HEPARIN NA (PORCINE) 5,000 UNITS/ML 1ML VIAL SQ SCH ×2 (09:57→22:11)
[2018-10-09] MEDS: PANTOPRAZOLE 40 MG TABLET (FP) PO SCH (09:57)
[2018-10-09] MEDS: ZINC SULFATE 220 MG CAPSULE (FP) PO SCH ×2 (09:57→22:11)
[2018-10-09] MEDS: BACITRACIN 15 GM TUBE TOPICAL OINTMENT TP SCH ×2 (09:57→22:11)
[2018-10-09] MEDS: ESCITALOPRAM OXALATE 10 MG TABLET (FP) PO SCH (09:57)
[2018-10-09] MEDS: MULTIVITAMINS (DAILY MVI) TABLET (FP) PO SCH (09:57)
[2018-10-09] MEDS: ASCORBIC ACID 500 MG TABLET (FP) PO SCH ×2 (09:57→22:11)
[2018-10-09] MEDS: COLLAGENASE CLOSTRIDIUM HIST. 30 GRAMS TUBE TP SCH (09:58)
[2018-10-09] MEDS ORDERED: PT OWN MED DRAWER 7, Y5N ONE (21:36)
[2018-10-09] MEDS: DONEPEZIL HCL 10 MG TABLET (FP) PO SCH (22:12)
--- NOTE | 2018-10-10 08:48 | PN ---
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 No complaints reported. Awaiting dc to SNF now, Son Federico changed his mind - Current Medication List Current Medications: Active Medications Amino Acids (Prosource No Carb Liquid Pkt) 30 ml PO BID@0800,1730 [facility] Last Admin: 10/09/18 17:31 Dose: 30 ml Ascorbic Acid (Vitamin C -) 500 mg PO BID [facility] Last Admin: 10/09/18 22:11 Dose: 500 mg Bacitracin (Bacitracin -) 1 applic TP BID [facility] Last Admin: 10/09/18 22:11 Dose: 1 applic Collagenase (Santyl -) 1 applic TP DAILY [facility]; Protocol Last Admin: 10/09/18 09:58 Dose: 1 applic Donepezil HCl (Aricept -) 10 mg PO HS [facility] Last Admin: 10/09/18 22:12 Dose: 10 mg Escitalopram Oxalate (Lexapro -) 10 mg PO DAILY [facility] Last Admin: 10/09/18 09:57 Dose: 10 mg Heparin Sodium (Porcine) (Heparin -) 5,000 unit SQ BID [facility] Last Admin: 10/09/18 22:11 Dose: 5,000 unit Multivitamins/Minerals/Vitamin C (Tab-A-Vit -) 1 tab PO DAILY [facility] Last Admin: 10/09/18 09:57 Dose: 1 tab Pantoprazole Sodium (Protonix -) 40 mg PO DAILY [facility] Last Admin: 10/09/18 09:57 Dose: 40 mg Zinc Sulfate (Orazinc -) 220 mg PO BID [facility] Last Admin: 10/09/18 22:11 Dose: 220 mg - Objective Vital Signs: Vital Signs Temperature 97.9 F 10/10/18 06:00 Pulse Rate 80 10/10/18 06:00 Respiratory Rate 18 10/10/18 06:00 Blood Pressure 127/70 10/10/18 06:00 O2 Sat by Pulse Oximetry (%) 96 10/09/18 20:40 Constitutional: Yes: No Distress, Calm, Cachectic Cardiovascular: Yes: Regular Rate and Rhythm Respiratory: Yes: Regular Gastrointestinal: Yes: Normal Bowel Sounds, Soft Musculoskeletal: Yes: Muscle Weakness Extremities: Yes: Other (generalized atrophy) Edema: No Peripheral Pulses WNL: Yes Wound/Incision: Yes: Dressing Dry and Intact Neurological: Yes: Alert, Pre-Existing Deficit Psychiatric: Yes: Alert Labs: CBC, BMP 10/09/18 06:30 10/09/18 06:30 INR, PTT INR 1.14 (0.83-1.09) H 10/01/18 07:00 Problem List - Problems (1) Failure to thrive Assessment/Plan: 2/2 to dementia -Seen by GI -tube feeding via PEG overnight with PO pleasure feeds -Speech therapy on board Code(s): [id number] - Qualifiers: Failure to thrive age range: in adult Qualified Code(s): R62.7 - Adult failure to thrive (2) Pressure ulcer Assessment/Plan: -2/2 to poor nutritional status -T&P Q2H -Seen by vascular surgery, no surgical debridement recommended -Wound care consult with Dr Jaden Gaspar on all the wounds -Neck WC done in 05/2018-multiple organisms -WC-coccyx ordered -On Multivitamin+Vit C+ Zinc -Added prosource BID Code(s): L89.90 - PRESSURE ULCER OF UNSPECIFIED SITE, UNSPECIFIED STAGE Qualifiers: Pressure injury location: sacral region Pressure injury stage: stage 4 Qualified Code(s): L89.154 - Pressure ulcer of sacral region, stage 4 (3) Acute metabolic encephalopathy Code(s): G93.41 - METABOLIC ENCEPHALOPATHY (4) Dementia Assessment/Plan: -On Aricept Qualifiers: (5) Functional quadriplegia Code(s): R53.2 - FUNCTIONAL QUADRIPLEGIA (6) Malnutrition Assessment/Plan: -2/2 to po intake -GI consult -PEG tube feeding + Pleasure feeds Code(s): E46 - UNSPECIFIED PROTEIN-CALORIE MALNUTRITION Qualifiers: Malnutrition type: protein-calorie malnutrition Protein-calorie malnutrition severity: severe Qualified Code(s): E43 - Unspecified severe protein-calorie malnutrition (7) Anemia Assessment/Plan: -B12, Thyroid profile, folate-unremerkable -iron profile and stool OB normal -H/H stable -hematology on board -monitor trend Code(s): D64.9 - ANEMIA, UNSPECIFIED (8) Hypokalemia Assessment/Plan: -resolved Code(s): E87.6 - HYPOKALEMIA Assessment/Plan see problem list Son Federico to learn tube feeds and wound care
[2018-10-10] MEDS: PANTOPRAZOLE 40 MG TABLET (FP) PO SCH (12:22)
[2018-10-10] MEDS: ASCORBIC ACID 500 MG TABLET (FP) PO SCH ×3 (12:22→21:05)
[2018-10-10] MEDS: AMINO ACIDS/PROTEIN HYDROLYS 30 ML LIQUID.PKT PO SCH ×2 (12:23→17:02)
[2018-10-10] MEDS: ZINC SULFATE 220 MG CAPSULE (FP) PO SCH ×3 (12:23→21:05)
[2018-10-10] MEDS: ESCITALOPRAM OXALATE 10 MG TABLET (FP) PO SCH (12:23)
[2018-10-10] MEDS: MULTIVITAMINS (DAILY MVI) TABLET (FP) PO SCH (12:23)
[2018-10-10] MEDS: COLLAGENASE CLOSTRIDIUM HIST. 30 GRAMS TUBE TP SCH (12:23)
[2018-10-10] MEDS: HEPARIN NA (PORCINE) 5,000 UNITS/ML 1ML VIAL SQ SCH ×3 (12:24→21:05)
[2018-10-10] MEDS: BACITRACIN 15 GM TUBE TOPICAL OINTMENT TP SCH ×2 (12:24→20:59)
[2018-10-10] MEDS: DONEPEZIL HCL 10 MG TABLET (FP) PO SCH (20:59)
[2018-10-11] MEDS ORDERED: DONEPEZIL HCL 10 MG TABLET (FP) GT SCH (08:14)
--- NOTE | 2018-10-11 08:17 | DS ---
Physical Examination Vital Signs: Vital Signs Temperature 98.5 F 10/11/18 06:00 Pulse Rate 76 10/11/18 06:00 Respiratory Rate 18 10/11/18 06:00 Blood Pressure 125/59 L 10/11/18 06:00 O2 Sat by Pulse Oximetry (%) 98 10/10/18 20:44 Labs: CBC, BMP 10/09/18 06:30 10/09/18 06:30 Discharge Summary Reason For Visit: FAILURE TO THRIVE Current Active Problems Failure to thrive (Acute) Pressure ulcer (Acute) Condition: Stable - Instructions Diet, Activity, Other Instructions: -Tube feeding Promote at 25 cc/hour from 6 PM-6AM along with pleasure feeds- dysphagia puree+ ensure tid during the day Referrals: Austin Bravo MD [Primary Care Provider] - Disposition: NURSING HOME FACILITY - Home Medications Comprehensive Discharge Medication List: Ambulatory Orders Donepezil HCl [Aricept -] 10 mg PO DAILY 06/10/17 Escitalopram Oxalate [Lexapro -] 10 mg PO DAILY 12/15/17 Ascorbic Acid [Vitamin C] 250 mg PO BID #60 tablet 06/21/18 Collagenase Clostridium Hist. [Santyl -] 1 applic TP DAILY tube 06/21/18 Multivitamin [Daily Multiple Vitamin] 1 each PO DAILY #30 tablet 06/21/18 Pantoprazole Suspension [Protonix Packets For Oral Suspension -] 40 mg PO DAILY packet 06/21/18 Zinc Sulfate [Orazinc] 220 mg PO DAILY #30 capsule 06/21/18 Amino Acids/Protein Hydrolys [Prosource No Carb Liquid Pkt] 30 ml GT BID@0800, 1730 packet 10/07/18 Ascorbic Acid [Vitamin C -] 500 mg GT BID tablet 10/07/18 Bacitracin - [Bacitracin Topical Ointment -] 1 applic TP BID tube 10/07/18 Collagenase Clostridium Hist. [Santyl -] 1 applic TP DAILY tube 10/07/18 Donepezil HCl [Aricept -] 10 mg GT HS tablet 10/07/18 Escitalopram Oxalate [Lexapro -] 10 mg GT DAILY tablet 10/07/18 Heparin - 5,000 unit SQ BID vial 10/07/18 Multivitamins [Multivit ([facility] Formulary)] 1 tab GT DAILY tab 10/07/18 Pantoprazole Sodium [Protonix -] 40 mg GT DAILY tablet.ec 10/07/18 Zinc Sulfate [Orazinc -] 220 mg GT BID capsule 10/07/18 Amino Acids/Protein Hydrolys [Prosource No Carb Liquid Pkt] 30 ml GT BID@0800, 1730 packet 10/11/18 Donepezil HCl [Aricept -] 10 mg GT HS tablet 10/11/18 Escitalopram Oxalate [Lexapro -] 10 mg GT DAILY tablet 10/11/18 Pantoprazole Suspension [Protonix Packets For Oral Suspension -] 40 mg PEG DAILY packet 10/11/18 Zinc Sulfate [Orazinc -] 220 mg GT BID capsule 10/11/18
[2018-10-11] MEDS: AMINO ACIDS/PROTEIN HYDROLYS 30 ML LIQUID.PKT PO SCH (08:47)
[2018-10-11] MEDS ORDERED: PT OWN MED DRAWER 7, Y5N ONE (09:05)
[2018-10-11] MEDS: HEPARIN NA (PORCINE) 5,000 UNITS/ML 1ML VIAL SQ SCH ×2 (09:06→23:06)
[2018-10-11] MEDS: ZINC SULFATE 220 MG CAPSULE (FP) GT SCH ×2 (09:06→23:07)
[2018-10-11] MEDS: RANITIDINE HCL 150 MG/10 ML UNIT-DOSE PEG SCH ×2 (09:06→23:06)
[2018-10-11] MEDS: MULTIVIT-MINERALS ORAL LIQUID GT SCH (09:50)
[2018-10-11] MEDS: ESCITALOPRAM OXALATE 5 MG/5 ML GT SCH (09:50)
[2018-10-11] MEDS: ASCORBIC ACID 500 MG/5 ML UNIT DOSE CUP GT SCH ×2 (09:51→23:07)
[2018-10-11] MEDS: COLLAGENASE CLOSTRIDIUM HIST. 30 GRAMS TUBE TP SCH (10:28)
[2018-10-11] MEDS: BACITRACIN 15 GM TUBE TOPICAL OINTMENT TP SCH ×2 (10:28→23:07)
--- NOTE | 2018-10-11 12:11 | DS ---
Physical Examination Vital Signs: Vital Signs Temperature 98.5 F 10/11/18 06:00 Pulse Rate 76 10/11/18 06:00 Respiratory Rate 18 10/11/18 06:00 Blood Pressure 125/59 L 10/11/18 06:00 O2 Sat by Pulse Oximetry (%) 98 10/10/18 20:44 Findings/Remarks: Patient is a 72 y/o female with past medical history of Dementia, functional quadriplegia, HLD, Parkinson's disease that was admitted for failure to thrive. Patient has FRENCH FOLDER that attends to her. On admission FRENCH FOLDER states that patients wound are getting worse and she has been more lethargic with decreased PO intake. PEG tube was placed on 10/04/18 and patient has been tolerating feeds. Constitutional: Yes: No Distress, Calm, Cachectic Eyes: Yes: Conjunctiva Clear Neck: Yes: Supple Cardiovascular: Yes: Regular Rate and Rhythm Respiratory: Yes: Regular, CTA Bilaterally Gastrointestinal: Yes: Normal Bowel Sounds, Soft Renal/: Yes: Incontinence Musculoskeletal: Yes: Joint Stiffness, Muscle Weakness Wound/Incision: Yes: Dressing Dry and Intact Neurological: Yes: Pre-Existing Deficit Psychiatric: Yes: Alert Labs: CBC, BMP 10/09/18 06:30 10/09/18 06:30 <Sharmin Quiroga - Last Filed: 10/11/18 12:03> Vital Signs: Vital Signs Temperature 98.4 F 10/11/18 15:30 Pulse Rate 84 10/11/18 15:30 Respiratory Rate 18 10/11/18 15:30 Blood Pressure 113/59 L 10/11/18 15:30 O2 Sat by Pulse Oximetry (%) 99 10/11/18 09:00 Labs: CBC, BMP 10/11/18 12:12 10/11/18 12:12 <Austin Bravo - Last Filed: 10/11/18 20:54> Discharge Summary Reason For Visit: FAILURE TO THRIVE Current Active Problems Failure to thrive (Acute) Pressure ulcer (Acute) Procedures: Principal: PEG tube insertion Other Procedures: CXR. EKG - Home Medications Comprehensive Discharge Medication List: Ambulatory Orders Donepezil HCl [Aricept -] 10 mg PO DAILY 06/10/17 Escitalopram Oxalate [Lexapro -] 10 mg PO DAILY 12/15/17 Ascorbic Acid [Vitamin C] 250 mg PO BID #60 tablet 06/21/18 Collagenase Clostridium Hist. [Santyl -] 1 applic TP DAILY tube 06/21/18 Multivitamin [Daily Multiple Vitamin] 1 each PO DAILY #30 tablet 06/21/18 Pantoprazole Suspension [Protonix Packets For Oral Suspension -] 40 mg PO DAILY packet 06/21/18 Zinc Sulfate [Orazinc] 220 mg PO DAILY #30 capsule 06/21/18 Amino Acids/Protein Hydrolys [Prosource No Carb Liquid Pkt] 30 ml GT BID@0800, 1730 packet 10/07/18 Ascorbic Acid [Vitamin C -] 500 mg GT BID tablet 10/07/18 Bacitracin - [Bacitracin Topical Ointment -] 1 applic TP BID tube 10/07/18 Collagenase Clostridium Hist. [Santyl -] 1 applic TP DAILY tube 10/07/18 Donepezil HCl [Aricept -] 10 mg GT HS tablet 10/07/18 Escitalopram Oxalate [Lexapro -] 10 mg GT DAILY tablet 10/07/18 Heparin - 5,000 unit SQ BID vial 10/07/18 Multivitamins [Multivit ([facility] Formulary)] 1 tab GT DAILY tab 10/07/18 Pantoprazole Sodium [Protonix -] 40 mg GT DAILY tablet.ec 10/07/18 Zinc Sulfate [Orazinc -] 220 mg GT BID capsule 10/07/18 Amino Acids/Protein Hydrolys [Prosource No Carb Liquid Pkt] 30 ml GT BID@0800, 1730 packet 10/11/18 Donepezil HCl [Aricept -] 10 mg GT HS tablet 10/11/18 Escitalopram Oxalate [Lexapro -] 10 mg GT DAILY tablet 10/11/18 Pantoprazole Suspension [Protonix Packets For Oral Suspension -] 40 mg PEG DAILY packet 10/11/18 Zinc Sulfate [Orazinc -] 220 mg GT BID capsule 10/11/18 <Sharmin Quiroga - Last Filed: 10/11/18 12:03> Current Active Problems Failure to thrive (Acute) Pressure ulcer (Acute) - Home Medications Comprehensive Discharge Medication List: Ambulatory Orders Donepezil HCl [Aricept -] 10 mg PO DAILY 06/10/17 Escitalopram Oxalate [Lexapro -] 10 mg PO DAILY 12/15/17 Ascorbic Acid [Vitamin C] 250 mg PO BID #60 tablet 06/21/18 Collagenase Clostridium Hist. [Santyl -] 1 applic TP DAILY tube 06/21/18 Multivitamin [Daily Multiple Vitamin] 1 each PO DAILY #30 tablet 06/21/18 Pantoprazole Suspension [Protonix Packets For Oral Suspension -] 40 mg PO DAILY packet 06/21/18 Zinc Sulfate [Orazinc] 220 mg PO DAILY #30 capsule 06/21/18 Amino Acids/Protein Hydrolys [Prosource No Carb Liquid Pkt] 30 ml GT BID@0800, 1730 packet 10/07/18 Ascorbic Acid [Vitamin C -] 500 mg GT BID tablet 10/07/18 Bacitracin - [Bacitracin Topical Ointment -] 1 applic TP BID tube 10/07/18 Collagenase Clostridium Hist. [Santyl -] 1 applic TP DAILY tube 10/07/18 Donepezil HCl [Aricept -] 10 mg GT HS tablet 10/07/18 Escitalopram Oxalate [Lexapro -] 10 mg GT DAILY tablet 10/07/18 Heparin - 5,000 unit SQ BID vial 10/07/18 Multivitamins [Multivit ([facility] Formulary)] 1 tab GT DAILY tab 10/07/18 Pantoprazole Sodium [Protonix -] 40 mg GT DAILY tablet.ec 10/07/18 Zinc Sulfate [Orazinc -] 220 mg GT BID capsule 10/07/18 Amino Acids/Protein Hydrolys [Prosource No Carb Liquid Pkt] 30 ml GT BID@0800, 1730 packet 10/11/18 Donepezil HCl [Aricept -] 10 mg GT HS tablet 10/11/18 Escitalopram Oxalate [Lexapro -] 10 mg GT DAILY tablet 10/11/18 Pantoprazole Suspension [Protonix Packets For Oral Suspension -] 40 mg PEG DAILY packet 10/11/18 Zinc Sulfate [Orazinc -] 220 mg GT BID capsule 10/11/18 <Austin Bravo - Last Filed: 10/11/18 20:54> Condition: Stable - Instructions Diet, Activity, Other Instructions: -Tube feeding Promote at 25 cc/hour from 6 PM-6AM along with pleasure feeds- dysphagia puree+ ensure tid during the day Referrals: Austin Bravo MD [Primary Care Provider] - Disposition: INTERMEDIATE FACILITY
[2018-10-11 12:43] LABS: HEMATOCRIT 31.6 % (32.4-45.2); HEMOGLOBIN 10.5 GM/dL (10.7-15.3); MCH 26.6 pg (25.7-33.7); MCHC 33.4 g/dl (32.0-36.0); MEAN CELL VOLUME 79.7 fl (80-96); MEAN PLT VOLUME 7.8 fl (7.5-11.1); PLATELET COUNT 597 K/MM3 (134-434); RBC 3.96 M/mm3 (3.60-5.2); RDW 17.3 % (11.6-15.6)
[2018-10-11 13:52] LABS: ALBUMIN 1.7 g/dl (3.4-5.0); ALK PHOS 89 U/L (45-117); ANION GAP 10 MMOL/L (8-16); BILIRUBIN,TOTAL 0.2 mg/dL (0.2-1); BLOOD UREA NITROGEN 28 mg/dL (7-18); CHLORIDE 103 mmol/L (98-107); CO2 28 mmol/L (21-32); CREATININE 0.9 mg/dL (0.55-1.3); GLUCOSE,RANDOM 125 mg/dL (74-106); POTASSIUM 3.3 mmol/L (3.5-5.1); SGOT/AST 19 U/L (15-37); SGPT/ALT 12 U/L (13-61); SODIUM 140 mmol/L (136-145); TOT PROT 5.3 g/dl (6.4-8.2)
[2018-10-11] MEDS ORDERED: POTASSIUM CHLORIDE ORAL LIQUID 20 MEQ/15 ML PEG ONE (15:45)
[2018-10-11] MEDS: AMINO ACIDS/PROTEIN HYDROLYS 30 ML LIQUID.PKT GT SCH (17:45)
[2018-10-12] MEDS ORDERED: PT OWN MED DRAWER 7, Y5N ONE ×3 (07:00→09:11)
[2018-10-12] MEDS: HEPARIN NA (PORCINE) 5,000 UNITS/ML 1ML VIAL SQ SCH (09:28)
[2018-10-12] MEDS: RANITIDINE HCL 150 MG/10 ML UNIT-DOSE PEG SCH (09:28)
[2018-10-12] MEDS: AMINO ACIDS/PROTEIN HYDROLYS 30 ML LIQUID.PKT GT SCH ×2 (09:29→16:36)
[2018-10-12] MEDS: ZINC SULFATE 220 MG CAPSULE (FP) GT SCH (09:29)
[2018-10-12] MEDS: ASCORBIC ACID 500 MG/5 ML UNIT DOSE CUP GT SCH (09:29)
[2018-10-12] MEDS: ESCITALOPRAM OXALATE 5 MG/5 ML GT SCH (09:30)
[2018-10-12] MEDS: MULTIVIT-MINERALS ORAL LIQUID GT SCH (09:31)
[2018-10-12] MEDS: COLLAGENASE CLOSTRIDIUM HIST. 30 GRAMS TUBE TP SCH (09:32)
[2018-10-12] MEDS: BACITRACIN 15 GM TUBE TOPICAL OINTMENT TP SCH (09:33)
[2018-10-12] MEDS ORDERED: POTASSIUM CHLORIDE ORAL LIQUID 20 MEQ/15 ML PO ONE (15:03)
--- NOTE | 2018-10-12 15:45 | DS ---
Physical Examination Vital Signs: Vital Signs Temperature 98.7 F 10/12/18 15:10 Pulse Rate 90 10/12/18 15:17 Respiratory Rate 14 10/12/18 15:10 Blood Pressure 113/55 L 10/12/18 15:17 O2 Sat by Pulse Oximetry (%) 99 10/11/18 21:00 PATIENT TO GO HOME Findings/Remarks: PATIENT TO GO HOME Constitutional: Yes: Other Gastrointestinal: Yes: Other (GTUBE) Labs: CBC, BMP 10/11/18 12:12 10/11/18 12:12 Discharge Summary Reason For Visit: FAILURE TO THRIVE Current Active Problems Failure to thrive (Acute) Pressure ulcer (Acute) Condition: Stable - Instructions Diet, Activity, Other Instructions: -Tube feeding Promote at 25 cc/hour from 6 PM-6AM along with pleasure feeds- dysphagia puree+ ensure tid during the day Referrals: Austin Bravo MD [Primary Care Provider] - Disposition: [facility]/HOME HEALTH CARE - Home Medications Comprehensive Discharge Medication List: Ambulatory Orders Donepezil HCl [Aricept -] 10 mg PO DAILY 06/10/17 Escitalopram Oxalate [Lexapro -] 10 mg PO DAILY 12/15/17 Ascorbic Acid [Vitamin C] 250 mg PO BID #60 tablet 06/21/18 Collagenase Clostridium Hist. [Santyl -] 1 applic TP DAILY tube 06/21/18 Multivitamin [Daily Multiple Vitamin] 1 each PO DAILY #30 tablet 06/21/18 Pantoprazole Suspension [Protonix Packets For Oral Suspension -] 40 mg PO DAILY packet 06/21/18 Zinc Sulfate [Orazinc] 220 mg PO DAILY #30 capsule 06/21/18 Amino Acids/Protein Hydrolys [Prosource No Carb Liquid Pkt] 30 ml GT BID@0800, 1730 packet 10/07/18 Ascorbic Acid [Vitamin C -] 500 mg GT BID tablet 10/07/18 Bacitracin - [Bacitracin Topical Ointment -] 1 applic TP BID tube 10/07/18 Collagenase Clostridium Hist. [Santyl -] 1 applic TP DAILY tube 10/07/18 Donepezil HCl [Aricept -] 10 mg GT HS tablet 10/07/18 Escitalopram Oxalate [Lexapro -] 10 mg GT DAILY tablet 10/07/18 Heparin - 5,000 unit SQ BID vial 10/07/18 Multivitamins [Multivit ([facility] Formulary)] 1 tab GT DAILY tab 10/07/18 Pantoprazole Sodium [Protonix -] 40 mg GT DAILY tablet.ec 10/07/18 Zinc Sulfate [Orazinc -] 220 mg GT BID capsule 10/07/18 Amino Acids/Protein Hydrolys [Prosource No Carb Liquid Pkt] 30 ml GT BID@0800, 1730 packet 10/11/18 Donepezil HCl [Aricept -] 10 mg GT HS tablet 10/11/18 Escitalopram Oxalate [Lexapro -] 10 mg GT DAILY tablet 10/11/18 Pantoprazole Suspension [Protonix Packets For Oral Suspension -] 40 mg PEG DAILY packet 10/11/18 Zinc Sulfate [Orazinc -] 220 mg GT BID capsule 10/11/18
[2018-10-12 16:53] VITALS: BMI 16.5
[2018-10-12 17:17] VITALS: BP 111/62; PULSE 100; TEMP 98.9
== END 2018-10-12 18:44 | disposition home health service (06) | DRG 640 ==
LOC: JER 11:49 → JERBED 15:06 → J8W 18:54
PROVIDERS: ADMIT Family Medicine; ATTEND Family Medicine
PROC: 0DH63UZ Insertion of Feeding Device into Stomach, Percutaneous Approach (ICD-10-PCS; principal; 2018-10-04 11:00)
PROC: 3E0H76Z Introduction of Nutritional Substance into Lower GI, Via Natural or Artificial Opening (ICD-10-PCS; 2018-10-05)
DX: R62.7 Adult failure to thrive (principal); L89.154 Pressure ulcer of sacral region, stage 4; L89.213 Pressure ulcer of right hip, stage 3; R53.2 Functional quadriplegia; E43 Unspecified severe protein-calorie malnutrition; G93.41 Metabolic encephalopathy; R64 Cachexia; E78.5 Hyperlipidemia, unspecified; G20 Parkinson's disease; G30.9 Alzheimer's disease, unspecified; F02.80 Dementia in other diseases classified elsewhere, unspecified severity, without behavioral disturbance, psychotic disturbance, mood disturbance, and anxiety; D64.9 Anemia, unspecified; R53.83 Other fatigue; E87.6 Hypokalemia; L89.022 Pressure ulcer of left elbow, stage 2; R13.10 Dysphagia, unspecified
CPT/HCPCS: 36415; 36430; 71045-TC-FY; 80048; 80053; 81003; 81015; 82272; 82607; 82728; 82746; 83010; 83540; 83550; 83615; 83735; 84439; 84443; 84484; 85025; 85027; 85044; 85610; 85730; 86850; 86900; 86901; 86922; 87040; 87070; 87086; 87205; 93005; 93010; 97161-GP; 99284-25; J0131; J1644; J7030; P9038; P9058

== ENCOUNTER 2020-10-04 16:04 | Inpatient (IN) | payer OTHER ==
[2020-10-04] MEDS ORDERED: LACTATED RINGERS SOLUTION 1000 ML INFUS.BAG IV ONE ×3 (16:50→18:57)
[2020-10-04] MEDS ORDERED: PIPERACILLIN/TAZOB 3.375 GM 3.375 GM in DEXTROSE 5%-WATER - 50 ML IVPB ONE (16:51)
[2020-10-04] MEDS ORDERED: VANCOMYCIN 1 GM in D5W (PRE-DOCKED) 1,000 MG/250 ML IVPB ONE (16:51)
[2020-10-04] MEDS ORDERED: ACETAMINOPHEN 1000 MG/100 ML VIAL (NON FORMULARY) IVPB ONE (16:53)
[2020-10-04 17:14] LABS: BASO % 0.1 % (0-2.0); HEMATOCRIT 24.8 % (32.4-45.2); LYMPH % 1.8 % (8-40); MCH 23.3 pg (25.7-33.7); MCHC 32.2 g/dl (32.0-36.0); MEAN CELL VOLUME 72.2 fl (80-96); MEAN PLT VOLUME 7.4 fl (7.5-11.1); MONO % 1.3 % (3.8-10.2); NEUT % 96.8 % (42.8-82.8); PLATELET COUNT 620 K/MM3 (134-434); RBC 3.44 M/mm3 (3.60-5.2); RDW 16.5 % (11.6-15.6); WHITE BLOOD COUNT 21.8 K/mm3 (4.0-10.0)
[2020-10-04] MEDS ORDERED: VANCOMYCIN 1 GRAM (PRE-DOCKED) 1,000 MG/250 ML BAG IVPB ONE (17:19)
[2020-10-04] MEDS ORDERED: ACETAMINOPHEN INJECTION 100 ML IVPB ONE (17:19)
[2020-10-04] MEDS ORDERED: PIPERACILLIN/TAZOB 3.375 GM 3.375 GM/50 ML BAG IVPB ONE (17:20)
[2020-10-04 17:23] LABS: VENOUS BASE EXCESS 1.2 mmol/L (-2-2); VENOUS O2 SATURATION 89.4 % (70-80); VENOUS PCO2 44.5 mmHg (38-52); VENOUS PH 7.39 (7.310-7.410)
[2020-10-04 17:24] LABS: INR 1.24 (0.83-1.09); PROTHROMBIN TIME (PATIENT) 15.1 SEC (9.7-13.0)
[2020-10-04 17:27] LABS: ACTIVATED PTT 68.1 SECONDS (25.2-36.5)
[2020-10-04 17:31] LABS: CHLORIDE 89 mmol/L (98-107); POTASSIUM 3.3 mmol/L (3.5-5.1); SODIUM 128 mmol/L (136-145)
[2020-10-04 17:33] LABS: ALBUMIN 1.8 g/dl (3.4-5.0); ANION GAP 10 MMOL/L (8-16); BLOOD UREA NITROGEN 27.3 mg/dL (7-18); CO2 29 mmol/L (21-32); GLUCOSE,RANDOM 105 mg/dL (74-106)
[2020-10-04 17:36] LABS: CREATININE 0.4 mg/dL (0.55-1.3); SGOT/AST 26 U/L (15-37); SGPT/ALT 26 U/L (13-61)
[2020-10-04 17:38] LABS: BILIRUBIN,TOTAL 0.3 mg/dL (0.2-1); TOT PROT 5.9 g/dl (6.4-8.2)
[2020-10-04 17:39] LABS: ALK PHOS 117 U/L (45-117)
[2020-10-04 17:47] LABS: LDH 197 U/L (84-246)
[2020-10-04 19:22] LABS: ANISOCYTOSIS 1+; MACROCYTOSIS 0; PLATELET ESTIMATE INCREASED; TARGET CELLS 1+
[2020-10-04 20:34] LABS: PH,URINE 5.5 (5.0-8.0); URINE APPEARANCE Clear; URINE BILIRUBIN Negative (NEGATIVE); URINE COLOR Yellow; URINE GLUCOSE (UA) Negative (NEGATIVE); URINE KETONE 1+ (NEGATIVE); URINE LEUK ESTERASE Trace (NEGATIVE); URINE NITRITE Positive (NEGATIVE); URINE PROTEIN Trace (NEGATIVE)
[2020-10-04] MEDS ORDERED: SODIUM CHLORIDE 500 ML IV STA (21:24)
[2020-10-04] MEDS ORDERED: SODIUM CHLORIDE 1,000 ML IV SCH (21:30)
[2020-10-04] MEDS ORDERED: ESCITALOPRAM OXALATE 5 MG/5 ML GT SCH ×2 (21:45→22:21)
[2020-10-04] MEDS ORDERED: BACITRACIN 0.9 GM PACKET ONE (22:14)
[2020-10-04] MEDS ORDERED: KCL 10 MEQ IVPB 10 MEQ/100 ML INFUS.BAG IVPB ONE (22:15)
[2020-10-04] MEDS: BACITRACIN 15 GM TUBE TOPICAL OINTMENT TP SCH (22:25)
[2020-10-04] MEDS: KCL 10 MEQ IVPB 10 MEQ/100 ML INFUS.BAG IVPB SCH ×2 (22:26→23:50)
[2020-10-04] MEDS ORDERED: KCL 10 MEQ IVPB 20 MEQ/200 ML INFUS.BAG IVPB ONE (23:49)
[2020-10-05] MEDS ORDERED: SODIUM CHLORIDE 500 ML IV STA (00:22)
[2020-10-05] MEDS ORDERED: SODIUM CHLORIDE 1,000 ML IV STA (01:13)
[2020-10-05] MEDS ORDERED: PIPERACILLIN/TAZOB 3.375 GM 3.375 GM/50 ML BAG IVPB ONE ×3 (02:05→20:10)
[2020-10-05] MEDS: PIPERACILLIN/TAZOB 3.375 GM 3.375 GM in DEXTROSE 5%-WATER - 50 ML IVPB SCH ×4 (02:10→22:06)
[2020-10-05 07:29] LABS: BASO % 0.2 % (0-2.0); EOS % 0.1 % (0-4.5); HEMATOCRIT 19.9 % (32.4-45.2); MCH 23.3 pg (25.7-33.7); MCHC 31.2 g/dl (32.0-36.0); MEAN CELL VOLUME 74.5 fl (80-96); MEAN PLT VOLUME 7.6 fl (7.5-11.1); NEUT % 90.7 % (42.8-82.8); PLATELET COUNT 496 K/MM3 (134-434); RBC 2.67 M/mm3 (3.60-5.2); WHITE BLOOD COUNT 17.4 K/mm3 (4.0-10.0)
[2020-10-05] MEDS: POLYETHYLENE GLYCOL 3350 119 GM BTL GT SCH ×2 (07:40→10:10)
[2020-10-05 07:42] LABS: POTASSIUM 3.3 mmol/L (3.5-5.1)
[2020-10-05 07:46] LABS: INR 1.05 (0.83-1.09); PROTHROMBIN TIME (PATIENT) 12.9 SEC (9.7-13.0)
[2020-10-05 07:54] LABS: ALBUMIN 1.3 g/dl (3.4-5.0); BLOOD UREA NITROGEN 14.1 mg/dL (7-18); MAGNESIUM 1.7 mg/dL (1.8-2.4)
[2020-10-05 07:57] LABS: CREATININE 0.3 mg/dL (0.55-1.3); PHOSPHOROUS 2.1 mg/dL (2.5-4.9)
[2020-10-05 08:00] LABS: BILIRUBIN,TOTAL 0.6 mg/dL (0.2-1); TOT PROT 4.3 g/dl (6.4-8.2)
[2020-10-05 08:46] LABS: HEMOGLOBIN 6.2 GM/dL (10.7-15.3)
[2020-10-05] MEDS: NOREPINEPHRINE D5W PREMIX 16,000 MCG/500 ML BAG IVPB SCH (09:04)
[2020-10-05] MEDS ORDERED: VANCOMYCIN 750 MG in DEXTROSE 5%-WATER - 250 ML IVPB ONE (09:30)
[2020-10-05] MEDS ORDERED: ESCITALOPRAM OXALATE 5 MG/5 ML GT SCH (10:00)
[2020-10-05] MEDS ORDERED: FAMOTIDINE 40 MG/5 ML ORAL SUSPENSION PEG SCH (10:00)
[2020-10-05] MEDS ORDERED: ZINC SULFATE 220 MG CAPSULE (FP) GT SCH (10:00)
[2020-10-05] MEDS ORDERED: MULTIVIT-MINERALS ORAL LIQUID GT SCH (10:00)
[2020-10-05] MEDS ORDERED: ASCORBIC ACID 500 MG/5 ML UNIT DOSE CUP GT SCH (10:00)
[2020-10-05] MEDS: BACITRACIN 15 GM TUBE TOPICAL OINTMENT TP SCH (10:10)
[2020-10-05] MEDS: D5-NS + 20 MEQ KCL - 20 MEQ/1,000 ML INFUS.BAG IV SCH ×2 (10:10→23:42)
[2020-10-05] MEDS: AMINO ACIDS/PROTEIN HYDROLYS 30 ML LIQUID.PKT PO SCH ×2 (10:10→22:07)
[2020-10-05] MEDS: SODIUM HYPOCHLORITE 0.25%- 473 ML BULK BOTTLE TP SCH (10:45)
[2020-10-05] MEDS ORDERED: MAGNESIUM SULF 50% (8.12 MEQ/2 ML-1 GM VIAL) IVPB ONE (14:19)
[2020-10-05] MEDS ORDERED: POTASSIUM PHOSPHATE 30 MM in SODIUM CHLORIDE 500 ML IVPB ONE (15:00)
[2020-10-05] MEDS ORDERED: MAGNESIUM 1GM/D5W - 1 GM/100 ML IVPB IVPB ONE (15:22)
[2020-10-05] MEDS ORDERED: PIPERACILLIN/TAZOB 4.5 GM 4.5 GM/100 ML BAG IVPB ONE (20:09)
[2020-10-05] MEDS: FERROUS SO4 300 MG/5 ML ORAL SOLN UNIT DOSE CUPS GT SCH (20:16)
[2020-10-05] MEDS: CHLORHEXIDINE GLUCONATE 4% CLEANSER FOR DECOLONIZATION TP SCH (22:05)
[2020-10-05] MEDS: MUPIROCIN 2% TOPICAL OINTMENT FOR DECOLONIZATION NS SCH (22:05)
[2020-10-05] MEDS: SENNOSIDES 8.8 MG/5 ML BULK BOTTLE GT SCH (22:06)
[2020-10-05] MEDS ORDERED: MORPHINE SULFATE 2 MG/ML VIAL IVPUSH ONE (22:12)
[2020-10-05] MEDS ORDERED: DEXTROSE 5%-WATER - 50 ML IVPB ONE (23:39)
[2020-10-05] MEDS ORDERED: PIPERACILLIN/TAZOBACTAM 3.375 GM VIAL IVPB ONE (23:39)
[2020-10-05] MEDS: FAMOTIDINE 20 MG/50 ML IVPB 20 MG/50 ML MG IVPB SCH (23:42)
[2020-10-06] MEDS: PIPERACILLIN/TAZOB 3.375 GM 3.375 GM in DEXTROSE 5%-WATER - 50 ML IVPB SCH ×3 (01:10→17:47)
[2020-10-06 07:31] LABS: HEMATOCRIT 32.6 % (32.4-45.2); HEMOGLOBIN 10.6 GM/dL (10.7-15.3); MCH 26.2 pg (25.7-33.7); MCHC 32.6 g/dl (32.0-36.0); MEAN CELL VOLUME 80.2 fl (80-96); MEAN PLT VOLUME 7.8 fl (7.5-11.1); PLATELET COUNT 443 K/MM3 (134-434); RBC 4.06 M/mm3 (3.60-5.2); RDW 17.6 % (11.6-15.6); WHITE BLOOD COUNT 15.4 K/mm3 (4.0-10.0)
[2020-10-06 07:46] LABS: POTASSIUM 3.9 mmol/L (3.5-5.1)
[2020-10-06 07:55] LABS: ALBUMIN 1.4 g/dl (3.4-5.0); BLOOD UREA NITROGEN 14.2 mg/dL (7-18)
[2020-10-06 07:56] LABS: MAGNESIUM 1.9 mg/dL (1.8-2.4)
[2020-10-06 08:00] LABS: BILIRUBIN,TOTAL 0.5 mg/dL (0.2-1); CREATININE 0.3 mg/dL (0.55-1.3); PHOSPHOROUS 3.3 mg/dL (2.5-4.9); TOT PROT 4.4 g/dl (6.4-8.2)
[2020-10-06] MEDS ORDERED: PIPERACILLIN/TAZOBACTAM 3.375 GM VIAL IVPB ONE ×2 (09:42→17:45)
[2020-10-06] MEDS ORDERED: DEXTROSE 5%-WATER - 50 ML IVPB ONE ×2 (09:43→17:45)
[2020-10-06] MEDS ORDERED: PT OWN MED DRAWER 7, Y5N ONE ×3 (09:49→20:20)
[2020-10-06] MEDS: FAMOTIDINE 20 MG/50 ML IVPB 20 MG/50 ML MG IVPB SCH ×2 (09:54→21:07)
[2020-10-06] MEDS: AMINO ACIDS/PROTEIN HYDROLYS 30 ML LIQUID.PKT PO SCH ×2 (09:55→17:47)
[2020-10-06] MEDS: ZINC SULFATE 220 MG CAPSULE (FP) GT SCH (09:55)
[2020-10-06] MEDS: POLYETHYLENE GLYCOL 3350 119 GM BTL GT SCH (09:56)
[2020-10-06] MEDS: MUPIROCIN 2% TOPICAL OINTMENT FOR DECOLONIZATION NS SCH ×2 (10:14→21:07)
[2020-10-06] MEDS: D5-NS + 20 MEQ KCL - 20 MEQ/1,000 ML INFUS.BAG IV SCH (11:04)
[2020-10-06] MEDS: FERROUS SO4 300 MG/5 ML ORAL SOLN UNIT DOSE CUPS GT SCH (11:16)
[2020-10-06] MEDS: ASCORBIC ACID 500 MG/5 ML UNIT DOSE CUP GT SCH (11:16)
[2020-10-06] MEDS: ESCITALOPRAM OXALATE 5 MG/5 ML GT SCH (11:16)
[2020-10-06] MEDS: MULTIVIT-MINERALS ORAL LIQUID GT SCH (11:16)
[2020-10-06] MEDS: SODIUM HYPOCHLORITE 0.25%- 473 ML BULK BOTTLE TP SCH (11:17)
[2020-10-06] MEDS ORDERED: LACTATED RINGERS SOLUTION 1000 ML INFUS.BAG IV ONE (12:20)
[2020-10-06] MEDS: NOREPINEPHRINE D5W PREMIX 16,000 MCG/500 ML BAG IVPB SCH (13:06)
[2020-10-06] MEDS ORDERED: VANCOMYCIN 750 MG in DEXTROSE 5%-WATER - 250 ML IVPB ONE (19:00)
[2020-10-06] MEDS: CHLORHEXIDINE GLUCONATE 4% CLEANSER FOR DECOLONIZATION TP SCH (21:07)
[2020-10-06] MEDS: SENNOSIDES 8.8 MG/5 ML BULK BOTTLE GT SCH (21:07)
[2020-10-06] MEDS ORDERED: ALBUTEROL SO4 0.083% IH SOL 2.5 MG/3 ML VIAL.NEB. NEB ONE (22:40)
[2020-10-06] MEDS ORDERED: MORPHINE SULFATE 2 MG/ML VIAL IVPUSH PRN (23:21)
[2020-10-07] MEDS ORDERED: DEXTROSE 5%-WATER - 50 ML IVPB ONE ×4 (00:53→16:47)
[2020-10-07] MEDS ORDERED: PIPERACILLIN/TAZOBACTAM 3.375 GM VIAL IVPB ONE ×4 (00:53→16:47)
[2020-10-07] MEDS: PIPERACILLIN/TAZOB 3.375 GM 3.375 GM in DEXTROSE 5%-WATER - 50 ML IVPB SCH ×3 (01:25→17:20)
[2020-10-07] MEDS: D5-NS + 20 MEQ KCL - 20 MEQ/1,000 ML INFUS.BAG IV SCH ×2 (01:26→17:21)
[2020-10-07 07:07] LABS: HEMATOCRIT 34.3 % (32.4-45.2); HEMOGLOBIN 11.5 GM/dL (10.7-15.3); MCH 26.5 pg (25.7-33.7); MCHC 33.6 g/dl (32.0-36.0); MEAN CELL VOLUME 78.9 fl (80-96); MEAN PLT VOLUME 7.5 fl (7.5-11.1); PLATELET COUNT 401 K/MM3 (134-434); RBC 4.35 M/mm3 (3.60-5.2); RDW 17.8 % (11.6-15.6)
[2020-10-07 07:19] LABS: POTASSIUM 3.7 mmol/L (3.5-5.1)
[2020-10-07 07:27] LABS: ALBUMIN 1.3 g/dl (3.4-5.0); BLOOD UREA NITROGEN 11.8 mg/dL (7-18); CALCIUM 7.3 mg/dL (8.5-10.1)
[2020-10-07 07:28] LABS: CREATININE 0.4 mg/dL (0.55-1.3)
[2020-10-07 07:29] LABS: BILIRUBIN,TOTAL 0.4 mg/dL (0.2-1); TOT PROT 4.3 g/dl (6.4-8.2)
[2020-10-07] MEDS: NOREPINEPHRINE D5W PREMIX 16,000 MCG/500 ML BAG IVPB SCH (09:20)
[2020-10-07] MEDS: AMINO ACIDS/PROTEIN HYDROLYS 30 ML LIQUID.PKT PO SCH ×3 (09:20→17:22)
[2020-10-07] MEDS: FAMOTIDINE 20 MG/50 ML IVPB 20 MG/50 ML MG IVPB SCH ×2 (09:52→22:46)
[2020-10-07] MEDS: FERROUS SO4 300 MG/5 ML ORAL SOLN UNIT DOSE CUPS GT SCH (11:40)
[2020-10-07] MEDS ORDERED: PT OWN MED DRAWER 7, Y5N ONE ×4 (11:42→23:05)
[2020-10-07] MEDS: ESCITALOPRAM OXALATE 5 MG/5 ML GT SCH (11:45)
[2020-10-07] MEDS: POLYETHYLENE GLYCOL 3350 119 GM BTL GT SCH (11:46)
[2020-10-07] MEDS: MULTIVIT-MINERALS ORAL LIQUID GT SCH (11:46)
[2020-10-07] MEDS: MUPIROCIN 2% TOPICAL OINTMENT FOR DECOLONIZATION NS SCH ×2 (11:46→22:31)
[2020-10-07] MEDS: SODIUM HYPOCHLORITE 0.25%- 473 ML BULK BOTTLE TP SCH (11:46)
[2020-10-07] MEDS: ZINC SULFATE 220 MG CAPSULE (FP) GT SCH (11:47)
[2020-10-07] MEDS: VANCOMYCIN 250 MG/5 ML ORAL SOLUTION PO SCH ×3 (11:47→23:05)
[2020-10-07] MEDS: ASCORBIC ACID 500 MG/5 ML UNIT DOSE CUP GT SCH (11:47)
[2020-10-07] MEDS: CHLORHEXIDINE GLUCONATE 4% CLEANSER FOR DECOLONIZATION TP SCH (22:31)
[2020-10-07] MEDS: SENNOSIDES 8.8 MG/5 ML BULK BOTTLE GT SCH (23:03)
[2020-10-08] MEDS ORDERED: PIPERACILLIN/TAZOBACTAM 3.375 GM VIAL IVPB ONE ×3 (00:05→17:31)
[2020-10-08] MEDS ORDERED: DEXTROSE 5%-WATER - 50 ML IVPB ONE ×3 (00:05→17:31)
[2020-10-08] MEDS ORDERED: oxyCODONE HCL 5 MG TABLET PO ONE ×2 (00:28)
[2020-10-08] MEDS: PIPERACILLIN/TAZOB 3.375 GM 3.375 GM in DEXTROSE 5%-WATER - 50 ML IVPB SCH ×3 (01:23→17:35)
[2020-10-08] MEDS: VANCOMYCIN 250 MG/5 ML ORAL SOLUTION PO SCH ×3 (05:44→17:36)
[2020-10-08 07:12] LABS: HEMATOCRIT 35.5 % (32.4-45.2); HEMOGLOBIN 11.8 GM/dL (10.7-15.3); MCH 26.6 pg (25.7-33.7); MCHC 33.3 g/dl (32.0-36.0); MEAN PLT VOLUME 7.6 fl (7.5-11.1); PLATELET COUNT 458 K/MM3 (134-434); RBC 4.44 M/mm3 (3.60-5.2); RDW 18.4 % (11.6-15.6); WHITE BLOOD COUNT 14.5 K/mm3 (4.0-10.0)
[2020-10-08 07:19] LABS: POTASSIUM 3.6 mmol/L (3.5-5.1)
[2020-10-08 07:23] LABS: ALBUMIN 1.3 g/dl (3.4-5.0); BLOOD UREA NITROGEN 16.2 mg/dL (7-18); CALCIUM 7.2 mg/dL (8.5-10.1)
[2020-10-08 07:24] LABS: MAGNESIUM 1.5 mg/dL (1.8-2.4)
[2020-10-08 07:26] LABS: CREATININE 0.4 mg/dL (0.55-1.3); PHOSPHOROUS 2.5 mg/dL (2.5-4.9)
[2020-10-08 07:28] LABS: BILIRUBIN,TOTAL 0.4 mg/dL (0.2-1); TOT PROT 4.2 g/dl (6.4-8.2)
[2020-10-08] MEDS ORDERED: PT OWN MED DRAWER 7, Y5N ONE ×3 (08:18→18:52)
[2020-10-08] MEDS ORDERED: MAGNESIUM OXIDE 400 MG TABLET (FP) PO ONE (09:15)
[2020-10-08] MEDS: AMINO ACIDS/PROTEIN HYDROLYS 30 ML LIQUID.PKT PO SCH ×2 (09:59→17:35)
[2020-10-08] MEDS: FAMOTIDINE 20 MG/50 ML IVPB 20 MG/50 ML MG IVPB SCH ×2 (10:17→22:02)
[2020-10-08] MEDS: NOREPINEPHRINE D5W PREMIX 16,000 MCG/500 ML BAG IVPB SCH (10:24)
[2020-10-08] MEDS: D5-NS + 20 MEQ KCL - 20 MEQ/1,000 ML INFUS.BAG IV SCH (10:24)
[2020-10-08] MEDS: MUPIROCIN 2% TOPICAL OINTMENT FOR DECOLONIZATION NS SCH ×2 (10:25→22:01)
[2020-10-08] MEDS: MULTIVIT-MINERALS ORAL LIQUID GT SCH (10:25)
[2020-10-08] MEDS: FERROUS SO4 300 MG/5 ML ORAL SOLN UNIT DOSE CUPS GT SCH (10:25)
[2020-10-08] MEDS: ASCORBIC ACID 500 MG/5 ML UNIT DOSE CUP GT SCH (10:26)
[2020-10-08] MEDS: ESCITALOPRAM OXALATE 5 MG/5 ML GT SCH (10:26)
[2020-10-08] MEDS: POLYETHYLENE GLYCOL 3350 119 GM BTL GT SCH (10:27)
[2020-10-08] MEDS: SODIUM HYPOCHLORITE 0.25%- 473 ML BULK BOTTLE TP SCH (10:27)
[2020-10-08] MEDS: ZINC SULFATE 220 MG CAPSULE (FP) GT SCH (10:28)
[2020-10-08] MEDS ORDERED: ALBUTEROL SO4 0.083% IH SOL 2.5 MG/3 ML VIAL.NEB. NEB PRN (11:03)
[2020-10-08] MEDS: ALBUTEROL SO4 2.5/IPRATROPIUM 0.5 INH SOL 3 ML VIAL.NEB. NEB SCH ×2 (13:02→20:10)
[2020-10-08] MEDS: CHLORHEXIDINE GLUCONATE 4% CLEANSER FOR DECOLONIZATION TP SCH (22:01)
[2020-10-08] MEDS: SENNOSIDES 8.8 MG/5 ML BULK BOTTLE GT SCH (22:02)
[2020-10-09] MEDS ORDERED: PT OWN MED DRAWER 7, Y5N ONE ×2 (01:10→09:24)
[2020-10-09] MEDS: D5-NS + 20 MEQ KCL - 20 MEQ/1,000 ML INFUS.BAG IV SCH ×2 (01:11→10:29)
[2020-10-09] MEDS: VANCOMYCIN 250 MG/5 ML ORAL SOLUTION PO SCH ×5 (01:25→23:35)
[2020-10-09] MEDS ORDERED: PIPERACILLIN/TAZOBACTAM 3.375 GM VIAL IVPB ONE ×2 (02:15→09:24)
[2020-10-09] MEDS ORDERED: DEXTROSE 5%-WATER - 50 ML IVPB ONE ×2 (02:16→09:24)
[2020-10-09] MEDS: PIPERACILLIN/TAZOB 3.375 GM 3.375 GM in DEXTROSE 5%-WATER - 50 ML IVPB SCH ×4 (02:19→23:34)
[2020-10-09] MEDS: ALBUTEROL SO4 2.5/IPRATROPIUM 0.5 INH SOL 3 ML VIAL.NEB. NEB SCH ×3 (07:55→20:40)
[2020-10-09 08:15] LABS: POTASSIUM 4.5 mmol/L (3.5-5.1)
[2020-10-09 08:47] LABS: BILIRUBIN,TOTAL 0.5 mg/dL (0.2-1)
[2020-10-09 08:48] LABS: PHOSPHOROUS 2.2 mg/dL (2.5-4.9)
[2020-10-09 08:49] LABS: ALBUMIN 1.2 g/dl (3.4-5.0); BLOOD UREA NITROGEN 18.5 mg/dL (7-18); CALCIUM 7.1 mg/dL (8.5-10.1); CREATININE 0.4 mg/dL (0.55-1.3); MAGNESIUM 1.7 mg/dL (1.8-2.4)
[2020-10-09 08:50] LABS: TOT PROT 4.5 g/dl (6.4-8.2)
[2020-10-09 09:55] LABS: HEMATOCRIT 34.8 % (32.4-45.2); HEMOGLOBIN 11.2 GM/dL (10.7-15.3); MCH 26.5 pg (25.7-33.7); MCHC 32.2 g/dl (32.0-36.0); MEAN CELL VOLUME 82.1 fl (80-96); MEAN PLT VOLUME 7.9 fl (7.5-11.1); PLATELET COUNT 444 K/MM3 (134-434); RBC 4.24 M/mm3 (3.60-5.2); RDW 19.2 % (11.6-15.6); WHITE BLOOD COUNT 18.1 K/mm3 (4.0-10.0)
[2020-10-09] MEDS: FAMOTIDINE 20 MG/50 ML IVPB 20 MG/50 ML MG IVPB SCH (10:27)
[2020-10-09] MEDS: AMINO ACIDS/PROTEIN HYDROLYS 30 ML LIQUID.PKT PO SCH ×2 (10:28→23:33)
[2020-10-09] MEDS: FERROUS SO4 300 MG/5 ML ORAL SOLN UNIT DOSE CUPS GT SCH (10:28)
[2020-10-09] MEDS: ZINC SULFATE 220 MG CAPSULE (FP) GT SCH (10:28)
[2020-10-09] MEDS: ENOXAPARIN NA (PORCINE) 30 MG/0.3 ML DISP.SYRIN SQ SCH (10:28)
[2020-10-09] MEDS: ASCORBIC ACID 500 MG/5 ML UNIT DOSE CUP GT SCH (10:28)
[2020-10-09] MEDS: MULTIVIT-MINERALS ORAL LIQUID GT SCH (10:28)
[2020-10-09] MEDS: ESCITALOPRAM OXALATE 5 MG/5 ML GT SCH (10:29)
[2020-10-09] MEDS: MUPIROCIN 2% TOPICAL OINTMENT FOR DECOLONIZATION NS SCH (10:29)
[2020-10-09] MEDS: SODIUM HYPOCHLORITE 0.25%- 473 ML BULK BOTTLE TP SCH (10:29)
[2020-10-09] MEDS ORDERED: FUROSEMIDE 40 MG/4 ML INJECTABLE VIAL IVPUSH ONE (11:45)
[2020-10-09] MEDS: POLYETHYLENE GLYCOL 3350 119 GM BTL GT SCH (11:53)
[2020-10-09] MEDS: FAMOTIDINE 40 MG/5 ML ORAL SUSPENSION PEG SCH (21:33)
[2020-10-09] MEDS ORDERED: MUPIROCIN 2% TOPICAL OINTMENT FOR DECOLONIZATION NS SCH (22:00)
[2020-10-09] MEDS ORDERED: CHLORHEXIDINE GLUCONATE 4% CLEANSER FOR DECOLONIZATION TP SCH (22:00)
[2020-10-10] MEDS ORDERED: PIPERACILLIN/TAZOBACTAM 3.375 GM VIAL IVPB ONE ×3 (00:10→14:54)
[2020-10-10] MEDS ORDERED: DEXTROSE 5%-WATER - 50 ML IVPB ONE ×3 (00:10→14:54)
[2020-10-10] MEDS: PIPERACILLIN/TAZOB 3.375 GM 3.375 GM in DEXTROSE 5%-WATER - 50 ML IVPB SCH ×3 (03:17→17:05)
[2020-10-10] MEDS: VANCOMYCIN 250 MG/5 ML ORAL SOLUTION PO SCH ×3 (05:42→17:09)
[2020-10-10 07:01] LABS: HEMOGLOBIN 10.6 GM/dL (10.7-15.3); MCH 26.4 pg (25.7-33.7); MCHC 33.3 g/dl (32.0-36.0); MEAN CELL VOLUME 79.5 fl (80-96); MEAN PLT VOLUME 7.7 fl (7.5-11.1); PLATELET COUNT 442 K/MM3 (134-434); RBC 4.03 M/mm3 (3.60-5.2); RDW 19.4 % (11.6-15.6)
[2020-10-10] MEDS: ALBUTEROL SO4 2.5/IPRATROPIUM 0.5 INH SOL 3 ML VIAL.NEB. NEB SCH ×2 (08:15→20:42)
[2020-10-10] MEDS: ZINC SULFATE 220 MG CAPSULE (FP) GT SCH (10:02)
[2020-10-10] MEDS: FERROUS SO4 300 MG/5 ML ORAL SOLN UNIT DOSE CUPS GT SCH (10:05)
[2020-10-10] MEDS: ENOXAPARIN NA (PORCINE) 30 MG/0.3 ML DISP.SYRIN SQ SCH (10:05)
[2020-10-10] MEDS: AMINO ACIDS/PROTEIN HYDROLYS 30 ML LIQUID.PKT PO SCH ×2 (10:06→17:05)
[2020-10-10] MEDS: ESCITALOPRAM OXALATE 5 MG/5 ML GT SCH (10:06)
[2020-10-10] MEDS: MULTIVIT-MINERALS ORAL LIQUID GT SCH (10:07)
[2020-10-10] MEDS: SODIUM HYPOCHLORITE 0.25%- 473 ML BULK BOTTLE TP SCH (10:08)
[2020-10-10] MEDS: FAMOTIDINE 40 MG/5 ML ORAL SUSPENSION PEG SCH ×2 (10:09→21:41)
[2020-10-10] MEDS: ASCORBIC ACID 500 MG/5 ML UNIT DOSE CUP GT SCH (10:10)
[2020-10-11] MEDS: VANCOMYCIN 250 MG/5 ML ORAL SOLUTION PO SCH ×4 (01:01→17:00)
[2020-10-11] MEDS ORDERED: PIPERACILLIN/TAZOBACTAM 3.375 GM VIAL IVPB ONE ×3 (01:27→16:16)
[2020-10-11] MEDS ORDERED: DEXTROSE 5%-WATER - 50 ML IVPB ONE ×3 (01:28→16:16)
[2020-10-11] MEDS: PIPERACILLIN/TAZOB 3.375 GM 3.375 GM in DEXTROSE 5%-WATER - 50 ML IVPB SCH ×3 (01:35→16:59)
[2020-10-11] MEDS: ALBUTEROL SO4 2.5/IPRATROPIUM 0.5 INH SOL 3 ML VIAL.NEB. NEB SCH ×4 (08:15→19:23)
[2020-10-11] MEDS: FERROUS SO4 300 MG/5 ML ORAL SOLN UNIT DOSE CUPS GT SCH (10:24)
[2020-10-11] MEDS: ZINC SULFATE 220 MG CAPSULE (FP) GT SCH (10:24)
[2020-10-11] MEDS: ENOXAPARIN NA (PORCINE) 30 MG/0.3 ML DISP.SYRIN SQ SCH (10:24)
[2020-10-11] MEDS: AMINO ACIDS/PROTEIN HYDROLYS 30 ML LIQUID.PKT PO SCH ×2 (10:24→16:52)
[2020-10-11] MEDS: ESCITALOPRAM OXALATE 5 MG/5 ML GT SCH (10:25)
[2020-10-11] MEDS: MULTIVIT-MINERALS ORAL LIQUID GT SCH (10:25)
[2020-10-11] MEDS: ASCORBIC ACID 500 MG/5 ML UNIT DOSE CUP GT SCH (10:25)
[2020-10-11] MEDS: FAMOTIDINE 40 MG/5 ML ORAL SUSPENSION PEG SCH ×2 (10:25→22:16)
[2020-10-11] MEDS: SODIUM HYPOCHLORITE 0.25%- 473 ML BULK BOTTLE TP SCH (10:25)
[2020-10-12] MEDS: VANCOMYCIN 250 MG/5 ML ORAL SOLUTION PO SCH ×4 (00:48→18:44)
[2020-10-12] MEDS ORDERED: DEXTROSE 5%-WATER - 50 ML IVPB ONE ×3 (02:16→17:39)
[2020-10-12] MEDS ORDERED: PIPERACILLIN/TAZOBACTAM 3.375 GM VIAL IVPB ONE ×3 (02:16→17:39)
[2020-10-12] MEDS: PIPERACILLIN/TAZOB 3.375 GM 3.375 GM in DEXTROSE 5%-WATER - 50 ML IVPB SCH ×3 (02:22→18:03)
[2020-10-12] MEDS ORDERED: PT OWN MED DRAWER 7, Y5N ONE ×2 (07:06→22:37)
[2020-10-12] MEDS: ALBUTEROL SO4 2.5/IPRATROPIUM 0.5 INH SOL 3 ML VIAL.NEB. NEB SCH ×3 (07:30→20:45)
[2020-10-12] MEDS: ZINC SULFATE 220 MG CAPSULE (FP) GT SCH (09:35)
[2020-10-12] MEDS: ENOXAPARIN NA (PORCINE) 30 MG/0.3 ML DISP.SYRIN SQ SCH (09:35)
[2020-10-12] MEDS: AMINO ACIDS/PROTEIN HYDROLYS 30 ML LIQUID.PKT PO SCH ×2 (09:35→18:04)
[2020-10-12] MEDS: FERROUS SO4 300 MG/5 ML ORAL SOLN UNIT DOSE CUPS GT SCH (09:35)
[2020-10-12] MEDS: ESCITALOPRAM OXALATE 5 MG/5 ML GT SCH (09:36)
[2020-10-12] MEDS: SODIUM HYPOCHLORITE 0.25%- 473 ML BULK BOTTLE TP SCH (09:36)
[2020-10-12] MEDS: ASCORBIC ACID 500 MG/5 ML UNIT DOSE CUP GT SCH (09:36)
[2020-10-12] MEDS: FAMOTIDINE 40 MG/5 ML ORAL SUSPENSION PEG SCH (09:36)
[2020-10-12] MEDS: MULTIVIT-MINERALS ORAL LIQUID GT SCH (09:36)
[2020-10-13] MEDS: VANCOMYCIN 250 MG/5 ML ORAL SOLUTION PO SCH ×4 (00:50→17:52)
[2020-10-13] MEDS ORDERED: PIPERACILLIN/TAZOBACTAM 3.375 GM VIAL IVPB ONE ×3 (01:00→17:29)
[2020-10-13] MEDS ORDERED: DEXTROSE 5%-WATER - 50 ML IVPB ONE ×3 (01:01→17:30)
[2020-10-13] MEDS: PIPERACILLIN/TAZOB 3.375 GM 3.375 GM in DEXTROSE 5%-WATER - 50 ML IVPB SCH ×3 (01:05→17:53)
[2020-10-13] MEDS: FAMOTIDINE 40 MG/5 ML ORAL SUSPENSION PEG SCH ×3 (02:44→22:29)
[2020-10-13 07:40] LABS: POTASSIUM 3.6 mmol/L (3.5-5.1)
[2020-10-13 07:41] LABS: BASO % 0.3 % (0-2.0); EOS % 1.6 % (0-4.5); HEMATOCRIT 29.7 % (32.4-45.2); LYMPH % 9.7 % (8-40); MCH 26.8 pg (25.7-33.7); MCHC 33.7 g/dl (32.0-36.0); MEAN CELL VOLUME 79.7 fl (80-96); MEAN PLT VOLUME 7.9 fl (7.5-11.1); MONO % 4.1 % (3.8-10.2); NEUT % 84.3 % (42.8-82.8); PLATELET COUNT 481 K/MM3 (134-434); RBC 3.72 M/mm3 (3.60-5.2); RDW 21.6 % (11.6-15.6); WHITE BLOOD COUNT 11.6 K/mm3 (4.0-10.0)
[2020-10-13 07:47] LABS: ALBUMIN 1.3 g/dl (3.4-5.0); BLOOD UREA NITROGEN 12.8 mg/dL (7-18); CALCIUM 7.4 mg/dL (8.5-10.1)
[2020-10-13 07:50] LABS: CREATININE 0.3 mg/dL (0.55-1.3)
[2020-10-13] MEDS: ALBUTEROL SO4 2.5/IPRATROPIUM 0.5 INH SOL 3 ML VIAL.NEB. NEB SCH ×3 (07:50→20:05)
[2020-10-13 07:52] LABS: BILIRUBIN,TOTAL 0.5 mg/dL (0.2-1)
[2020-10-13] MEDS: AMINO ACIDS/PROTEIN HYDROLYS 30 ML LIQUID.PKT PO SCH ×2 (09:00→17:51)
[2020-10-13] MEDS: FERROUS SO4 300 MG/5 ML ORAL SOLN UNIT DOSE CUPS GT SCH (10:10)
[2020-10-13] MEDS: MULTIVIT-MINERALS ORAL LIQUID GT SCH (10:10)
[2020-10-13] MEDS: ASCORBIC ACID 500 MG/5 ML UNIT DOSE CUP GT SCH (10:15)
[2020-10-13] MEDS: ZINC SULFATE 220 MG CAPSULE (FP) GT SCH (10:16)
[2020-10-13] MEDS: ENOXAPARIN NA (PORCINE) 30 MG/0.3 ML DISP.SYRIN SQ SCH (10:17)
[2020-10-13] MEDS: ESCITALOPRAM OXALATE 5 MG/5 ML GT SCH (10:17)
[2020-10-13] MEDS: SODIUM HYPOCHLORITE 0.25%- 473 ML BULK BOTTLE TP SCH (10:30)
[2020-10-13] MEDS: LACTOBACILLUS ACIDOPHILUS 1 TABLET GT SCH (13:00)
[2020-10-13 15:10] LABS: ANISOCYTOSIS 1+; MACROCYTOSIS 1+; PLATELET ESTIMATE NORMAL
[2020-10-13] MEDS ORDERED: PT OWN MED DRAWER 7, Y5N ONE (21:24)
[2020-10-14] MEDS: VANCOMYCIN 250 MG/5 ML ORAL SOLUTION PO SCH ×5 (00:11→23:23)
[2020-10-14] MEDS ORDERED: PIPERACILLIN/TAZOBACTAM 3.375 GM VIAL IVPB ONE ×3 (00:33→16:53)
[2020-10-14] MEDS ORDERED: DEXTROSE 5%-WATER - 50 ML IVPB ONE ×3 (00:34→16:53)
[2020-10-14] MEDS: PIPERACILLIN/TAZOB 3.375 GM 3.375 GM in DEXTROSE 5%-WATER - 50 ML IVPB SCH ×3 (03:01→18:02)
[2020-10-14] MEDS: ALBUTEROL SO4 2.5/IPRATROPIUM 0.5 INH SOL 3 ML VIAL.NEB. NEB SCH ×2 (07:32→13:47)
[2020-10-14 07:35] LABS: BASO % 0.5 % (0-2.0); EOS % 0.9 % (0-4.5); HEMATOCRIT 29.2 % (32.4-45.2); HEMOGLOBIN 9.8 GM/dL (10.7-15.3); LYMPH % 11.5 % (8-40); MCH 26.6 pg (25.7-33.7); MCHC 33.6 g/dl (32.0-36.0); MEAN CELL VOLUME 79.2 fl (80-96); MEAN PLT VOLUME 7.6 fl (7.5-11.1); MONO % 5.7 % (3.8-10.2); NEUT % 81.4 % (42.8-82.8); PLATELET COUNT 535 K/MM3 (134-434); RBC 3.69 M/mm3 (3.60-5.2); RDW 22.4 % (11.6-15.6); WHITE BLOOD COUNT 9.5 K/mm3 (4.0-10.0)
[2020-10-14] MEDS: AMINO ACIDS/PROTEIN HYDROLYS 30 ML LIQUID.PKT PO SCH ×2 (10:03→18:00)
[2020-10-14] MEDS: MULTIVIT-MINERALS ORAL LIQUID GT SCH (10:05)
[2020-10-14] MEDS: FERROUS SO4 300 MG/5 ML ORAL SOLN UNIT DOSE CUPS GT SCH (10:05)
[2020-10-14] MEDS: ESCITALOPRAM OXALATE 5 MG/5 ML GT SCH (10:06)
[2020-10-14] MEDS: ENOXAPARIN NA (PORCINE) 30 MG/0.3 ML DISP.SYRIN SQ SCH (10:07)
[2020-10-14] MEDS: ZINC SULFATE 220 MG CAPSULE (FP) GT SCH (10:07)
[2020-10-14] MEDS: ASCORBIC ACID 500 MG/5 ML UNIT DOSE CUP GT SCH (10:08)
[2020-10-14] MEDS ORDERED: PT OWN MED DRAWER 7, Y5N ONE (10:12)
[2020-10-14] MEDS: LACTOBACILLUS ACIDOPHILUS 1 TABLET GT SCH (10:19)
[2020-10-14] MEDS: FAMOTIDINE 40 MG/5 ML ORAL SUSPENSION PEG SCH ×2 (10:20→23:22)
[2020-10-14] MEDS: SODIUM HYPOCHLORITE 0.25%- 473 ML BULK BOTTLE TP SCH (11:33)
[2020-10-15] MEDS ORDERED: DEXTROSE 5%-WATER - 50 ML IVPB ONE ×2 (01:08→09:21)
[2020-10-15] MEDS ORDERED: PIPERACILLIN/TAZOBACTAM 3.375 GM VIAL IVPB ONE ×2 (01:08→09:21)
[2020-10-15] MEDS: PIPERACILLIN/TAZOB 3.375 GM 3.375 GM in DEXTROSE 5%-WATER - 50 ML IVPB SCH ×2 (02:12→11:01)
[2020-10-15] MEDS: VANCOMYCIN 250 MG/5 ML ORAL SOLUTION PO SCH ×4 (06:51→23:10)
[2020-10-15] MEDS: ALBUTEROL SO4 2.5/IPRATROPIUM 0.5 INH SOL 3 ML VIAL.NEB. NEB SCH ×3 (08:40→20:29)
[2020-10-15] MEDS: FERROUS SO4 300 MG/5 ML ORAL SOLN UNIT DOSE CUPS GT SCH (09:36)
[2020-10-15] MEDS: AMINO ACIDS/PROTEIN HYDROLYS 30 ML LIQUID.PKT PO SCH ×2 (09:36→17:08)
[2020-10-15] MEDS: SODIUM HYPOCHLORITE 0.25%- 473 ML BULK BOTTLE TP SCH (09:37)
[2020-10-15] MEDS: MULTIVIT-MINERALS ORAL LIQUID GT SCH (09:37)
[2020-10-15] MEDS: ASCORBIC ACID 500 MG/5 ML UNIT DOSE CUP GT SCH (09:37)
[2020-10-15] MEDS: ZINC SULFATE 220 MG CAPSULE (FP) GT SCH (09:37)
[2020-10-15] MEDS: LACTOBACILLUS ACIDOPHILUS 1 TABLET GT SCH (09:37)
[2020-10-15] MEDS: ESCITALOPRAM OXALATE 5 MG/5 ML GT SCH (09:37)
[2020-10-15] MEDS: FAMOTIDINE 40 MG/5 ML ORAL SUSPENSION PEG SCH ×2 (09:38→23:09)
[2020-10-15] MEDS: ENOXAPARIN NA (PORCINE) 30 MG/0.3 ML DISP.SYRIN SQ SCH (09:38)
[2020-10-15] MEDS: BANATROL PLUS POWDER PACKET PO SCH ×2 (17:08→23:11)
[2020-10-16] MEDS: VANCOMYCIN 250 MG/5 ML ORAL SOLUTION PO SCH ×3 (05:44→17:12)
[2020-10-16] MEDS: BANATROL PLUS POWDER PACKET PO SCH ×3 (05:44→22:44)
[2020-10-16] MEDS: ALBUTEROL SO4 2.5/IPRATROPIUM 0.5 INH SOL 3 ML VIAL.NEB. NEB SCH ×3 (08:00→20:12)
[2020-10-16] MEDS: ENOXAPARIN NA (PORCINE) 30 MG/0.3 ML DISP.SYRIN SQ SCH (09:09)
[2020-10-16] MEDS: ZINC SULFATE 220 MG CAPSULE (FP) GT SCH (09:09)
[2020-10-16] MEDS: FERROUS SO4 300 MG/5 ML ORAL SOLN UNIT DOSE CUPS GT SCH (09:09)
[2020-10-16] MEDS: LACTOBACILLUS ACIDOPHILUS 1 TABLET GT SCH (09:10)
[2020-10-16] MEDS: AMINO ACIDS/PROTEIN HYDROLYS 30 ML LIQUID.PKT PO SCH ×2 (09:10→17:12)
[2020-10-16] MEDS: ASCORBIC ACID 500 MG/5 ML UNIT DOSE CUP GT SCH (09:10)
[2020-10-16] MEDS: ESCITALOPRAM OXALATE 5 MG/5 ML GT SCH (09:11)
[2020-10-16] MEDS: FAMOTIDINE 40 MG/5 ML ORAL SUSPENSION PEG SCH ×2 (09:11→22:44)
[2020-10-16] MEDS: MULTIVIT-MINERALS ORAL LIQUID GT SCH (09:12)
[2020-10-16] MEDS: SODIUM HYPOCHLORITE 0.25%- 473 ML BULK BOTTLE TP SCH (09:13)
[2020-10-16] MEDS ORDERED: PT OWN MED DRAWER 7, Y5N ONE (22:30)
[2020-10-16] MEDS: ACETAMINOPHEN 650 MG/20.3 ML ORAL SOLUTION (CUPS) PO PRN (22:43)
[2020-10-17] MEDS: VANCOMYCIN 250 MG/5 ML ORAL SOLUTION PO SCH ×5 (00:50→23:10)
[2020-10-17] MEDS ORDERED: PT OWN MED DRAWER 7, Y5N ONE ×2 (05:08→22:51)
[2020-10-17] MEDS: BANATROL PLUS POWDER PACKET PO SCH ×3 (05:09→23:11)
[2020-10-17] MEDS: ALBUTEROL SO4 2.5/IPRATROPIUM 0.5 INH SOL 3 ML VIAL.NEB. NEB SCH ×3 (08:03→19:06)
[2020-10-17] MEDS: AMINO ACIDS/PROTEIN HYDROLYS 30 ML LIQUID.PKT PO SCH ×2 (10:00→17:42)
[2020-10-17] MEDS: FERROUS SO4 300 MG/5 ML ORAL SOLN UNIT DOSE CUPS GT SCH (10:00)
[2020-10-17] MEDS: ZINC SULFATE 220 MG CAPSULE (FP) GT SCH (10:00)
[2020-10-17] MEDS: LACTOBACILLUS ACIDOPHILUS 1 TABLET GT SCH (10:01)
[2020-10-17] MEDS: MULTIVIT-MINERALS ORAL LIQUID GT SCH (10:01)
[2020-10-17] MEDS: ASCORBIC ACID 500 MG/5 ML UNIT DOSE CUP GT SCH (10:02)
[2020-10-17] MEDS: FAMOTIDINE 40 MG/5 ML ORAL SUSPENSION PEG SCH ×2 (10:02→23:11)
[2020-10-17] MEDS: ESCITALOPRAM OXALATE 5 MG/5 ML GT SCH (10:02)
[2020-10-17] MEDS: ENOXAPARIN NA (PORCINE) 30 MG/0.3 ML DISP.SYRIN SQ SCH (10:03)
[2020-10-17] MEDS: SODIUM HYPOCHLORITE 0.25%- 473 ML BULK BOTTLE TP SCH (10:03)
[2020-10-18] MEDS ORDERED: PT OWN MED DRAWER 7, Y5N ONE ×3 (05:41→23:44)
[2020-10-18] MEDS: BANATROL PLUS POWDER PACKET PO SCH ×3 (05:53→23:49)
[2020-10-18] MEDS: VANCOMYCIN 250 MG/5 ML ORAL SOLUTION PO SCH ×4 (05:53→23:53)
[2020-10-18] MEDS: ALBUTEROL SO4 2.5/IPRATROPIUM 0.5 INH SOL 3 ML VIAL.NEB. NEB SCH ×2 (07:40→13:20)
[2020-10-18 08:01] LABS: POTASSIUM 4.4 mmol/L (3.5-5.1)
[2020-10-18 08:07] LABS: HEMATOCRIT 27.4 % (32.4-45.2); MCH 26.8 pg (25.7-33.7); MCHC 32.9 g/dl (32.0-36.0); MEAN CELL VOLUME 81.3 fl (80-96); MEAN PLT VOLUME 7.9 fl (7.5-11.1); PLATELET COUNT 629 K/MM3 (134-434); RBC 3.38 M/mm3 (3.60-5.2); RDW 22.7 % (11.6-15.6); WHITE BLOOD COUNT 10.2 K/mm3 (4.0-10.0)
[2020-10-18 08:12] LABS: CALCIUM 7.6 mg/dL (8.5-10.1)
[2020-10-18 08:13] LABS: BLOOD UREA NITROGEN 12.5 mg/dL (7-18)
[2020-10-18 08:16] LABS: CREATININE 0.3 mg/dL (0.55-1.3)
[2020-10-18] MEDS: ZINC SULFATE 220 MG CAPSULE (FP) GT SCH (10:14)
[2020-10-18] MEDS: AMINO ACIDS/PROTEIN HYDROLYS 30 ML LIQUID.PKT PO SCH ×2 (10:14→17:29)
[2020-10-18] MEDS: FERROUS SO4 300 MG/5 ML ORAL SOLN UNIT DOSE CUPS GT SCH (10:14)
[2020-10-18] MEDS: FAMOTIDINE 40 MG/5 ML ORAL SUSPENSION PEG SCH (10:14)
[2020-10-18] MEDS: LACTOBACILLUS ACIDOPHILUS 1 TABLET GT SCH (10:14)
[2020-10-18] MEDS: ASCORBIC ACID 500 MG/5 ML UNIT DOSE CUP GT SCH (10:15)
[2020-10-18] MEDS: MULTIVIT-MINERALS ORAL LIQUID GT SCH (10:16)
[2020-10-18] MEDS: ESCITALOPRAM OXALATE 5 MG/5 ML GT SCH (10:16)
[2020-10-18] MEDS: SODIUM HYPOCHLORITE 0.25%- 473 ML BULK BOTTLE TP SCH (10:17)
[2020-10-18] MEDS: ACETAMINOPHEN 650 MG/20.3 ML ORAL SOLUTION (CUPS) PO PRN (23:56)
[2020-10-19] MEDS: FAMOTIDINE 40 MG/5 ML ORAL SUSPENSION PEG SCH ×3 (00:48→23:25)
[2020-10-19] MEDS: BANATROL PLUS POWDER PACKET PO SCH ×3 (05:37→23:24)
[2020-10-19] MEDS: VANCOMYCIN 250 MG/5 ML ORAL SOLUTION PO SCH ×4 (05:51→23:25)
[2020-10-19] MEDS: ALBUTEROL SO4 2.5/IPRATROPIUM 0.5 INH SOL 3 ML VIAL.NEB. NEB SCH ×3 (07:41→20:45)
[2020-10-19] MEDS: FERROUS SO4 300 MG/5 ML ORAL SOLN UNIT DOSE CUPS GT SCH (09:58)
[2020-10-19] MEDS: AMINO ACIDS/PROTEIN HYDROLYS 30 ML LIQUID.PKT PO SCH ×2 (09:58→17:52)
[2020-10-19] MEDS: ESCITALOPRAM OXALATE 5 MG/5 ML GT SCH (09:58)
[2020-10-19] MEDS: ZINC SULFATE 220 MG CAPSULE (FP) GT SCH (09:59)
[2020-10-19] MEDS: LACTOBACILLUS ACIDOPHILUS 1 TABLET GT SCH (09:59)
[2020-10-19] MEDS: ASCORBIC ACID 500 MG/5 ML UNIT DOSE CUP GT SCH (10:00)
[2020-10-19] MEDS: MULTIVIT-MINERALS ORAL LIQUID GT SCH (10:00)
[2020-10-19] MEDS: ENOXAPARIN NA (PORCINE) 30 MG/0.3 ML DISP.SYRIN SQ SCH (10:02)
[2020-10-19] MEDS: SODIUM HYPOCHLORITE 0.25%- 473 ML BULK BOTTLE TP SCH (10:03)
[2020-10-19] MEDS ORDERED: PROPOFOL 20 ML ONE (16:18)
[2020-10-19] MEDS ORDERED: LIDOCAINE HCL 1%, 10 MG/ML (20ML VIAL) ONE (16:26)
[2020-10-19] MEDS ORDERED: LIDOCAINE HCL 1%, 10 MG/ML (20ML VIAL) NR ONE (16:27)
[2020-10-19] MEDS ORDERED: ONDANSETRON 4 MG/2 ML VIAL IVPUSH PRN ×2 (16:40→17:05)
[2020-10-19] MEDS ORDERED: LACTATED RINGERS SOLUTION 1,000 ML IV SCH (16:45)
[2020-10-19] MEDS: LACTATED RINGERS SOLUTION 1,000 ML IV SCH (17:52)
[2020-10-19] MEDS ORDERED: PT OWN MED DRAWER 7, Y5N ONE (23:20)
[2020-10-19] MEDS: ACETAMINOPHEN 650 MG/20.3 ML ORAL SOLUTION (CUPS) PO PRN (23:39)
[2020-10-20] MEDS: VANCOMYCIN 250 MG/5 ML ORAL SOLUTION PO SCH ×3 (05:28→18:47)
[2020-10-20] MEDS: BANATROL PLUS POWDER PACKET PO SCH ×3 (05:28→21:20)
[2020-10-20] MEDS: LACTATED RINGERS SOLUTION 1,000 ML IV SCH ×3 (06:43→21:20)
[2020-10-20] MEDS: ALBUTEROL SO4 2.5/IPRATROPIUM 0.5 INH SOL 3 ML VIAL.NEB. NEB SCH ×3 (07:50→21:00)
[2020-10-20] MEDS: AMINO ACIDS/PROTEIN HYDROLYS 30 ML LIQUID.PKT PO SCH ×2 (10:56→18:47)
[2020-10-20] MEDS: ENOXAPARIN NA (PORCINE) 30 MG/0.3 ML DISP.SYRIN SQ SCH (10:56)
[2020-10-20] MEDS: FERROUS SO4 300 MG/5 ML ORAL SOLN UNIT DOSE CUPS GT SCH (10:56)
[2020-10-20] MEDS: LACTOBACILLUS ACIDOPHILUS 1 TABLET GT SCH (10:57)
[2020-10-20] MEDS: ZINC SULFATE 220 MG CAPSULE (FP) GT SCH (10:57)
[2020-10-20] MEDS: SODIUM HYPOCHLORITE 0.25%- 473 ML BULK BOTTLE TP SCH (11:00)
[2020-10-20] MEDS: ESCITALOPRAM OXALATE 5 MG/5 ML GT SCH (13:46)
[2020-10-20] MEDS: ASCORBIC ACID 500 MG/5 ML UNIT DOSE CUP GT SCH (13:47)
[2020-10-20] MEDS: FAMOTIDINE 40 MG/5 ML ORAL SUSPENSION PEG SCH ×2 (13:47→21:20)
[2020-10-20] MEDS: MULTIVIT-MINERALS ORAL LIQUID GT SCH (13:47)
[2020-10-20] MEDS ORDERED: PT OWN MED DRAWER 7, Y5N ONE (21:10)
[2020-10-21] MEDS: VANCOMYCIN 250 MG/5 ML ORAL SOLUTION PO SCH ×4 (00:29→17:16)
[2020-10-21] MEDS ORDERED: PT OWN MED DRAWER 7, Y5N ONE ×2 (05:34→21:32)
[2020-10-21] MEDS: BANATROL PLUS POWDER PACKET PO SCH ×3 (05:39→21:35)
[2020-10-21 06:40] LABS: BASO % 0.9 % (0-2.0); EOS % 1.7 % (0-4.5); HEMOGLOBIN 8.3 GM/dL (10.7-15.3); LYMPH % 11.5 % (8-40); MCH 26.8 pg (25.7-33.7); MCHC 33.3 g/dl (32.0-36.0); MEAN CELL VOLUME 80.5 fl (80-96); MEAN PLT VOLUME 8.4 fl (7.5-11.1); MONO % 7.5 % (3.8-10.2); NEUT % 78.4 % (42.8-82.8); PLATELET COUNT 666 K/MM3 (134-434); RBC 3.11 M/mm3 (3.60-5.2); RDW 22.6 % (11.6-15.6); WHITE BLOOD COUNT 8.9 K/mm3 (4.0-10.0)
[2020-10-21 07:02] LABS: POTASSIUM 4.6 mmol/L (3.5-5.1)
[2020-10-21 07:06] LABS: ALBUMIN 1.4 g/dl (3.4-5.0); BLOOD UREA NITROGEN 11.2 mg/dL (7-18); CALCIUM 7.5 mg/dL (8.5-10.1)
[2020-10-21 07:09] LABS: CREATININE 0.3 mg/dL (0.55-1.3)
[2020-10-21 07:11] LABS: BILIRUBIN,TOTAL 0.2 mg/dL (0.2-1); TOT PROT 4.6 g/dl (6.4-8.2)
[2020-10-21] MEDS: ALBUTEROL SO4 2.5/IPRATROPIUM 0.5 INH SOL 3 ML VIAL.NEB. NEB SCH ×3 (07:50→19:45)
[2020-10-21 08:54] LABS: ANISOCYTOSIS 2+; MACROCYTOSIS 0; PLATELET ESTIMATE INCREASED
[2020-10-21] MEDS: AMINO ACIDS/PROTEIN HYDROLYS 30 ML LIQUID.PKT PO SCH ×2 (09:11→17:16)
[2020-10-21] MEDS: ENOXAPARIN NA (PORCINE) 30 MG/0.3 ML DISP.SYRIN SQ SCH (09:12)
[2020-10-21] MEDS: ESCITALOPRAM OXALATE 5 MG/5 ML GT SCH (09:12)
[2020-10-21] MEDS: ASCORBIC ACID 500 MG/5 ML UNIT DOSE CUP GT SCH (09:14)
[2020-10-21] MEDS: FERROUS SO4 300 MG/5 ML ORAL SOLN UNIT DOSE CUPS GT SCH (09:14)
[2020-10-21] MEDS: LACTOBACILLUS ACIDOPHILUS 1 TABLET GT SCH (09:14)
[2020-10-21] MEDS: ZINC SULFATE 220 MG CAPSULE (FP) GT SCH (09:14)
[2020-10-21] MEDS: FAMOTIDINE 40 MG/5 ML ORAL SUSPENSION PEG SCH ×2 (09:15→21:35)
[2020-10-21] MEDS: MULTIVIT-MINERALS ORAL LIQUID GT SCH (09:15)
[2020-10-21] MEDS: LACTATED RINGERS SOLUTION 1,000 ML IV SCH ×3 (09:16→22:42)
[2020-10-21] MEDS: SODIUM HYPOCHLORITE 0.25%- 473 ML BULK BOTTLE TP SCH (09:20)
[2020-10-22] MEDS: VANCOMYCIN 250 MG/5 ML ORAL SOLUTION PO SCH ×4 (00:52→17:45)
[2020-10-22] MEDS: ACETAMINOPHEN 650 MG/20.3 ML ORAL SOLUTION (CUPS) PO PRN ×2 (03:10→23:28)
[2020-10-22] MEDS: BANATROL PLUS POWDER PACKET PO SCH ×3 (05:15→22:34)
[2020-10-22 07:34] LABS: POTASSIUM 4.6 mmol/L (3.5-5.1)
[2020-10-22 07:35] LABS: EOS % 3.5 % (0-4.5); HEMATOCRIT 24.1 % (32.4-45.2); HEMOGLOBIN 8.1 GM/dL (10.7-15.3); LYMPH % 15.6 % (8-40); MCH 26.9 pg (25.7-33.7); MCHC 33.4 g/dl (32.0-36.0); MEAN CELL VOLUME 80.4 fl (80-96); MEAN PLT VOLUME 7.7 fl (7.5-11.1); MONO % 7.6 % (3.8-10.2); NEUT % 72.3 % (42.8-82.8); PLATELET COUNT 728 K/MM3 (134-434); RDW 22.5 % (11.6-15.6); WHITE BLOOD COUNT 7.3 K/mm3 (4.0-10.0)
[2020-10-22 07:45] LABS: ALBUMIN 1.4 g/dl (3.4-5.0)
[2020-10-22 07:46] LABS: BLOOD UREA NITROGEN 11.2 mg/dL (7-18)
[2020-10-22 07:48] LABS: CALCIUM 7.9 mg/dL (8.5-10.1)
[2020-10-22 07:49] LABS: CREATININE 0.3 mg/dL (0.55-1.3)
[2020-10-22 07:50] LABS: BILIRUBIN,TOTAL 0.4 mg/dL (0.2-1); TOT PROT 4.6 g/dl (6.4-8.2)
[2020-10-22] MEDS: AMINO ACIDS/PROTEIN HYDROLYS 30 ML LIQUID.PKT PO SCH ×2 (08:36→17:45)
[2020-10-22] MEDS: ALBUTEROL SO4 2.5/IPRATROPIUM 0.5 INH SOL 3 ML VIAL.NEB. NEB SCH ×3 (09:41→19:24)
[2020-10-22] MEDS: FERROUS SO4 300 MG/5 ML ORAL SOLN UNIT DOSE CUPS GT SCH (10:01)
[2020-10-22] MEDS: ENOXAPARIN NA (PORCINE) 30 MG/0.3 ML DISP.SYRIN SQ SCH (10:01)
[2020-10-22] MEDS: FAMOTIDINE 40 MG/5 ML ORAL SUSPENSION PEG SCH ×2 (10:02→23:28)
[2020-10-22] MEDS: ASCORBIC ACID 500 MG/5 ML UNIT DOSE CUP GT SCH (10:02)
[2020-10-22] MEDS: ZINC SULFATE 220 MG CAPSULE (FP) GT SCH (10:02)
[2020-10-22] MEDS: MULTIVIT-MINERALS ORAL LIQUID GT SCH (10:02)
[2020-10-22] MEDS: LACTOBACILLUS ACIDOPHILUS 1 TABLET GT SCH (10:02)
[2020-10-22] MEDS: ESCITALOPRAM OXALATE 5 MG/5 ML GT SCH (10:03)
[2020-10-22] MEDS: SODIUM HYPOCHLORITE 0.25%- 473 ML BULK BOTTLE TP SCH (10:04)
[2020-10-22] MEDS: LACTATED RINGERS SOLUTION 1,000 ML IV SCH (14:00)
[2020-10-22] MEDS ORDERED: PT OWN MED DRAWER 7, Y5N ONE (21:56)
[2020-10-23] MEDS: LACTATED RINGERS SOLUTION 1,000 ML IV SCH (00:31)
[2020-10-23] MEDS: VANCOMYCIN 250 MG/5 ML ORAL SOLUTION PO SCH ×5 (00:32→23:07)
[2020-10-23] MEDS: ALBUTEROL SO4 2.5/IPRATROPIUM 0.5 INH SOL 3 ML VIAL.NEB. NEB SCH ×3 (08:20→20:13)
[2020-10-23] MEDS: BANATROL PLUS POWDER PACKET PO SCH ×3 (09:56→23:02)
[2020-10-23] MEDS: AMINO ACIDS/PROTEIN HYDROLYS 30 ML LIQUID.PKT PO SCH ×2 (09:57→16:32)
[2020-10-23] MEDS: ZINC SULFATE 220 MG CAPSULE (FP) GT SCH (09:59)
[2020-10-23] MEDS: FERROUS SO4 300 MG/5 ML ORAL SOLN UNIT DOSE CUPS GT SCH (09:59)
[2020-10-23] MEDS: LACTOBACILLUS ACIDOPHILUS 1 TABLET GT SCH (09:59)
[2020-10-23] MEDS: MULTIVIT-MINERALS ORAL LIQUID GT SCH (10:00)
[2020-10-23] MEDS: ASCORBIC ACID 500 MG/5 ML UNIT DOSE CUP GT SCH (10:00)
[2020-10-23] MEDS: ENOXAPARIN NA (PORCINE) 30 MG/0.3 ML DISP.SYRIN SQ SCH (10:01)
[2020-10-23] MEDS: FAMOTIDINE 40 MG/5 ML ORAL SUSPENSION PEG SCH ×2 (10:01→23:07)
[2020-10-23] MEDS: ESCITALOPRAM OXALATE 5 MG/5 ML GT SCH (10:01)
[2020-10-23] MEDS: SODIUM HYPOCHLORITE 0.25%- 473 ML BULK BOTTLE TP SCH (10:02)
[2020-10-23 14:31] VITALS: BMI 18.6
[2020-10-23] MEDS ORDERED: PT OWN MED DRAWER 7, Y5N ONE (22:22)
[2020-10-23] MEDS: ACETAMINOPHEN 650 MG/20.3 ML ORAL SOLUTION (CUPS) PO PRN (23:02)
[2020-10-24] MEDS: BANATROL PLUS POWDER PACKET PO SCH ×3 (06:35→22:31)
[2020-10-24] MEDS: VANCOMYCIN 250 MG/5 ML ORAL SOLUTION PO SCH ×3 (06:36→17:12)
[2020-10-24] MEDS: MULTIVIT-MINERALS ORAL LIQUID GT SCH (10:13)
[2020-10-24] MEDS: FERROUS SO4 300 MG/5 ML ORAL SOLN UNIT DOSE CUPS GT SCH (10:13)
[2020-10-24] MEDS: AMINO ACIDS/PROTEIN HYDROLYS 30 ML LIQUID.PKT PO SCH ×2 (10:13→16:44)
[2020-10-24] MEDS: ZINC SULFATE 220 MG CAPSULE (FP) GT SCH (10:13)
[2020-10-24] MEDS: ASCORBIC ACID 500 MG/5 ML UNIT DOSE CUP GT SCH (10:13)
[2020-10-24] MEDS: ENOXAPARIN NA (PORCINE) 30 MG/0.3 ML DISP.SYRIN SQ SCH (10:13)
[2020-10-24] MEDS: LACTOBACILLUS ACIDOPHILUS 1 TABLET GT SCH (10:13)
[2020-10-24] MEDS: FAMOTIDINE 40 MG/5 ML ORAL SUSPENSION PEG SCH ×2 (10:14→22:31)
[2020-10-24] MEDS: ESCITALOPRAM OXALATE 5 MG/5 ML GT SCH (10:14)
[2020-10-24] MEDS: SODIUM HYPOCHLORITE 0.25%- 473 ML BULK BOTTLE TP SCH (10:14)
[2020-10-24] MEDS: ALBUTEROL SO4 2.5/IPRATROPIUM 0.5 INH SOL 3 ML VIAL.NEB. NEB SCH ×2 (11:34→15:46)
[2020-10-24] MEDS ORDERED: PT OWN MED DRAWER 7, Y5N ONE (21:14)
[2020-10-24] MEDS: ACETAMINOPHEN 650 MG/20.3 ML ORAL SOLUTION (CUPS) PO PRN (22:47)
[2020-10-25] MEDS: VANCOMYCIN 250 MG/5 ML ORAL SOLUTION PO SCH ×3 (00:07→13:11)
[2020-10-25] MEDS: BANATROL PLUS POWDER PACKET PO SCH ×2 (05:18→13:12)
[2020-10-25] MEDS ORDERED: PT OWN MED DRAWER 7, Y5N ONE (09:43)
[2020-10-25] MEDS: ASCORBIC ACID 500 MG/5 ML UNIT DOSE CUP GT SCH (10:23)
[2020-10-25] MEDS: LACTOBACILLUS ACIDOPHILUS 1 TABLET GT SCH (10:23)
[2020-10-25] MEDS: AMINO ACIDS/PROTEIN HYDROLYS 30 ML LIQUID.PKT PO SCH (10:23)
[2020-10-25] MEDS: FAMOTIDINE 40 MG/5 ML ORAL SUSPENSION PEG SCH (10:24)
[2020-10-25] MEDS: ESCITALOPRAM OXALATE 5 MG/5 ML GT SCH (10:25)
[2020-10-25] MEDS: MULTIVIT-MINERALS ORAL LIQUID GT SCH (10:25)
[2020-10-25] MEDS: ZINC SULFATE 220 MG CAPSULE (FP) GT SCH (10:25)
[2020-10-25] MEDS: FERROUS SO4 300 MG/5 ML ORAL SOLN UNIT DOSE CUPS GT SCH (10:25)
[2020-10-25] MEDS: ENOXAPARIN NA (PORCINE) 30 MG/0.3 ML DISP.SYRIN SQ SCH (10:25)
[2020-10-25] MEDS: SODIUM HYPOCHLORITE 0.25%- 473 ML BULK BOTTLE TP SCH (10:26)
[2020-10-25 12:56] VITALS: BP 128/70; PULSE 106
[2020-10-25] MEDS: ACETAMINOPHEN 650 MG/20.3 ML ORAL SOLUTION (CUPS) PO PRN (13:09)
[2020-10-25 13:56] VITALS: TEMP 99.7
== END 2020-10-25 14:51 | disposition home health service (06) | DRG 853 ==
LOC: JER 16:04 → JERBED 16:58 → JICU 10-05 21:16 → J7W 10-09 00:05
PROVIDERS: ADMIT Student in an Organized Health Care Education/Training Program; ATTEND Family Medicine
PROC: 05HM33Z Insertion of Infusion Device into Right Internal Jugular Vein, Percutaneous Approach (ICD-10-PCS; 2020-10-05)
PROC: B543ZZA Ultrasonography of Right Jugular Veins, Guidance (ICD-10-PCS; 2020-10-05)
PROC: 0D20XUZ Change Feeding Device in Upper Intestinal Tract, External Approach (ICD-10-PCS; principal; 2020-10-07)
PROC: 0JB70ZZ Excision of Back Subcutaneous Tissue and Fascia, Open Approach (ICD-10-PCS; 2020-10-19)
DX: A41.4 Sepsis due to anaerobes (principal); L89.154 Pressure ulcer of sacral region, stage 4; R65.21 Severe sepsis with septic shock; G93.41 Metabolic encephalopathy; E43 Unspecified severe protein-calorie malnutrition; R53.2 Functional quadriplegia; Z68.1 Body mass index [BMI] 19.9 or less, adult; N39.0 Urinary tract infection, site not specified; A04.72 Enterocolitis due to Clostridium difficile, not specified as recurrent; R64 Cachexia; E87.1 Hypo-osmolality and hyponatremia; R50.9 Fever, unspecified; G30.9 Alzheimer's disease, unspecified; F02.80 Dementia in other diseases classified elsewhere, unspecified severity, without behavioral disturbance, psychotic disturbance, mood disturbance, and anxiety; G20 Parkinson's disease; E78.5 Hyperlipidemia, unspecified; Z93.1 Gastrostomy status; K59.09 Other constipation; D72.829 Elevated white blood cell count, unspecified; D64.9 Anemia, unspecified; E87.6 Hypokalemia; R13.10 Dysphagia, unspecified; E83.39 Other disorders of phosphorus metabolism; Z74.01 Bed confinement status
CPT/HCPCS: 36415; 36430; 36511; 71045-TC-FY; 74019-TC-FY; 74177-TC; 80048; 80053; 81003; 82272; 82550; 82553; 82607; 82728; 82803; 82962; 83540; 83550; 83605; 83615; 83735; 84100; 84439; 84443; 84484; 85025; 85027; 85610; 85730; 86140; 86850; 86900; 86901; 86922; 87040; 87070; 87076; 87086; 87186; 87205; 87324; 87449; 93005; 93010; 93926-TC; 94640; 94760; 99291; C9803; E0186; G0480; J0131; P9038; P9058; Q9967; U0003

== ENCOUNTER 2020-12-13 11:10 | Inpatient (IN) | payer OTHER ==
[2020-12-13 12:20] LABS: BASO % 0.6 % (0-2.0); EOS % 0.1 % (0-4.5); HEMATOCRIT 25.3 % (32.4-45.2); HEMOGLOBIN 8.1 GM/dL (10.7-15.3); LYMPH % 9.8 % (8-40); MEAN PLT VOLUME 6.7 fl (7.5-11.1); MONO % 5.4 % (3.8-10.2); NEUT % 84.1 % (42.8-82.8); PLATELET COUNT 889 K/MM3 (134-434); RBC 3.51 M/mm3 (3.60-5.2); RDW 20.1 % (11.6-15.6); WHITE BLOOD COUNT 12.6 K/mm3 (4.0-10.0)
[2020-12-13 12:45] LABS: POTASSIUM 5.3 mmol/L (3.5-5.1)
[2020-12-13 12:48] LABS: CALCIUM 8.9 mg/dL (8.5-10.1)
[2020-12-13 12:49] LABS: BLOOD UREA NITROGEN 15.4 mg/dL (7-18)
[2020-12-13 12:52] LABS: CREATININE 0.3 mg/dL (0.55-1.3)
[2020-12-13 12:53] LABS: BILIRUBIN,TOTAL 0.4 mg/dL (0.2-1); TOT PROT 6.4 g/dl (6.4-8.2)
[2020-12-13] MEDS ORDERED: SODIUM CHLORIDE 0.9% 500 ML INFUS.BAG IV ONE (13:26)
[2020-12-13 14:42] LABS: EPI CELLS 4 /uL (0-25.1); HYALINE CASTS 4 /uL (0-3.1); PH,URINE 7.5 (5.0-8.0); URINE APPEARANCE CLOUDY; URINE BACTERIA >9,000 /uL (0-1359); URINE BILIRUBIN NEGATIVE (NEGATIVE); URINE COLOR YELLOW; URINE GLUCOSE (UA) NEGATIVE (NEGATIVE); URINE KETONE TRACE (NEGATIVE); URINE LEUK ESTERASE 3+ (NEGATIVE); URINE NITRITE POSITIVE (NEGATIVE); URINE PROTEIN TRACE (NEGATIVE); URINE RBC 4 /uL (0-23.9); URINE UROBILINOGEN 0.2 mg/dL (0.2-1.0); URINE WBC 857 /uL (0-25.8)
[2020-12-13] MEDS ORDERED: CEFTRIAXONE 1 GM in DEXTROSE 5%-WATER - 100 ML IVPB ONE (14:52)
[2020-12-13] MEDS ORDERED: CEFTRIAXONE 1 GM/50 ML BAG ONE (15:36)
[2020-12-13] MEDS ORDERED: ACETAMINOPHEN 650 MG/20.3 ML ORAL SOLUTION (CUPS) PO PRN (16:18)
[2020-12-13] MEDS ORDERED: ALBUTEROL SO4 2.5/IPRATROPIUM 0.5 INH SOL 3 ML VIAL.NEB. NEB PRN (16:18)
[2020-12-13] MEDS: AMINO ACIDS/PROTEIN HYDROLYS 30 ML LIQUID.PKT PO SCH (18:23)
[2020-12-13] MEDS: COLLAGENASE CLOSTRIDIUM HIST. 30 GRAMS TUBE TP SCH (22:03)
[2020-12-14 08:33] LABS: HEMATOCRIT 21.3 % (32.4-45.2); HEMOGLOBIN 7.1 GM/dL (10.7-15.3); MCH 23.8 pg (25.7-33.7); MCHC 33.3 g/dl (32.0-36.0); MEAN CELL VOLUME 71.6 fl (80-96); MEAN PLT VOLUME 6.4 fl (7.5-11.1); PLATELET COUNT 772 K/MM3 (134-434); RBC 2.98 M/mm3 (3.60-5.2); RDW 20.2 % (11.6-15.6); WHITE BLOOD COUNT 10.1 K/mm3 (4.0-10.0)
[2020-12-14 08:49] LABS: POTASSIUM 4.4 mmol/L (3.5-5.1)
[2020-12-14 09:05] LABS: ALBUMIN 1.8 g/dl (3.4-5.0); BLOOD UREA NITROGEN 14.6 mg/dL (7-18); CALCIUM 8.6 mg/dL (8.5-10.1)
[2020-12-14 09:08] LABS: CREATININE 0.4 mg/dL (0.55-1.3)
[2020-12-14 09:10] LABS: BILIRUBIN,TOTAL 0.2 mg/dL (0.2-1); TOT PROT 5.5 g/dl (6.4-8.2)
[2020-12-14] MEDS ORDERED: ESCITALOPRAM OXALATE 5 MG/5 ML PO SCH (10:00)
[2020-12-14] MEDS ORDERED: PT OWN MED DRAWER 7, Y5N ONE (10:10)
[2020-12-14] MEDS: AMINO ACIDS/PROTEIN HYDROLYS 30 ML LIQUID.PKT PO SCH ×2 (10:20→17:13)
[2020-12-14] MEDS: COLLAGENASE CLOSTRIDIUM HIST. 30 GRAMS TUBE TP SCH (12:09)
[2020-12-14] MEDS ORDERED: DEXTROSE 5%-WATER - 50 ML IVPB ONE ×2 (13:11→17:08)
[2020-12-14] MEDS ORDERED: PIPERACILLIN/TAZOBACTAM 3.375 GM VIAL IVPB ONE ×2 (13:11→17:08)
[2020-12-14] MEDS: PIPERACILLIN/TAZOB 3.375 GM 3.375 GM in DEXTROSE 5%-WATER - 50 ML IVPB SCH ×2 (13:15→19:00)
[2020-12-14] MEDS ORDERED: SODIUM CHLORIDE 1,000 ML IV SCH (14:15)
[2020-12-15] MEDS ORDERED: PIPERACILLIN/TAZOBACTAM 3.375 GM VIAL IVPB ONE ×3 (01:18→17:16)
[2020-12-15] MEDS ORDERED: DEXTROSE 5%-WATER - 50 ML IVPB ONE ×3 (01:19→17:16)
[2020-12-15] MEDS: PIPERACILLIN/TAZOB 3.375 GM 3.375 GM in DEXTROSE 5%-WATER - 50 ML IVPB SCH ×3 (01:26→17:19)
[2020-12-15 09:35] LABS: BASO % 0.5 % (0-2.0); EOS % 0.5 % (0-4.5); HEMATOCRIT 20.3 % (32.4-45.2); LYMPH % 9.1 % (8-40); MCH 23.5 pg (25.7-33.7); MCHC 32.4 g/dl (32.0-36.0); MEAN CELL VOLUME 72.5 fl (80-96); MEAN PLT VOLUME 6.6 fl (7.5-11.1); MONO % 5.6 % (3.8-10.2); NEUT % 84.3 % (42.8-82.8); PLATELET COUNT 769 K/MM3 (134-434); RBC 2.81 M/mm3 (3.60-5.2); RDW 20.1 % (11.6-15.6); WHITE BLOOD COUNT 11.9 K/mm3 (4.0-10.0)
[2020-12-15] MEDS: AMINO ACIDS/PROTEIN HYDROLYS 30 ML LIQUID.PKT PO SCH (09:35)
[2020-12-15] MEDS: COLLAGENASE CLOSTRIDIUM HIST. 30 GRAMS TUBE TP SCH (09:35)
[2020-12-15 09:46] LABS: HEMOGLOBIN 6.6 GM/dL (10.7-15.3)
[2020-12-15 11:19] LABS: POTASSIUM 4.2 mmol/L (3.5-5.1)
[2020-12-15 11:21] LABS: ALBUMIN 1.7 g/dl (3.4-5.0); BLOOD UREA NITROGEN 19.1 mg/dL (7-18)
[2020-12-15 11:25] LABS: CREATININE 0.3 mg/dL (0.55-1.3)
[2020-12-15 11:26] LABS: BILIRUBIN,TOTAL 0.2 mg/dL (0.2-1); TOT PROT 5.4 g/dl (6.4-8.2)
[2020-12-15 15:34] VITALS: BMI 13.9
[2020-12-15] MEDS ORDERED: SODIUM CHLORIDE 1,000 ML IV SCH (16:15)
[2020-12-16] MEDS ORDERED: DEXTROSE 5%-WATER - 50 ML IVPB ONE ×3 (01:03→17:48)
[2020-12-16] MEDS ORDERED: PIPERACILLIN/TAZOBACTAM 3.375 GM VIAL IVPB ONE ×3 (01:03→17:48)
[2020-12-16] MEDS: PIPERACILLIN/TAZOB 3.375 GM 3.375 GM in DEXTROSE 5%-WATER - 50 ML IVPB SCH ×3 (01:09→18:38)
[2020-12-16] MEDS ORDERED: AMINO ACIDS/PROTEIN HYDROLYS 30 ML LIQUID.PKT PO SCH (08:00)
[2020-12-16 09:26] LABS: HEMATOCRIT 34.9 % (32.4-45.2); MCH 26.3 pg (25.7-33.7); MCHC 34.4 g/dl (32.0-36.0); MEAN CELL VOLUME 76.5 fl (80-96); MEAN PLT VOLUME 6.6 fl (7.5-11.1); PLATELET COUNT 701 K/MM3 (134-434); RBC 4.56 M/mm3 (3.60-5.2); RDW 19.9 % (11.6-15.6); WHITE BLOOD COUNT 14.1 K/mm3 (4.0-10.0)
[2020-12-16 09:47] LABS: POTASSIUM 4.8 mmol/L (3.5-5.1)
[2020-12-16 09:51] LABS: ALBUMIN 1.8 g/dl (3.4-5.0); CALCIUM 8.1 mg/dL (8.5-10.1)
[2020-12-16 09:52] LABS: BLOOD UREA NITROGEN 17.6 mg/dL (7-18)
[2020-12-16 09:55] LABS: CREATININE 0.3 mg/dL (0.55-1.3)
[2020-12-16 09:57] LABS: BILIRUBIN,TOTAL 0.5 mg/dL (0.2-1); TOT PROT 5.6 g/dl (6.4-8.2)
[2020-12-16] MEDS: COLLAGENASE CLOSTRIDIUM HIST. 30 GRAMS TUBE TP SCH (12:06)
[2020-12-16] MEDS: ACETAMINOPHEN 650 MG/20.3 ML ORAL SOLUTION (CUPS) GT PRN (20:07)
[2020-12-16] MEDS: AMINO ACIDS/PROTEIN HYDROLYS 30 ML LIQUID.PKT PO SCH (22:17)
[2020-12-17] MEDS ORDERED: DEXTROSE 5%-WATER - 50 ML IVPB ONE ×3 (00:24→18:03)
[2020-12-17] MEDS ORDERED: PIPERACILLIN/TAZOBACTAM 3.375 GM VIAL IVPB ONE ×3 (00:24→18:03)
[2020-12-17] MEDS: PIPERACILLIN/TAZOB 3.375 GM 3.375 GM in DEXTROSE 5%-WATER - 50 ML IVPB SCH ×3 (01:00→18:21)
[2020-12-17] MEDS: COLLAGENASE CLOSTRIDIUM HIST. 30 GRAMS TUBE TP SCH (11:01)
[2020-12-17] MEDS: AMINO ACIDS/PROTEIN HYDROLYS 30 ML LIQUID.PKT PO SCH ×2 (11:02→21:34)
[2020-12-18] MEDS ORDERED: PIPERACILLIN/TAZOBACTAM 3.375 GM VIAL IVPB ONE ×3 (01:42→17:16)
[2020-12-18] MEDS ORDERED: DEXTROSE 5%-WATER - 50 ML IVPB ONE ×3 (01:42→17:16)
[2020-12-18] MEDS: PIPERACILLIN/TAZOB 3.375 GM 3.375 GM in DEXTROSE 5%-WATER - 50 ML IVPB SCH ×3 (02:37→17:53)
[2020-12-18 09:30] LABS: POTASSIUM 4.8 mmol/L (3.5-5.1)
[2020-12-18 09:39] LABS: ALBUMIN 1.8 g/dl (3.4-5.0)
[2020-12-18 09:40] LABS: BLOOD UREA NITROGEN 29.2 mg/dL (7-18)
[2020-12-18 09:49] LABS: CALCIUM 8.7 mg/dL (8.5-10.1)
[2020-12-18 09:54] LABS: BILIRUBIN,TOTAL 0.3 mg/dL (0.2-1)
[2020-12-18 09:55] LABS: CREATININE 0.4 mg/dL (0.55-1.3); TOT PROT 5.7 g/dl (6.4-8.2)
[2020-12-18] MEDS: AMINO ACIDS/PROTEIN HYDROLYS 30 ML LIQUID.PKT PO SCH ×2 (10:15→21:44)
[2020-12-18] MEDS: COLLAGENASE CLOSTRIDIUM HIST. 30 GRAMS TUBE TP SCH (10:15)
[2020-12-18 14:47] LABS: BASO % 0.3 % (0-2.0); EOS % 3.5 % (0-4.5); HEMATOCRIT 35.1 % (32.4-45.2); HEMOGLOBIN 11.5 GM/dL (10.7-15.3); LYMPH % 13.9 % (8-40); MCH 26.3 pg (25.7-33.7); MCHC 32.7 g/dl (32.0-36.0); MEAN CELL VOLUME 80.4 fl (80-96); MEAN PLT VOLUME 6.9 fl (7.5-11.1); MONO % 7.9 % (3.8-10.2); NEUT % 74.4 % (42.8-82.8); PLATELET COUNT 805 K/MM3 (134-434); RBC 4.36 M/mm3 (3.60-5.2); RDW 21.1 % (11.6-15.6); WHITE BLOOD COUNT 8.9 K/mm3 (4.0-10.0)
[2020-12-18 15:41] LABS: ANISOCYTOSIS 2+; MACROCYTOSIS 1+; PLATELET ESTIMATE INCREASED
[2020-12-19] MEDS ORDERED: PIPERACILLIN/TAZOBACTAM 3.375 GM VIAL IVPB ONE ×3 (02:10→17:28)
[2020-12-19] MEDS ORDERED: DEXTROSE 5%-WATER - 50 ML IVPB ONE ×3 (02:10→17:28)
[2020-12-19] MEDS: PIPERACILLIN/TAZOB 3.375 GM 3.375 GM in DEXTROSE 5%-WATER - 50 ML IVPB SCH ×3 (02:22→17:31)
[2020-12-19] MEDS: COLLAGENASE CLOSTRIDIUM HIST. 30 GRAMS TUBE TP SCH (09:40)
[2020-12-19] MEDS: AMINO ACIDS/PROTEIN HYDROLYS 30 ML LIQUID.PKT PO SCH ×2 (09:40→22:08)
[2020-12-20] MEDS ORDERED: PIPERACILLIN/TAZOBACTAM 3.375 GM VIAL IVPB ONE ×3 (01:38→17:38)
[2020-12-20] MEDS ORDERED: DEXTROSE 5%-WATER - 50 ML IVPB ONE ×3 (01:38→17:38)
[2020-12-20] MEDS: PIPERACILLIN/TAZOB 3.375 GM 3.375 GM in DEXTROSE 5%-WATER - 50 ML IVPB SCH ×3 (02:27→17:48)
[2020-12-20] MEDS: AMINO ACIDS/PROTEIN HYDROLYS 30 ML LIQUID.PKT PO SCH (10:22)
[2020-12-20] MEDS: COLLAGENASE CLOSTRIDIUM HIST. 30 GRAMS TUBE TP SCH (10:22)
[2020-12-20] MEDS: BANATROL PLUS POWDER PACKET PEG SCH (21:40)
[2020-12-21] MEDS ORDERED: PIPERACILLIN/TAZOBACTAM 3.375 GM VIAL IVPB ONE ×2 (02:41→09:18)
[2020-12-21] MEDS ORDERED: DEXTROSE 5%-WATER - 50 ML IVPB ONE ×2 (02:41→09:18)
[2020-12-21] MEDS: PIPERACILLIN/TAZOB 3.375 GM 3.375 GM in DEXTROSE 5%-WATER - 50 ML IVPB SCH ×2 (03:01→09:39)
[2020-12-21] MEDS: BANATROL PLUS POWDER PACKET PEG SCH ×3 (05:42→21:53)
[2020-12-21] MEDS: COLLAGENASE CLOSTRIDIUM HIST. 30 GRAMS TUBE TP SCH (12:22)
[2020-12-21] MEDS ORDERED: FLU VACCINE (FLULAVAL) PF 60 MCG/0.5 ML SYRINGE 2020-2021 IM ONE (16:00)
[2020-12-22] MEDS: BANATROL PLUS POWDER PACKET PEG SCH ×3 (06:07→22:15)
[2020-12-22] MEDS: COLLAGENASE CLOSTRIDIUM HIST. 30 GRAMS TUBE TP SCH (09:42)
[2020-12-22] MEDS: ACETAMINOPHEN 650 MG/20.3 ML ORAL SOLUTION (CUPS) GT PRN (20:46)
[2020-12-23] MEDS: BANATROL PLUS POWDER PACKET PEG SCH ×3 (05:10→21:50)
[2020-12-23] MEDS: ACETAMINOPHEN 650 MG/20.3 ML ORAL SOLUTION (CUPS) GT PRN (10:11)
[2020-12-23] MEDS: COLLAGENASE CLOSTRIDIUM HIST. 30 GRAMS TUBE TP SCH (10:12)
[2020-12-23 11:50] LABS: BASO % 0.8 % (0-2.0); EOS % 1.2 % (0-4.5); HEMATOCRIT 33.1 % (32.4-45.2); HEMOGLOBIN 11.3 GM/dL (10.7-15.3); LYMPH % 10.2 % (8-40); MCHC 34.2 g/dl (32.0-36.0); MEAN CELL VOLUME 78.9 fl (80-96); MEAN PLT VOLUME 6.8 fl (7.5-11.1); NEUT % 77.8 % (42.8-82.8); PLATELET COUNT 689 K/MM3 (134-434); RBC 4.19 M/mm3 (3.60-5.2); RDW 22.2 % (11.6-15.6); WHITE BLOOD COUNT 9.1 K/mm3 (4.0-10.0)
[2020-12-23 12:07] LABS: POTASSIUM 4.5 mmol/L (3.5-5.1)
[2020-12-23 12:11] LABS: BLOOD UREA NITROGEN 25.1 mg/dL (7-18); CALCIUM 8.6 mg/dL (8.5-10.1)
[2020-12-23 12:15] LABS: CREATININE 0.4 mg/dL (0.55-1.3)
[2020-12-23 12:16] LABS: BILIRUBIN,TOTAL 0.2 mg/dL (0.2-1); TOT PROT 6.3 g/dl (6.4-8.2)
[2020-12-23 16:58] LABS: EPI CELLS >36 /uL (0-25.1); HYALINE CASTS 1 /uL (0-3.1); PH,URINE 6.5 (5.0-8.0); URINE APPEARANCE CLEAR; URINE BACTERIA 29 /uL (0-1359); URINE BILIRUBIN NEGATIVE (NEGATIVE); URINE COLOR YELLOW; URINE GLUCOSE (UA) NEGATIVE (NEGATIVE); URINE KETONE NEGATIVE (NEGATIVE); URINE LEUK ESTERASE 1+ (NEGATIVE); URINE NITRITE NEGATIVE (NEGATIVE); URINE PROTEIN TRACE (NEGATIVE); URINE RBC 9 /uL (0-23.9); URINE UROBILINOGEN 0.2 mg/dL (0.2-1.0); URINE WBC 45 /uL (0-25.8)
[2020-12-23] MEDS: CEFEPIME 1 GM in DEXTROSE 5%-WATER 1 GM/50 ML BAG IVPB SCH ×2 (17:55→21:50)
[2020-12-23] MEDS: VANCOMYCIN 750 MG in DEXTROSE 5%-WATER - 250 ML IVPB SCH (19:12)
[2020-12-23] MEDS ORDERED: PT OWN MED DRAWER 7, Y5N ONE (21:46)
[2020-12-23] MEDS ORDERED: DEXTROSE 5%-WATER 100 ML IVPB ONE (21:46)
[2020-12-23] MEDS ORDERED: CEFEPIME HCL 1 GM VIAL (RESTRICTED TO ID) ONE (21:46)
[2020-12-24] MEDS ORDERED: PT OWN MED DRAWER 7, Y5N ONE ×4 (05:52→21:11)
[2020-12-24] MEDS: BANATROL PLUS POWDER PACKET PEG SCH ×3 (06:09→21:15)
[2020-12-24] MEDS ORDERED: DEXTROSE 5%-WATER 100 ML IVPB ONE ×2 (10:00→21:12)
[2020-12-24] MEDS ORDERED: CEFEPIME HCL 1 GM VIAL (RESTRICTED TO ID) ONE ×2 (10:00→21:12)
[2020-12-24] MEDS: CEFEPIME 1 GM in DEXTROSE 5%-WATER 1 GM/50 ML BAG IVPB SCH ×2 (10:04→21:15)
[2020-12-24] MEDS: COLLAGENASE CLOSTRIDIUM HIST. 30 GRAMS TUBE TP SCH (12:00)
[2020-12-24] MEDS: ACETAMINOPHEN 650 MG/20.3 ML ORAL SOLUTION (CUPS) GT PRN (15:10)
[2020-12-24] MEDS: VANCOMYCIN 750 MG in DEXTROSE 5%-WATER - 250 ML IVPB SCH (17:03)
[2020-12-25] MEDS: BANATROL PLUS POWDER PACKET PEG SCH ×2 (05:04→14:24)
[2020-12-25] MEDS ORDERED: DEXTROSE 5%-WATER 100 ML IVPB ONE (09:05)
[2020-12-25] MEDS ORDERED: CEFEPIME HCL 1 GM VIAL (RESTRICTED TO ID) ONE (09:05)
[2020-12-25] MEDS: COLLAGENASE CLOSTRIDIUM HIST. 30 GRAMS TUBE TP SCH (09:10)
[2020-12-25] MEDS: CEFEPIME 1 GM in DEXTROSE 5%-WATER 1 GM/50 ML BAG IVPB SCH (09:10)
[2020-12-25 10:11] LABS: CALCIUM 8.9 mg/dL (8.5-10.1)
[2020-12-25 10:12] LABS: BLOOD UREA NITROGEN 19.3 mg/dL (7-18)
[2020-12-25 10:15] LABS: CREATININE 0.4 mg/dL (0.55-1.3)
[2020-12-25] MEDS ORDERED: SODIUM CHLORIDE 250 ML IV STA (10:35)
[2020-12-25] MEDS ORDERED: SODIUM CHLORIDE 1 GM TABLET PO SCH (10:45)
[2020-12-25] MEDS ORDERED: PT OWN MED DRAWER 7, Y5N ONE (17:01)
[2020-12-25] MEDS: VANCOMYCIN 750 MG in DEXTROSE 5%-WATER - 250 ML IVPB SCH (17:10)
[2020-12-25 19:00] VITALS: BP 134/69; PULSE 110; TEMP 98.8
== END 2020-12-25 19:23 | DRG 871 ==
LOC: JER 11:10 → JERBED 16:13 → J5S 18:53
PROVIDERS: ADMIT Family Medicine; ATTEND Family Medicine
PROC: 30233N1 Transfusion of Nonautologous Red Blood Cells into Peripheral Vein, Percutaneous Approach (ICD-10-PCS; principal; 2020-12-15)
DX: A41.89 Other specified sepsis (principal); L89.154 Pressure ulcer of sacral region, stage 4; L89.024 Pressure ulcer of left elbow, stage 4; R53.2 Functional quadriplegia; G93.41 Metabolic encephalopathy; E43 Unspecified severe protein-calorie malnutrition; N39.0 Urinary tract infection, site not specified; R64 Cachexia; Z68.1 Body mass index [BMI] 19.9 or less, adult; E87.1 Hypo-osmolality and hyponatremia; G30.9 Alzheimer's disease, unspecified; D72.829 Elevated white blood cell count, unspecified; F02.80 Dementia in other diseases classified elsewhere, unspecified severity, without behavioral disturbance, psychotic disturbance, mood disturbance, and anxiety; E78.5 Hyperlipidemia, unspecified; J44.9 Chronic obstructive pulmonary disease, unspecified; R62.7 Adult failure to thrive; B96.5 Pseudomonas (aeruginosa) (mallei) (pseudomallei) as the cause of diseases classified elsewhere; Z74.01 Bed confinement status; E87.5 Hyperkalemia; G20 Parkinson's disease; D64.9 Anemia, unspecified; L89.220 Pressure ulcer of left hip, unstageable; L89.210 Pressure ulcer of right hip, unstageable; R50.9 Fever, unspecified
CPT/HCPCS: 36415; 36430; 71045-TC-FY; 80048; 80053; 81003; 82272; 82436; 83605; 83935; 84300; 85025; 85027; 86850; 86900; 86901; 86922; 87040; 87086; 87186; 87804; 93005; 93010; 94010; 99285-25; C9803; P9058; Q2036; U0003; U0005

== ENCOUNTER 2021-06-24 12:22 | Emergency (ER) | payer OTHER ==
[2021-06-24 12:32] VITALS: TEMP 98.7; BMI 16.0
[2021-06-24] MEDS ORDERED: VANCOMYCIN 1 GM in D5W (PRE-DOCKED) 1,000 MG/250 ML IVPB ONE (13:19)
[2021-06-24] MEDS ORDERED: CEFEPIME HCL/D5W 2 GM/50 ML BAG IVPB ONE (13:20)
[2021-06-24] MEDS ORDERED: CEFEPIME HCL/D5W 1 GM/50 ML BAG IVPB ONE (13:20)
[2021-06-24] MEDS ORDERED: VANCOMYCIN 1 GRAM (PRE-DOCKED) 1,000 MG/250 ML BAG IVPB ONE (13:25)
[2021-06-24] MEDS ORDERED: CEFEPIME 2 GM/100 ML BAG IVPB ONE (13:25)
[2021-06-24] MEDS ORDERED: morphine CARPU-JECT 2 MG/1 ML DISP.SYRIN IVPUSH ONE (13:58)
[2021-06-24] MEDS ORDERED: SODIUM CHLORIDE 500 ML IV STA (14:00)
[2021-06-24] MEDS ORDERED: morphine SULFATE 4 MG/ML VIAL ONE (14:10)
[2021-06-24 14:36] LABS: BASO % 1.1 % (0-2.0); EOS % 0.3 % (0-4.5); HEMATOCRIT 31.9 % (32.4-45.2); HEMOGLOBIN 10.5 GM/dL (10.7-15.3); LYMPH % 10.5 % (8-40); MCH 26.2 pg (25.7-33.7); MEAN CELL VOLUME 79.3 fl (80-96); MEAN PLT VOLUME 7.6 fl (7.5-11.1); MONO % 5.7 % (3.8-10.2); NEUT % 82.4 % (42.8-82.8); PLATELET COUNT 555 10^3/uL (134-434); RBC 4.02 M/mm3 (3.60-5.2); RDW 16.1 % (11.6-15.6); WHITE BLOOD COUNT 12.3 K/mm3 (4.0-10.0)
[2021-06-24 14:43] LABS: INR 1.1 (0.83-1.09); PROTHROMBIN TIME (PATIENT) 13.6 SEC (9.7-13.0)
[2021-06-24 14:46] LABS: ACTIVATED PTT 27.6 SECONDS (25.2-36.5)
[2021-06-24 14:50] LABS: CHLORIDE 100 mmol/L (98-107); SODIUM 136 mmol/L (136-145)
[2021-06-24 14:54] LABS: ALBUMIN 2.2 g/dl (3.4-5.0); BLOOD UREA NITROGEN 15.9 mg/dL (7-18); CALCIUM 8.5 mg/dL (8.5-10.1)
[2021-06-24 14:55] LABS: ANION GAP 9 MMOL/L (8-16); CO2 26 mmol/L (21-32); GLUCOSE,RANDOM 98 mg/dL (74-106)
[2021-06-24 14:57] LABS: CREATININE 0.4 mg/dL (0.55-1.3); SGOT/AST 21 U/L (15-37); SGPT/ALT 15 U/L (13-61)
[2021-06-24 14:58] LABS: BILIRUBIN,TOTAL 0.3 mg/dL (0.2-1); TOT PROT 6.8 g/dl (6.4-8.2)
[2021-06-24 14:59] LABS: ALK PHOS 104 U/L (45-117)
[2021-06-25 00:12] VITALS: BP 116/60; PULSE 88
== END 2021-06-25 02:27 | disposition short-term general hospital (02) ==
LOC: JER 12:22
PROC: 3E03329 Introduction of Other Anti-infective into Peripheral Vein, Percutaneous Approach (ICD-10-PCS; principal; 2021-06-24)
PROC: 3E033NZ Introduction of Analgesics, Hypnotics, Sedatives into Peripheral Vein, Percutaneous Approach (ICD-10-PCS; 2021-06-24)
PROC: 3E03329 Introduction of Other Anti-infective into Peripheral Vein, Percutaneous Approach (ICD-10-PCS; 2021-06-24)
PROC: 3E0337Z Introduction of Electrolytic and Water Balance Substance into Peripheral Vein, Percutaneous Approach (ICD-10-PCS; 2021-06-24)
DX: T84.59XA Infection and inflammatory reaction due to other internal joint prosthesis, initial encounter (principal)
CPT/HCPCS: 36415; 71045-TC-FY; 73523-TC-FY; 80053; 84484; 85025; 85610; 85730; 86850; 86900; 86901; 87040; 87186; 93005; 93010; 99285-25; C9803; U0003; U0005